=== PATIENT | male | born 1960 | race Caucasian/White ===

== ENCOUNTER 2017-08-11 00:07 | Emergency (ER) | payer MEDICARE, OTHER, SELFPAY ==
[2017-08-11 00:08] VITALS: BP 131/86; PULSE 94; RESP 16; TEMP 36.5; O2SAT 98; BMI 27.9
--- NOTE | 2017-08-11 00:18 | ED.VISSUMM ---
- ER Visit Summary Date of Service: 08/11/17 Chief Complaint: [] Varicose vein History of Present Illness: The patient is a 57 M [] presents with concern for growing varicose vein by his left patella. Denies fevers. Denies warmth. Denies chest pain or shortness of breath. No other complaints at this time. Physical Examination: [] Left vein varicosity medial to the left patella. No overlying cellulitis, warmth, signs of infection. Normal range of motion of the left knee. Test Results: [] No testing was warranted for this benign presentation. Emergency Department Course and Treatment: [] Patient had a very benign presentation and was encouraged to follow-up with his primary care physician. This is extremely low risk for DVT and I do not feel any further evaluation is warranted. Treatment Plan: [] Follow-up up with PCP. Disposition: [] Discharge, stable. Impression: [] Varicose vein This note was generated with [employer] dictation software. It may contain incorrect words, spelling, and punctuation that were not noted in review of the chart prior to signing ED Disposition - Plan for ED Patient: Chief Complaint: Lower Extremity Injury Referrals: Manuela Damico DO [Primary Care Provider] -
--- NOTE | 2017-08-11 00:20 | ED.DEP ---
ED Disposition - Plan for ED Patient: Disposition: Home or Assisted Living Chief Complaint: Lower Extremity Injury Instructions: ED Veins Varicose Referrals: Manuela Damico DO [Primary Care Provider] -
[2017-08-11 00:29] VITALS: BP 131/86; PULSE 94; RESP 16; O2SAT 98
== END 2017-08-11 00:30 | disposition home or self-care (01) ==
LOC: ED 00:25
PROVIDERS: Emergency Provider Emergency Medicine; Family Provider Family Medicine; PCP Family Medicine
DX: I83.92 Asymptomatic varicose veins of left lower extremity (principal); I25.10 Atherosclerotic heart disease of native coronary artery without angina pectoris; Z79.02 Long term (current) use of antithrombotics/antiplatelets; Z79.82 Long term (current) use of aspirin; Z79.899 Other long term (current) drug therapy
CPT/HCPCS: 99282

== ENCOUNTER → 2017-10-25 13:51 | Outpatient (CLI) | payer MEDICARE, OTHER, SELFPAY ==
[2017-10-25 14:14] LABS: Absolute Lymphocyte Count 1.26 X10^3/ul (0.83-4.51); Absolute Neutrophil Count 4.4 X10^3/uL (2.0-7.7); Basophil# 0.03 X10^3/uL; Basophil% 0.5 % (0-1); Eosinophil# 0.14 X10^3/uL; Eosinophils% 2.1 % (0-5); Hematocrit 45.5 % (40-54); Hemoglobin 14.6 g/dl (13.0-16.5); Lymphocyte # 1.26 X10^3/ul (4.0); Lymphocyte % 19.1 % (19-41); Mean Corp Hgb Conc 32.1 g/gl (32-36); Mean Corpuscular Hgb 26.8 pg (27.0-32.0); Mean Corpuscular Volume 83.6 fL (80-94); Mean Platelet Vol. 10.3 fl (6.2-12.0); Monocyte# 0.73 X10^3/uL; Monocyte% 11.1 % (0-10); Neutrophil # 4.43 X10^3/uL (2.7-7.7); Platelet Count 193 K/mm3 (150-450); RBC Distribution Width CV 15.8 % (11.6-14.6); RBC Distribution Width SD 47.8 fl (35.1-43.9); Red Blood Count 5.44 M/mm3 (4.6-6.2); White Blood Count 6.6 K/mm3 (4.4-11.0)
[2017-10-25 14:15] LABS: POSITIVE COUNT NO; POSITIVE DIFFERENTIAL NO; POSITIVE MORPHOLOGY NO
[2017-10-25 14:30] LABS: ALB/GLOB Ratio 1.2 RATIO (0.9-2.4); AST(SGOT) 33 U/L (15-37); Alanine Aminotransfer ALT/SGPT 29 U/L (16-61); Albumin, Serum 3.8 g/dL (3.2-5.0); Alkaline Phosphatase 140 U/L (45-117); Anion Gap 6 (5-15); BUN 18 mg/dL (7-18); BUN/Creat Ratio 16.5 RATIO (10-20); Calcium,Total 9.2 mg/dL (8.5-10.1); Chloride 104 mmol/L (98-107); Creatinine, Serum 1.09 mg/dL (0.70-1.30); EST Glomerular Filtration Rate 74 mL/min (>60); Est Glom Filt Rate - Afr Amer 90 mL/min (>60); Globulin 3.1 g/dL (2.2-4.2); Glucose 164 mg/dL (74-106); Potassium 4.1 mmol/L (3.5-5.1); Protein, Total 6.9 g/dL (6.4-8.2); Sodium Level 139 mmol/L (136-145)
[2017-10-25 22:00] LABS: Xtra Tube EP Lab EXTRA TUBE
[2017-10-28 12:08] LABS: Immunoglobulin G 506 mg/dL (700-1600)
[2017-10-28 17:19] LABS: Immunoglobulin A < 5 mg/dL (90-386); Immunoglobulin M 73 mg/dL (20-172)
== END ==
PROVIDERS: Family Provider Family Medicine; PCP Family Medicine; Visit Provider Internal Medicine Medical Oncology
DX: C88.0 Waldenstrom macroglobulinemia (principal); D80.1 Nonfamilial hypogammaglobulinemia
CPT/HCPCS: 36415; 80053; 82784; 85025

== ENCOUNTER 2018-02-03 08:49 | Inpatient (IN) | payer MEDICARE, SELFPAY ==
[2018-02-03] VITALS (28 sets, daily range): BP systolic 107–161; BP diastolic 71–106; PULSE 57–76; RESP 13–18; TEMP 36.4–37; O2SAT 94–100; BMI 28.5; BMI 27.5
[2018-02-03 09:29] LABS: Absolute Lymphocyte Count 0.74 X10^3/ul (0.83-4.51); Absolute Neutrophil Count 3.7 X10^3/uL (2.0-7.7); Basophil# 0.02 X10^3/uL; Basophil% 0.4 % (0-1); Eosinophil# 0.09 X10^3/uL; Eosinophils% 1.8 % (0-5); Hematocrit 41.7 % (40-54); Hemoglobin 13.1 g/dl (13.0-16.5); Lymphocyte # 0.74 X10^3/ul (4.0); Lymphocyte % 14.7 % (19-41); Mean Corp Hgb Conc 31.4 g/gl (32-36); Mean Corpuscular Hgb 26.8 pg (27.0-32.0); Mean Corpuscular Volume 85.5 fL (80-94); Mean Platelet Vol. 10.2 fl (6.2-12.0); Monocyte% 9.9 % (0-10); Neutrophil # 3.69 X10^3/uL (2.7-7.7); Platelet Count 106 K/mm3 (150-450); RBC Distribution Width CV 15.7 % (11.6-14.6); RBC Distribution Width SD 48.8 fl (35.1-43.9); Red Blood Count 4.88 M/mm3 (4.6-6.2); White Blood Count 5.1 K/mm3 (4.4-11.0)
[2018-02-03 09:33] LABS: POSITIVE COUNT NO; POSITIVE DIFFERENTIAL NO; POSITIVE MORPHOLOGY NO
[2018-02-03] MEDS: 0.9% Normal Saline 1,000 ML 150 ML IV (09:37)
[2018-02-03 09:45] LABS: Anion Gap 7 (5-15); BUN 14 mg/dL (7-18); BUN/Creat Ratio 13.5 RATIO (10-20); Calcium,Total 8.6 mg/dL (8.5-10.1); Chloride 105 mmol/L (98-107); Creatinine, Serum 1.04 mg/dL (0.70-1.30); EST Glomerular Filtration Rate 78 mL/min (>60); Est Glom Filt Rate - Afr Amer 95 mL/min (>60); Estimated Creatinine Clearance 88.56 ml/min; Glucose 229 mg/dL (74-106); Potassium 4.1 mmol/L (3.5-5.1); Sodium Level 138 mmol/L (136-145)
--- NOTE | 2018-02-03 09:45 | ED.RN ---
trop 0.653 called from the lab. dr kapoor aware
--- NOTE | 2018-02-03 10:25 | ED.VISSUMM ---
- ER Visit Summary Date of Service: 02/03/18 Chief Complaint: [Chest pain] History of Present Illness: The patient is a 57 M [presents the emergency department complaint chest pain that started 2 hours ago. Patient states that he was at rest when the pain started. Patient described the pain as a tightness in his chest in the center. Patient also had some burning type discomfort. Patient denies any radiation of the pain. He denies nausea or vomiting. He denies diaphoresis. He denies shortness of breath. Patient does have a history of coronary artery disease with prior 5 vessel CABG and aortic valve replacement with a pig valve. Patient also with history of Hodgkin's lymphoma in remission. Patient has had prior history of a flutter.] Patient is currently pain-free. Physical Examination: [HEENT-PERRLA, EOMI. Cranial nerves II through XII grossly intact. TMs clear. Mucous membranes moist. No adenopathy. Cardiovascular-regular rate and rhythm without murmur or ectopy Lungs-clear to auscultation, chest wall stable without crepitus or subcu emphysema Abdomen-normoactive bowel sounds, soft, nontender, no rebound or rigidity, no peritoneal signs. Extremities-intact ?4, normal range of motion, normal pulses, atraumatic] Test Results: [EKG obtained on arrival showed a sinus rhythm with a ventricular rate of 67 bpm. Patient had nonspecific ST changes noted inferiorly and laterally which are new when compared with prior EKG from January 2017. CBC with differential obtained showed a white blood cell count of 5.1, hemoglobin 13, hematocrit 42, platelets 106. Chemistries unremarkable. Glucose was 229. Troponin was elevated 0.653. Chest x-ray showed nothing acute.] Emergency Department Course and Treatment: [Patient received aspirin in the emergency department. Case was discussed with cardiology on-call Dr. Abhi Go. I was asked not to start patient on any type of anticoagulation given that he may need to possibly be studied today or tomorrow.] Treatment Plan: [Patient will be admitted to hospitalist. Disposition: [Admit] Impression: [Chest pain Non-ST elevation NH] This note was generated with [employer] dictation software. It may contain incorrect words, spelling, and punctuation that were not noted in review of the chart prior to signing ED Disposition - Plan for ED Patient: Chief Complaint: Chest Pain Referrals: Manuela Damico DO [Primary Care Provider] -
--- NOTE | 2018-02-03 10:31 | NURSING ---
[facility]pper notified patient may transfer to PCU.
[2018-02-03] MEDS: Aspirin 81 MG TAB.CHEW 324 MG PO (10:35)
--- NOTE | 2018-02-03 12:43 | PCM.HP.STD ---
<Pranav Hernandez - Last Filed: 02/03/18 12:43> Problem List (1) NSTEMI (non-ST elevated myocardial infarction) Status: Acute (2) Macroglobulinemia of Waldenstrom Status: Chronic Comment: well controlled periodic IgG infusions (3) Nonfamilial hypogammaglobulinemia Status: Chronic (4) Hypertension Status: Chronic (5) Diabetes mellitus with neuropathy Status: Chronic (6) Status post aortic valve replacement with bioprosthetic valve Status: Chronic (7) Coronary artery disease Status: Chronic (8) Status post coronary artery bypass graft Status: Chronic (9) Hyperlipidemia Status: Chronic (10) Hodgkins lymphoma Status: Chronic (11) Atrial flutter Status: Chronic History of Present Illness Date of Admission: 02/03/18 Chief Complaint: Chest pain The patient is a 57 year old M with a hx of CAD, prior CABG x5, prior bioprosthetic AV, pt of Dr. Chaudhary, Hx paroxysmal A flutter, HTN, HLD, DMt2, hodgkins lymphoma, Waldenstrom macroglobulinemia and hypogammaglobulinemia pt of Dr. Schmitt on IVIG, who presents to the ER from oncology office for chest pain. He reported for his IVIG therapy, but told them he had chest pain that he states now has been going on for 2 hours - they sent him to the ER. He describes it as 7-8/10 tightness in his midsternal region. He denies radiation into the back, arms, or neck; he denies SOB, lightheadedness, dizziness, palpitations, nausea, or sweating. He denies that he had this prior to today. In the ER he had an EKG with nonspecific T wave changes, however he had a troponin that was significantly elevated. Dr. Go was contacted and plans to take the person for a cath 2/2 NSTEMI. Pt is agreeable. Pt received 4 baby aspirin and zero nitro so far. [] Past Medical History Past Medical History (Chronic Problems): Chronic Problems (Last Reviewed 01/06/18 @ 08:56 by Hemalatha Poole) Macroglobulinemia of Waldenstrom (Chronic) well controlled periodic IgG infusions Nonfamilial hypogammaglobulinemia (Chronic) Hypertension (Chronic) Poor hygiene (Chronic) Diabetes mellitus with neuropathy (Chronic) Tinea unguium (Chronic) Type 2 diabetes mellitus (Chronic) Status post aortic valve replacement with bioprosthetic valve (Chronic) Coronary artery disease (Chronic) Status post coronary artery bypass graft (Chronic) Hyperlipidemia (Chronic) Hodgkins lymphoma (Chronic) Atrial flutter (Chronic) Medical History: Medical History (Last Reviewed 01/06/18 @ 08:56 by Hemalatha Poole) Chronic bronchitis J42 Heart disease Hypoglobulinemia R77.1 Lymphoma C85.90 Skin cancer C44.90 Allergies adhesive tape Adverse Reaction (Intermediate, Verified 02/03/18 08:52) Rash Home Medications: Ambulatory Orders Medication Instructions Recorded Lisinopril [Zestril] 20 mg PO BID 01/27/15 Metoprolol Tartrate [Lopressor 50 mg PO BID 01/27/15 (beta yoselin)] Aspirin [Aspirin, Baby] 81 mg PO DAILY@0800 02/08/15 Atorvastatin Calcium [Lipitor] 80 mg PO QHS 02/08/15 Docusate Sodium [Colace Clear] 100 mg PO BID PRN 03/08/15 Clopidogrel Bisulfate [Plavix] 75 mg PO DAILY 09/18/15 Magnesium Oxide [Mag-Ox 400] 400 mg PO TID 03/18/16 Multivitamin [Daily Multiple 1 each PO DAILY 12/18/16 Vitamin] Nitroglycerin [Nitrostat] 0.4 mg SUBLINGUAL Q5M PRN 12/18/16 Metformin HCl [Glucophage] 1,000 mg PO BIDCM #60 tablet 02/17/17 Glipizide [Glipizide ER] 10 mg PO DAILY 02/03/18 Isosorbide Mononitrate [Isosorbide 60 mg PO DAILY 02/03/18 Mononitrate ER] Omeprazole 20 mg PO DAILY 02/03/18 Surgical History: Surgical History (Last Reviewed 01/06/18 @ 08:56 by Hemalatha Poole) H/O aortic valve replacement Z95.2 H/O foot surgery Z98.890 H/O myringotomy Z98.890 Hx of CABG Psychiatric History: No pertinent psych hx Lives: Alone Smoking Status: Never smoker Tobacco Use: Non-smoker Alcohol: None Drugs: None - *Family History Maternal Family History: Family History (Last Reviewed 01/06/18 @ 08:56 by Hemalatha Poole) Father Arthritis Brain cancer Lung cancer Hypertension Mother Arthritis Hypertension Cancer History Items: No pertinent history Paternal Family History: Family History (Last Reviewed 01/06/18 @ 08:56 by Hemalatha Poole) Father Arthritis Brain cancer Lung cancer Hypertension Mother Arthritis Hypertension Cancer History Items: Heart Disease Review of Systems Constitutional: Denies: Chills, Fever, Weight Change HEENT: Denies: Head Aches, Sinus Congestion, Sinus Drainage Cardiovascular: Reports: Chest Pain, Chest Tightness. Denies: Edema, Heaviness, Light Headedness, Orthopnea, Palpitations, Paroxysmal Noc. Dyspnea, Syncope Respiratory: Denies: Cough, Shortness of breath at rest, Sputum production Gastrointestinal: Denies: Abdominal Pain, Nausea, Vomiting Genitourinary: Denies: Dysuria Musculoskeletal: Denies: Joint Pain, Joint Tenderness Skin: Denies: Rash, Wounds Neurological: Denies: Numbness, Tingling, Focal weakness Psychiatric: Denies: Anxiety, Depression, Homicidal Ideations, Suicidal Ideations Hematologic/ Lymphatic: Denies: Easy Bruising, Easy Bleeding VTE Information - Inpt Only VTE Present on Admission: No VTE Mechan Device Prophylaxis: SCD's VTE Pharm Prophylaxis ordered?: No Patient Problems: Active and Suspected Problems (Last Reviewed 01/06/18 @ 08:56 by Hemalatha Poole) NSTEMI (non-ST elevated myocardial infarction) (Acute) - Physical Exam General: Alert, Oriented x3, Cooperative HEENT: Atraumatic, PERRLA, EOMI, Normocephalic Neck: Supple, No JVD, Negative Carotid Bruits Lungs: Clear to auscultation, Normal air movement Cardiovascular: Regular rate, No murmurs Abdomen: Bowel Sounds Present, Soft, Non Tender Extremities: No edema, Capillary Refill Less than 3 Seconds Skin: No rashes, No breakdown Musculoskeletal: No Tenderness to Palpation of Joints or Extremities Neurological: Cranial nerves II-XII grossly intact Psych/Mental Status: Normal Affect, Appropriate, Alert and oriented to time, place, person, mood and affect Vital Signs Temp Pulse Resp BP Pulse Ox 98.5 F 59 L 18 114/82 H 98 02/03/18 11:22 02/03/18 11:22 02/03/18 11:22 02/03/18 11:23 02/03/18 11:22 Oxygen Delivery Method Room Air Weight: 208 lb 8 oz Body Mass Index (BMI) 27.5 Laboratory Tests Past 24 Hrs 02/03/18 12:15 Troponin I Pending Assessment/Plan All Active Problems (Last Reviewed 01/06/18 @ 08:56 by Hemalatha Poole) NSTEMI (non-ST elevated myocardial infarction) (Acute) 1. Chest pain / NSTEMI - EKG with nonspecific T wave changes. Troponin elevated. Dr. Go to take pt for cath today. Continue asa, statin, plavix, imdur, lambert-i, lopressor. Pt of Dr. Chaudhary. 2. CAD with prior CABGx5 3. Hx Bioprosthetic AV. 4. Paroxysmal Aflutter - sinus rhythm. No on OAC. 5. DMt2 - elevated in ER, suspect poor control. SSI. Plan to hold orals, restart when appropriate, check A1C and adjust if needed given NSTEMI. 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 6. Hx Hodgkins, Macroglobulinemia of Waldenstrom, nonfamilial hypogammaglobulinemia - pt of Dr. Schmitt, missed IVIG today. Will need close f/u. 7. HTN - stable 8. HLD - statin DVT ppx: lovenox, start when appropriate given heart cath. This patient was seen by Pranav Hernandez PA-C under the supervision of Doctor Huan. <Jaden Pressley - Last Filed: 02/03/18 13:26> Problem List (1) NSTEMI (non-ST elevated myocardial infarction) Status: Acute History of Present Illness The patient is a 57 year old M presents with chest pain that occurred today. Last for about 2 hours. Presents to the emergency room where he initial troponin of 0.6 and went up to 2. After the the symptoms resolve, patient has had no recurrence. Patient denies any other institutional symptoms, such as diaphoresis, shortness of breath, nausea or vomiting. 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 DM2 (diabetes mellitus, type 2) E11.9 Diabetic neuropathy E11.40 Hodgkins lymphoma C81.90 Waldenstrom macroglobulinemia C88.0 HTN (hypertension) I10 Chronic bronchitis J42 Heart disease Hypoglobulinemia R77.1 Lymphoma C85.90 Skin cancer C44.90 Allergies adhesive tape Adverse Reaction (Intermediate, Verified 02/03/18 08:52) Rash Surgical History: Surgical History (Last Reviewed 02/03/18 @ 13:20 by Jaden Pressley DO) H/O aortic valve replacement Z95.2 H/O foot surgery Z98.890 H/O myringotomy Z98.890 Hx of CABG Psychiatric History: No pertinent psych hx Lives: Alone Smoking Status: Never smoker Tobacco Use: Non-smoker Alcohol: None Drugs: None - *Family History Maternal Family History: Family History (Last Reviewed 02/03/18 @ 13:21 by Jaden Pressley DO) Father Arthritis Brain cancer Lung cancer Hypertension Mother Arthritis Hypertension Cancer Paternal Family History: Family History (Last Reviewed 02/03/18 @ 13:21 by Jaden Pressley DO) Father Arthritis Brain cancer Lung cancer Hypertension Mother Arthritis Hypertension Cancer Review of Systems Constitutional: Denies: Chills, Fever, Weight Change HEENT: Denies: Head Aches, Sinus Congestion, Sinus Drainage Cardiovascular: Reports: Chest Pain, Chest Tightness. Denies: Edema, Heaviness, Light Headedness, Orthopnea, Palpitations, Paroxysmal Noc. Dyspnea, Syncope Respiratory: Denies: Cough, Shortness of breath at rest, Sputum production Gastrointestinal: Denies: Abdominal Pain, Nausea, Vomiting Genitourinary: Denies: Dysuria Musculoskeletal: Denies: Joint Pain, Joint Tenderness Skin: Denies: Rash, Wounds Neurological: Denies: Focal weakness, Numbness, Tingling Psychiatric: Denies: Anxiety, Depression, Homicidal Ideations, Suicidal Ideations Hematologic/ Lymphatic: Denies: Easy Bruising, Easy Bleeding Comment: All review of systems are negative except as mentioned in the history of present illness and the other review of systems. VTE Information - Inpt Only VTE Present on Admission: No VTE Mechan Device Prophylaxis: SCD's VTE Pharm Prophylaxis ordered?: No - Physical Exam General: Alert, Oriented x3, Cooperative HEENT: Atraumatic, PERRLA, EOMI, Normocephalic Neck: Supple, Negative Carotid Bruits Lungs: Clear to auscultation, Normal air movement, No rhonchi, No wheeze Cardiovascular: Regular rate, Regular Rhythm, Normal S1, Normal S2, No murmurs Abdomen: Bowel Sounds Present, Soft, Non Tender Extremities: No edema, Capillary Refill Less than 3 Seconds Skin: No rashes, No breakdown, - - upper chest radiation skin changes. Musculoskeletal: No Tenderness to Palpation of Joints or Extremities, No Muscle Wasting Neurological: Neuro grossly intact, Motor Exam 5/5 strength throughout, Muscle tone normal, Sensory exam intact to light touch and pain Psych/Mental Status: Normal Affect, Appropriate Vital Signs Temp Pulse Resp BP Pulse Ox 36.9 C 59 L 18 114/82 H 98 02/03/18 11:22 02/03/18 11:22 02/03/18 11:22 02/03/18 11:23 02/03/18 11:22 Oxygen Delivery Method Room Air Weight: 94.574 kg Body Mass Index (BMI) 27.5 Laboratory Tests Past 24 Hrs 02/03/18 12:15 Troponin I 2.080 H* Assessment/Plan Patient seen and examined independently. Data reviewed. I agree with the above note by the physician event marketing assistant. 1. Non-STEMI Troponins have gone up since his admission Cardiology consult Continue with aspirin, Plavix, high intensity statin, metoprolol and lisinopril Follow-up records from Dr. Rocha's office Cardiology advises emergency room to hold off on anticoagulation in light of impending left heart catheterization. 2. pAfib: stable continue metoprolol 3. DM2: hold metformin SSI 4. DVT proph: chemical proph, when ok'd by cards (unless going to be anticoagulated) Code Visit Inpatient E&M: 48953 Init Hosp L3
[2018-02-03] MEDS: Docusate Sodium 100 MG Capsule PO (13:02)
[2018-02-03] MEDS: Magnesium Oxide 400 MG Tablet PO ×2 (13:03→21:19)
[2018-02-03] MEDS: Magnesium Hydroxide 30 ML UDC PO (13:03)
--- NOTE | 2018-02-03 14:08 | PCM.CONS.C ---
Problem List (1) NSTEMI (non-ST elevated myocardial infarction) Status: Acute (2) Coronary artery disease Status: Chronic (3) Status post coronary artery bypass graft Status: Chronic (4) Status post aortic valve replacement with bioprosthetic valve Status: Chronic (5) Atrial flutter Status: Resolved (6) Hyperlipidemia Status: Chronic Qualifiers: (7) Hypertension Status: Chronic Qualifiers: (8) Type 2 diabetes mellitus Status: Chronic (9) Macroglobulinemia of Waldenstrom Status: Chronic Comment: well controlled periodic IgG infusions (10) Hodgkins lymphoma Status: Chronic Qualifiers: Reason for Consult Date of Consultation: 02/03/18 History of Present Illness: The patient is a 57 year old white male with a past cardiovascular history which is included underlying hyperlipidemia, hypertension, CAD, status post CABG previously reported to have been performed on 03/03/2008 with a MENDOZA to the LAD, and SVG to the diagonal branch, and SVG to the OM, and an SVG to the right PDA, status post aortic valve replacement with a report of a Rosalee-Ledbetter porcine bioprosthetic aortic valve, atrial flutter status post a synchronized biphasic DC cardioversion, superimposed upon diabetes mellitus, macroglobulinemia, and Hodgkin's lymphoma, who is now referred for recurrent symptoms of unstable angina pectoris and abnormal cardiac enzymes/ECG compatible with concerns of an acute non-ST segment elevation MN. He states he had chest discomfort which he described as gas-like discomfort earlier this day. He elected to present to the emergency department for this. He noted by the time he presented to emergency department he was feeling somewhat better. He denied any acute shortness of breath/dyspnea, nausea/emesis, or diaphoresis. He has denied any obvious orthopnea, PND, or peripheral pitting edema. There has been no report of near syncope or syncope. He was noted on cardiac enzyme to have an indeterminate troponin I level which subsequently turned positive. His ECG demonstrated sinus rhythm with ST and T-wave changes in the inferior and lateral distribution which were reported as new compared to a previous ECG. He has undergone previous transthoracic echocardiogram on 08/24/2015. At that time the left ventricle was thought to be normal with an LVEF of 65% with mild TR, a stable appearing bioprosthetic aortic valve with trivial AI, trivial OR, and an estimated RV systolic pressure of 33 mmHg. He has undergone previous cardiac catheterization at [facility] on 03/29/2014. Per the report the left ventricle was not performed secondary to not crossing the bioprosthetic aortic valve apparatus. The left main coronary artery is normal. The LAD demonstrated proximal occlusion with the mid to distal vessel filling from the MENDOZA graft with no angiographically significant appearing disease distal to the graft attachment. The LCx had a proximal occlusion. There were bridging collaterals to the mid segment followed by subsequent occlusion followed by bridging collaterals to the distal segment. OM1 had a proximal subtotal occlusion. The mid to distal LCx and OM1 and OM 2 filled faintly, lately, and only partially. OM1 also filled from an SVG graft and appeared to be a very small caliber vessel. The RCA was a large dominant vessel which was proximally subtotally occluded with the mid to distal vessel filling late and faintly and partially. The right PDA system filled from the SVG graft and was also a small caliber vessel. The MENDOZA to the LAD was patent. The SVG to the diagonal branch was proximally occluded. The SVG reported as a sequential graft to OM1 and OM 2 appeared to be patent with diffuse venous valves and status post detachment OM1 appear to be some subsequently occluded with the appearance of a filling defect potentially compatible with a thrombus. The SVG to the RCA system was patent with findings compatible with venous valves and was subsequently noted to fill the right PDA system which also appeared to be a small caliber vessel. The aortic valve demonstrated an aortic valve prosthetic ring in place. At that time the patient was continuing medical management. [] Past Medical History Allergies/Adverse Reactions: Allergies adhesive tape Adverse Reaction (Intermediate, Verified 02/03/18 08:52) Rash Home Medications: Ambulatory Orders Medication Instructions Recorded Lisinopril [Zestril] 20 mg PO BID 01/27/15 Metoprolol Tartrate [Lopressor 50 mg PO BID 01/27/15 (beta yoselin)] Aspirin [Aspirin, Baby] 81 mg PO DAILY@0800 02/08/15 Atorvastatin Calcium [Lipitor] 80 mg PO QHS 02/08/15 Docusate Sodium [Colace Clear] 100 mg PO BID PRN 03/08/15 Clopidogrel Bisulfate [Plavix] 75 mg PO DAILY 09/18/15 Magnesium Oxide [Mag-Ox 400] 400 mg PO TID 09/26/16 Multivitamin [Daily Multiple 1 each PO DAILY 12/18/16 Vitamin] Nitroglycerin [Nitrostat] 0.4 mg SUBLINGUAL Q5M PRN 12/18/16 Metformin HCl [Glucophage] 1,000 mg PO BIDCM #60 tablet 02/17/17 Glipizide [Glipizide ER] 10 mg PO DAILY 02/03/18 Isosorbide Mononitrate [Isosorbide 60 mg PO DAILY 02/03/18 Mononitrate ER] Omeprazole 20 mg PO DAILY 02/03/18 Past Medical History (Chronic Problems): Chronic Problems (Last Updated 02/03/18 @ 13:20 by Jaden Pressley DO) Hyperlipidemia (Chronic) Hypertension (Chronic) Macroglobulinemia of Waldenstrom (Chronic) well controlled periodic IgG infusions Hodgkins lymphoma (Chronic) Status post coronary artery bypass graft (Chronic) Coronary artery disease (Chronic) Status post aortic valve replacement with bioprosthetic valve (Chronic) Type 2 diabetes mellitus (Chronic) Tinea unguium (Chronic) Diabetes mellitus with neuropathy (Chronic) Poor hygiene (Chronic) Nonfamilial hypogammaglobulinemia (Chronic) Psychiatric History: No pertinent psych hx - *Family History Maternal Family History: Family History (Last Reviewed 02/03/18 @ 13:21 by Jaden Pressley DO) Father Arthritis Brain cancer Lung cancer Hypertension Mother Arthritis Hypertension Cancer History Items: No pertinent history Paternal Family History: Family History (Last Reviewed 02/03/18 @ 13:21 by Jaden Pressley DO) Father Arthritis Brain cancer Lung cancer Hypertension Mother Arthritis Hypertension Cancer History Items: Heart Disease Lives: Alone Smoking Status: Never smoker Tobacco Use: Non-smoker Alcohol: None Drugs: None Review of Systems - Review of Systems General: Denies: Fever, Night Sweats, Fatigue Cardiovascular: Reports: Chest Discomfort, Chest Discomfort at Rest. Denies: Shortness of Breath, Orthopnea, PND, Peripheral Edema, Palpitations, Lightheadedness, Dizziness, Near Syncope, Syncope Respiratory: Denies: Cough, Sputum Production, Hemoptysis Gastrointestinal: Denies: Hematemesis, Hematochezia, Melena Genitourinary: Denies: Dysuria, Hematuria Skin: Denies: Rash Subjectve: This is a 57-year-old white male who appears to be resting comfortably at the moment in no acute distress. Objective: Vital Signs Temp Pulse Resp BP Pulse Ox 98.5 F 59 L 18 114/82 H 98 02/03/18 11:22 02/03/18 11:22 02/03/18 11:22 02/03/18 11:23 02/03/18 11:22 Oxygen Delivery Method Room Air Weight: 208 lb 7.858 oz Body Mass Index (BMI) 27.5 General: Awake, Alert, Oriented x 3, Cooperative, No Acute Distress HEENT: Atraumatic, Normocephalic, PERRL, EOMI, Sclera Non Icteric Oral: Moist Mucosa Neck: Supple, Good ROM, No JVD Chest Wall: Midline Sternotomy Incision Lungs: Clear to auscultation Cardiovascular: Regular Rhythm, Normal S1, Normal S2 Murmur Murmur: Grade 3/6, Mid Systolic, LLSB, LVOT, Sternal Notch Vascular: Radiation of Murmur to Carotid Arteries Abdomen: Bowel Sounds Present, Soft, Non Tender Extremities: No Cyanosis, No Clubbing, No edema Neurological: No Focal Motor or Sensory Deficit 02/03/18 12:15: Troponin I 2.080 H* Rhythm: Sinus rhythm EKG: As noted above ECHO: As noted above Cardiac Cath: As noted above CT Surgery: Unavailable for review at this time CXR: Preliminary evaluation: Post open heart surgery changes: No acute cardiovascular disease process appreciated: Please see official report Assessment/Plan 1. Acute non-ST segment elevation MN The patient presents with symptoms, abnormal troponin I levels, and an abnormal ECG concerning for an acute non-ST segment elevation MN. At the present time the patient appears to be resting comfortably. He is continuing to be monitored. He is continuing medical management. It was felt the patient should be further evaluated based upon his previously documented cardiovascular history and current clinical scenario with diagnostic cardiac catheterization. The procedure and risks were discussed with him and the patient grants consent. 2. CAD status post CABG The patient has a history of previous CABG as described above. He has undergone noninvasive and invasive evaluation previously. He presents now with concerns of his acute non-ST segment elevation MN. He will continue medical management. He will undergo repeat diagnostic cardiac catheterization. 3. Aortic valve disease status post aortic valve replacement-bioprosthetic The exact etiology of the patient's previous aortic valve disease is unknown at this time. He did undergo a [id number]-Exyvvfijwz-Ledbetter aortic valve replacement in the past. This was assessed in 2016 with a transthoracic echocardiogram and was stable at that time. His aortic valve anatomy and physiology can be followed with echocardiographic studies. He will need to continue [employer] antibiotic prophylaxis as deemed appropriate. 4. Atrial flutter The patient has a history of atrial flutter. He underwent previous synchronized biphasic DC cardioversion on 06/05/2016. He is in sinus rhythm at the present time. He will continue medical management and follow-up. 5. Hyperlipidemia The patient will need to continue risk factor evaluation care as deemed appropriate. 6. Hypertension The patient will continue medical management as deemed appropriate. 7. Diabetes mellitus The patient will continue under the care of terminal medicine for his diabetes mellitus. 8. Macroglobulinemia The patient will need to continue to follow with hematology and oncology for his aforementioned issues. 9. Hodgkin's lymphoma Again the patient will continue to follow with hematology/oncology for his diagnosis of Hodgkin's lymphoma. Comment: The patient's case has been discussed and reviewed the patient and the [facility] emergency department staff. This note was generated with [employer] dictation software. It may contain incorrect words, spelling, and punctuation that were not noted in checking the note before signing.
--- NOTE | 2018-02-03 14:13 | NURSING ---
Called report to Ramona HICKMAN in labor relations director
[2018-02-03 14:16] LABS: Bedside Glucose 95 mg/dL (70-110)
--- NOTE | 2018-02-03 15:47 | NURSING ---
Called report to Yesy HICKMAN in ICU
[2018-02-03 16:15] LABS: ACT Activated Clotting Time 345 sec (74-137)
[2018-02-03 17:00] LABS: Bedside Glucose 96 mg/dL (70-110)
[2018-02-03] MEDS: 0.9% Normal Saline 1,000 ML 100 ML IV (20:28)
[2018-02-03] MEDS: Lisinopril 20 MG Tablet PO (21:19)
[2018-02-03] MEDS: Metoprolol Tartrate 50 MG Tablet PO (21:19)
[2018-02-03] MEDS: Atorvastatin Calcium 80 MG Tablet PO (21:20)
[2018-02-03 21:30] LABS: Bedside Glucose 144 mg/dL (70-110)
[2018-02-03] MEDS: oxyCODONE 5 MG Tablet PO (22:13)
[2018-02-04] VITALS (23 sets, daily range): BP systolic 100–139; BP diastolic 45–97; PULSE 56–73; RESP 13–19; TEMP 36.8–37.3; O2SAT 94–99
[2018-02-04 04:27] LABS: Hematocrit 38.7 % (40-54); Hemoglobin 12.4 g/dl (13.0-16.5); Mean Corpuscular Hgb 27.4 pg (27.0-32.0); Mean Corpuscular Volume 85.4 fL (80-94); Mean Platelet Vol. 10.5 fl (6.2-12.0); Platelet Count 110 K/mm3 (150-450); RBC Distribution Width CV 15.7 % (11.6-14.6); RBC Distribution Width SD 48.3 fl (35.1-43.9); Red Blood Count 4.53 M/mm3 (4.6-6.2); Scan Indicated on CBC? Y/N NO; White Blood Count 4.7 K/mm3 (4.4-11.0)
[2018-02-04 05:08] LABS: ALB/GLOB Ratio 1.1 RATIO (0.9-2.4); AST(SGOT) 36 U/L (15-37); Alanine Aminotransfer ALT/SGPT 19 U/L (16-61); Albumin, Serum 3.1 g/dL (3.2-5.0); Alkaline Phosphatase 90 U/L (45-117); Anion Gap 5 (5-15); BUN 11 mg/dL (7-18); BUN/Creat Ratio 13.5 RATIO (10-20); Calcium,Total 8.1 mg/dL (8.5-10.1); Chloride 108 mmol/L (98-107); Cholesterol 114 mg/dL (200); Creatinine, Serum 0.82 mg/dL (0.70-1.30); EST Glomerular Filtration Rate 103 mL/min (>60); Est Glom Filt Rate - Afr Amer 125 mL/min (>60); Estimated Creatinine Clearance 112.33 ml/min; Globulin 2.7 g/dL (2.2-4.2); Glucose 260 mg/dL (74-106); High Density Lipoprotein 29 mg/dL; Potassium 4.4 mmol/L (3.5-5.1); Protein, Total 5.8 g/dL (6.4-8.2); Sodium Level 141 mmol/L (136-145); Triglycerides 258 mg/dL; Very Low Density Lipoprotein 52 mg/dL (5-40)
[2018-02-04] MEDS: 0.9% NaCl Peripheral Flush Adult/Peds IV (05:21)
[2018-02-04] MEDS: Magnesium Oxide 400 MG Tablet PO ×3 (05:21→21:30)
[2018-02-04 07:20] LABS: Bedside Glucose 175 mg/dL (70-110)
--- NOTE | 2018-02-04 07:26 | PCM.PN.HOSP ---
Patient Problems: Active and Suspected Problems (Last Updated 02/03/18 @ 13:20 by Jaden Pressley DO) NSTEMI (non-ST elevated myocardial infarction) (Acute) NSTEMI (non-ST elevated myocardial infarction) (Acute) Subjective: Patient was seen and examined. No acute events overnight except for slight oozing at the right groin site. Been up and about in the room. Denies any chest pain or dizziness or palpitations Telemetry shows no acute events overnight. Vitals/I&O's: Vital Signs Temp Pulse Resp BP Pulse Ox 99.1 F 61 17 121/76 H 96 02/04/18 04:00 02/04/18 07:00 02/04/18 07:00 02/04/18 07:00 02/04/18 07:00 Oxygen Flow Rate (L/min) 2 Oxygen Delivery Method Room Air Weight: 96.4 kg Body Mass Index (BMI) 27.5 Intake and Output for Last 24 Hours 02/02/18 02/03/18 02/04/18 23:59 23:59 23:59 Intake Total 1443 / 1443 867 / 867 Output Total 600 / 600 300 / 300 Balance 843 / 843 567 / 567 General: Alert, Oriented x3, Cooperative, No apparent distress HEENT: Atraumatic, PERRLA, EOMI, Normocephalic Oral: Moist Mucosa Neck: Supple Lungs: Clear to auscultation, Normal air movement Cardiovascular: Regular rate, Regular Rhythm, Normal S1, Normal S2, Murmur - 3/6 holosystolic murmur Abdomen: Bowel Sounds Present, Soft, Non Tender, - - Right groin is soft, nontender, dressing over is dry and clean. Extremities: No edema, - - Right plantar callus, with no surrounding cellulitis or ulcer Skin: No rashes, No breakdown Musculoskeletal: No Tenderness to Palpation of Joints or Extremities Neurological: Cranial nerves II-XII grossly intact Psych/Mental Status: Normal Affect, Appropriate Laboratory Results 02/03/18 12:15: Troponin I 2.080 H* 02/03/18 14:10: POC Glucose 95 02/03/18 15:49: Activated Clotting Time 345 H 02/03/18 16:53: POC Glucose 96 02/03/18 16:55: Troponin I 7.170 H* 02/03/18 21:25: POC Glucose 144 H 02/04/18 04:10: WBC 4.7, RBC 4.53 L, Hgb 12.4 L, Hct 38.7 L, MCV 85.4, MCH 27.4, MCHC 32.0, RDW 15.7 H, RDW Differential 48.3 H, Plt Count 110 L, MPV 10.5 02/04/18 04:10: Sodium 141, Potassium 4.4, Chloride 108 H, Carbon Dioxide 28.0, Anion Gap 5, BUN 11, Creatinine 0.82, Estim Creat Clear Calc 112.33, Est GFR (MDRD) Af Amer 125, Est GFR (MDRD) Non-Af 103, BUN/Creatinine Ratio 13.5, Glucose 260 H, Calcium 8.1 L, Total Bilirubin 0.30, AST 36, ALT 19, Alkaline Phosphatase 90, Total Protein 5.8 L, Albumin 3.1 L, Globulin 2.7, Albumin/Globulin Ratio 1.1, Triglycerides 258 H, Cholesterol 114, LDL Cholesterol 33, VLDL Cholesterol 52 H, HDL Cholesterol 29 L 02/04/18 07:15: POC Glucose 175 H Current Medications Acetaminophen (Tylenol) 650 mg PO Q6H PRN PRN PRN Reason: Mild Pain (1-3)/Temp > 100.7 F Aspirin (Aspirin, Baby) 81 mg PO DAILY@0800 [facility] Atorvastatin Calcium (Lipitor) 80 mg PO QHS [facility] Last Admin: 02/03/18 21:20 Dose: 80 mg Atropine Sulfate () 0.5 mg IV UD PRN PRN Reason: HR <50 bpm Clopidogrel Bisulfate (Plavix) 75 mg PO DAILY [facility] Docusate Sodium (Colace) 100 mg PO BID PRN PRN Reason: CONSTIPATION Last Admin: 02/03/18 13:02 Dose: 100 mg Enoxaparin Sodium (Lovenox) 40 mg SC DAILY@1000 [facility] Sodium Chloride () 250 mls @ 15 mls/hr IV .[id number] PRN PRN Reason: SALINE FLUSH Sodium Chloride () 250 mls @ 15 mls/hr IV .[id number] PRN PRN Reason: SALINE FLUSH Insulin Human Lispro (Humalog Kwikpen (Bkc)) 0 unit SC ACHS [facility] PRN Reason: Protocol Last Admin: 02/03/18 21:26 Dose: Not Given Isosorbide Mononitrate (Imdur) 60 mg PO DAILY [facility] Lisinopril (Zestril) 20 mg PO BID [facility] Last Admin: 02/03/18 21:19 Dose: 20 mg Magnesium Hydroxide (Milk Of Magnesia) 30 ml PO DAILY PRN PRN Reason: Constipation Last Admin: 02/03/18 13:03 Dose: 30 ml Magnesium Oxide (Mag-Ox 400) 400 mg PO TID [facility] Last Admin: 02/04/18 05:21 Dose: 400 mg Metoprolol Tartrate (Lopressor (Beta Mia)) 50 mg PO BID [facility] Last Admin: 02/03/18 21:19 Dose: 50 mg Morphine Sulfate () 2 - 4 mg IV Q4H PRN PRN PRN Reason: MOD-SEVERE PAIN (4-10/10) Morphine Sulfate () 2 - 4 mg IV Q4H PRN PRN PRN Reason: MOD-SEVERE PAIN (4-10/10) Multivitamins (Multivitamin) 1 tablet PO DAILY@0800 [facility] Nitroglycerin (Nitrostat) 0.4 mg SUBLINGUAL Q5M PRN PRN Reason: Chest Pain Ondansetron HCl (Zofran) 4 mg IV Q8H PRN PRN PRN Reason: NAUSEA Oxycodone HCl (Oxyir) 5 - 10 mg PO Q4H PRN PRN PRN Reason: MOD-SEVERE PAIN (4-10/10) Last Admin: 02/03/18 22:13 Dose: 5 mg Pantoprazole Sodium (Protonix) 40 mg PO DAILY [facility] Sodium Chloride () 500 ml IV BOLUS PRN PRN Reason: VASO-VAGAL PROTOCOL Sodium Chloride () 5 - 30 ml IV UD PRN PRN Reason: SALINE FLUSH Last Admin: 02/04/18 05:21 Dose: 10 ml Medical Necessity - Tobacco Use Smoking Status: Never smoker Tobacco Use: Non-smoker Assessment/Plan All Active Problems (Last Updated 02/03/18 @ 13:20 by Jaden Pressley DO) Atrial flutter (Resolved) NSTEMI (non-ST elevated myocardial infarction) (Acute) NSTEMI (non-ST elevated myocardial infarction) (Acute) 57-year-old male with past medical history of CAD status post CABG ?5, status post bioprosthetic aortic valve, history of paroxysmal atrial flutter, hypertension, hyperlipidemia, type II DM, on metformin, Hodgkin's lymphoma, Waldenstr?m's macroglobulinemia and hypogammaglobulinemia, follows up with hematology who was admitted on 02/03/2018 with chest pain, abnormal EKG and elevated troponins. Patient underwent emergent cardiac cath which showed 99% stenosis in the SVG to RPDA, status post JOSE G. 1. Acute NSTEMI, cardiac cath showed 99% stenosis in the SVG to RPDA, status post JOSE G, on aspirin, Plavix, atorvastatin, isosorbide, metoprolol, lisinopril 2. Type II DM, complicated with neuropathy, blood sugars are uncontrolled, previous HbA1c was 11.4, patient is on metformin, will recheck HbA1c, continue on insulin sliding scale for now. Discussed with patient that he may need insulin if HbA1c is above 9, patient is reluctant to be started on insulin. He states that he was on insulin before. He prefers being managed with oral medications. 3. Hypertension, controlled, no lisinopril 4. Hyperlipidemia, lipid profile this morning showed triglycerides 259, total cholesterol 1 4, LDL 33, HDL 29, continue on the same statin. 5. History of paroxysmal atrial flutter, in normal sinus rhythm 6. Waldenstrom macroglobulinemia, nonfamilial hypogammaglobulinemia, follows up in the outpatient with hematology 7. DVT prophylaxis with Lovenox subcu Code Visit Inpatient E&M: [id number] Subs Hosp L2
[2018-02-04] MEDS: Aspirin 81 MG TAB.CHEW PO (08:00)
[2018-02-04] MEDS: Multivitamins,Therapeutic Tablet 1 TABLET PO (08:00)
[2018-02-04] MEDS: Insulin Lispro 100 UNIT/ML INSULN.PEN SC ×4 (08:01→21:29)
[2018-02-04] MEDS: Clopidogrel Bisulfate 75 MG Tablet PO (08:07)
[2018-02-04] MEDS: Isosorbide Mononitrate 60 MG Tablet PO (08:07)
[2018-02-04] MEDS: Pantoprazole Sodium 40 MG Tablet PO (08:07)
[2018-02-04] MEDS: Lisinopril 20 MG Tablet PO ×2 (08:08→21:30)
[2018-02-04 08:52] LABS: Hemoglobin A1c 7.3 % (4.2-6.3)
--- NOTE | 2018-02-04 08:59 | NURSING ---
wound photo: right plantar foot
[2018-02-04] MEDS: Metoprolol Tartrate 50 MG Tablet PO ×2 (09:02→21:30)
--- NOTE | 2018-02-04 10:50 | CASEMGMT ---
SEE MARYLOU MEREDITH Assess Link: D/C PLAN: HOME Intro role to MARYLOU MEREDITH. Pt resting in bed. Awake/alert/oriented. Pt agreeable with participating in assessment and able to answer all questions appropriately. Pt states lives @ home alone and is independent in all ADL's and home management tasks, stating he mows his own lawn and still drives. Pt stated if he would need, he could call a cab to assist with transportation if he was unable to drive. Pt states does not have anyone to drive him home from the hospital after he is discharged. Pt stated he drove himself to the hospital yesterday and wishes to drive himself home upon discharge. Pt made aware that protocol is to not drive for at least 48 hrs after Stents placed and offered for [facility] Van to transport pt home upon discharge. Pt stated he does not want to leave his van @ the hospital, as he has things in his van he doesn't want to go home without. Pt further stated that he has a rifle in his van and doesn't want to go home without it. Reinforced with pt that protocol is to not drive for 48 hrs after stents placed but that it is his right to make his own decisions as to follow physicians orders or not. Pt's RN, Diamond, informed that pt is aware he is not supposed to drive if he would be discharged today, that he was offered free transportation home via [facility] van, but that pt states he still wishes to drive home upon discharge. Pt states his brother, Rubén, is his medical POA but that he lives in [place]. Pt states he talks with his brother at times for advice, but otherwise manages all of his finances on his own. Pt states lives in a one-story [place] home that has a basement that he rarely goes down to. Pt reports he has a glucometer @ home and checks his own blood sugars twice a day. Pt reports he purchased his glucometer @ [email or web address] and was not aware of the need to do routine control checks on his machine. MARYLOU MEREDITH encouraged pt to take the glucometer into [email or web address] and ask them for assistance/show him how to do routine control levels. Pt stated he would do this and thanked MARYLOU MEREDITH for letting him know about this. Discussed [facility] with patient. Pt states he did use their services in the past but no longer sees them and is not interested or feel the need to have them provide services at this time. Pt states does have some Group Home Paperwork with him and has some questions about these. Informed pt SW could come talk with him about these and pt voiced appreciation. Referral made to SW. VIRI Lorenzana to follow for discharge planning needs that may arise. Lloyd ROSAN RN CM
[2018-02-04 13:16] LABS: Bedside Glucose 264 mg/dL (70-110)
[2018-02-04 13:16] LABS: Bedside Glucose 254 mg/dL (70-110)
--- NOTE | 2018-02-04 14:42 | CASEMGMT ---
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 SW spoke w/pt, reviewed the paperwork. SW explained that to this SW, it seems to be an explanation of how much money pt would get monthly based on when he retires. SW encouraged pt to call HR however to review and make sure this SW has the correct understanding. Pt will follow up accordingly. No further social service needs are anticipated at this time. ALEJANDRA Potter, BACK END DEVELOPER
[2018-02-04 16:41] LABS: Bedside Glucose 219 mg/dL (70-110)
--- NOTE | 2018-02-04 18:24 | PCM.PN.CARD ---
Subjectve: The patient states he feels better. He denies any ongoing chest discomfort nor has he had any worsening shortness of breath or dyspnea. There has been no near syncope or syncope. Objective: Vital Signs Temp Pulse Resp BP Pulse Ox 98.4 F 65 18 128/78 H 99 02/04/18 16:36 02/04/18 16:36 02/04/18 16:36 02/04/18 16:36 02/04/18 16:36 Oxygen Flow Rate (L/min) 2 Oxygen Delivery Method Room Air Weight: 212 lb 8.41 oz Body Mass Index (BMI) 27.5 Intake and Output for Last 24 Hours 02/02/18 02/03/18 02/04/18 23:59 23:59 23:59 Intake Total 1443 / 1443 1547 / 1547 Output Total 600 / 600 300 / 300 Balance 843 / 843 1247 / 1247 General: Awake, Alert, Oriented x 3, No Acute Distress Neck: No JVD Lungs: Clear to auscultation Cardiovascular: Regular Rhythm, Normal S1, Normal S2 Murmur Murmur: Grade 3/6, Mid Systolic, LLSB, LVOT, Sternal Notch Vascular: Normal Femoral Pulses Abdomen: Bowel Sounds Present, Soft, Non Tender Extremities: No edema 02/04/18 04:10: WBC 4.7, RBC 4.53 L, Hgb 12.4 L, Hct 38.7 L, MCV 85.4, MCH 27.4, MCHC 32.0, RDW 15.7 H, RDW Differential 48.3 H, Plt Count 110 L, MPV 10.5 02/04/18 04:10: Sodium 141, Potassium 4.4, Chloride 108 H, Carbon Dioxide 28.0, Anion Gap 5, BUN 11, Creatinine 0.82, Est GFR (MDRD) Af Amer 125, Est GFR (MDRD) Non-Af 103, BUN/Creatinine Ratio 13.5, Glucose 260 H, Calcium 8.1 L, Total Bilirubin 0.30, Triglycerides 258 H, Cholesterol 114, LDL Cholesterol 33, VLDL Cholesterol 52 H, HDL Cholesterol 29 L 02/04/18 04:10: Hemoglobin A1c 7.3 H 02/04/18 04:10: Troponin I 4.470 H* Rhythm: Sinus rhythm EKG: Sinus rhythm; ST and T-wave changes compatible with myocardial ischemia-inferolateral ECHO: 02/04/2018: Interpretation Summary Segmental dysfunction with preserved ejection fraction (see wall motion). The estimated ejection fraction is 60 %. Mild concentric left ventricular hypertrophy. The left atrium is mildly enlarged. Anterior leaflet diffuse mitral valve thickening. Mild (1+) mitral valve insufficiency. Trivial tricuspid valve insufficiency. Stable appearing bioprosthetic aortic valve apparatus. Trivial aortic valve insufficiency. Mild (1+) pulmonic valve insufficiency. There is evidence of diastolic dysfunction. Medical Necessity - Tobacco Use Smoking Status: Never smoker Tobacco Use: Non-smoker Assessment/Plan 1. Acute non-ST segment elevation VT The patient presents with symptoms, abnormal troponin I levels, and an abnormal ECG concerning for an acute non-ST segment elevation VT. At the present time the patient appears to be resting comfortably. He is continuing to be monitored. He is continuing medical management. He has undergone further evaluation with diagnostic cardiac catheterization. This led to the finding of significant SVG disease to the RCA. This led to a PCI of the SVG. 2. CAD status post CABG The patient has a history of previous CABG as described above. He has undergone noninvasive and invasive evaluation previously. He presents now with concerns of his acute non-ST segment elevation VT. He has undergone reevaluation with diagnostic cardiac catheterization leading to a PCI of the SVG to the RCA. His troponin I levels are decreasing. His echocardiogram is as noted above. He will continue medical management with adjustment as deemed appropriate. 3. Aortic valve disease status post aortic valve replacement-bioprosthetic The exact etiology of the patient's previous aortic valve disease is unknown at this time. He did undergo a iedbnzyjrqwui-itvrexr-Cffjfulnhf-Ledbetter aortic valve replacement in the past. This was assessed in 2016 with a transthoracic echocardiogram and was stable at that time. He is aortic valve apparatus appears to be stable based upon the echocardiographic studies. 4. Atrial flutter The patient has a history of atrial flutter. He underwent previous synchronized biphasic DC cardioversion on 06/05/2016. He is in sinus rhythm at the present time. He will continue medical management and follow-up. 5. Hyperlipidemia The patient will need to continue risk factor evaluation care as deemed appropriate. 6. Hypertension The patient will continue medical management as deemed appropriate. 7. Diabetes mellitus The patient will continue under the care of terminal medicine for his diabetes mellitus. 8. Macroglobulinemia The patient will need to continue to follow with hematology and oncology for his aforementioned issues. 9. Hodgkin's lymphoma Again the patient will continue to follow with hematology/oncology for his diagnosis of Hodgkin's lymphoma. Comment: The patient's case has been discussed and reviewed the patient and the [facility] staff. This note was generated with [employer] dictation software. It may contain incorrect words, spelling, and punctuation that were not noted in checking the note before signing.
[2018-02-04] MEDS: Atorvastatin Calcium 80 MG Tablet PO (21:30)
[2018-02-04 22:31] LABS: Bedside Glucose 210 mg/dL (70-110)
[2018-02-05] VITALS (9 sets, daily range): BP systolic 107–121; BP diastolic 61–74; PULSE 61–64; RESP 16–18; TEMP 36.4–36.8; O2SAT 96–98
[2018-02-05] MEDS: Magnesium Oxide 400 MG Tablet PO ×2 (05:35→15:03)
[2018-02-05 06:36] LABS: Anion Gap 6 (5-15); BUN 11 mg/dL (7-18); BUN/Creat Ratio 13.8 RATIO (10-20); Calcium,Total 8.6 mg/dL (8.5-10.1); Chloride 107 mmol/L (98-107); EST Glomerular Filtration Rate 106 mL/min (>60); Est Glom Filt Rate - Afr Amer 128 mL/min (>60); Estimated Creatinine Clearance 115.13 ml/min; Glucose 201 mg/dL (74-106); Potassium 4.2 mmol/L (3.5-5.1); Sodium Level 140 mmol/L (136-145)
[2018-02-05] MEDS: Multivitamins,Therapeutic Tablet 1 TABLET PO (09:48)
[2018-02-05] MEDS: Pantoprazole Sodium 40 MG Tablet PO (09:48)
[2018-02-05] MEDS: Metoprolol Tartrate 50 MG Tablet PO (09:48)
[2018-02-05] MEDS: Insulin Lispro 100 UNIT/ML INSULN.PEN SC ×2 (09:48→12:02)
[2018-02-05] MEDS: Enoxaparin 40 MG/0.4 ML Syringe SC (09:48)
[2018-02-05] MEDS: Lisinopril 20 MG Tablet PO (09:48)
[2018-02-05] MEDS: Clopidogrel Bisulfate 75 MG Tablet PO (09:48)
[2018-02-05] MEDS: Isosorbide Mononitrate 60 MG Tablet PO (09:48)
[2018-02-05] MEDS: Aspirin 81 MG TAB.CHEW PO (09:48)
--- NOTE | 2018-02-05 10:17 | PCM.DC ---
- Discharge Diagnoses Current Active Problems: Current Active and Chronic Problems (Last Updated 02/03/18 @ 13:20 by Jaden Pressley DO) NSTEMI (non-ST elevated myocardial infarction) (Acute) NSTEMI (non-ST elevated myocardial infarction) (Acute) Reason(s) for Visit for Discharge Instructions: Chest pain You will use the following diet at home:: Calorie/Carbohydrate Controlled (specify 1200, 1400, etc), Cardiac Your food should be the consistency of: Regular Your liquids should be the consistency of: Regular/Thin Discharge Activity: Return to Normal Activity Call your doctor if you observe: Shortness of breath, Dizziness, Chest pain Additional Instructions: Continue to take all your medications as prescribed. Follow-up with your hospice executive director and PCP within 2 weeks. Continue to remain active. Follow-up with cardiac rehab as scheduled. Allergies/Adverse Reactions: Allergies adhesive tape Adverse Reaction (Intermediate, Verified 02/03/18 08:52) Rash Medications to take at Discharge Metoprolol Tartrate [Lopressor (beta yoselin)] 50 mg PO BID 01/27/15 Docusate Sodium [Colace Clear] 100 mg PO BID PRN 03/08/15 Magnesium Oxide [Mag-Ox 400] 400 mg PO TID 03/18/16 Multivitamin [Daily Multiple Vitamin] 1 each PO DAILY 12/18/16 Nitroglycerin [Nitrostat] 0.4 mg SUBLINGUAL Q5M PRN 12/18/16 Metformin HCl [Glucophage] 1,000 mg PO BIDCM #60 tablet 02/17/17 Glipizide [Glipizide ER] 10 mg PO DAILY 02/03/18 Omeprazole 20 mg PO DAILY 02/03/18 Aspirin [Aspirin, Baby] 81 mg PO DAILY@0800 #30 tab.chew 02/05/18 Atorvastatin Calcium [Lipitor] 80 mg PO QHS #30 tab 02/05/18 Clopidogrel Bisulfate [Plavix] 75 mg PO DAILY #30 tab 02/05/18 Isosorbide Mononitrate [Isosorbide Mononitrate ER] 60 mg PO DAILY #30 tab.er.24h 02/05/18 Lisinopril [Zestril] 20 mg PO BID #60 tab 02/05/18 The following prescriptions were given: Aspirin [Aspirin, Baby] 81 mg PO DAILY@0800 #30 tab.chew Atorvastatin Calcium [Lipitor] 80 mg PO QHS #30 tab Clopidogrel Bisulfate [Plavix] 75 mg PO DAILY #30 tab Isosorbide Mononitrate [Isosorbide Mononitrate ER] 60 mg PO DAILY #30 tab.er.24h Lisinopril [Zestril] 20 mg PO BID #60 tab Primary Care Physician: Manuela Damico DO [Primary Care Provider] - Please follow up with your Primary Care Physician in: within 2 weeks Test Results: Test results from this visit will be discussed in further detail at your follow-up appointment, if applicable. Please Follow Up With: Abhi Go MD When: within 2 weeks When: Cardiac rehab as scheduled Proposed Discharge Date: 02/05/18
--- NOTE | 2018-02-05 10:19 | PCM.DC.SUM ---
Discharge Date and Diagnosis Date of Admission: 02/03/18 Date of Discharge: 02/05/18 - Primary Discharge Diagnosis Active and Suspected Problems (Last Updated 02/03/18 @ 13:20 by Jaden Pressley DO) NSTEMI (non-ST elevated myocardial infarction) (Acute) Hyperglycemia, in a type 2 DM patient - Secondary Discharge Diagnosis Chronic Problems (Last Updated 02/03/18 @ 13:20 by Jaden Pressley DO) Hyperlipidemia (Chronic) Hypertension (Chronic) Macroglobulinemia of Waldenstrom (Chronic) well controlled periodic IgG infusions Hodgkins lymphoma (Chronic) Status post coronary artery bypass graft (Chronic) Coronary artery disease (Chronic) Status post aortic valve replacement with bioprosthetic valve (Chronic) Type 2 diabetes mellitus (Chronic) Tinea unguium (Chronic) Diabetes mellitus with neuropathy (Chronic) Poor hygiene (Chronic) Nonfamilial hypogammaglobulinemia (Chronic) Hospital Course and Treatment Imaging Results: Clinical Impression(s) from Imaging Studies Chest X-Ray 02/03/18 09:35 IMPRESSION: No acute cardiopulmonary disease Electronically Signed: Newton Yang DO at 10:12 EDT Tel , Service support , Consultations 02/03/18 11:26 Consult: Onc/Wound/line server Routine Comment: bottom of right foot Operations: None Procedures: None Summary of Care Provided: 57-year-old male with past medical history of CAD status post CABG ?5, status post bioprosthetic aortic valve, history of paroxysmal atrial flutter, hypertension, hyperlipidemia, type II DM, on metformin, Hodgkin's lymphoma, Waldenstr?m's macroglobulinemia and hypogammaglobulinemia, who follows up with hematology was admitted on 02/03/2018 with chest pain, abnormal EKG and elevated troponins. Patient underwent emergent cardiac cath which showed 99% stenosis in the SVG to RPDA, status post JOSE G. 1. Acute NSTEMI, cardiac cath showed 99% stenosis in the SVG to RPDA, status post JOSE G, on aspirin, Plavix, atorvastatin, isosorbide, metoprolol, lisinopril 2. Type II DM, complicated with neuropathy, blood sugars were uncontrolled in this admission, recent HbA1c is 7.3, he is on metformin. This was held in this admission. Managed on insulin sliding scale. 3. Hypertension, controlled, on lisinopril 4. Hyperlipidemia, lipid profile showed triglycerides 259, total cholesterol 1 4, LDL 33, HDL 29, on statin. 5. History of paroxysmal atrial flutter, in normal sinus rhythm 6. Waldenstrom macroglobulinemia, nonfamilial hypogammaglobulinemia, follows up in the outpatient with hematology Discharge Diet: Low fat/ Low Cholesterol, 2000 mg Sodium Diet, Carb Control Diet Discharge Activity: Return to Normal Activity Call your doctor if you observe: Shortness of breath, Dizziness, Chest pain Home Medications: Medications to take at Discharge Metoprolol Tartrate [Lopressor (beta mia)] 50 mg PO BID 01/27/15 Docusate Sodium [Colace Clear] 100 mg PO BID PRN 03/08/15 Magnesium Oxide [Mag-Ox 400] 400 mg PO TID 03/18/16 Multivitamin [Daily Multiple Vitamin] 1 each PO DAILY 12/18/16 Nitroglycerin [Nitrostat] 0.4 mg SUBLINGUAL Q5M PRN 12/18/16 Metformin HCl [Glucophage] 1,000 mg PO BIDCM #60 tablet 02/17/17 Glipizide [Glipizide ER] 10 mg PO DAILY 02/03/18 Omeprazole 20 mg PO DAILY 02/03/18 Aspirin [Aspirin, Baby] 81 mg PO DAILY@0800 #30 tab.chew 02/05/18 Atorvastatin Calcium [Lipitor] 80 mg PO QHS #30 tab 02/05/18 Clopidogrel Bisulfate [Plavix] 75 mg PO DAILY #30 tab 02/05/18 Isosorbide Mononitrate [Isosorbide Mononitrate ER] 60 mg PO DAILY #30 tab.er.24h 02/05/18 Lisinopril [Zestril] 20 mg PO BID #60 tab 02/05/18 Following Prescrptions Were Given to Patient: Aspirin [Aspirin, Baby] 81 mg PO DAILY@0800 #30 tab.chew Atorvastatin Calcium [Lipitor] 80 mg PO QHS #30 tab Clopidogrel Bisulfate [Plavix] 75 mg PO DAILY #30 tab Isosorbide Mononitrate [Isosorbide Mononitrate ER] 60 mg PO DAILY #30 tab.er.24h Lisinopril [Zestril] 20 mg PO BID #60 tab Primary Care Physician: Manuela Damico DO [Primary Care Provider] - Please follow up with your Primary Care Physician in: within 2 weeks Disposition: Home Minutes spent on discharge:: 35 Patient Condition:: Stable Medical Necessity - Tobacco Use Smoking Status: Never smoker Tobacco Use: Non-smoker Meaningful Use Info Meaningful Use Diagnoses (Choose all that apply): AMI - AMI Aspirin given w/in 24hrs of arrival?: Yes ASA at discharge?: Yes Statins at discharge?: Yes Servando/ARB at discharge?: Yes Beta Mia at discharge?: Yes Done w/ Acute DC measure.: Yes Code Visit Inpatient E&M: 75659 Disch Hosp
[2018-02-05 11:36] LABS: Bedside Glucose 158 mg/dL (70-110)
[2018-02-05 12:11] LABS: Bedside Glucose 309 mg/dL (70-110)
--- NOTE | 2018-02-06 15:04 | CASEMGMT ---
RN CM Discharge Phone. AMARI 11, STRATA 3. DC DATE: 02/05/18 DC PLAN: home Call to patient. Message left with call back information if pt had questions re: prescriptions, instructions, f/u. Dayo ROSAN RN AC
== END 2018-02-05 15:39 | disposition home or self-care (01) | DRG 247 ==
LOC: ED 09:21 → PCU 11:49 → ICU 15:39 → PCU 02-04 13:52
PROVIDERS: Internal Medicine Cardiovascular Disease; Emergency Provider Emergency Medicine; Family Provider Family Medicine; PCP Family Medicine; Visit Provider Internal Medicine
DX: I21.4 Non-ST elevation (NSTEMI) myocardial infarction (principal); C81.90 Hodgkin lymphoma, unspecified, unspecified site; D80.1 Nonfamilial hypogammaglobulinemia; I25.810 Atherosclerosis of coronary artery bypass graft(s) without angina pectoris; I25.10 Atherosclerotic heart disease of native coronary artery without angina pectoris; Z95.3 Presence of xenogenic heart valve; E11.40 Type 2 diabetes mellitus with diabetic neuropathy, unspecified; E78.5 Hyperlipidemia, unspecified; C88.0 Waldenstrom macroglobulinemia; I10 Essential (primary) hypertension; E11.65 Type 2 diabetes mellitus with hyperglycemia; Z79.84 Long term (current) use of oral hypoglycemic drugs; B35.1 Tinea unguium; Z95.1 Presence of aortocoronary bypass graft
CPT/HCPCS: 36415; 71045; 80048; 80053; 80061; 82962; 83036; 84484; 85025; 85027; 85347; 92937; 93005; 93306; 93455; 97802; 99152; 99153; 99283; J0153; J7030; J7040; J7050; Q9967; A4216; C1725; C1760; C1769; C1874; C1887; C1894; C9604; J0583

== ENCOUNTER → 2018-06-02 12:11 | Outpatient (CLI) | payer MEDICARE, OTHER, SELFPAY ==
[2018-05-18 16:30] VITALS: BMI 29.4
[2018-06-02 14:15] LABS: ALB/GLOB Ratio 1.2 RATIO (0.9-2.4); AST(SGOT) 42 U/L (15-37); Alanine Aminotransfer ALT/SGPT 32 U/L (16-61); Albumin, Serum 3.8 g/dL (3.2-5.0); Alkaline Phosphatase 120 U/L (45-117); Anion Gap 10 (5-15); BUN 19 mg/dL (7-18); Calcium,Total 8.7 mg/dL (8.5-10.1); Chloride 105 mmol/L (98-107); Creatinine, Serum 1.36 mg/dL (0.70-1.30); EST Glomerular Filtration Rate 57 mL/min (>60); Est Glom Filt Rate - Afr Amer 69 mL/min (>60); Globulin 3.3 g/dL (2.2-4.2); Glucose 178 mg/dL (74-106); Potassium 4.7 mmol/L (3.5-5.1); Protein, Total 7.1 g/dL (6.4-8.2); Sodium Level 142 mmol/L (136-145)
[2018-06-02 14:17] LABS: Absolute Lymphocyte Count 0.79 X10^3/ul (0.83-4.51); Absolute Neutrophil Count 3.1 X10^3/uL (2.0-7.7); Basophil# 0.02 X10^3/uL; Basophil% 0.4 % (0-1); Eosinophil# 0.08 X10^3/uL; Eosinophils% 1.8 % (0-5); Hematocrit 45.6 % (40-54); Hemoglobin 14.1 g/dl (13.0-16.5); Lymphocyte # 0.79 X10^3/ul (4.0); Lymphocyte % 17.4 % (19-41); Mean Corp Hgb Conc 30.9 g/gl (32-36); Mean Corpuscular Hgb 26.1 pg (27.0-32.0); Mean Corpuscular Volume 84.3 fL (80-94); Mean Platelet Vol. 10.7 fl (6.2-12.0); Monocyte# 0.49 X10^3/uL; Monocyte% 10.8 % (0-10); Neutrophil # 3.14 X10^3/uL (2.7-7.7); Neutrophil % 69.4 % (47-70); POSITIVE COUNT NO; POSITIVE DIFFERENTIAL NO; POSITIVE MORPHOLOGY NO; Platelet Count 148 K/mm3 (150-450); RBC Distribution Width CV 15.6 % (11.6-14.6); RBC Distribution Width SD 48.3 fl (35.1-43.9); Red Blood Count 5.41 M/mm3 (4.6-6.2); White Blood Count 4.5 K/mm3 (4.4-11.0)
[2018-06-02 20:16] LABS: Xtra Tube EP Lab EXTRA TUBE
[2018-06-03 04:09] LABS: Immunoglobulin G 532 mg/dL (700-1600)
[2018-06-03 10:01] LABS: Immunoglobulin A < 5 mg/dL (90-386); Immunoglobulin M 216 mg/dL (20-172)
--- OUTSIDE RECORDS SUMMARY | 2018-07-19 14:24 | XMS RPT_ITS ---
:1960 Author Organization OHIP Support Name Relationship Address Phone D Unavailable Unavailable Unavailable D Unavailable Unavailable Unavailable D Unavailable Unavailable Unavailable D Unavailable Unavailable Unavailable D Unavailable Unavailable Unavailable D Unavailable Unavailable Unavailable NADIRA GOULD Unavailable Unavailable + D Unavailable Unavailable Unavailable NADIRA GOULD Unavailable Unavailable + D Unavailable Unavailable Unavailable NADIRA GOULD Unavailable Unavailable + D Unavailable Unavailable Unavailable NADIRA GOULD Unavailable Unavailable + D Unavailable Unavailable Unavailable NADIRA GOULD Unavailable Unavailable + D Unavailable Unavailable Unavailable NADIRA GOULD Unavailable Unavailable + D Unavailable Unavailable Unavailable NADIRA GOULD Unavailable Unavailable + D Unavailable Unavailable Unavailable NADIRA GOULD Unavailable Unavailable + D Unavailable Unavailable Unavailable NADIRA GOULD Unavailable Unavailable + D Unavailable Unavailable Unavailable NADIRA GOULD Unavailable Unavailable + D Unavailable Unavailable Unavailable NADIRA GOULD Unavailable Unavailable + D Unavailable Unavailable Unavailable NADIRA GOULD Unavailable Unavailable + D Unavailable Unavailable Unavailable NADIRA GOULD Unavailable Unavailable + D Unavailable Unavailable Unavailable NADIRA GOULD Unavailable Unavailable + D Unavailable Unavailable Unavailable NADIRA GOULD Unavailable Unavailable + D Unavailable Unavailable Unavailable NADIRA GOULD Unavailable Unavailable + D Unavailable Unavailable Unavailable NADIRA GOULD Unavailable Unavailable + D Unavailable Unavailable Unavailable NADIRA GOULD Unavailable Unavailable + D Unavailable Unavailable Unavailable NADIRA GOULD Unavailable Unavailable + D Unavailable Unavailable Unavailable EAGLE GOULDALD Unavailable . + Galdino MCKNIGHT Kathy Henriquez Unavailable Unavailable Unavailable NADIRA GOULD Unavailable . + KAIA MCKNIGHT Care Team Providers Name Role Phone Rogerio, Shobha Attending Unavailable Rogerio, Shobha Referring Unavailable Malys, Manuela Primary Care Unavailable Prah, Dionicio Attending Unavailable Malys, Manuela Referring Unavailable Malys, Manuela Primary Care Unavailable Prah, Dionicio Consulting Unavailable Prah, Dionicio Attending Unavailable Malys, Manuela Referring Unavailable Malys, Manuela Primary Care Unavailable Prah, Dionicio Consulting Unavailable Prah, Dionicio Attending Unavailable Malys, Manuela Primary Care Unavailable Malys, Manuela Referring Unavailable Prah, Dionicio Attending Unavailable Prah, Dionicio Referring Unavailable Malys, Manuela Primary Care Unavailable Prah, Dionicio Consulting Unavailable Malys, Manuela Primary Care Unavailable Bryan Adame Attending Unavailable Prah, Dionicio Attending Unavailable Malys, Manuela Referring Unavailable Malys, Manuela Primary Care Unavailable Prah, Dionicio Consulting Unavailable Prah, Dionicio Attending Unavailable Malys, Manuela Referring Unavailable Malys, Manuela Primary Care Unavailable Prah, Dionicio Consulting Unavailable Prah, Dionicio Attending Unavailable Prah, Dionicio Referring Unavailable Malys, Manuela Primary Care Unavailable Prah, Dionicio Attending Unavailable Malys, Manuela Referring Unavailable Malys, Manuela Primary Care Unavailable Prah, Dionicio Consulting Unavailable Prah, Dionicio Attending Unavailable Malys, Manuela Referring Unavailable Malys, Manuela Primary Care Unavailable Prah, Dionicio Consulting Unavailable Prah, Dionicio Attending Unavailable Malys, Manuela Referring Unavailable Malys, Manuela Primary Care Unavailable Prah, Dionicio Consulting Unavailable Malys, Manuela Primary Care Unavailable Jopperi, Jaden Admitting Unavailable Moodispaw, Abhi Consulting Unavailable Paintsil, Idanha Attending Unavailable Jopperi, Jaden Admitting Unavailable Malys, Manuela Primary Care Unavailable Moodispaw, Abhi Consulting Unavailable Jopperi, Jaden Attending Unavailable Jopperi, Jaden Consulting Unavailable Jopperi, Jaden Admitting Unavailable Moodispaw, Abhi Attending Unavailable Malys, Manuela Primary Care Unavailable Moodispaw, Abhi Consulting Unavailable Jopperi, Jaden Consulting Unavailable Jopperi, Jaden Admitting Unavailable Paintsil, Idanha Attending Unavailable Malys, Manuela Primary Care Unavailable Moodispaw, Abhi Consulting Unavailable Paintsil, Idanha Consulting Unavailable Jopperi, Jaden Admitting Unavailable Moodispaw, Abhi Attending Unavailable Malys, Manuela Primary Care Unavailable Moodispaw, Abhi Consulting Unavailable Paintsil, Idanha Consulting Unavailable Jopperi, Jaden Admitting Unavailable Paintsil, Idanha Attending Unavailable Malys, Manuela Primary Care Unavailable Moodispaw, Abhi Consulting Unavailable Paintsil, Idanha Consulting Unavailable Rogerio, Shobha Attending Unavailable Malys, Manuela Referring Unavailable Malys, Manuela Primary Care Unavailable Prah, Dionicio Consulting Unavailable Jopperi, Jaden Referring Unavailable Sharath, Diego Attending Unavailable Prah, Dionicio Attending Unavailable Malys, Manuela Referring Unavailable Malys, Manuela Primary Care Unavailable Prah, Dionicio Consulting Unavailable Sharath, Faxon Attending Unavailable Paintsil, Idanha Referring Unavailable Prah, Dionicio Attending Unavailable Malys, Manuela Referring Unavailable Malys, Manuela Primary Care Unavailable Prah, Dionicio Consulting Unavailable Rogerio, Shobha Attending Unavailable Malys, Manuela Referring Unavailable Malys, Manuela Primary Care Unavailable Prah, Dionicio Consulting Unavailable Malys, Manuela Attending Unavailable Malys, Manuela Primary Care Unavailable GREG KEYES Attending Unavailable GREG KEYES Referring Unavailable GREG KEYES Attending Unavailable PROBLEMS PROBLEMS DATE TYPE CONDITION / CODE ATTENDING STATUS SOURCE Unknown D80.1 - Nonfamilial Dionicio Schmitt Active [facility] 9 hypogammaglobulinemia / Community D80.1(ICD-10) Hospital Repository Unknown C88.0 - Waldenstrom Rogerio, Active [facility] [facility] macroglobulinemia / Shobha Community C88.0(ICD-10) Hospital Repository Active Unknown / UNK(Unknown) Tangela KEYES [facility] Repository Unknown I21.4 - Non-ST elevation Sharath, Faxon Active [place] 8 (NSTEMI) myocardial Community infarction / I21.4(ICD-10) Hospital Repository Unknown I25.810 - Atherosclerosis Sharath, Faxon Active [facility] 8 of coronary artery bypass Community graft(s) without angina Hospital pectoris / I25.810(ICD-10) Repository Unknown I25.10 - Atherosclerotic SharathValentín louisril Active [place] 8 heart disease of [place] Community coronary artery without Hospital angina pectoris / Repository I25.10(ICD-10) Unknown I10 - Essential (primary) Sharath, Faxon Active [place] 8 hypertension / I10(ICD-10) [facility] Repository Unknown R07.9 - Chest pain, SharathValentín louisril Active [place] 8 unspecified / Community R07.9(ICD-10) Hospital Repository PROCEDURES PROCEDURES No Procedure Records FoundRESULTS RESULTS ONCOLOGY VISIT REPORT Observed: 07/01/2018 Status: F Source: [place] 10:19 AM [facility] REPOSITORY [facility] [place] [address] OFFICE VISIT Date of Service: 07/01/18 1014 MR#: [id number] Acct: [id number] Name: CHARLES GOULD Rep #: [id number] : 1960 From: Dionicio Schmitt MD Age/Sex: 57/M Location: ONC Status: Signed Subjective - Date of Service Date of Service:: 07/01/18 - Chief Complaint F/u for Hypogammaglobulinemia - History of Present Illness History of Present Illness: CHARLES GOULD is a very pleasant 56 M with a history for Mr. 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 He has been treated with Cytoxan, Rituxan, and Fludara. The patient is currently in remission. 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 He was found to have hypogammaglobulinemia associated with recurrent upper respiratory infections. The patient is currently on gammaglobulin infusions monthly if IgG is less than 600. Comes for follow up. 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 Cancer: Lymphoma,Skin cancer Past Surgical History Surgical: CABG Other Surgical History: Bilateral foot surgery Excision skin cancer left ear base Right ear tube 2012 Reconstruction from left nesk Valve replacement 2008 Family History Paternal Past Medical History: Arthritis,Hypertension Paternal History of Cancer Brain cancer,Lung cancer Maternal Past Medical History: Arthritis,Hypertension Maternal History of Cancer: Other Social History Social History: No changes Smoking Status Never smoker Review of Systems Constitutional:: Denies: Fever, Sweats, Weight loss, Appetite change, Chills Cardiovascular:: Denies: Chest pain, Palpitations, Dyspnea on exertion, Orthopnea, PND, Shortness of breath Respiratory: Denies: Cough, Hemoptysis, Shortness of Breath, Wheezing Gastrointestinal:: Denies: Abdominal pain, Nausea, Vomiting, Diarrhea, Constipation, Hematochezia Genitourinary: Denies: Dysuria, Hematuria, 15, Flank pain Musculoskeletal:: Denies: Back pain, Myalgia, Arthralgia Skin: Denies: Rash, Skin Changes, Wounds Neurological:: Denies: Headache, Dizziness, Visual changes, Tinnitus, Hearing loss Psychiatric: Denies: Anxiety, Depression, Homicidal Ideations, Suicidal Ideations Vital Signs Height 6 ft Weight: 96.615 kg Weight in Pounds 213.0 lbs Pulse Ox 98 - Physical Exam General: Alert, Oriented x3, No apparent distress HEENT: Atraumatic, PERRLA, EOMI, Normocephalic Oropharynx:: Dry mucosa Neck:: Supple, Trachea midline. Negative for: JVD, bilateral Cardiac:: Regular rate, Regular rhythm, Normal S1, Normal S2. Negative for: Murmur Lungs: Clear to auscultation, Excusion symmetrical. Negative for: Rhonchi, Wheezes Abdomen:: Bowel sounds x 4, Soft, Non-tender, Non-distended. Negative for: Hepatosplenomegaly Extremities:: Negative for: Cyanosis, Edema Neurological: Neuro grossly intact Skin:: Negative for: Lesions, Rash, Petechiae, Ecchymosis Psychiatric:: Appropriate affect, Euthymic Lymphatics:: Negative for: Cervical lymphadenopathy, Supraclavicular lymphadenopathy, Axillary lymphadenopathy Laboratory Data: Laboratory Tests WBC 6.0 Hgb 14.3 Hct Plt Count 147 L WBC 5.0 Hgb 13.2 Hct Plt Count 147 L Absolute Lymphs (auto) 1.11 WBC 5.0 Hgb 12.8 L Hct Plt Count 124 L WBC 4.5 Hgb 14.1 Hct 45.6 Plt Count 148 L Absolute Lymphs (auto) Absolute Neuts (auto) 3.1 WBC 5.3 Hgb 13.1 Hct 42.3 Plt Count 172 Absolute Lymphs (auto) Assessment and Plan Hypogammaglobulinemia, IgG level less than 600 on 06/26/2018. He wants to proceed with IVIG. Waldenstrom's Macroglobulinemia, IgM increasing now 400. Plan is to proceed with IVIG today. To continue observation for Waldenstrom's Macroglobulinemia. RTC 4 wks with cbc, cmp, IG levels. Medications: Prescriptions This Visit Medication Instructions Recorded Multivitamin [Daily Multiple 1 each PO DAILY 12/18/16 Vitamin] Nitroglycerin [Nitrostat] 0.4 mg SUBLINGUAL Q5M PRN 12/18/16 Medications Added to Medication List This Visit Acetaminophen [Tylenol] Med 07/01/18 10:30 Once 650 mg PO X1 ONE DiphenhydrAMINE [Benadryl] Med 07/01/18 10:30 Once 50 mg IV X1 ONE Hydrocortisone Sod Succinate [Solu-Cortef] Med 07/01/18 10:30 Once Primary Care Provider: Manuela Damico DO Referring Provider: - Problem List (1) Nonfamilial hypogammaglobulinemia Status: Chronic (2) Macroglobulinemia of Waldenstrom Status: Chronic Comment: well controlled periodic IgG infusions Code Visit Office Visits / Consults: 66001 OV L5 Est 07/01/18 1019 <Electronically signed by Dionicio Schmitt MD> Date Dionicio Schmitt MD Cosigner Signature: Date (if applicable) CC: CBC W/DIFF, AUTOMATED Collected: 06/26/2018 Status: F Source: [place] 12:15 PM [facility] REPOSITORY Order Comment: Reason for Laboratory Test . TYPE CODE TESTS RESULT OUT OF RANGE REFERENCE UNITS LAB L100.1000 4.4-11.0 K/mm3 Normal WBC 5.3 LAB L100.1200 4.6-6.2 M/mm3 Normal RBC 5.09 LAB L100.1300 13.0-16.5 g/dl Normal HGB 13.1 LAB L100.1400 40-54 % Normal HCT 42.3 LAB L100.1500 80-94 fL Normal MCV 83.1 LAB L100.1600 27.0-32.0 pg Low MCH 25.7 LAB L100.1700 32-36 g/gl Low MCHC 31.0 LAB L100.1810 11.6-14.6 % High RDW CV 15.9 LAB L100.1820 35.1-43.9 fl High RDW SD 48.3 LAB L100.1900 150-450 K/mm3 Normal PLT 172 LAB L100.2000 6.2-12.0 fl Normal MPV 10.1 LAB L100.2100 47-70 % High NEUT% 71.2 LAB L100.2200 19-41 % Low LY% 16.3 LAB L100.2300 0-10 % High MONO% 10.8 LAB L100.2400 0-5 % Normal EO% 1.3 LAB L100.2500 0-1 % Normal BASO% 0.4 LAB L100.2550 0.0-0.9 % Normal IM GRAN % 0.000 Result Comment: IG% - Immature Granulocytes (promyelocytes, myelocytes and metamyelocytes) > 1% indicates that a LEFT SHIFT is Present. LAB L100.2620 2.0-7.7 X10 3/uL Normal Absolute Neut 3.7 LAB L100.2720 0.83-4.51 X10 3/ul Normal Absolute Lymph 0.86 LAB L100.5500 ADEQ Normal PLT EST ADEQUATE LAB L100.7000 NORM C AND C NORMAL Normal RED CELL MORPH NORM C+C Performed By: #### L100.0100 #### [facility] [address] [address] [place], [place], [id number] COMPREHENSIVE METABOLIC Collected: 06/26/2018 Status: F [facility] REPOSITORY Order Comment: Reason for Laboratory Test . TYPE CODE TESTS RESULT OUT OF RANGE REFERENCE UNITS LAB L501.0100 74-106 mg/dL High GLU 203 Result Comment: Glucose result greater than or equal to 200 mg/dL suggests DIABETES MELLITUS per A.D.A. criteria. Please note revised GLUCOSE reference range effective 2017. LAB L501.1000 7-18 mg/dL Normal BUN 11 LAB L501.1100 0.70-1.30 mg/dL Normal CREAT,SERUM 0.95 Result Comment: The validity of the calculated GFR AND GFRAA in patients over 70 years has not been determined. Clinical correlation is essential. LAB L501.1110 >60 mL/min Normal EST GFR 86 Result Comment: Non- GFR Calc LAB L501.1115 >60 mL/min Normal EST GFR - AA 105 Result Comment: GFR Calc LAB L501.1255 ml/min Normal Estimated CRCL 94.16 LAB L501.1300 10-20 RATIO Normal BUN/CRE 11.6 LAB L501.1500 6.4-8. g/dL Normal 2 T PROT 7.2 LAB L501.1800 3.2-5. g/dL Normal 0 ALB 3.8 LAB L501.1950 2.2-4. g/dL Normal 2 GLOB 3.4 LAB L501.2000 0.9-2. RATIO Normal 4 A/G 1.1 LAB L501.2200 8.5-10 mg/dL Normal .1 CA 8.9 LAB L501.4100 15-37 U/L Normal AST 32 LAB L501.4305 45-117 U/L Normal ALK P 113 LAB L501.4405 16-61 U/L Normal ALT 25 LAB L501.4600 0.20-1 mg/dL Normal .00 T BILI 0.30 LAB L501.5300 136-14 mmol/L Normal 5 NA 138 LAB L501.5600 3.5-5. mmol/L Normal 1 K 4.3 LAB L501.5900 98-107 mmol/L Normal CL 101 LAB L501.6100 21.0-3 mmol/L Normal 2.0 CO2 24.0 LAB L501.6200 5-15 Normal GAP 13 Performed By: #### L500.4050 #### [facility] [address] [place], [address] IMMUNOGLOBULINS G/A/M Collected: 06/26/2018 Status: F Source: [place] 12:15 PM [facility] REPOSITORY Order Comment: Reason for Laboratory Test . Is Patient Fasting? N TYPE CODE TESTS RESULT OUT OF REFERENCE UNITS RANGE LAB L3200.0822 047-6869 mg/dL Low IMMUNO G 565 LAB L3200.1400 90-386 mg/dL Low IMMUNO A < 5 Result Comment: Result confirmed on concentration. LAB L3200.1500 20-172 mg/dL High IMMUNOGL M 423 Result Comment: Performed at: [facility] [address] [id number] Pull Through Hooker: Henry Feliz PhD, Phone: [phone] Performed By: #### L3200.1200 #### [facility] (refer to report for specific site) refer to report for address and phone number ONCOLOGY VISIT REPORT Observed: 06/03/2018 Status: F Source: [place] 10:24 AM [facility] REPOSITORY [facility] [place] [address] OFFICE VISIT Date of Service: 06/03/18 1019 MR#: [id number] Acct: [id number] Name: CHARLES GOULD Rep #: [id number] : 1960 From: Dionicio Schmitt MD Age/Sex: 57/M Location: ONC Status: Signed Subjective - Date of Service Date of Service:: 06/03/18 - Chief Complaint F/u for Hypogammaglobulinemia - History of Present Illness History of Present Illness: CHARLES GOULD is a very pleasant 56 M with a history for Mr. 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 He has been treated with Cytoxan, Rituxan, and Fludara. The patient is currently in remission. 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 He was found to have hypogammaglobulinemia associated with recurrent upper respiratory infections. The patient is currently on gammaglobulin infusions monthly if IgG is less than 600. Comes for follow up. 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 Cancer: Lymphoma,Skin cancer Past Surgical History Surgical: CABG Other Surgical History: Bilateral foot surgery Excision skin cancer left ear base Right ear tube 2012 Reconstruction from left nesk Valve replacement 2008 Family History Paternal Past Medical History: Arthritis,Hypertension Paternal History of Cancer Brain cancer,Lung cancer Maternal Past Medical History: Arthritis,Hypertension Maternal History of Cancer: Other Social History Social History: No changes Smoking Status Never smoker Review of Systems Constitutional:: Denies: Fever, Sweats, Weight loss, Appetite change, Chills Cardiovascular:: Denies: Chest pain, Palpitations, Dyspnea on exertion, Orthopnea, PND, Shortness of breath Respiratory: Denies: Cough, Hemoptysis, Shortness of Breath, Wheezing Gastrointestinal:: Denies: Abdominal pain, Nausea, Vomiting, Diarrhea, Constipation, Hematochezia Genitourinary: Denies: Dysuria, Hematuria, 15, Flank pain Musculoskeletal:: Denies: Back pain, Myalgia, Arthralgia Skin: Denies: Rash, Skin Changes, Wounds Neurological:: Denies: Headache, Dizziness, Visual changes, Tinnitus, Hearing loss Psychiatric: Denies: Anxiety, Depression, Homicidal Ideations, Suicidal Ideations Vital Signs Height 6 ft Weight: 96.615 kg Weight in Pounds 213.0 lbs Pulse Ox 96 - Physical Exam General: Alert, Oriented x3, No apparent distress HEENT: Atraumatic, PERRLA, EOMI, Normocephalic Oropharynx:: Dry mucosa Neck:: Supple, Trachea midline. Negative for: JVD, bilateral Cardiac:: Regular rate, Regular rhythm, Normal S1, Normal S2. Negative for: Murmur Lungs: Clear to auscultation, Excusion symmetrical. Negative for: Rhonchi, Wheezes Abdomen:: Bowel sounds x 4, Soft, Non-tender, Non-distended. Negative for: Hepatosplenomegaly Extremities:: Negative for: Cyanosis, Edema Neurological: Neuro grossly intact Skin:: Negative for: Lesions, Rash, Petechiae, Ecchymosis Psychiatric:: Appropriate affect, Euthymic Lymphatics:: Negative for: Cervical lymphadenopathy, Supraclavicular lymphadenopathy, Axillary lymphadenopathy Laboratory Data: Laboratory Tests WBC 6.0 Hgb 14.3 Hct Plt Count 147 L WBC 5.0 Hgb 13.2 Hct Plt Count 147 L Absolute Lymphs (auto) 1.11 WBC 5.0 Hgb 12.8 L Hct Plt Count 124 L WBC 4.5 Hgb 14.1 Hct 45.6 Plt Count 148 L Absolute Lymphs (auto) Assessment and Plan Hypogammaglobulinemia, IgG level less than 600. He wants to proceed with IVIG. Waldenstrom's Macroglobulinemia in remission. Plan is to proceed with IVIG today. RTC 4 wks with cbc, cmp, IG levels. Medications: Prescriptions This Visit Medication Instructions Recorded Multivitamin [Daily Multiple 1 each PO DAILY 12/18/16 Vitamin] Nitroglycerin [Nitrostat] 0.4 mg SUBLINGUAL Q5M PRN 12/18/16 Medications Added to Medication List This Visit Acetaminophen [Tylenol] Med 06/03/18 10:30 Once 650 mg PO X1 ONE DiphenhydrAMINE [Benadryl] Med 06/03/18 10:30 Once 50 mg IV X1 ONE Hydrocortisone Sod Succinate [Solu-Cortef] Med 06/03/18 10:30 Once Primary Care Provider: Manuela Damico DO Referring Provider: - Problem List (1) Nonfamilial hypogammaglobulinemia Status: Chronic (2) Macroglobulinemia of Waldenstrom Status: Chronic Comment: well controlled periodic IgG infusions Code Visit Office Visits / Consults: 02835 OV L5 Est 06/03/18 1024 <Electronically signed by Dionicio Schmitt MD> Date Dionicio Schmitt MD Cosigner Signature: Date (if applicable) CC: COMPREHENSIVE METABOLIC Collected: 06/02/2018 Status: F Source: [place] 12:15 PM [facility] REPOSITORY Order Comment: Reason for Laboratory Test . TYPE CODE TESTS RESULT OUT OF RANGE REFERENCE UNITS LAB L501.0100 74-106 mg/dL High GLU 178 Result Comment: Fasting Glucose result greater than or equal to 126 mg/dL suggests DIABETES MELLITUS per A.D.A. criteria. Please note revised GLUCOSE reference range effective 2017. LAB L501.1000 7-18 mg/dL High BUN 19 LAB L501.1100 0.70-1.30 mg/dL High CREAT,SERUM 1.36 Result Comment: The validity of the calculated GFR AND GFRAA in patients over 70 years has not been determined. Clinical correlation is essential. LAB L501.1110 >60 mL/min Low EST GFR 57 Result Comment: Non- GFR Calc LAB L501.1115 >60 mL/min Normal EST GFR - AA 69 Result Comment: GFR Calc LAB L501.1300 10-20 RATIO Normal BUN/CRE 14.0 LAB L501.1500 6.4-8.2 g/dL T Normal PROT 7.1 LAB L501.1800 3.2-5.0 g/dL Normal ALB 3.8 LAB L501.1950 2.2-4.2 g/dL Normal GLOB 3.3 LAB L501.2000 0.9-2.4 RATIO Normal A/G 1.2 LAB L501.2200 8.5-10.1 mg/dL CA Normal 8.7 LAB L501.4100 15-37 U/L High AST 42 LAB L501.4305 45-117 U/L High ALK P 120 LAB L501.4405 16-61 U/L Normal ALT 32 LAB L501.4600 0.20-1.00 mg/dL T Normal BILI 0.50 LAB L501.5300 136-145 mmol/L NA Normal 142 LAB L501.5600 3.5-5.1 mmol/L K Normal 4.7 LAB L501.5900 98-107 mmol/L CL Normal 105 LAB L501.6100 21.0-32.0 mmol/L Normal CO2 27.0 LAB L501.6200 5-15 Normal GAP 10 Performed By: #### L500.4050 #### [facility] [address] [place], [address] CBC W/DIFF, AUTOMATED Collected: 06/02/2018 Status: F Source: [place] 12:15 PM [facility] REPOSITORY Order Comment: Reason for Laboratory Test . TYPE CODE TESTS RESULT OUT OF RANGE REFERENCE UNITS LAB L100.1000 4.4-11.0 K/mm3 Normal WBC 4.5 LAB L100.1200 4.6-6.2 M/mm3 Normal RBC 5.41 LAB L100.1300 13.0-16.5 g/dl Normal HGB 14.1 LAB L100.1400 40-54 % Normal HCT 45.6 LAB L100.1500 80-94 fL Normal MCV 84.3 LAB L100.1600 27.0-32.0 pg Low MCH 26.1 LAB L100.1700 32-36 g/gl Low MCHC 30.9 LAB L100.1810 11.6-14.6 % High RDW CV 15.6 LAB L100.1820 35.1-43.9 fl High RDW SD 48.3 LAB L100.1900 150-450 K/mm3 Low PLT 148 LAB L100.2000 6.2-12.0 fl Normal MPV 10.7 LAB L100.2100 47-70 % Normal NEUT% 69.4 LAB L100.2200 19-41 % Low LY% 17.4 LAB L100.2300 0-10 % High MONO% 10.8 LAB L100.2400 0-5 % Normal EO% 1.8 LAB L100.2500 0-1 % Normal BASO% 0.4 LAB L100.2550 0.0-0.9 % Normal IM GRAN % 0.200 Result Comment: IG% - Immature Granulocytes (promyelocytes, myelocytes and metamyelocytes) > 1% indicates that a LEFT SHIFT is Present. LAB L100.2620 2.0-7.7 X10 3/uL Normal Absolute Neut 3.1 LAB L100.2720 0.83-4.51 X10 3/ul Low Absolute Lymph 0.79 Performed By: #### L100.0100 #### [facility] [address] [place], [address] IMMUNOGLOBULINS G/A/M Collected: 06/02/2018 Status: F Source: [place] 12:15 PM [facility] REPOSITORY Order Comment: Reason for Laboratory Test . Is Patient Fasting? N TYPE CODE TESTS RESULT OUT OF REFERENCE UNITS RANGE LAB L3200.7967 353-0716 mg/dL Low IMMUNO G 532 LAB L3200.1400 90-386 mg/dL Low IMMUNO A < 5 Result Comment: Result confirmed on concentration. LAB L3200.1500 20-172 mg/dL High IMMUNOGL M 216 Result Comment: Performed at: [address], [place], [place] [id number] Pull Through [employer]er: Henry Feliz PhD, Phone: [phone] Performed By: #### L3200.1200 #### [facility] (refer to report for specific site) refer to report for address and phone number ONCOLOGY VISIT REPORT Observed: 05/06/2018 Status: F Source: [place] 9:26 AM [facility] REPOSITORY [facility] [place] [address] OFFICE VISIT Date of Service: 05/06/18 0856 MR#: [id number] Acct: [id number] Name: CHARLES GOULD Rep #: [id number] : 1960 From: Shobha PARKER Age/Sex: 57/M Location: ONC Status: Signed Subjective - Date of Service Date of Service:: 05/06/18 - Chief Complaint F/u for Hypogammaglobulinemia - History of Present Illness History of Present Illness: CHARLES GOULD is a very pleasant 56 M with a history for MrKathy Gould is a 57-year-old man who was 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 He has been treated with Cytoxan, Rituxan, and Fludara. The patient is currently in remission. 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 He was found to have hypogammaglobulinemia associated with recurrent upper respiratory infections. The patient is currently on gammaglobulin infusions monthly if IgG is less than 600. - Interval History The patient is presenting to clinic for an evaluation anticipating he will receive IVIG infusion today. Tearful during interview as his brother last week. Patient has been out of town for several days which has contributed to moderate fatigue. Has routine follow up scheduled with pcp tomorrow. Otherwise, he denies any s/sx of infection today and has not experienced any infections requiring antibiotics in several months per patient self report. Tolerates IVIG well. 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 Cancer: Lymphoma,Skin cancer Past Surgical History Surgical: CABG Other Surgical History: Bilateral foot surgery Excision skin cancer left ear base Right ear tube 2012 Reconstruction from left nesk Valve replacement 2008 Family History Paternal Past Medical History: Arthritis,Hypertension Paternal History of Cancer Brain cancer,Lung cancer Maternal Past Medical History: Arthritis,Hypertension Maternal History of Cancer: Other Social History Social History: No changes Smoking Status Never smoker Review of Systems Constitutional:: Reports: Fatigue. Denies: Fever, Sweats, Weight loss, Appetite change, Chills Cardiovascular:: Denies: Chest pain, Palpitations, Dyspnea on exertion, Orthopnea, PND, Shortness of breath Respiratory: Denies: Cough, Hemoptysis, Shortness of Breath, Wheezing Gastrointestinal:: Denies: Abdominal pain, Nausea, Vomiting, Diarrhea, Constipation, Hematochezia Genitourinary: Denies: Dysuria, Hematuria, 15, Flank pain Musculoskeletal:: Denies: Back pain, Myalgia, Arthralgia Skin: Denies: Rash, Skin Changes, Wounds Neurological:: Denies: Headache, Dizziness, Numbness, Tingling - feet bilat, chronic, Visual changes, Tinnitus, Hearing loss Psychiatric: Denies: Anxiety, Depression, Homicidal Ideations, Suicidal Ideations Vital Signs Height 6 ft Weight: 216 lb Weight in Pounds 216.0 lbs Pulse Ox 98 - Physical Exam General: Alert, Oriented x3, No apparent distress HEENT: Atraumatic, Normocephalic, - - wears glasses Oropharynx:: Negative for: Dry mucosa, Ulcerated lesions Neck:: Supple, Trachea midline. Negative for: JVD, bilateral Cardiac:: Regular rate, Regular rhythm, Normal S1, Normal S2. Negative for: Murmur Lungs: Clear to auscultation, Excusion symmetrical. Negative for: Rhonchi, Wheezes Abdomen:: Bowel sounds x 4, Soft, Non-tender, Non-distended. Negative for: Hepatosplenomegaly Extremities:: Negative for: Cyanosis, Edema Neurological: Neuro grossly intact Skin:: Negative for: Lesions, Rash, Petechiae, Ecchymosis Psychiatric:: Depressed affect - tearful at times Lymphatics:: Negative for: Cervical lymphadenopathy, Supraclavicular lymphadenopathy, Axillary lymphadenopathy Assessment and Plan 1. Hypogammaglobulinemia, IgG level 584. Will proceed with IVIG infusion today as planned. 2. Waldenstrom's Macroglobulinemia in remission. 3. Grief- r/t loss of only living blood relative, brother. Emotional support provided. Has a routine follow up with pcp tomorrow. Patient to be visited today by patient navigator and social work. RTC 4 wks for ?IVIG with cbc, cmp, IgG levels. Shobha Beatty, MSN, GEAR TECHNICIAN-C, AOCNP Medications: Prescriptions This Visit Medication Instructions Recorded Multivitamin [Daily Multiple 1 each PO DAILY 12/18/16 Vitamin] Nitroglycerin [Nitrostat] 0.4 mg SUBLINGUAL Q5M PRN 12/18/16 Medications Added to Medication List This Visit Acetaminophen [Tylenol] Med 05/06/18 09:30 Once 650 mg PO X1 ONE DiphenhydrAMINE [Benadryl] Med 05/06/18 09:30 Once 50 mg IV X1 ONE Hydrocortisone Sod Succinate [Solu-Cortef] Med 05/06/18 09:30 Once Primary Care Provider: Manuela Damico DO Referring Provider: - Problem List (1) Macroglobulinemia of Waldenstrom Status: Chronic Comment: well controlled periodic IgG infusions (2) Nonfamilial hypogammaglobulinemia Status: Chronic (3) Feeling grief Status: Acute 05/06/18925 <Electronically signed by Shobha PARKER> Date Shobha PARKER Cosigner Signature: Date (if applicable) CC: CBC W/DIFF, AUTOMATED Collected: 04/30/2018 Status: F Source: [place] 2:32 PM [facility] REPOSITORY Order Comment: Reason for Laboratory Test . TYPE CODE TESTS RESULT OUT OF RANGE REFERENCE UNITS LAB L100.1000 4.4-11.0 K/mm3 Normal WBC 5.7 LAB L100.1200 4.6-6.2 M/mm3 Normal RBC 5.49 LAB L100.1300 13.0-16.5 g/dl Normal HGB 14.5 LAB L100.1400 40-54 % Normal HCT 46.9 LAB L100.1500 80-94 fL Normal MCV 85.4 LAB L100.1600 27.0-32.0 pg Low MCH 26.4 LAB L100.1700 32-36 g/gl Low MCHC 30.9 LAB L100.1810 11.6-14.6 % High RDW CV 15.6 LAB L100.1820 35.1-43.9 fl High RDW SD 49.1 LAB L100.1900 150-450 K/mm3 Normal PLT 152 LAB L100.2000 6.2-12.0 fl Normal MPV 10.0 LAB L100.2100 47-70 % High NEUT% 75.3 LAB L100.2200 19-41 % Low LY% 14.5 LAB L100.2300 0-10 % Normal MONO% 9.1 LAB L100.2400 0-5 % Normal EO% 0.9 LAB L100.2500 0-1 % Normal BASO% 0.2 LAB L100.2550 0.0-0.9 % Normal IM GRAN % 0.000 Result Comment: IG% - Immature Granulocytes (promyelocytes, myelocytes and metamyelocytes) > 1% indicates that a LEFT SHIFT is Present. LAB L100.2620 2.0-7.7 X10 3/uL Normal Absolute Neut 4.3 LAB L100.2720 0.83-4.51 X10 3/ul Normal Absolute Lymph 0.83 Performed By: #### L100.0100 #### [facility] [address] [place] [address]. [place], [place], [address] COMPREHENSIVE METABOLIC Collected: 04/30/2018 Status: F Source: [facility] 2:32 PM [facility] REPOSITORY Order Comment: Reason for Laboratory Test . TYPE CODE TESTS RESULT OUT OF RANGE REFERENCE UNITS LAB L501.0100 74-106 mg/dL High GLU 149 Result Comment: Fasting Glucose result greater than or equal to 126 mg/dL suggests DIABETES MELLITUS per A.D.A. criteria. Please note revised GLUCOSE reference range effective 2017. LAB L501.1000 7-18 mg/dL Normal BUN 9 LAB L501.1100 0.70-1.30 mg/dL Normal CREAT,SERUM 0.93 Result Comment: The validity of the calculated GFR AND GFRAA in patients over 70 years has not been determined. Clinical correlation is essential. LAB L501.1110 >60 mL/min Normal EST GFR 89 Result Comment: Non- GFR Calc LAB L501.1115 >60 mL/min Normal EST GFR - AA 107 Result Comment: GFR Calc LAB L501.1255 ml/min Normal Estimated CRCL 96.19 LAB L501.1300 10-20 RATIO Low BUN/CRE 9.7 LAB L501.1500 6.4-8. g/dL Normal 2 T PROT 7.6 LAB L501.1800 3.2-5. g/dL Normal 0 ALB 4.2 LAB L501.1950 2.2-4. g/dL Normal 2 GLOB 3.4 LAB L501.2000 0.9-2. RATIO Normal 4 A/G 1.2 LAB L501.2200 8.5-10 mg/dL Normal .1 CA 8.7 LAB L501.4100 15-37 U/L Normal AST 32 LAB L501.4305 45-117 U/L High ALK P 129 LAB L501.4405 16-61 U/L Normal ALT 24 LAB L501.4600 0.20-1 mg/dL Normal .00 T BILI 0.70 LAB L501.5300 136-14 mmol/L Normal 5 NA 137 LAB L501.5600 3.5-5. mmol/L Normal 1 K 4.6 LAB L501.5900 98-107 mmol/L Normal CL 103 LAB L501.6100 21.0-3 mmol/L Normal 2.0 CO2 26.0 LAB L501.6200 5-15 Normal GAP 8 Performed By: #### L500.4050 #### [facility] [address] [place], [address] IMMUNOGLOBULINS G/A/M Collected: 04/30/2018 Status: F Source: [place] 2:32 PM [facility] REPOSITORY Order Comment: Reason for Laboratory Test . Is Patient Fasting? N TYPE CODE TESTS RESULT OUT OF REFERENCE UNITS RANGE LAB L3200.6842 899-5403 mg/dL Low IMMUNO G 584 LAB L3200.1400 90-386 mg/dL Low IMMUNO A < 5 Result Comment: Result confirmed on concentration. LAB L3200.1500 20-172 mg/dL High IMMUNOGL M 185 Result Comment: Performed at: - [facility] [address], [place], [place] [id number] Pull Through Hooker: Henry Feliz PhD, Phone: [phone] Performed By: #### L3200.1200 #### [facility] (refer to report for specific site) refer to report for address and phone number ONCOLOGY VISIT REPORT Observed: 04/08/2018 Status: F Source: [place] 9:54 AM [facility] REPOSITORY [facility] [place] [address] OFFICE VISIT Date of Service: 04/08/18 0950 MR#: [id number] Acct: [id number] Name: CHARLES GOULD Rep #: [id number] : 1960 From: Dionicio Schmitt MD Age/Sex: 57/M Location: ONC Status: Signed Subjective - Date of Service Date of Service:: 04/08/18 - Chief Complaint F/u for Hypogammaglobulinemia - History of Present Illness History of Present Illness: CHARLES GOULD is a very pleasant 56 M with a history for MrKathy Gould is a 57-year-old man who was 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 He has been treated with Cytoxan, Rituxan, and Fludara. The patient is currently in remission. 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 He was found to have hypogammaglobulinemia associated with recurrent upper respiratory infections. The patient is currently on gammaglobulin infusions monthly if IgG is less than 600. Comes for IVIG today. 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 Cancer: Lymphoma,Skin cancer Past Surgical History Surgical: CABG Other Surgical History: Bilateral foot surgery Excision skin cancer left ear base Right ear tube 2011 Reconstruction from left nesk Valve replacement 2007 Family History Paternal Past Medical History: Arthritis,Hypertension Paternal History of Cancer Brain cancer,Lung cancer Maternal Past Medical History: Arthritis,Hypertension Maternal History of Cancer: Other Social History Social History: No changes Smoking Status Never smoker Review of Systems Constitutional:: Denies: Fever, Sweats, Weight loss, Appetite change, Chills Cardiovascular:: Denies: Chest pain, Palpitations, Dyspnea on exertion, Orthopnea, PND, Shortness of breath Respiratory: Denies: Cough, Hemoptysis, Shortness of Breath, Wheezing Gastrointestinal:: Denies: Abdominal pain, Nausea, Vomiting, Diarrhea, Constipation, Hematochezia Genitourinary: Denies: Dysuria, Hematuria, 15, Flank pain Musculoskeletal:: Denies: Back pain, Myalgia, Arthralgia Skin: Denies: Rash, Skin Changes, Wounds Neurological:: Denies: Headache, Dizziness, Visual changes, Tinnitus, Hearing loss Psychiatric: Denies: Anxiety, Depression, Homicidal Ideations, Suicidal Ideations Vital Signs Height 6 ft Weight: 97.976 kg Weight in Pounds 216.0 lbs Pulse Ox 96 - Physical Exam General: Alert, Oriented x3, No apparent distress HEENT: Atraumatic, PERRLA, EOMI, Normocephalic Oropharynx:: Dry mucosa Neck:: Supple, Trachea midline. Negative for: JVD, bilateral Cardiac:: Regular rate, Regular rhythm, Normal S1, Normal S2. Negative for: Murmur Lungs: Clear to auscultation, Excusion symmetrical. Negative for: Rhonchi, Wheezes Abdomen:: Bowel sounds x 4, Soft, Non-tender, Non-distended. Negative for: Hepatosplenomegaly Extremities:: Negative for: Cyanosis, Edema Neurological: Neuro grossly intact Skin:: Negative for: Lesions, Rash, Petechiae, Ecchymosis Psychiatric:: Appropriate affect, Euthymic Lymphatics:: Negative for: Cervical lymphadenopathy, Supraclavicular lymphadenopathy, Axillary lymphadenopathy Laboratory Data: Laboratory Tests WBC 5.3 (4.4-11.0) K/mm3 RBC 4.98 (4.6-6.2) M/mm3 Hgb 13.4 (13.0-16.5) g/dl Hct 42.6 (40-54) % Assessment and Plan Hypogammaglobulinemia, IgG level pending. He wants to proceed with IVIG. Waldenstrom's Macroglobulinemia in remission. Plan is to proceed with IVIG today. RTC 4 wks with cbc, cmp, IG levels. Medications: Prescriptions This Visit Medication Instructions Recorded Multivitamin [Daily Multiple 1 each PO DAILY 12/18/16 Vitamin] Nitroglycerin [Nitrostat] 0.4 mg SUBLINGUAL Q5M PRN 12/18/16 Medications Added to Medication List This Visit Acetaminophen [Tylenol] Med 04/08/18 08:00 Once 650 mg PO X1 ONE DiphenhydrAMINE [Benadryl] Med 04/08/18 08:00 Once 50 mg IV X1 ONE Hydrocortisone Sod Succinate [Solu-Cortef] Med 04/08/18 08:00 Once Primary Care Provider: Manuela Damico DO Referring Provider: - Problem List (1) Nonfamilial hypogammaglobulinemia Status: Chronic (2) Macroglobulinemia of Waldenstrom Status: Chronic Comment: well controlled periodic IgG infusions Code Visit Office Visits / Consults: 76226 OV L5 Est 04/08/18953 <Electronically signed by Dionicio Schmitt MD> Date Dionicio Schmitt MD Cosigner Signature: Date (if applicable) CC: CBC W/DIFF, AUTOMATED Collected: 04/07/2018 Status: F Source: [place] 3:16 PM [facility] REPOSITORY Order Comment: Reason for Laboratory Test . TYPE CODE TESTS RESULT OUT OF RANGE REFERENCE UNITS LAB L100.1000 4.4-11.0 K/mm3 Normal WBC 5.3 LAB L100.1200 4.6-6.2 M/mm3 Normal RBC 4.98 LAB L100.1300 13.0-16.5 g/dl Normal HGB 13.4 LAB L100.1400 40-54 % Normal HCT 42.6 LAB L100.1500 80-94 fL Normal MCV 85.5 LAB L100.1600 27.0-32.0 pg Low MCH 26.9 LAB L100.1700 32-36 g/gl Low MCHC 31.5 LAB L100.1810 11.6-14.6 % High RDW CV 15.6 LAB L100.1820 35.1-43.9 fl High RDW SD 48.0 LAB L100.1900 150-450 K/mm3 Low PLT 145 LAB L100.2000 6.2-12.0 fl Normal MPV 10.0 LAB L100.2100 47-70 % Normal NEUT% 68.1 LAB L100.2200 19-41 % Low LY% 17.8 LAB L100.2300 0-10 % High MONO% 11.2 LAB L100.2400 0-5 % Normal EO% 2.5 LAB L100.2500 0-1 % Normal BASO% 0.2 LAB L100.2550 0.0-0.9 % Normal IM GRAN % 0.200 Result Comment: IG% - Immature Granulocytes (promyelocytes, myelocytes and metamyelocytes) > 1% indicates that a LEFT SHIFT is Present. LAB L100.2620 2.0-7.7 X10 3/uL Normal Absolute Neut 3.6 LAB L100.2720 0.83-4.51 X10 3/ul Normal Absolute Lymph 0.94 Performed By: #### L100.0100 #### [facility] [address] [place], [address] COMPREHENSIVE METABOLIC Collected: 04/07/2018 Status: F Source: [facility] 3:16 PM [facility] REPOSITORY Order Comment: Reason for Laboratory Test . TYPE CODE TESTS RESULT OUT OF RANGE REFERENCE UNITS LAB L501.0100 74-106 mg/dL High GLU 155 Result Comment: Fasting Glucose result greater than or equal to 126 mg/dL suggests DIABETES MELLITUS per A.D.A. criteria. Please note revised GLUCOSE reference range effective 2017. LAB L501.1000 7-18 mg/dL Normal BUN 12 LAB L501.1100 0.70-1.30 mg/dL Normal CREAT,SERUM 0.87 Result Comment: The validity of the calculated GFR AND GFRAA in patients over 70 years has not been determined. Clinical correlation is essential. LAB L501.1110 >60 mL/min Normal EST GFR 96 Result Comment: Non- GFR Calc LAB L501.1115 >60 mL/min Normal EST GFR - AA 117 Result Comment: GFR Calc LAB L501.1255 ml/min Normal Estimated CRCL 102.82 LAB L501.1300 10-20 RATIO BUN/CRE Normal 13.8 LAB L501.1500 6.4-8. g/dL 2 T PROT Normal 6.5 LAB L501.1800 3.2-5. g/dL 0 ALB Normal 3.4 LAB L501.1950 2.2-4. g/dL 2 GLOB Normal 3.1 LAB L501.2000 0.9-2. RATIO 4 A/G Normal 1.1 LAB L501.2200 8.5-10 mg/dL .1 CA Normal 9.1 LAB L501.4100 15-37 U/L AST Normal 25 LAB L501.4305 45-117 U/L High ALK P 134 LAB L501.4405 16-61 U/L ALT Normal 20 LAB L501.4600 0.20-1 mg/dL .00 T BILI Normal 0.40 LAB L501.5300 136-14 mmol/L 5 NA Normal 141 LAB L501.5600 3.5-5. mmol/L 1 K Normal 4.3 LAB L501.5900 98-107 mmol/L CL Normal 104 LAB L501.6100 21.0-3 mmol/L 2.0 CO2 Normal 30.0 LAB L501.6200 5-15 GAP Normal 7 Performed By: #### L500.4050 #### [facility] [address] [place], [address] #### L3200.1200 #### [facility] (refer to report for specific site) refer to report for address and phone number IMMUNOGLOBULINS G/A/M Collected: 04/07/2018 Status: F Source: [place] 3:16 PM [facility] REPOSITORY Order Comment: Reason for Laboratory Test . Is Patient Fasting? N TYPE CODE TESTS RESULT OUT OF REFERENCE UNITS RANGE LAB L3200.7739 024-9866 mg/dL Low IMMUNO G 449 LAB L3200.1400 90-386 mg/dL Low IMMUNO A < 5 Result Comment: Result confirmed on concentration. LAB L3200.1500 20-172 mg/dL Normal IMMUNOGL M 44 Result Comment: Performed at: [facility], [place], [place] [id number] Pull Through Hooker: Henry Feliz PhD, Phone: [phone] Performed By: #### L500.4050 #### [facility] [address] [place], [address] #### L3200.1200 #### [facility] (refer to report for specific site) refer to report for address and phone number ONCOLOGY VISIT REPORT Observed: 03/11/2018 Status: F Source: [place] 9:49 AM [facility] REPOSITORY [facility] [address] [place] [address] OFFICE VISIT Date of Service: 03/11/18 0946 MR#: [id number] Acct: [id number] Name: CHARLES GOULD Rep #: [id number] : 1960 From: Dionicio Schmitt MD Age/Sex: 57/M Location: ONC Status: Signed Subjective - Date of Service Date of Service:: 03/11/18 - Chief Complaint F/u for Hypogammaglobulinemia - History of Present Illness History of Present Illness: CHARLES GOULD is a very pleasant 56 M with a history for MrKathy Gould is a 57-year-old man who was 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 He has been treated with Cytoxan, Rituxan, and Fludara. The patient is currently in remission. 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 He was found to have hypogammaglobulinemia associated with recurrent upper respiratory infections. The patient is currently on gammaglobulin infusions monthly if IgG is less than 600. Comes for IVIG today. - Past Medical/Social History Past Medical History Past Medical History: Chronic bronchitis,Heart disease,Hyperlipidemia Other Past Medical History: Hypoglobulinemia Cancer: Lymphoma,Skin cancer Past Surgical History Surgical: CABG Other Surgical History: Bilateral foot surgery Excision skin cancer left ear base Right ear tube 2012 Reconstruction from left nesk Valve replacement 2007 Family History Paternal Past Medical History: Arthritis,Hypertension Paternal History of Cancer Brain cancer,Lung cancer Maternal Past Medical History: Arthritis,Hypertension Maternal History of Cancer: Other Social History Social History: No changes Smoking Status Never smoker Review of Systems Constitutional:: Denies: Fever, Sweats, Weight loss, Appetite change, Chills Cardiovascular:: Denies: Chest pain, Palpitations, Dyspnea on exertion, Orthopnea, PND, Shortness of breath Respiratory: Denies: Cough, Hemoptysis, Shortness of Breath, Wheezing Gastrointestinal:: Denies: Abdominal pain, Nausea, Vomiting, Diarrhea, Constipation, Hematochezia Genitourinary: Denies: Dysuria, Hematuria, 15, Flank pain Musculoskeletal:: Denies: Back pain, Myalgia, Arthralgia Skin: Denies: Rash, Skin Changes, Wounds Neurological:: Denies: Headache, Dizziness, Visual changes, Tinnitus, Hearing loss Psychiatric: Denies: Anxiety, Depression, Homicidal Ideations, Suicidal Ideations Vital Signs Height 6 ft Weight: 97.069 kg Weight in Pounds 214.0 lbs Pulse Ox 96 - Physical Exam General: Alert, Oriented x3, No apparent distress HEENT: Atraumatic, PERRLA, EOMI, Normocephalic Oropharynx:: Dry mucosa Neck:: Supple, Trachea midline. Negative for: JVD, bilateral Cardiac:: Regular rate, Regular rhythm, Normal S1, Normal S2. Negative for: Murmur Lungs: Clear to auscultation, Excusion symmetrical. Negative for: Rhonchi, Wheezes Abdomen:: Bowel sounds x 4, Soft, Non-tender, Non-distended. Negative for: Hepatosplenomegaly Extremities:: Negative for: Cyanosis, Edema Neurological: Neuro grossly intact Skin:: Negative for: Lesions, Rash, Petechiae, Ecchymosis Psychiatric:: Appropriate affect, Euthymic Lymphatics:: Negative for: Cervical lymphadenopathy, Supraclavicular lymphadenopathy, Axillary lymphadenopathy Laboratory Data: Laboratory Tests WBC 5.1 (4.4-11.0) K/mm3 RBC 5.05 (4.6-6.2) M/mm3 Hgb 13.3 (13.0-16.5) g/dl Hct 43.8 (40-54) % Assessment and Plan Hypogammaglobulinemia, IgG level pending. He wants to proceed with IVIG. Waldenstrom's Macroglobulinemia in remission. Plan is to proceed with IVIG today. RTC 4 wks with cbc, cmp, IG levels. Medications: Prescriptions This Visit Medication Instructions Recorded Multivitamin [Daily Multiple 1 each PO DAILY 12/18/16 Vitamin] Nitroglycerin [Nitrostat] 0.4 mg SUBLINGUAL Q5M PRN 12/18/16 Medications Added to Medication List This Visit Acetaminophen [Tylenol] Med 03/11/18 10:00 Once 650 mg PO X1 ONE DiphenhydrAMINE [Benadryl] Med 03/11/18 10:00 Once 50 mg IV X1 ONE Hydrocortisone Sod Succinate [Solu-Cortef] Med 03/11/18 10:00 Once Primary Care Provider: Manuela Damico DO Referring Provider: - Problem List (1) Nonfamilial hypogammaglobulinemia Status: Chronic (2) Macroglobulinemia of Waldenstrom Status: Chronic Comment: well controlled periodic IgG infusions Code Visit Office Visits / Consults: 29260 OV L3 Est 03/11/1849 <Electronically signed by Dionicio Schmitt MD> Date Dionicio Schmitt MD Cosigner Signature: Date (if applicable) CC: CBC W/DIFF, AUTOMATED Collected: 03/10/2018 Status: F Source: [place] 9:39 AM [facility] REPOSITORY TYPE CODE TESTS RESULT OUT OF RANGE REFERENCE UNITS LAB L100.1000 4.4-11.0 K/mm3 Normal WBC 5.1 LAB L100.1200 4.6-6.2 M/mm3 Normal RBC 5.05 LAB L100.1300 13.0-16.5 g/dl Normal HGB 13.3 LAB L100.1400 40-54 % Normal HCT 43.8 LAB L100.1500 80-94 fL Normal MCV 86.7 LAB L100.1600 27.0-32.0 pg Low MCH 26.3 LAB L100.1700 32-36 g/gl Low MCHC 30.4 LAB L100.1810 11.6-14.6 % High RDW CV 15.3 LAB L100.1820 35.1-43.9 fl High RDW SD 48.5 LAB L100.1900 150-450 K/mm3 Low PLT 139 LAB L100.2000 6.2-12.0 fl Normal MPV 10.5 LAB L100.2100 47-70 % Normal NEUT% 69.0 LAB L100.2200 19-41 % Low LY% 15.4 LAB L100.2300 0-10 % High MONO% 12.6 LAB L100.2400 0-5 % Normal EO% 2.4 LAB L100.2500 0-1 % Normal BASO% 0.4 LAB L100.2550 0.0-0.9 % Normal IM GRAN % 0.200 Result Comment: IG% - Immature Granulocytes (promyelocytes, myelocytes and metamyelocytes) > 1% indicates that a LEFT SHIFT is Present. LAB L100.2620 2.0-7.7 X10 3/uL Normal Absolute Neut 3.5 LAB L100.2720 0.83-4.51 X10 3/ul Low Absolute Lymph 0.78 Performed By: #### L100.0100 #### [facility] [address] [place], [address] COMPREHENSIVE METABOLIC Collected: 03/10/2018 Status: F Source: [facility] 9:38 AM [facility] REPOSITORY Order Comment: Reason for Laboratory Test . TYPE CODE TESTS RESULT OUT OF RANGE REFERENCE UNITS LAB L501.0100 74-106 mg/dL High GLU 148 Result Comment: Fasting Glucose result greater than or equal to 126 mg/dL suggests DIABETES MELLITUS per A.D.A. criteria. Please note revised GLUCOSE reference range effective 2017. LAB L501.1000 7-18 mg/dL Normal BUN 16 LAB L501.1100 0.70-1.30 mg/dL Normal CREAT,SERUM 1.00 Result Comment: The validity of the calculated GFR AND GFRAA in patients over 70 years has not been determined. Clinical correlation is essential. LAB L501.1110 >60 mL/min Normal EST GFR 82 Result Comment: Non- GFR Calc LAB L501.1115 >60 mL/min Normal EST GFR - AA 99 Result Comment: GFR Calc LAB L501.1255 ml/min Normal Estimated CRCL 89.46 LAB L501.1300 10-20 RATIO Normal BUN/CRE 16.0 LAB L501.1500 6.4-8. g/dL Low 2 T PROT 6.3 LAB L501.1800 3.2-5. g/dL Normal 0 ALB 3.6 LAB L501.1950 2.2-4. g/dL Normal 2 GLOB 2.7 LAB L501.2000 0.9-2. RATIO Normal 4 A/G 1.3 LAB L501.2200 8.5-10 mg/dL Normal .1 CA 8.8 LAB L501.4100 15-37 U/L Normal AST 25 LAB L501.4305 45-117 U/L High ALK P 124 LAB L501.4405 16-61 U/L Normal ALT 27 LAB L501.4600 0.20-1 mg/dL Normal .00 T BILI 0.70 LAB L501.5300 136-14 mmol/L Normal 5 NA 142 LAB L501.5600 3.5-5. mmol/L Normal 1 K 4.5 LAB L501.5900 98-107 mmol/L Normal CL 104 LAB L501.6100 21.0-3 mmol/L Normal 2.0 CO2 29.0 LAB L501.6200 5-15 Normal GAP 9 Performed By: #### L500.4050 #### [facility] [address] [place] [address]. [place], [address] IMMUNOGLOBULIN G Collected: 03/10/2018 Status: F Source: [place] 9:38 AM [facility] REPOSITORY Order Comment: Reason for Laboratory Test . TYPE CODE TESTS RESULT OUT OF REFERENCE UNITS RANGE LAB L3200.3877 015-4699 mg/dL Low IMMUNO G 370 Result Comment: Performed at: - [facility] [id number] [place]: Henry Feliz PhD, Phone: [phone] Performed By: #### L3200.1300 #### [facility] (refer to report for specific site) refer to report for address and phone number 12 LEAD ELECTROCARDIOGRAM Observed: 02/10/2018 Status: F Source: [place] 3:00 PM [facility] REPOSITORY [facility] Cardiovascular Services [address] [place] [address] 12 Lead EKG 02/05/18 0510 MR#: [id number] Acct: [id number] Name: CHARLES GOULD Rep #: [id number] : 1960 57 From: Diego Early MD Attending Dr: Alyce Royal MD Status: DIS IN Ordering Dr: Zak Chang MD Date: 02/05/18 Location: [facility] Sex: M C Admitted: 02/03/18 Test Reason : AM EKG Blood Pressure : / mmHG Vent. Rate : 062 BPM Atrial Rate : 062 BPM P-R Int : 138 ms QRS Dur : 102 ms QT Int : 402 ms P-R-T Axes : 022 001 -43 degrees QTc Int : 408 ms Normal sinus rhythm ST AND T wave abnormality, consider inferolateral ischemia Abnormal ECG When compared with ECG of 04-FEB-2018 05:04, MANUAL COMPARISON REQUIRED, DATA IS UNCONFIRMED Confirmed by SHARATH CRUMP, DIEGO ([id number]), newspaper editor managing REECE SKAGGS ([id number]) on 02/10/2018 2:59:54 PM Referred By: DR ROYAL Confirmed By:DIEGO EARLY MD 02/10/18 1459 Date Diego Early MD CC: Alyce Royal MD; Zak Chang MD; Manuela Damico DO Signed ONCOLOGY VISIT REPORT Observed: 02/10/2018 Status: F Source: [place] 11:49 AM [facility] REPOSITORY [facility] [address] [place] [address] OFFICE VISIT Date of Service: 02/10/18 0944 MR#: [id number] Acct: [id number] Name: CHARLES GOULD Rep #: [id number] : 1960 From: Shobha PARKER Age/Sex: 57/M Location: D Status: Signed Subjective - Date of Service Date of Service:: 02/10/18 - Chief Complaint F/u for Hypogammaglobulinemia - History of Present Illness History of Present Illness: CHARLES GOULD is a very pleasant 56 M with a history for Mr. 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 He has been treated with Cytoxan, Rituxan, and Fludara. The patient is currently in remission. 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 He was found to have hypogammaglobulinemia associated with recurrent upper respiratory infections. The patient is currently on gammaglobulin infusions monthly if IgG is less than 600. - Interval History The patient is presenting to clinic for an evaluation anticipating he will receive IVIG today. Since last visit, he presented to [facility] ED with c/o CP on 02/03/18. Found to have had an acute NSTEMI, cardiac cath showed 99% stenosis in the SVG to RPDA, status post JOSE G, on aspirin, Plavix, atorvastatin, isosorbide, metoprolol, lisinopril. Discharged home on 02/05/18. Followed up with his resource conservation manager, Dr. Chaudhary at [facility] [place] yesterday. Denies any infections, cough, SOB, CP, palpitations and swelling/pain of his extremities. - Past Medical/Social History Past Medical History Past Medical History: Chronic bronchitis,Heart disease,Hyperlipidemia Other Past Medical History: Hypoglobulinemia Cancer: Lymphoma,Skin cancer Past Surgical History Surgical: CABG Other Surgical History: Bilateral foot surgery Excision skin cancer left ear base Right ear tube 2012 Reconstruction from left nesk Valve replacement 2007 Family History Paternal Past Medical History: Arthritis,Hypertension Paternal History of Cancer Brain cancer,Lung cancer Maternal Past Medical History: Arthritis,Hypertension Maternal History of Cancer: Other Social History Social History: No changes Smoking Status Never smoker Review of Systems Constitutional:: Reports: Fatigue. Denies: Fever, Sweats, Weight loss, Appetite change, Chills Cardiovascular:: Denies: Chest pain, Palpitations, Dyspnea on exertion, Orthopnea, PND, Shortness of breath Respiratory: Denies: Cough, Hemoptysis, Shortness of Breath, Wheezing Gastrointestinal:: Denies: Abdominal pain, Nausea, Vomiting, Diarrhea, Constipation, Melena, Hematochezia Genitourinary: Denies: Dysuria, Hematuria, Urinary frequency, Flank pain Musculoskeletal:: Denies: Back pain, Myalgia, Arthralgia Skin: Denies: Rash, Skin Changes, Wounds Neurological:: Reports: Numbness, Tingling. Denies: Headache, Dizziness, Visual changes, Tinnitus, Hearing loss Psychiatric: Denies: Anxiety, Depression, Homicidal Ideations, Suicidal Ideations Vital Signs Height 6 ft Weight: 209 lb Weight in Pounds 209.0 lbs Pulse Ox 96 - Physical Exam General: Alert, Oriented x3, No apparent distress HEENT: Atraumatic, Normocephalic, - - wears glasses Oropharynx:: Negative for: Dry mucosa, Ulcerated lesions Neck:: Supple, Trachea midline. Negative for: JVD, bilateral Cardiac:: Regular rate, Regular rhythm, Normal S1, Normal S2 Lungs: Clear to auscultation, Excusion symmetrical. Negative for: Rhonchi, Wheezes Abdomen:: Bowel sounds x 4, Soft, Non-tender, Non-distended. Negative for: Hepatosplenomegaly Extremities:: Negative for: Cyanosis, Edema Neurological: Neuro grossly intact Skin:: Negative for: Lesions, Rash, Petechiae, Ecchymosis Psychiatric:: Appropriate affect, Euthymic Lymphatics:: Negative for: Cervical lymphadenopathy, Supraclavicular lymphadenopathy, Axillary lymphadenopathy Assessment and Plan 1. Hypogammaglobulinemia, IgG level 619 on 01/28/18. Hold IVIG today. 2. Waldenstrom's Macroglobulinemia in remission. RTC 4 wks for ?IVIG with cbc, cmp, IgG levels. Shobha Beatty, LYNN, GEAR TECHNICIAN-C, AOCNP Medications: Prescriptions This Visit Medication Instructions Recorded Multivitamin [Daily Multiple 1 each PO DAILY 12/18/16 Vitamin] Nitroglycerin [Nitrostat] 0.4 mg SUBLINGUAL Q5M PRN 12/18/16 Primary Care Provider: Manuela Damico DO Referring Provider: - Problem List (1) Macroglobulinemia of Waldenstrom Status: Chronic Comment: well controlled periodic IgG infusions (2) Nonfamilial hypogammaglobulinemia Status: Chronic 02/10/18 1149 <Electronically signed by Shobha PARKER> Date Shobha PARKER Cosigner Signature: Date (if applicable) CC: PROGRESS Observed: 02/09/2018 Status: COMPLETED Source: [place] 10:04 AM [facility] REPOSITORY HNO ID: [id number] Author: Greg Keyse Service: (none) Author Type: Physician Type: Progress Notes Filed: 02/09/2018 5:42 PM Note Text: PERTINENT CARDIAC HISTORY ASHD - CABGx5 2007, graft thrombosis, NSTEMI during a flutter 08/08 (tpn 52), NSTEMI 02/07, PCI to SVG-PDA Atrial flutter - C/V 2015 Aortic stenosis - AVR 2007 HL HTN Carotid stenosis ADHERENCE TO GUIDELINES SERVANDO-I or ARB for HF with prior LVEF<40 (NQF 0081) - met ASA or Plavix for ASHD (NQF 0067) - met Beta mia for ASHD with prior MN or prior LVEF<40 (NQF 0070) - met Beta mia for HF with prior LVEF<40 (NQF 0083) - met SERVANDO-I or ARB for ASHD with DM or prior LVEF<40 (NQF 0066) - met Statin therapy for ASHD or FHL or DM - met BMI documented and plan if >25 (NQF 0421) - lifestyle recommendation form Tobacco use screening and referral (NQF 0028) - lifestyle recommendation form Recommendation for whole food, plant based diet - lifestyle recommendation form CLINICAL IMPRESSION/PLAN: Charles Gould is doing well. He had a good response to percutaneous intervention. I advised him to continue his current medication and lifestyle change. If there is increase in chest pain, he's been advised to contact me. I will see him in 6 months or as needed. Written and verbal health teaching given to patient, patient verbalizes understanding and agrees with treatment plan. DIAGNOSIS FOR VISIT: ASHD HISTORY OF PRESENT ILLNESS Charles Gould returns for follow-up of his coronary disease. He recently had an inferolateral non-STEMI and was found to have a tight lesion in the saphenous graft to his PDA. This was stented Since discharge, he has had no chest discomfort. His exercise tolerance has improved. He denies edema, orthopnea, syncope, TIAs, amaurosis or claudication. No changes were made in his medication. ALLERGIES: ALLERGIES Allergen Reactions - Tape [Other] Skin breakdown CURRENT OUTPATIENT MEDICATIONS: NITROSTAT 0.[address] 1 tablet under the tongue every 5 minutes for a max of 3 doses omeprazole (PRILOSEC) 20 mg capsule Take 20 mg by mouth once daily. metFORMIN (GLUCOPHAGE) 1,000 mg tablet Take 1,000 mg by mouth twice daily with meals. glipiZIDE (GLUCOTROL) 10 mg tablet Take 10 mg by mouth once daily. metoprolol tartrate, short acting, (LOPRESSOR) 100 mg tablet Take 0.5 tablets by mouth twice daily. atorvastatin (LIPITOR) 80 mg tablet Take 1 tablet by mouth once daily. clopidogrel (PLAVIX) 75 mg tablet Take 1 tablet by mouth once daily. isosorbide mononitrate ER (IMDUR) 60 mg 24 hr tablet Take 1 tablet by mouth once daily. lisinopril (ZESTRIL, PRINIVIL) 20 mg tablet TAKE ONE TABLET BY MOUTH TWICE DAILY docusate sodium (COLACE) 100 mg capsule Take 100 mg by mouth twice daily. magnesium oxide 400 mg cap Take by mouth three times daily. multivitamin (DAILY MULTI-VITAMIN) tablet Take 1 tablet by mouth once daily. ASPIRIN 81 MG CHEWABLE TAB 1 Tab ORAL DAILY cyclobenzaprine (FLEXERIL) 10 mg tablet Take 10 mg by mouth three times daily as needed. PHYSICAL EXAMINATION: VITAL SIGNS: BP 130/82 Pulse 62 Ht 6' 1 (1.85m) Wt 211 lb 12.8 oz (96.1kg) BMI 27.95 kg/(m2). Chest: Clear to percussion and auscultation. Trachea is midline. Air entry is equal. Cardiac: Regular rhythm. S1 and S2 are normal. PMI is nondisplaced. There is a soft systolic ejection murmur. Carotids are brisk without bruits. JVP is less than 10 cm. Abdomen: Soft and nontender. There are no pulsatile masses or bruits. No liver enlargement. Bowel sounds are active. Extremities: No edema. Pulses are intact and symmetrical. Records from [facility] were reviewed. There was a high- grade lesion in the saphenous vein graft to the PDA. These images were personally reviewed Echocardiogram showed normal over all LV function. EKG showed inferolateral ischemic changes. LDL was 33. Peak troponin was 7.2 Electronically Signed: Greg Keyes MD February 09, 2018 10:04 AM CC: Manuela Damico DO DISCHARGE SUMMARY Observed: 02/09/2018 Status: F Source: [place] 9:43 AM [facility] REPOSITORY [facility] Medical Records Department [address] [place] [address] Discharge Summary 02/05/18 1019 MR#: [id number] Acct: [id number] Name: CHARLES GOULD Rep #: [id number] : 1960 57 From: Alyce Royal MD PCP: Manuela Damico DO Status: DIS IN Y Location: [place] [address] Discharge Date and Diagnosis Date of Admission: 02/03/18 Date of Discharge: 02/05/18 - Primary Discharge Diagnosis Active and Suspected Problems (Last Updated 02/03/18 @ 13:20 by Jaden Pressley DO) NSTEMI (non-ST elevated myocardial infarction) (Acute) Hyperglycemia, in a type 2 DM patient - Secondary Discharge Diagnosis Chronic Problems (Last Updated 02/03/18 @ 13:20 by Jaden Pressley DO) Hyperlipidemia (Chronic) Hypertension (Chronic) Macroglobulinemia of Waldenstrom (Chronic) well controlled periodic IgG infusions Hodgkins lymphoma (Chronic) Status post coronary artery bypass graft (Chronic) Coronary artery disease (Chronic) Status post aortic valve replacement with bioprosthetic valve (Chronic) Type 2 diabetes mellitus (Chronic) Tinea unguium (Chronic) Diabetes mellitus with neuropathy (Chronic) Poor hygiene (Chronic) Nonfamilial hypogammaglobulinemia (Chronic) Hospital Course and Treatment Imaging Results: Clinical Impression(s) from Imaging Studies Chest X-Ray 02/03/18 09:35 IMPRESSION: No acute cardiopulmonary disease Electronically Signed: Netwon Yang DO at 10:12 EDT Tel , Service support , Consultations 02/03/18 11:26 Consult: Onc/Wound/storage battery charger Routine Comment: bottom of right foot Operations: None Procedures: None Summary of Care Provided: 57-year-old male with past medical history of CAD status post CABG 5, status post bioprosthetic aortic valve, history of paroxysmal atrial flutter, hypertension, hyperlipidemia, type II DM, on metformin, Hodgkin's lymphoma, Waldenstr m's macroglobulinemia and hypogammaglobulinemia, who follows up with hematology was admitted on 02/03/2018 with chest pain, abnormal EKG and elevated troponins. Patient underwent emergent cardiac cath which showed 99% stenosis in the SVG to RPDA, status post JOSE G. 1. Acute NSTEMI, cardiac cath showed 99% stenosis in the SVG to RPDA, status post JOSE G, on aspirin, Plavix, atorvastatin, isosorbide, metoprolol, lisinopril 2. Type II DM, complicated with neuropathy, blood sugars were uncontrolled in this admission, recent HbA1c is 7.3, he is on metformin. This was held in this admission. Managed on insulin sliding scale. 3. Hypertension, controlled, on lisinopril 4. Hyperlipidemia, lipid profile showed triglycerides 259, total cholesterol 1 4, LDL 33, HDL 29, on statin. 5. History of paroxysmal atrial flutter, in normal sinus rhythm 6. Waldenstrom macroglobulinemia, nonfamilial hypogammaglobulinemia, follows up in the outpatient with hematology Discharge Diet: Low fat/ Low Cholesterol, 2000 mg Sodium Diet, Carb Control Diet Discharge Activity: Return to Normal Activity Call your doctor if you observe: Shortness of breath, Dizziness, Chest pain Home Medications: Medications to take at Discharge Metoprolol Tartrate [Lopressor (beta mia)] 50 mg PO BID 01/27/15 Docusate Sodium [Colace Clear] 100 mg PO BID PRN 03/08/15 Magnesium Oxide [Mag-Ox 400] 400 mg PO TID 03/18/16 Multivitamin [Daily Multiple Vitamin] 1 each PO DAILY 12/18/16 Nitroglycerin [Nitrostat] 0.4 mg SUBLINGUAL Q5M PRN 12/18/16 Metformin HCl [Glucophage] 1,000 mg PO BIDCM #60 tablet 02/17/17 Glipizide [Glipizide ER] 10 mg PO DAILY 02/03/18 Omeprazole 20 mg PO DAILY 02/03/18 Aspirin [Aspirin, Baby] 81 mg PO DAILY@0800 #30 tab.chew 02/05/18 Atorvastatin Calcium [Lipitor] 80 mg PO QHS #30 tab 02/05/18 Clopidogrel Bisulfate [Plavix] 75 mg PO DAILY #30 tab 02/05/18 Isosorbide Mononitrate [Isosorbide Mononitrate ER] 60 mg PO DAILY #30 tab.er.24h 02/05/18 Lisinopril [Zestril] 20 mg PO BID #60 tab 02/05/18 Following Prescrptions Were Given to Patient: Aspirin [Aspirin, Baby] 81 mg PO DAILY@0800 #30 tab.chew Atorvastatin Calcium [Lipitor] 80 mg PO QHS #30 tab Clopidogrel Bisulfate [Plavix] 75 mg PO DAILY #30 tab Isosorbide Mononitrate [Isosorbide Mononitrate ER] 60 mg PO DAILY #30 tab.er.24h Lisinopril [Zestril] 20 mg PO BID #60 tab Primary Care Physician: Manuela Damico DO [Primary Care Provider] - Please follow up with your Primary Care Physician in: within 2 weeks Disposition: Home Minutes spent on discharge:: 35 Patient Condition:: Stable Medical Necessity - Tobacco Use Smoking Status: Never smoker Tobacco Use: Non-smoker Meaningful Use Info Meaningful Use Diagnoses (Choose all that apply): AMI - AMI Aspirin given w/in 24hrs of arrival?: Yes ASA at discharge?: Yes Statins at discharge?: Yes Servando/ARB at discharge?: Yes Beta Mia at discharge?: Yes Done w/ Acute MN measure.: Yes Code Visit Inpatient E AND M: [id number] Disch Hosp 02/09/18 0943 <Electronically signed by Alyce Royal MD> Date Alyce Royal MD Cosigner Signature (if applicable): Date CC: Alyce Royal MD; Manuela Damico DO Signed CNOV Observed: 02/09/2018 Status: COMPLETED Source: [place] 9:30 AM [facility] REPOSITORY Office Visit (CAWSTR) CHARLES GOULD ([id number]) 1960 M NFR Date Time Provider Department 02/09/18 9:30 AM GREG KEYES During your visit today, we recorded the following information about you: Pulse Blood pressure Weight Height 62/minute 130/82 96.1 kg 1.854 m Greg Keyes MD 02/09/2018 5:42 PM Signed PERTINENT CARDIAC HISTORY ASHD - CABGx5 2007, graft thrombosis, NSTEMI during a flutter 08/08 (tpn 52), NSTEMI 02/07, PCI to SVG-PDA Atrial flutter - C/V 2015 Aortic stenosis - AVR 2007 HL HTN Carotid stenosis ADHERENCE TO GUIDELINES SERVANDO-I or ARB for HF with prior LVEF<40 (NQF 0081) - met ASA or Plavix for ASHD (NQF 0067) - met Beta mia for ASHD with prior MN or prior LVEF<40 (NQF 0070) - met Beta mia for HF with prior LVEF<40 (NQF 0083) - met SERVANDO-I or ARB for ASHD with DM or prior LVEF<40 (NQF 0066) - met Statin therapy for ASHD or FHL or DM - met BMI documented and plan if >25 (NQF 0421) - lifestyle recommendation form Tobacco use screening and referral (NQF 0028) - lifestyle recommendation form Recommendation for whole food, plant based diet - lifestyle recommendation form CLINICAL IMPRESSION/PLAN: Charles Gould is doing well. He had a good response to percutaneous intervention. I advised him to continue his current medication and lifestyle change. If there is increase in chest pain, he's been advised to contact me. I will see him in 6 months or as needed. Written and verbal health teaching given to patient, patient verbalizes understanding and agrees with treatment plan. DIAGNOSIS FOR VISIT: ASHD HISTORY OF PRESENT ILLNESS Charles Gould returns for follow-up of his coronary disease. He recently had an inferolateral non-STEMI and was found to have a tight lesion in the saphenous graft to his PDA. This was stented Since discharge, he has had no chest discomfort. His exercise tolerance has improved. He denies edema, orthopnea, syncope, TIAs, amaurosis or claudication. No changes were made in his medication. ALLERGIES: ALLERGIES Allergen Reactions - Tape [Other] Skin breakdown CURRENT OUTPATIENT MEDICATIONS: NITROSTAT 0.[address] 1 tablet under the tongue every 5 minutes for a max of 3 doses omeprazole (PRILOSEC) 20 mg capsule Take 20 mg by mouth once daily. metFORMIN (GLUCOPHAGE) 1,000 mg tablet Take 1,000 mg by mouth twice daily with meals. glipiZIDE (GLUCOTROL) 10 mg tablet Take 10 mg by mouth once daily. metoprolol tartrate, short acting, (LOPRESSOR) 100 mg tablet Take 0.5 tablets by mouth twice daily. atorvastatin (LIPITOR) 80 mg tablet Take 1 tablet by mouth once daily. clopidogrel (PLAVIX) 75 mg tablet Take 1 tablet by mouth once daily. isosorbide mononitrate ER (IMDUR) 60 mg 24 hr tablet Take 1 tablet by mouth once daily. lisinopril (ZESTRIL, PRINIVIL) 20 mg tablet TAKE ONE TABLET BY MOUTH TWICE DAILY docusate sodium (COLACE) 100 mg capsule Take 100 mg by mouth twice daily. magnesium oxide 400 mg cap Take by mouth three times daily. multivitamin (DAILY MULTI-VITAMIN) tablet Take 1 tablet by mouth once daily. ASPIRIN 81 MG CHEWABLE TAB 1 Tab ORAL DAILY cyclobenzaprine (FLEXERIL) 10 mg tablet Take 10 mg by mouth three times daily as needed. PHYSICAL EXAMINATION: VITAL SIGNS: BP 130/82 Pulse 62 Ht 6' 1 (1.85m) Wt 211 lb 12.8 oz (96.1kg) BMI 27.95 kg/(m2). Chest: Clear to percussion and auscultation. Trachea is midline. Air entry is equal. Cardiac: Regular rhythm. S1 and S2 are normal. PMI is nondisplaced. There is a soft systolic ejection murmur. Carotids are brisk without bruits. JVP is less than 10 cm. Abdomen: Soft and nontender. There are no pulsatile masses or bruits. No liver enlargement. Bowel sounds are active. Extremities: No edema. Pulses are intact and symmetrical. Records from [facility] were reviewed. There was a high- grade lesion in the saphenous vein graft to the PDA. These images were personally reviewed Echocardiogram showed normal over all LV function. EKG showed inferolateral ischemic changes. LDL was 33. Peak troponin was 7.2 Electronically Signed: Greg Keyes MD February 09, 2018 10:04 AM CC: Manuela Damioc DO Referring Provider: GREG KEYES [[id number]] Allergies As of Date: 02/09/2018 Noted Allergy Reaction tape [Other] 10/30/2007 Comments: Skin breakdown Date Reviewed: 02/09/2018 Reviewed by: Yesy Sánchez MA - Fully Assessed Reason for Visit: Established Patient [175] Cmt: ASHD Primary Visit Diagnosis:ASHD (arteriosclerotic heart disease) [I25.10] Prescriptions as of 02/09/2018 Sig: NITROSTAT 0.4 MG SUBLINGUAL T* Place 1 tablet under the tong* OMEPRAZOLE 20 MG CAPSULE,JENNIFER* Take 20 mg by mouth once gabbie* METFORMIN 1,000 MG TABLET Take 1,000 mg by mouth twice * GLIPIZIDE 10 MG TABLET Take 10 mg by mouth once gabbie* METOPROLOL TARTRATE 100 MG TA* Take 0.5 tablets by mouth twi* ATORVASTATIN 80 MG TABLET Take 1 tablet by mouth once d* CLOPIDOGREL 75 MG TABLET Take 1 tablet by mouth once d* ISOSORBIDE MONONITRATE ER 60 * Take 1 tablet by mouth once d* LISINOPRIL 20 MG TABLET TAKE ONE TABLET BY MOUTH TWIC* DOCUSATE SODIUM 100 MG CAPSULE Take 100 mg by mouth twice da* MAGNESIUM OXIDE 400 MG CAPSULE Take by mouth three times da* MULTIVITAMIN TABLET Take 1 tablet by mouth once d* ASPIRIN 81 MG CHEWABLE TABLET 1 Tab ORAL DAILY CYCLOBENZAPRINE 10 MG TABLET Take 10 mg by mouth three anai* Problem List As Of Date 02/09/2018 Noted Resolved CORONARY ARTERY DISEASE [I25.10] INVALID FOR* Priority: B More... NON HODGKINS LYMPHOMA [C85.89] INVALID FOR* Priority: E More... WALDENSTROM MACROGLOBULINEMIA [C88.0] INVALID FOR* MEMBRANOPROLIFERATIVE NEPHROSIS [N04.5] INVALID FOR* More... THROMBOCYTOPENIA [D69.6] INVALID FOR* Priority: F More... 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 Aortic insufficiency and aortic stenosis [I35.2]INVALID FOR* Priority: D More... Chest pain [R07.9] INVALID FOR*12/28/2014 Priority: B More... SUMMARY [V999.95] INVALID FOR*12/28/2014 Priority: Very Severe More... Cardiac enzymes elevated [R74.8] INVALID FOR*12/28/2014 Priority: A More... Non-ST elevation myocardial infarction (NSTEMI)*INVALID FOR* Priority: A More... Hypertension [I10] INVALID FOR* Priority: C More... Hyperlipidemia [E78.5] INVALID FOR* Priority: D More... S/P aortic valve replacement with bioprosthetic*INVALID FOR* Priority: E More... Encounter Status:Closed by GREG KEYES MD on 02/09/18 12 LEAD ELECTROCARDIOGRAM Observed: 02/06/2018 Status: F Source: [place] 2:00 PM [facility] REPOSITORY [facility] Cardiovascular Services [address] [place] [address] 12 Lead EKG 02/03/18 1639 MR#: [id number] Acct: [id number] Name: CHARLES GOULD Rep #: [id number] : 1960 57 From: Diego Early MD Attending Dr: Alyce Royal MD Status: DIS IN Ordering Dr: Zak Chang MD Date: 02/03/18 Location: U Sex: M C Admitted: 02/03/18 Test Reason : POST PCI Blood Pressure : / mmHG Vent. Rate : 058 BPM Atrial Rate : 058 BPM P-R Int : 138 ms QRS Dur : 100 ms QT Int : 396 ms P-R-T Axes : 021 -01 -53 degrees QTc Int : [address] AND T wave abnormality, consider inferolateral ischemia Abnormal ECG When compared with ECG of 03-FEB-2018 11:12, MANUAL COMPARISON REQUIRED, DATA IS UNCONFIRMED Confirmed by DIEGO EARLY MD ([id number]), newspaper editor managing REECE SKAGGS ([id number]) on 02/06/2018 1:59:56 PM Referred By: Manuela Damico Confirmed By:DIEGO EARLY MD 02/06/18 1400 Date Diego Early MD CC: Alyce Royal MD; Zak Chang MD; Manuela Damico DO Signed 12 LEAD ELECTROCARDIOGRAM Observed: 02/06/2018 Status: F Source: [place] 1:59 PM [facility] REPOSITORY [facility] Cardiovascular Services [address] [place], [place] [address] [address] 12 Lead EKG 02/04/18 0504 MR#: [id number] Acct: [id number] Name: CHARLES GOULD Rep #: [id number] : 1960 57 From: Diego Early MD Attending Dr: Alyce Royal MD Status: DIS IN Ordering Dr: Zak Chang MD Date: 02/04/18 Location: [facility] Sex: M C Admitted: 02/03/18 Test Reason : AM EKG Blood Pressure : / mmHG Vent. Rate : 056 BPM Atrial Rate : 056 BPM P-R Int : 148 ms QRS Dur : 102 ms QT Int : 412 ms P-R-T Axes : 016 001 -54 degrees QTc Int : [address] AND T wave abnormality, consider inferolateral ischemia Abnormal ECG When compared with ECG of 03-FEB-2018 16:39, MANUAL COMPARISON REQUIRED, DATA IS UNCONFIRMED Confirmed by DIEGO EARLY MD ([id number]), newspaper editor managing REECE SKAGGS ([id number]) on 02/06/2018 1:59:41 PM Referred By: Manuela Damico Confirmed By:DIEGO EARLY MD 02/06/18 1359 Date Diego Early MD CC: Alyce Royal MD; Zak Chang MD; Manuela Damico DO Signed 12 LEAD ELECTROCARDIOGRAM Observed: 02/06/2018 Status: F Source: [place] 1:56 PM [facility] REPOSITORY [facility] Cardiovascular Services [address] [place] [address] 12 Lead EKG 02/03/18 1112 MR#: [id number] Acct: [id number] Name: CHARLES GOULD Rep #: [id number] : 1960 57 From: Diego Early MD Attending Dr: Alyce Royal MD Status: DIS IN Ordering Dr: Jaden Pressley DO Date: 02/03/18 Location: [facility] Sex: M C Admitted: 02/03/18 Test Reason : Blood Pressure : / mmHG Vent. Rate : 056 BPM Atrial Rate : 056 BPM P-R Int : 132 ms QRS Dur : 104 ms QT Int : 408 ms P-R-T Axes : 029 -02 -46 degrees QTc Int : [address] AND T wave abnormality, consider inferolateral ischemia Abnormal ECG When compared with ECG of 03-FEB-2018 08:47, MANUAL COMPARISON REQUIRED, DATA IS UNCONFIRMED Confirmed by SHARATH CRUMP, DIEGO ([id number]), newspaper editor managing REECE SKAGGS ([id number]) on 02/06/2018 1:55:51 PM Referred By: Manuela Damico Confirmed By:DIEGO EARLY MD 02/06/18 1355 Date Diego Early MD CC: Alyce Royal MD; Jaden Pressley DO; Manuela Damico DO Signed DISCHARGE INSTRUCTION Observed: 02/05/2018 Status: F Source: [place] 12:07 PM [facility] REPOSITORY [facility] Medical Records Department [address] [place] [address] Instructions for Home/Discharge Instructions 02/05/18 1017 MR#: [id number] Acct: [id number] Name: CHARLES GOULD Rep #: [id number] : 1960 57 From: Alyce Royal MD PCP: Manuela Damico DO Status: ADM IN - Discharge Diagnoses Current Active Problems: Current Active and Chronic Problems (Last Updated 02/03/18 @ 13:20 by Jaden Pressley DO) NSTEMI (non-ST elevated myocardial infarction) (Acute) NSTEMI (non-ST elevated myocardial infarction) (Acute) Reason(s) for Visit for Discharge Instructions: Chest pain You will use the following diet at home:: Calorie/Carbohydrate Controlled (specify 1200, 1400, etc), Cardiac Your food should be the consistency of: Regular Your liquids should be the consistency of: Regular/Thin Discharge Activity: Return to Normal Activity Call your doctor if you observe: Shortness of breath, Dizziness, Chest pain Additional Instructions: Continue to take all your medications as prescribed. Follow-up with your resource conservation manager and PCP within 2 weeks. Continue to remain active. Follow-up with cardiac rehab as scheduled. Allergies/Adverse Reactions: Allergies adhesive tape Adverse Reaction (Intermediate, Verified 02/03/18 08:52) Rash Medications to take at Discharge Metoprolol Tartrate [Lopressor (beta mia)] 50 mg PO BID 01/27/15 Docusate Sodium [Colace Clear] 100 mg PO BID PRN 03/08/15 Magnesium Oxide [Mag-Ox 400] 400 mg PO TID 03/18/16 Multivitamin [Daily Multiple Vitamin] 1 each PO DAILY 12/18/16 Nitroglycerin [Nitrostat] 0.4 mg SUBLINGUAL Q5M PRN 12/18/16 Metformin HCl [Glucophage] 1,000 mg PO BIDCM #60 tablet 02/17/17 Glipizide [Glipizide ER] 10 mg PO DAILY 02/03/18 Omeprazole 20 mg PO DAILY 02/03/18 Aspirin [Aspirin, Baby] 81 mg PO DAILY@0800 #30 tab.chew 02/05/18 Atorvastatin Calcium [Lipitor] 80 mg PO QHS #30 tab 02/05/18 Clopidogrel Bisulfate [Plavix] 75 mg PO DAILY #30 tab 02/05/18 Isosorbide Mononitrate [Isosorbide Mononitrate ER] 60 mg PO DAILY #30 tab.er.24h 02/05/18 Lisinopril [Zestril] 20 mg PO BID #60 tab 02/05/18 The following prescriptions were given: Aspirin [Aspirin, Baby] 81 mg PO DAILY@0800 #30 tab.chew Atorvastatin Calcium [Lipitor] 80 mg PO QHS #30 tab Clopidogrel Bisulfate [Plavix] 75 mg PO DAILY #30 tab Isosorbide Mononitrate [Isosorbide Mononitrate ER] 60 mg PO DAILY #30 tab.er.24h Lisinopril [Zestril] 20 mg PO BID #60 tab Primary Care Physician: Manuela Damico DO [Primary Care Provider] - Please follow up with your Primary Care Physician in: within 2 weeks Test Results: Test results from this visit will be discussed in further detail at your follow-up appointment, if applicable. Please Follow Up With: Abhi Go MD When: within 2 weeks When: Cardiac rehab as scheduled Proposed Discharge Date: 02/05/18 02/05/18 1207 <Electronically signed by Alyce Royal MD> Date Alyce Royal MD CC: Manuela Damico DO; Abhi oG MD BEDSIDE GLUCOSE Collected: 02/05/2018 Status: F Source: [place] 12:01 PM [facility] REPOSITORY TYPE CODE TESTS RESULT OUT OF REFERENCE UNITS RANGE LAB L501.080 70-110 mg/dL High BEDSIDE GLU 309 Result Comment: MANAGEMENT OF PATIENT CARE PER NURSING PROTOCOL Performed By: #### L501.080 #### [facility] Point of Care [address] [place] [address] BEDSIDE GLUCOSE Collected: 02/05/2018 Status: F Source: [place] 7:00 AM [facility] REPOSITORY TYPE CODE TESTS RESULT OUT OF REFERENCE UNITS RANGE LAB L501.080 70-110 mg/dL High BEDSIDE GLU 158 Result Comment: MANAGEMENT OF PATIENT CARE PER NURSING PROTOCOL Performed By: #### L501.080 #### [facility] Point of Care [address] [place] [address] BASIC METABOLIC Collected: 02/05/2018 Status: F Source: [place] PROFILE (BMP) 5:25 AM [facility] REPOSITORY TYPE CODE TESTS RESULT OUT OF RANGE REFERENCE UNITS LAB L501.0100 74-106 mg/dL High GLU 201 Result Comment: Glucose result greater than or equal to 200 mg/dL suggests DIABETES MELLITUS per A.D.A. criteria. Please note revised GLUCOSE reference range effective 2017. LAB L501.1000 7-18 mg/dL Normal BUN 11 LAB L501.1100 0.70-1.30 mg/dL Normal CREAT,SERUM 0.80 Result Comment: The validity of the calculated GFR AND GFRAA in patients over 70 years has not been determined. Clinical correlation is essential. LAB L501.1110 >60 mL/min Normal EST GFR 106 Result Comment: Non- GFR Calc LAB L501.1115 >60 mL/min Normal EST GFR - AA 128 Result Comment: GFR Calc LAB L501.1255 ml/min Normal Estimated CRCL 115.13 LAB L501.1300 10-20 RATIO BUN/CRE Normal 13.8 LAB L501.2200 8.5-10 mg/dL .1 CA Normal 8.6 LAB L501.5300 136-14 mmol/L 5 NA Normal 140 LAB L501.5600 3.5-5. mmol/L 1 K Normal 4.2 LAB L501.5900 98-107 mmol/L CL Normal 107 LAB L501.6100 21.0-3 mmol/L 2.0 CO2 Normal 27.0 LAB L501.6200 5-15 GAP Normal 6 Performed By: #### L500.2500 #### [facility] [address] [place], [place], [address] BEDSIDE GLUCOSE Collected: 02/04/2018 Status: F Source: [place] 9:28 PM [facility] REPOSITORY TYPE CODE TESTS RESULT OUT OF REFERENCE UNITS RANGE LAB L501.080 70-110 mg/dL High BEDSIDE GLU 210 Result Comment: MANAGEMENT OF PATIENT CARE PER NURSING PROTOCOL Performed By: #### L501.080 #### [facility] Point of Care [address] [facility] [place], [place] [address] BEDSIDE GLUCOSE Collected: 02/04/2018 Status: F Source: [place] 4:28 PM [facility] REPOSITORY TYPE CODE TESTS RESULT OUT OF REFERENCE UNITS RANGE LAB L501.080 70-110 mg/dL High BEDSIDE GLU 219 Result Comment: MANAGEMENT OF PATIENT CARE PER NURSING PROTOCOL Performed By: #### L501.080 #### [facility] Point of Care [address] [place] [address] BEDSIDE GLUCOSE Collected: 02/04/2018 Status: F Source: [place] 11:52 AM [facility] REPOSITORY TYPE CODE TESTS RESULT OUT OF REFERENCE UNITS RANGE LAB L501.080 70-110 mg/dL High BEDSIDE GLU 254 Result Comment: MANAGEMENT OF PATIENT CARE PER NURSING PROTOCOL Performed By: #### L501.080 #### [facility] Point of Care [address] [place] [address] BEDSIDE GLUCOSE Collected: 02/04/2018 Status: F Source: [place] 11:51 AM [facility] REPOSITORY TYPE CODE TESTS RESULT OUT OF REFERENCE UNITS RANGE LAB L501.080 70-110 mg/dL High BEDSIDE GLU 264 Result Comment: MANAGEMENT OF PATIENT CARE PER NURSING PROTOCOL Performed By: #### L501.080 #### [facility] Point of Care [address] [place] [address] 12 LEAD ELECTROCARDIOGRAM Observed: 02/04/2018 Status: F Source: [place] 11:33 AM [facility] REPOSITORY [facility] Cardiovascular Services [address] [place] [address] 12 Lead EKG 02/03/18 0847 MR#: [id number] Acct: [id number] Name: CHARLES GOULD Rep #: [id number] : 1960 57 From: Diego Early MD Attending Dr: Alyce Royal MD Status: ADM IN Ordering Dr: Noah Story DO Date: 02/03/18 Location: ICU Sex: M C Admitted: 02/03/18 Test Reason : CP Blood Pressure : / mmHG Vent. Rate : 067 BPM Atrial Rate : 067 BPM P-R Int : 140 ms QRS Dur : 108 ms QT Int : 384 ms P-R-T Axes : 001 -01 -36 degrees QTc Int : 405 ms Normal sinus rhythm ST AND T wave abnormality, consider inferior ischemia Abnormal ECG Confirmed by DIEGO EARLY MD ([id number]), newspaper editor managing REECE SKAGGS ([id number]) on 02/04/2018 11:33:43 AM Referred By: Manuela Damico Confirmed By:DIEGO EARLY MD 02/04/18 1133 Date Diego Early MD CC: Alyce Royal MD; Manuela Damico DO; Noah Story DO Signed ECHOCARDIOGRAM COMPLETE Observed: 02/04/2018 Status: F Source: [place] 10:38 AM [facility] REPOSITORY [facility] Cardiovascular Services [address] [place] [address] Echo Complete 02/04/18 0921 MR#: [id number] Acct: [id number] Name: CHARLES GOULD Rep #: [id number] : 1960 57 From: Abhi Go MD Attending Dr: Alyce Royal MD Status: ADM IN Ordering Dr: Abhi Go MD Date: 02/03/18 Location: ICU Sex: M C Admitted: 02/03/18 Reason For Study: CAD, AVR Procedure This was a 2D Doppler, Color Flow transthoracic echocardiogram. The exam was of fair technical quality due to diminished acoustic images. Exam performed portable in ICU/CCU. Left Ventricle Normal LV size. Mild concentric left ventricular hypertrophy. Segmental dysfunction with preserved ejection fraction (see wall motion). The estimated ejection fraction is 60 %. There is evidence of diastolic dysfunction. Infero-Basal: Hypokinetic. Right Ventricle Normal RV size. Normal systolic function. Atria The left atrium is mildly enlarged. Normal right atrium. No doppler evidence for ASD. Mitral Valve There is no mitral annular calcification. Anterior leaflet diffuse mitral valve thickening. Mild (1+) mitral valve insufficiency. Tricuspid Valve Normal tricuspid valve. Trivial tricuspid valve insufficiency. Aortic Valve Trivial aortic valve insufficiency. Stable appearing bioprosthetic aortic valve apparatus. Pulmonic Valve The pulmonic valve is not well visualized. Mild (1+) pulmonic valve insufficiency. Great Vessels Normal sized aortic root. Pericardium/Pleural No pericardial effusion. MMode/2D Measurements AND Calculations LVIDd: 4.5 cm IVSd: 1.3 cm LVOT diam: 2.1 cm LVIDs: 2.5 cm LVPWd: 1.4 cm LVOT area: 3.4 cm2 RVDd: 3.6 cm FS: 44.6 % Ao root diam: 3.5 cm LAV(MOD-bp): 85.5 ml LA A4 area: 23.5 cm2 LA dimension: 5.3 cm LAV(MOD-bp) Indexed: 38.8 ml/m2 LAV(MOD-sp2): 89.1 ml LAV(MOD-sp4): 74.6 ml RA A4 area: 16.9 cm2 Doppler Measurements AND Calculations MV E max justin: 118.8 cm/sec Lat Peak E' Justin: 9.7 cm/sec Med Peak E' Justin: 4.9 cm/sec MV A max justin: 79.5 cm/sec E/E' lat: 12.2 E/E' med: 24.2 MV E/A: 1.5 Ao V2 max: 282.8 cm/sec LV V1 max: 162.5 cm/sec SV(LVOT): 121.6 ml Ao max P.0 mmHg LV V1 max P.6 mmHg Ao V2 mean: 194.6 cm/sec LV V1 mean P.6 mmHg Ao mean P.1 mmHg LV V1 mean: 112.0 cm/sec Ao V2 VTI: 62.1 cm LV V1 VTI: 35.4 cm ANNE(I,D): 2.0 cm2 ANNE(V,D): 2.0 cm2 PA V2 max: 99.2 cm/sec Interpretation Summary Segmental dysfunction with preserved ejection fraction (see wall motion). The estimated ejection fraction is 60 %. Mild concentric left ventricular hypertrophy. The left atrium is mildly enlarged. Anterior leaflet diffuse mitral valve thickening. Mild (1+) mitral valve insufficiency. Trivial tricuspid valve insufficiency. Stable appearing bioprosthetic aortic valve apparatus. Trivial aortic valve insufficiency. Mild (1+) pulmonic valve insufficiency. There is evidence of diastolic dysfunction. Ordering Physician: Abhi Go Referring Physician: Manuela Damico Performed By: Tammy Comer RDCS 02/04/18 1037 Date Abhi Go MD CC: Alyce Royal MD; Manuela Damico DO; Abhi Go MD Date Dictated: 02/04/18 0921 Date Transcribed: 02/04/18 1037 Dubbing Machine Operator: Signed BEDSIDE GLUCOSE Collected: 02/04/2018 Status: F Source: [place] 7:15 AM [facility] REPOSITORY TYPE CODE TESTS RESULT OUT OF REFERENCE UNITS RANGE LAB L501.080 70-110 mg/dL High BEDSIDE GLU 175 Result Comment: MANAGEMENT OF PATIENT CARE PER NURSING PROTOCOL Performed By: #### L501.080 #### [facility] Point of Care [address] [place], [place] [address] CBC-COMPLETE BLOOD CNT Collected: 02/04/2018 Status: F Source: [place] NO DIFF 4:10 AM [facility] REPOSITORY TYPE CODE TESTS RESULT OUT OF RANGE REFERENCE UNITS LAB L100.1000 4.4-11.0 K/mm3 Normal WBC 4.7 LAB L100.1200 4.6-6.2 M/mm3 Low RBC 4.53 LAB L100.1300 13.0-16.5 g/dl Low HGB 12.4 LAB L100.1400 40-54 % Low HCT 38.7 LAB L100.1500 80-94 fL Normal MCV 85.4 LAB L100.1600 27.0-32.0 pg Normal MCH 27.4 LAB L100.1700 32-36 g/gl Normal MCHC 32.0 LAB L100.1810 11.6-14.6 % High RDW CV 15.7 LAB L100.1820 35.1-43.9 fl High RDW SD 48.3 LAB L100.1900 150-450 K/mm3 Low PLT 110 LAB L100.2000 6.2-12.0 fl Normal MPV 10.5 Performed By: #### L100.0500 #### [facility] [address] [place], [place], [address] COMPREHENSIVE METABOLIC Collected: 02/04/2018 Status: F Source: [place] PROFIL 4:10 AM [facility] REPOSITORY TYPE CODE TESTS RESULT OUT OF RANGE REFERENCE UNITS LAB L501.0100 74-106 mg/dL High GLU 260 Result Comment: Glucose result greater than or equal to 200 mg/dL suggests DIABETES MELLITUS per A.D.A. criteria. Please note revised GLUCOSE reference range effective 2017. LAB L501.1000 7-18 mg/dL Normal BUN 11 LAB L501.1100 0.70-1.30 mg/dL Normal CREAT,SERUM 0.82 Result Comment: The validity of the calculated GFR AND GFRAA in patients over 70 years has not been determined. Clinical correlation is essential. LAB L501.1110 >60 mL/min Normal EST GFR 103 Result Comment: Non- GFR Calc LAB L501.1115 >60 mL/min Normal EST GFR - AA 125 Result Comment: GFR Calc LAB L501.1255 ml/min Normal Estimated CRCL 112.33 LAB L501.1300 10-20 RATIO BUN/CRE Normal 13.5 LAB L501.1500 6.4-8. g/dL Low 2 T PROT 5.8 LAB L501.1800 3.2-5. g/dL Low 0 ALB 3.1 LAB L501.1950 2.2-4. g/dL 2 GLOB Normal 2.7 LAB L501.2000 0.9-2. RATIO 4 A/G Normal 1.1 LAB L501.2200 8.5-10 mg/dL Low .1 CA 8.1 LAB L501.4100 15-37 U/L AST Normal 36 LAB L501.4305 45-117 U/L ALK P Normal 90 LAB L501.4405 16-61 U/L ALT Normal 19 LAB L501.4600 0.20-1 mg/dL .00 T BILI Normal 0.30 LAB L501.5300 136-14 mmol/L 5 NA Normal 141 LAB L501.5600 3.5-5. mmol/L 1 K Normal 4.4 LAB L501.5900 98-107 mmol/L High CL 108 LAB L501.6100 21.0-3 mmol/L 2.0 CO2 Normal 28.0 LAB L501.6200 5-15 GAP Normal 5 Performed By: #### L500.4050, L500.4100 #### [facility] [address] [place], [address] LIPID PROFILE Collected: 02/04/2018 Status: F Source: [place] 4:10 AM [facility] REPOSITORY TYPE CODE TESTS RESULT OUT OF RANGE REFERENCE UNITS LAB L501.4900 200 mg/dL Normal CHOL 114 Result Comment: <200 mg/dL Desirable 200-240 mg/dL Borderline >240 mg/dL High Risk LAB L501.5000 mg/dL High TRIG 258 Result Comment: The drugs N-Acetylcysteine and Metamizole may falsely depress this assay. Serum Triglycerides Reference Interval Normal <150 mg/dL Borderline high 150 - 199 mg/dL High 200 - 499 mg/dL Very High > or = 500 mg/dL LAB L501.6400 mg/dL Low HDL 29 Result Comment: The drugs N-Acetylcysteine and Metamizole may falsely depress this assay. Reference Range HDL <40 mg/dL Low HDL Cholesterol HDL >or= 60 mg/dL High HDL Cholesterol LAB L501.6500 0-130 mg/dL Normal LDL 33 LAB L501.6600 5-40 mg/dL High VLDL 52 Performed By: #### L500.4050, L500.4100 #### [facility] [address] [place], [address] HEMOGLOBIN A1C Collected: 02/04/2018 Status: F Source: [place] 4:10 AM [facility] REPOSITORY Order Comment: Comments: as add on test TYPE CODE TESTS RESULT OUT OF RANGE REFERENCE UNITS LAB L501.9985 4.2-6.3 % High HGB A1C 7.3 Performed By: #### L501.9985 #### [facility] [address] [place], [address] TROPONIN-I Collected: 02/04/2018 Status: F Source: [place] 4:10 AM [facility] REPOSITORY Order Comment: Comments: add on to AM labs please TYPE CODE TESTS RESULT OUT OF RANGE REFERENCE UNITS LAB L501.4010 <0.045 ng/mL High alert 4.470 TROPONIN-I Result Comment: Critical Result(s) Called at: 09:16:32 02/04/2018 by: Malorie Olvera to [facility] TROPONIN-I EXPECTED VALUES <0.045 Negative 0.045 - 0.590 Consistent with Cardiac Damage > OR = 0.600 Critical Value Not every elevated troponin is indicative of MN. These values should be used with clinical judgement in examining the patient's clinical picture for diagnosis. To establish a diagnosis of MN versus myocardial injury, there must be a demonstrated rise and/or fall in the troponin values, in addition to ischemic symptoms, EKG changes, new regional wall motion abnormality, and/or angiographical evidence. PLEASE NOTE: REFERENCE RANGES EDITED 17 Performed By: #### L501.4010 #### [facility] [address] [place], [address] BEDSIDE GLUCOSE Collected: 02/03/2018 Status: F Source: [place] 9:25 PM [facility] REPOSITORY TYPE CODE TESTS RESULT OUT OF REFERENCE UNITS RANGE LAB L501.080 70-110 mg/dL High BEDSIDE GLU 144 Result Comment: MANAGEMENT OF PATIENT CARE PER NURSING PROTOCOL Performed By: #### L501.080 #### [facility] Point of Care [address] [place] [address] CONSULTATION Observed: 02/03/2018 Status: F Source: [place] 5:03 PM [facility] REPOSITORY [facility] Medical Records Department [address] [place] [address] Consultation 02/03/18 1408 MR#: [id number] Acct: [id number] Name: CHARLES GOULD Susanna Rep #: [id number] : 1960 57 From: Abhi Go MD PCP: Manuela Damico DO Status: ADM IN Y Location: ICU [id number] Problem List (1) NSTEMI (non-ST elevated myocardial infarction) Status: Acute (2) Coronary artery disease Status: Chronic (3) Status post coronary artery bypass graft Status: Chronic (4) Status post aortic valve replacement with bioprosthetic valve Status: Chronic (5) Atrial flutter Status: Resolved (6) Hyperlipidemia Status: Chronic Qualifiers: (7) Hypertension Status: Chronic Qualifiers: (8) Type 2 diabetes mellitus Status: Chronic (9) Macroglobulinemia of [place] Status: Chronic Comment: well controlled periodic IgG infusions (10) Hodgkins lymphoma Status: Chronic Qualifiers: Reason for Consult Date of Consultation: 02/03/18 History of Present Illness: The patient is a 57 year old white male with a past cardiovascular history which is included underlying hyperlipidemia, hypertension, CAD, status post CABG previously reported to have been performed on 03/03/2008 with a MENDOZA to the LAD, and SVG to the diagonal branch, and SVG to the OM, and an SVG to the right PDA, status post aortic valve replacement with a report of a Rosalee-Ledbetter porcine bioprosthetic aortic valve, atrial flutter status post a synchronized biphasic DC cardioversion, superimposed upon diabetes mellitus, macroglobulinemia, and Hodgkin's lymphoma, who is now referred for recurrent symptoms of unstable angina pectoris and abnormal cardiac enzymes/ECG compatible with concerns of an acute non-ST segment elevation MN. He states he had chest discomfort which he described as gas-like discomfort earlier this day. He elected to present to the emergency department for this. He noted by the time he presented to emergency department he was feeling somewhat better. He denied any acute shortness of breath/dyspnea, nausea/emesis, or diaphoresis. He has denied any obvious orthopnea, PND, or peripheral pitting edema. There has been no report of near syncope or syncope. He was noted on cardiac enzyme to have an indeterminate troponin I level which subsequently turned positive. His ECG demonstrated sinus rhythm with ST and T-wave changes in the inferior and lateral distribution which were reported as new compared to a previous ECG. He has undergone previous transthoracic echocardiogram on 08/24/2015. At that time the left ventricle was thought to be normal with an LVEF of 65% with mild TR, a stable appearing bioprosthetic aortic valve with trivial AI, trivial CT, and an estimated RV systolic pressure of 33 mmHg. He has undergone previous cardiac catheterization at [facility] on 03/29/2014. Per the report the left ventricle was not performed secondary to not crossing the bioprosthetic aortic valve apparatus. The left main coronary artery is normal. The LAD demonstrated proximal occlusion with the mid to distal vessel filling from the MENDOZA graft with no angiographically significant appearing disease distal to the graft attachment. The LCx had a proximal occlusion. There were bridging collaterals to the mid segment followed by subsequent occlusion followed by bridging collaterals to the distal segment. OM1 had a proximal subtotal occlusion. The mid to distal LCx and OM1 and OM 2 filled faintly, lately, and only partially. OM1 also filled from an SVG graft and appeared to be a very small caliber vessel. The RCA was a large dominant vessel which was proximally subtotally occluded with the mid to distal vessel filling late and faintly and partially. The right PDA system filled from the SVG graft and was also a small caliber vessel. The MENDOZA to the LAD was patent. The SVG to the diagonal branch was proximally occluded. The SVG reported as a sequential graft to OM1 and OM 2 appeared to be patent with diffuse venous valves and status post detachment OM1 appear to be some subsequently occluded with the appearance of a filling defect potentially compatible with a thrombus. The SVG to the RCA system was patent with findings compatible with venous valves and was subsequently noted to fill the right PDA system which also appeared to be a small caliber vessel. The aortic valve demonstrated an aortic valve prosthetic ring in place. At that time the patient was continuing medical management. [] Past Medical History Allergies/Adverse Reactions: Allergies adhesive tape Adverse Reaction (Intermediate, Verified 02/03/18 08:52) Rash Home Medications: Ambulatory Orders Medication Instructions Recorded Past Medical History (Chronic Problems): Chronic Problems (Last Updated 02/03/18 @ 13:20 by Jaden Pressley DO) Hyperlipidemia (Chronic) Hypertension (Chronic) Macroglobulinemia of [place] (Chronic) well controlled periodic IgG infusions Hodgkins lymphoma (Chronic) Status post coronary artery bypass graft (Chronic) Coronary artery disease (Chronic) Status post aortic valve replacement with bioprosthetic valve (Chronic) Type 2 diabetes mellitus (Chronic) Tinea unguium (Chronic) Diabetes mellitus with neuropathy (Chronic) Poor hygiene (Chronic) Nonfamilial hypogammaglobulinemia (Chronic) Psychiatric History: No pertinent psych hx - *Family History Maternal Family History: Family History (Last Reviewed 02/03/18 @ 13:21 by Jaden Pressley DO) Father Arthritis Brain cancer Lung cancer Hypertension Mother Arthritis Hypertension Cancer History Items: No pertinent history Paternal Family History: Family History (Last Reviewed 02/03/18 @ 13:21 by Jaden Pressley DO) Father Arthritis Brain cancer Lung cancer Hypertension Mother Arthritis Hypertension Cancer History Items: Heart Disease Lives: Alone Smoking Status: Never smoker Tobacco Use: Non-smoker Alcohol: None Drugs: None Review of Systems - Review of Systems General: Denies: Fever, Night Sweats, Fatigue Cardiovascular: Reports: Chest Discomfort, Chest Discomfort at Rest. Denies: Shortness of Breath, Orthopnea, PND, Peripheral Edema, Palpitations, Lightheadedness, Dizziness, Near Syncope, Syncope Respiratory: Denies: Cough, Sputum Production, Hemoptysis Gastrointestinal: Denies: Hematemesis, Hematochezia, Melena Genitourinary: Denies: Dysuria, Hematuria Skin: Denies: Rash Subjectve: This is a 57-year-old white male who appears to be resting comfortably at the moment in no acute distress. Objective: Vital Signs Temp Pulse Resp BP Pulse Ox 98.5 F 59 L 18 114/82 H 98 02/03/18 11:22 02/03/18 11:22 02/03/18 11:22 02/03/18 11:23 02/03/18 11:22 Oxygen Delivery Method Room Air Weight: 208 lb 7.858 oz Body Mass Index (BMI) 27.5 General: Awake, Alert, Oriented x 3, Cooperative, No Acute Distress HEENT: Atraumatic, Normocephalic, PERRL, EOMI, Sclera Non Icteric Oral: Moist Mucosa Neck: Supple, Good ROM, No JVD Chest Wall: Midline Sternotomy Incision Lungs: Clear to auscultation Cardiovascular: Regular Rhythm, Normal S1, Normal S2 Murmur Murmur: Grade 3/6, Mid Systolic, LLSB, LVOT, Sternal Notch Vascular: Radiation of Murmur to Carotid Arteries Abdomen: Bowel Sounds Present, Soft, Non Tender Extremities: No Cyanosis, No Clubbing, No edema Neurological: No Focal Motor or Sensory Deficit 02/03/18 12:15: Troponin I 2.080 H* Rhythm: Sinus rhythm EKG: As noted above ECHO: As noted above Cardiac Cath: As noted above CT Surgery: Unavailable for review at this time CXR: Preliminary evaluation: Post open heart surgery changes: No acute cardiovascular disease process appreciated: Please see official report Assessment/Plan 1. Acute non-ST segment elevation MN The patient presents with symptoms, abnormal troponin I levels, and an abnormal ECG concerning for an acute non-ST segment elevation MN. At the present time the patient appears to be resting comfortably. He is continuing to be monitored. He is continuing medical management. It was felt the patient should be further evaluated based upon his previously documented cardiovascular history and current clinical scenario with diagnostic cardiac catheterization. The procedure and risks were discussed with him and the patient grants consent. 2. CAD status post CABG The patient has a history of previous CABG as described above. He has undergone noninvasive and invasive evaluation previously. He presents now with concerns of his acute non-ST segment elevation MN. He will continue medical management. He will undergo repeat diagnostic cardiac catheterization. 3. Aortic valve disease status post aortic valve replacement-bioprosthetic The exact etiology of the patient's previous aortic valve disease is unknown at this time. He did undergo a hwobvqbxzlrzc-qvrryds-Umgabwxtqq-Ledbetter aortic valve replacement in the past. This was assessed in 2016 with a transthoracic echocardiogram and was stable at that time. His aortic valve anatomy and physiology can be followed with echocardiographic studies. He will need to continue [employer] antibiotic prophylaxis as deemed appropriate. 4. Atrial flutter The patient has a history of atrial flutter. He underwent previous synchronized biphasic DC cardioversion on 06/05/2016. He is in sinus rhythm at the present time. He will continue medical management and follow-up. 5. Hyperlipidemia The patient will need to continue risk factor evaluation care as deemed appropriate. 6. Hypertension The patient will continue medical management as deemed appropriate. 7. Diabetes mellitus The patient will continue under the care of terminal medicine for his diabetes mellitus. 8. Macroglobulinemia The patient will need to continue to follow with hematology and oncology for his aforementioned issues. 9. Hodgkin's lymphoma Again the patient will continue to follow with hematology/oncology for his diagnosis of Hodgkin's lymphoma. Comment: The patient's case has been discussed and reviewed the patient and the [facility] emergency department staff. This note was generated with Dtime dictation software. It may contain incorrect words, spelling, and punctuation that were not noted in checking the note before signing. 02/03/18 1703 <Electronically signed by Abhi Go MD> Date Abhi Go MD Cosigner Signature (if applicable): Date CC: Manuela Damico DO; Abhi Go MD Signed TROPONIN-I Collected: 02/03/2018 Status: F Source: [place] 4:55 PM [facility] REPOSITORY Order Comment: 'TROP' Serial specimen #1, #2 or #3: 3 TYPE CODE TESTS RESULT OUT OF RANGE REFERENCE UNITS LAB L501.4010 <0.045 ng/mL High alert 7.170 TROPONIN-I Result Comment: Critical Result(s) Called Low AREVALO at: 17:46:27 02/03/2018 by: TRINITY GATES TROPONIN-I EXPECTED VALUES <0.045 Negative 0.045 - 0.590 Consistent with Cardiac Damage > OR = 0.600 Critical Value Not every elevated troponin is indicative of MN. These values should be used with clinical judgement in examining the patient's clinical picture for diagnosis. To establish a diagnosis of MN versus myocardial injury, there must be a demonstrated rise and/or fall in the troponin values, in addition to ischemic symptoms, EKG changes, new regional wall motion abnormality, and/or angiographical evidence. PLEASE NOTE: REFERENCE RANGES EDITED 17 Performed By: #### L501.4010 #### [facility] [address] [place], [address] BEDSIDE GLUCOSE Collected: 02/03/2018 Status: F Source: [place] 4:53 PM [facility] REPOSITORY TYPE CODE TESTS RESULT OUT OF RANGE REFERENCE UNITS LAB L501.080 70-110 mg/dL Normal BEDSIDE GLU 96 Result Comment: MANAGEMENT OF PATIENT CARE PER NURSING PROTOCOL Performed By: #### L501.080 #### [facility] Point of Care [address] [place] [address] ACT ACTIVATED CLOTTING Collected: 02/03/2018 Status: F Source: [place] TIME 3:49 PM [facility] REPOSITORY TYPE CODE TESTS RESULT OUT OF RANGE REFERENCE UNITS LAB L9100.0100 74-137 sec High ACTk CLOT 345 TIME Performed By: #### L9100.0100 #### [facility] Point of Care [address] [place] [address] BEDSIDE GLUCOSE Collected: 02/03/2018 Status: F Source: [place] 2:10 PM [facility] REPOSITORY TYPE CODE TESTS RESULT OUT OF RANGE REFERENCE UNITS LAB L501.080 70-110 mg/dL Normal BEDSIDE GLU 95 Result Comment: MANAGEMENT OF PATIENT CARE PER NURSING PROTOCOL Performed By: #### L501.080 #### [facility] Point of Care [address] [place] [address] HISTORY AND PHYSICAL Observed: 02/03/2018 Status: F Source: [place] EXAM 1:27 PM [facility] REPOSITORY [facility] Medical Records Department [address] [place] [address] History and Physical 02/03/18 1243 MR#: [id number] Acct: [id number] Name: CHARLES GOULD Rep #: [id number] : 1960 57 From: Pranav NELSON PCP: Manuela Damico DO Status: ADM IN [id number] <Pranav Hernandez - Last Filed: 02/03/18 12:43> Problem List (1) NSTEMI (non-ST elevated myocardial infarction) Status: Acute (2) Macroglobulinemia of Waldenstrom Status: Chronic Comment: well controlled periodic IgG infusions (3) Nonfamilial hypogammaglobulinemia Status: Chronic (4) Hypertension Status: Chronic (5) Diabetes mellitus with neuropathy Status: Chronic (6) Status post aortic valve replacement with bioprosthetic valve Status: Chronic (7) Coronary artery disease Status: Chronic (8) Status post coronary artery bypass graft Status: Chronic (9) Hyperlipidemia Status: Chronic (10) Hodgkins lymphoma Status: Chronic (11) Atrial flutter Status: Chronic History of Present Illness Date of Admission: 02/03/18 Chief Complaint: Chest pain The patient is a 57 year old M with a hx of CAD, prior CABG x5, prior bioprosthetic AV, pt of Dr. Chaudhary, Hx paroxysmal A flutter, HTN, HLD, DMt2, hodgkins lymphoma, Waldenstrom macroglobulinemia and hypogammaglobulinemia pt of Dr. Schmitt on IVIG, who presents to the ER from oncology office for chest pain. He reported for his IVIG therapy, but told them he had chest pain that he states now has been going on for 2 hours - they sent him to the ER. He describes it as 7-8/10 tightness in his midsternal region. He denies radiation into the back, arms, or neck; he denies SOB, lightheadedness, dizziness, palpitations, nausea, or sweating. He denies that he had this prior to today. In the ER he had an EKG with nonspecific T wave changes, however he had a troponin that was significantly elevated. Dr. Go was contacted and plans to take the person for a cath 2/2 NSTEMI. Pt is agreeable. Pt received 4 baby aspirin and zero nitro so far. [] Past Medical History Past Medical History (Chronic Problems): Chronic Problems (Last Reviewed 01/06/18 @ 08:56 by Hemalatha Poole) Macroglobulinemia of Waldenstrom (Chronic) well controlled periodic IgG infusions Nonfamilial hypogammaglobulinemia (Chronic) Hypertension (Chronic) Poor hygiene (Chronic) Diabetes mellitus with neuropathy (Chronic) Tinea unguium (Chronic) Type 2 diabetes mellitus (Chronic) Status post aortic valve replacement with bioprosthetic valve (Chronic) Coronary artery disease (Chronic) Status post coronary artery bypass graft (Chronic) Hyperlipidemia (Chronic) Hodgkins lymphoma (Chronic) Atrial flutter (Chronic) Medical History: Medical History (Last Reviewed 01/06/18 @ 08:56 by Hemalatha Poole) Chronic bronchitis J42 Heart disease Hypoglobulinemia R77.1 Lymphoma C85.90 Skin cancer C44.90 Allergies adhesive tape Adverse Reaction (Intermediate, Verified 02/03/18 08:52) Rash Home Medications: Ambulatory Orders Medication Instructions Recorded Surgical History: Surgical History (Last Reviewed 01/06/18 @ 08:56 by Hemalatha Poole) H/O aortic valve replacement Z95.2 H/O foot surgery Z98.890 H/O myringotomy Z98.890 Hx of CABG Psychiatric History: No pertinent psych hx Lives: Alone Smoking Status: Never smoker Tobacco Use: Non-smoker Alcohol: None Drugs: None - *Family History Maternal Family History: Family History (Last Reviewed 01/06/18 @ 08:56 by Hemalatha Poole) Father Arthritis Brain cancer Lung cancer Hypertension Mother Arthritis Hypertension Cancer History Items: No pertinent history Paternal Family History: Family History (Last Reviewed 01/06/18 @ 08:56 by Hemalatha Poole) Father Arthritis Brain cancer Lung cancer Hypertension Mother Arthritis Hypertension Cancer History Items: Heart Disease Review of Systems Constitutional: Denies: Chills, Fever, Weight Change HEENT: Denies: Head Aches, Sinus Congestion, Sinus Drainage Cardiovascular: Reports: Chest Pain, Chest Tightness. Denies: Edema, Heaviness, Light Headedness, Orthopnea, Palpitations, Paroxysmal Noc. Dyspnea, Syncope Respiratory: Denies: Cough, Shortness of breath at rest, Sputum production Gastrointestinal: Denies: Abdominal Pain, Nausea, Vomiting Genitourinary: Denies: Dysuria Musculoskeletal: Denies: Joint Pain, Joint Tenderness Skin: Denies: Rash, Wounds Neurological: Denies: Numbness, Tingling, Focal weakness Psychiatric: Denies: Anxiety, Depression, Homicidal Ideations, Suicidal Ideations Hematologic/ Lymphatic: Denies: Easy Bruising, Easy Bleeding VTE Information - Inpt Only VTE Present on Admission: No VTE Mechan Device Prophylaxis: SCD's VTE Pharm Prophylaxis ordered?: No Patient Problems: Active and Suspected Problems (Last Reviewed 01/06/18 @ 08:56 by Hemalatha Poole) NSTEMI (non-ST elevated myocardial infarction) (Acute) - Physical Exam General: Alert, Oriented x3, Cooperative HEENT: Atraumatic, PERRLA, EOMI, Normocephalic Neck: Supple, No JVD, Negative Carotid Bruits Lungs: Clear to auscultation, Normal air movement Cardiovascular: Regular rate, No murmurs Abdomen: Bowel Sounds Present, Soft, Non Tender Extremities: No edema, Capillary Refill Less than 3 Seconds Skin: No rashes, No breakdown Musculoskeletal: No Tenderness to Palpation of Joints or Extremities Neurological: Cranial nerves II-XII grossly intact Psych/Mental Status: Normal Affect, Appropriate, Alert and oriented to time, place, person, mood and affect Vital Signs Temp Pulse Resp BP Pulse Ox 98.5 F 59 L 18 114/82 H 98 02/03/18 11:22 02/03/18 11:22 02/03/18 11:22 02/03/18 11:23 02/03/18 11:22 Oxygen Delivery Method Room Air Weight: 208 lb 8 oz Body Mass Index (BMI) 27.5 Laboratory Tests Past 24 Hrs Troponin I Pending Assessment/Plan All Active Problems (Last Reviewed 01/06/18 @ 08:56 by Hemalatha Poole) NSTEMI (non-ST elevated myocardial infarction) (Acute) 1. Chest pain / NSTEMI - EKG with nonspecific T wave changes. Troponin elevated. Dr. Go to take pt for cath today. Continue asa, statin, plavix, imdur, servando-i, lopressor. Pt of Dr. Chaudhary. 2. CAD with prior CABGx5 3. Hx Bioprosthetic AV. 4. Paroxysmal Aflutter - sinus rhythm. No on OAC. 5. DMt2 - elevated in ER, suspect poor control. SSI. Plan to hold orals, restart when appropriate, check A1C and adjust if needed given NSTEMI. 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 6. Hx Hodgkins, Macroglobulinemia of Waldenstrom, nonfamilial hypogammaglobulinemia - pt of Dr. Schmitt, missed IVIG today. Will need close f/u. 7. HTN - stable 8. HLD - statin DVT ppx: lovenox, start when appropriate given heart cath. This patient was seen by Pranav Hernandez PA-C under the supervision of Doctor Huan. <Jaden Pressley - Last Filed: 02/03/18 13:26> Problem List (1) NSTEMI (non-ST elevated myocardial infarction) Status: Acute History of Present Illness The patient is a 57 year old M presents with chest pain that occurred today. Last for about 2 hours. Presents to the emergency room where he initial troponin of 0.6 and went up to 2. After the the symptoms resolve, patient has had no recurrence. Patient denies any other institutional symptoms, such as diaphoresis, shortness of breath, nausea or vomiting. 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 DM2 (diabetes mellitus, type 2) E11.9 Diabetic neuropathy E11.40 Hodgkins lymphoma C81.90 Waldenstrom macroglobulinemia C88.0 HTN (hypertension) I10 Chronic bronchitis J42 Heart disease Hypoglobulinemia R77.1 Lymphoma C85.90 Skin cancer C44.90 Allergies adhesive tape Adverse Reaction (Intermediate, Verified 02/03/18 08:52) Rash Surgical History: Surgical History (Last Reviewed 02/03/18 @ 13:20 by Jaden Pressley DO) H/O aortic valve replacement Z95.2 H/O foot surgery Z98.890 H/O myringotomy Z98.890 Hx of CABG Psychiatric History: No pertinent psych hx Lives: Alone Smoking Status: Never smoker Tobacco Use: Non-smoker Alcohol: None Drugs: None - *Family History Maternal Family History: Family History (Last Reviewed 02/03/18 @ 13:21 by Jaden Pressley DO) Father Arthritis Brain cancer Lung cancer Hypertension Mother Arthritis Hypertension Cancer Paternal Family History: Family History (Last Reviewed 02/03/18 @ 13:21 by Jaden Pressley DO) Father Arthritis Brain cancer Lung cancer Hypertension Mother Arthritis Hypertension Cancer Review of Systems Constitutional: Denies: Chills, Fever, Weight Change HEENT: Denies: Head Aches, Sinus Congestion, Sinus Drainage Cardiovascular: Reports: Chest Pain, Chest Tightness. Denies: Edema, Heaviness, Light Headedness, Orthopnea, Palpitations, Paroxysmal Noc. Dyspnea, Syncope Respiratory: Denies: Cough, Shortness of breath at rest, Sputum production Gastrointestinal: Denies: Abdominal Pain, Nausea, Vomiting Genitourinary: Denies: Dysuria Musculoskeletal: Denies: Joint Pain, Joint Tenderness Skin: Denies: Rash, Wounds Neurological: Denies: Focal weakness, Numbness, Tingling Psychiatric: Denies: Anxiety, Depression, Homicidal Ideations, Suicidal Ideations Hematologic/ Lymphatic: Denies: Easy Bruising, Easy Bleeding Comment: All review of systems are negative except as mentioned in the history of present illness and the other review of systems. VTE Information - Inpt Only VTE Present on Admission: No VTE Mechan Device Prophylaxis: SCD's VTE Pharm Prophylaxis ordered?: No - Physical Exam General: Alert, Oriented x3, Cooperative HEENT: Atraumatic, PERRLA, EOMI, Normocephalic Neck: Supple, Negative Carotid Bruits Lungs: Clear to auscultation, Normal air movement, No rhonchi, No wheeze Cardiovascular: Regular rate, Regular Rhythm, Normal S1, Normal S2, No murmurs Abdomen: Bowel Sounds Present, Soft, Non Tender Extremities: No edema, Capillary Refill Less than 3 Seconds Skin: No rashes, No breakdown, - - upper chest radiation skin changes. Musculoskeletal: No Tenderness to Palpation of Joints or Extremities, No Muscle Wasting Neurological: Neuro grossly intact, Motor Exam 5/5 strength throughout, Muscle tone normal, Sensory exam intact to light touch and pain Psych/Mental Status: Normal Affect, Appropriate Vital Signs Temp Pulse Resp BP Pulse Ox 36.9 C 59 L 18 114/82 H 98 02/03/18 11:22 02/03/18 11:22 02/03/18 11:22 02/03/18 11:23 02/03/18 11:22 Oxygen Delivery Method Room Air Weight: 94.574 kg Body Mass Index (BMI) 27.5 Laboratory Tests Past 24 Hrs Troponin I 2.080 H* Assessment/Plan Patient seen and examined independently. Data reviewed. I agree with the above note by the physician orthodontic technician assistant. 1. Non-STEMI * Troponins have gone up since his admission * Cardiology consult * Continue with aspirin, Plavix, high intensity statin, metoprolol and lisinopril * Follow-up records from Dr. Rocha's office * Cardiology advises emergency room to hold off on anticoagulation in light of impending left heart catheterization. 2. pAfib: * stable * continue metoprolol 3. DM2: * hold metformin * SSI 4. DVT proph: chemical proph, when ok'd by cards (unless going to be anticoagulated) Code Visit Inpatient E AND M: 57332 Init Hosp L3 02/03/18 1255 <Electronically signed by Pranav NELSON> Date Pranav NELSON 02/03/18 1327<Electronically signed by Jaden Pressley DO> Cosigner Signature: Date (if applicable) Jaden Pressley DO CC: LESLIE Hernandez; Jaden Pressley DO; Greg Keyes MD; Manuela Damico DO Signed EMERGENCY DEPARTMENT Observed: 02/03/2018 Status: F Source: [place] SUMMARY 10:28 AM [facility] REPOSITORY [facility] Medical Records Department [address] [place] [address] Emergency Department Summary 02/03/18 1025 MR#: [id number] Acct: [id number] Name: GOULD,CHARLES Mullins Rep #: [id number] : 1960 57 From: Noah Story DO PCP: Manuela Damico DO Status: REG ER - ER Visit Summary Date of Service: 02/03/18 Chief Complaint: [Chest pain] History of Present Illness: The patient is a 57 M [presents the emergency department complaint chest pain that started 2 hours ago. Patient states that he was at rest when the pain started. Patient described the pain as a tightness in his chest in the center. Patient also had some burning type discomfort. Patient denies any radiation of the pain. He denies nausea or vomiting. He denies diaphoresis. He denies shortness of breath. Patient does have a history of coronary artery disease with prior 5 vessel CABG and aortic valve replacement with a pig valve. Patient also with history of Hodgkin's lymphoma in remission. Patient has had prior history of a flutter.] Patient is currently pain-free. Physical Examination: [HEENT-PERRLA, EOMI. Cranial nerves II through XII grossly intact. TMs clear. Mucous membranes moist. No adenopathy. Cardiovascular-regular rate and rhythm without murmur or ectopy Lungs-clear to auscultation, chest wall stable without crepitus or subcu emphysema Abdomen-normoactive bowel sounds, soft, nontender, no rebound or rigidity, no peritoneal signs. Extremities-intact 4, normal range of motion, normal pulses, atraumatic] Test Results: [EKG obtained on arrival showed a sinus rhythm with a ventricular rate of 67 bpm. Patient had nonspecific ST changes noted inferiorly and laterally which are new when compared with prior EKG from January 2017. CBC with differential obtained showed a white blood cell count of 5.1, hemoglobin 13, hematocrit 42, platelets 106. Chemistries unremarkable. Glucose was 229. Troponin was elevated 0.653. Chest x-ray showed nothing acute.] Emergency Department Course and Treatment: [Patient received aspirin in the emergency department. Case was discussed with cardiology on-call Dr. Abhi Go. I was asked not to start patient on any type of anticoagulation given that he may need to possibly be studied today or tomorrow.] Treatment Plan: [Patient will be admitted to hospitalist. Disposition: [Admit] Impression: [Chest pain Non-ST elevation MN] This note was generated with Travefyation software. It may contain incorrect words, spelling, and punctuation that were not noted in review of the chart prior to signing ED Disposition - Plan for ED Patient: Chief Complaint: Chest Pain Referrals: Manuela Damico, DO [Primary Care Provider] - What to do if you have Problems For any increased pain, shortness of breath, bleeding, nausea or vomiting, chest pain, or any unexpected problems, contact your Primary Care Provider. Call [facility] ([phone]) or report to the closest Emergency Room. Call 911 if necessary. 02/03/18 1028 <Electronically signed by Noah Story DO> Date Noah Story DO Cosigner Signature (If Indicated): Date CC: Manuela Damico DO CBC W/DIFF, AUTOMATED Collected: 02/03/2018 Status: F Source: [place] 9:18 AM [facility] REPOSITORY TYPE CODE TESTS RESULT OUT OF RANGE REFERENCE UNITS LAB L100.1000 4.4-11.0 K/mm3 Normal WBC 5.1 LAB L100.1200 4.6-6.2 M/mm3 Normal RBC 4.88 LAB L100.1300 13.0-16.5 g/dl Normal HGB 13.1 LAB L100.1400 40-54 % Normal HCT 41.7 LAB L100.1500 80-94 fL Normal MCV 85.5 LAB L100.1600 27.0-32.0 pg Low MCH 26.8 LAB L100.1700 32-36 g/gl Low MCHC 31.4 LAB L100.1810 11.6-14.6 % High RDW CV 15.7 LAB L100.1820 35.1-43.9 fl High RDW SD 48.8 LAB L100.1900 150-450 K/mm3 Low PLT 106 LAB L100.2000 6.2-12.0 fl Normal MPV 10.2 LAB L100.2100 47-70 % High NEUT% 73.0 LAB L100.2200 19-41 % Low LY% 14.7 LAB L100.2300 0-10 % Normal MONO% 9.9 LAB L100.2400 0-5 % Normal EO% 1.8 LAB L100.2500 0-1 % Normal BASO% 0.4 LAB L100.2550 0.0-0.9 % Normal IM GRAN % 0.200 Result Comment: IG% - Immature Granulocytes (promyelocytes, myelocytes and metamyelocytes) > 1% indicates that a LEFT SHIFT is Present. LAB L100.2620 2.0-7.7 X10 3/uL Normal Absolute Neut 3.7 LAB L100.2720 0.83-4.51 X10 3/ul Low Absolute Lymph 0.74 Performed By: #### L100.0100 #### [facility] [address] [place], [address] BASIC METABOLIC Collected: 02/03/2018 Status: F Source: [facility] [facility] 9:18 AM [facility] REPOSITORY TYPE CODE TESTS RESULT OUT OF RANGE REFERENCE UNITS LAB L501.0100 74-106 mg/dL High GLU 229 Result Comment: Glucose result greater than or equal to 200 mg/dL suggests DIABETES MELLITUS per A.D.A. criteria. Please note revised GLUCOSE reference range effective 2017. LAB L501.1000 7-18 mg/dL Normal BUN 14 LAB L501.1100 0.70-1.30 mg/dL Normal CREAT,SERUM 1.04 Result Comment: The validity of the calculated GFR AND GFRAA in patients over 70 years has not been determined. Clinical correlation is essential. LAB L501.1110 >60 mL/min Normal EST GFR 78 Result Comment: Non- GFR Calc LAB L501.1115 >60 mL/min Normal EST GFR - AA 95 Result Comment: GFR Calc LAB L501.1255 ml/min Normal Estimated CRCL 88.56 LAB L501.1300 10-20 RATIO Normal BUN/CRE 13.5 LAB L501.2200 8.5-10 mg/dL Normal .1 CA 8.6 LAB L501.5300 136-14 mmol/L Normal 5 NA 138 LAB L501.5600 3.5-5. mmol/L Normal 1 K 4.1 LAB L501.5900 98-107 mmol/L Normal CL 105 LAB L501.6100 21.0-3 mmol/L Normal 2.0 CO2 26.0 LAB L501.6200 5-15 Normal GAP 7 Performed By: #### L500.2500, L501.4010 #### [facility] [address] [place], [address] TROPONIN-I Collected: 02/03/2018 Status: F Source: [place] 9:18 AM [facility] REPOSITORY TYPE CODE TESTS RESULT OUT OF RANGE REFERENCE UNITS LAB L501.4010 <0.045 ng/mL High alert 0.653 TROPONIN-I Result Comment: Critical Result(s) Called at: 09:45:31 02/03/2018 by: LEE Lima IN ED TROPONIN-I EXPECTED VALUES <0.045 Negative 0.045 - 0.590 Consistent with Cardiac Damage > OR = 0.600 Critical Value Not every elevated troponin is indicative of MN. These values should be used with clinical judgement in examining the patient's clinical picture for diagnosis. To establish a diagnosis of MN versus myocardial injury, there must be a demonstrated rise and/or fall in the troponin values, in addition to ischemic symptoms, EKG changes, new regional wall motion abnormality, and/or angiographical evidence. PLEASE NOTE: REFERENCE RANGES EDITED 17 Performed By: #### L500.2500, L501.4010 #### [facility] [address] [facility] [place], [address] CHEST 1 VIEW Observed: 02/03/2018 Status: F Source: [place] (PORTABLE) 9:06 AM [facility] REPOSITORY [facility] Imaging Services [address] [place] [address] Chest 1 View (Portable) MR#: [id number] Acct: [id number] Name: CHARLES GOULD Rep #: [id number] : 1960 M 57 From: Newton Yang DO PCP: Manuela Damico DO Status: REG ER Study: Chest 1 View (Portable) Date of Exam: 02/03/18 Exam# [id number] Ordering Dr: Noah Story DO STUDY: X-RAY CHEST REASON FOR EXAM: Male, 57 years old. Chest pain TECHNIQUE: Single AP portable view of the chest. COMPARISON: 01/21/2017 FINDINGS: Lungs are adequately inflated without acute airspace disease. There is no demonstrated pleural abnormality. Sternal cerclage wires are present from a prior sternotomy. Mild cardiomegaly. Normal mediastinum and phyllis. Normal visualized pulmonary arteries. Normal visualized aortic arch and descending thoracic aorta. Normal visualized thoracic spine. Normal visualized ribs, clavicles, and shoulders. There is no demonstrated abnormality of the visualized soft tissue structures of the upper abdomen. RAD/Chest 1 View (Portable) IMPRESSION: No acute cardiopulmonary disease Electronically Signed: Newton Yang DO at 10:12 EDT Tel , Service support , CC: Manuela Damico DO; Noah Story DO Dubbing Machine Operator: Signed CBC W/DIFF, AUTOMATED Collected: 01/28/2018 Status: F Source: [place] 8:45 AM [facility] REPOSITORY Order Comment: Reason for Laboratory Test . TYPE CODE TESTS RESULT OUT OF RANGE REFERENCE UNITS LAB L100.1000 4.4-11.0 K/mm3 Normal WBC 6.6 LAB L100.1200 4.6-6.2 M/mm3 Normal RBC 5.39 LAB L100.1300 13.0-16.5 g/dl Normal HGB 14.5 LAB L100.1400 40-54 % Normal HCT 46.3 LAB L100.1500 80-94 fL Normal MCV 85.9 LAB L100.1600 27.0-32.0 pg Low MCH 26.9 LAB L100.1700 32-36 g/gl Low MCHC 31.3 LAB L100.1810 11.6-14.6 % High RDW CV 15.8 LAB L100.1820 35.1-43.9 fl High RDW SD 49.8 LAB L100.1900 150-450 K/mm3 Normal PLT 152 LAB L100.2000 6.2-12.0 fl Normal MPV 11.2 LAB L100.2100 47-70 % Normal NEUT% 69.8 LAB L100.2200 19-41 % Low LY% 17.0 LAB L100.2300 0-10 % High MONO% 10.9 LAB L100.2400 0-5 % Normal EO% 1.8 LAB L100.2500 0-1 % Normal BASO% 0.3 LAB L100.2550 0.0-0.9 % Normal IM GRAN % 0.200 Result Comment: IG% - Immature Granulocytes (promyelocytes, myelocytes and metamyelocytes) > 1% indicates that a LEFT SHIFT is Present. LAB L100.2620 2.0-7.7 X10 3/uL Normal Absolute Neut 4.6 LAB L100.2720 0.83-4.51 X10 3/ul Normal Absolute Lymph 1.13 Performed By: #### L100.0100, L500.4050 #### [facility] [address] [facility] [place], [address] #### L3200.1200 #### [facility] (refer to report for specific site) refer to report for address and phone number COMPREHENSIVE METABOLIC Collected: 01/28/2018 Status: F Source: [facility] 8:45 AM [facility] REPOSITORY Order Comment: Reason for Laboratory Test . TYPE CODE TESTS RESULT OUT OF RANGE REFERENCE UNITS LAB L501.0100 74-106 mg/dL High GLU 217 Result Comment: Glucose result greater than or equal to 200 mg/dL suggests DIABETES MELLITUS per A.D.A. criteria. Please note revised GLUCOSE reference range effective 2017. LAB L501.1000 7-18 mg/dL Normal BUN 18 LAB L501.1100 0.70-1.30 mg/dL Normal CREAT,SERUM 1.22 Result Comment: The validity of the calculated GFR AND GFRAA in patients over 70 years has not been determined. Clinical correlation is essential. LAB L501.1110 >60 mL/min Normal EST GFR 65 Result Comment: Non- GFR Calc LAB L501.1115 >60 mL/min Normal EST GFR - AA 79 Result Comment: GFR Calc LAB L501.1255 ml/min Normal Estimated CRCL 73.32 LAB L501.1300 10-20 RATIO Normal BUN/CRE 14.8 LAB L501.1500 6.4-8. g/dL Normal 2 T PROT 7.2 LAB L501.1800 3.2-5. g/dL Normal 0 ALB 3.8 LAB L501.1950 2.2-4. g/dL Normal 2 GLOB 3.4 LAB L501.2000 0.9-2. RATIO Normal 4 A/G 1.1 LAB L501.2200 8.5-10 mg/dL Normal .1 CA 9.3 LAB L501.4100 15-37 U/L Normal AST 30 LAB L501.4305 45-117 U/L High ALK P 120 LAB L501.4405 16-61 U/L Normal ALT 30 LAB L501.4600 0.20-1 mg/dL Normal .00 T BILI 0.50 LAB L501.5300 136-14 mmol/L Normal 5 NA 139 LAB L501.5600 3.5-5. mmol/L Normal 1 K 4.7 LAB L501.5900 98-107 mmol/L Normal CL 102 LAB L501.6100 21.0-3 mmol/L Normal 2.0 CO2 29.0 LAB L501.6200 5-15 Normal GAP 8 Performed By: #### L100.0100, L500.4050 #### [facility] [address] [place], [place], [address] #### L3200.1200 #### [facility] (refer to report for specific site) refer to report for address and phone number IMMUNOGLOBULINS G/A/M Collected: 01/28/2018 Status: F Source: [place] 8:45 AM [facility] REPOSITORY Order Comment: Reason for Laboratory Test . Is Patient Fasting? N TYPE CODE TESTS RESULT OUT OF REFERENCE UNITS RANGE LAB L3200.9994 241-2109 mg/dL Low IMMUNO G 619 LAB L3200.1400 90-386 mg/dL Low IMMUNO A < 5 Result Comment: Result confirmed on concentration. LAB L3200.1500 20-172 mg/dL Normal IMMUNOGL M 42 Result Comment: Performed at: [facility] [address] [id number] Pull Through Hooker: Henry Feliz PhD, Phone: [phone] Performed By: #### L100.0100, L500.4050 #### [facility] [address] [place], [address] #### L3200.1200 #### [facility] (refer to report for specific site) refer to report for address and phone number ONCOLOGY VISIT REPORT Observed: 01/06/2018 Status: F Source: [place] 9:14 AM [facility] REPOSITORY [facility] [address] [place] [address] OFFICE VISIT Date of Service: 01/06/18 0911 MR#: [id number] Acct: [id number] Name: CHARLES GOULD Rep #: [id number] : 1960 From: Dionicio Schmitt MD Age/Sex: 57/M Location: OMD Status: Signed Subjective - Date of Service Date of Service:: 01/06/18 - Chief Complaint F/u for Hypogammaglobulinemia. - History of Present Illness History of Present Illness: CHARLES GOULD is a very pleasant 56 M with a history for Mr. 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 He has been treated with Cytoxan, Rituxan, and Fludara. The patient is currently in remission. 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 He was found to have hypogammaglobulinemia associated with recurrent upper respiratory infections. The patient is currently on gammaglobulin infusions monthly if IgG is less than 600. Comes in for follow up and IVIG. - Past Medical/Social History Past Medical History Past Medical History: Chronic bronchitis,Heart disease,Hyperlipidemia Other Past Medical History: Hypoglobulinemia Cancer: Lymphoma,Skin cancer Past Surgical History Surgical: CABG Other Surgical History: Bilateral foot surgery Excision skin cancer left ear base Right ear tube 2012 Reconstruction from left nesk Valve replacement 2007 Family History Paternal Past Medical History: Arthritis,Hypertension Paternal History of Cancer Brain cancer,Lung cancer Maternal Past Medical History: Arthritis,Hypertension Maternal History of Cancer: Other Social History Social History: No changes Smoking Status Never smoker Review of Systems Constitutional:: Denies: Fever, Sweats, Weight loss, Appetite change, Chills Cardiovascular:: Denies: Chest pain, Palpitations, Dyspnea on exertion, Orthopnea, PND, Shortness of breath Respiratory: Denies: Cough, Hemoptysis, Shortness of Breath, Wheezing Gastrointestinal:: Denies: Abdominal pain, Nausea, Vomiting, Diarrhea, Constipation, Hematochezia Genitourinary: Denies: Dysuria, Hematuria, 15, Flank pain Musculoskeletal:: Denies: Back pain, Myalgia, Arthralgia Skin: Denies: Rash, Skin Changes, Wounds Neurological:: Denies: Headache, Dizziness, Visual changes, Tinnitus, Hearing loss Psychiatric: Denies: Anxiety, Depression, Homicidal Ideations, Suicidal Ideations Vital Signs Height 6 ft Weight: 95.254 kg Weight in Pounds 210.0 lbs Pulse Ox 98 - Physical Exam General: Alert, Oriented x3, No apparent distress HEENT: Atraumatic, PERRLA, EOMI, Normocephalic Oropharynx:: Dry mucosa Neck:: Supple, Trachea midline. Negative for: JVD, bilateral Cardiac:: Regular rate, Regular rhythm, Normal S1, Normal S2. Negative for: Murmur Lungs: Clear to auscultation, Excusion symmetrical. Negative for: Rhonchi, Wheezes Abdomen:: Bowel sounds x 4, Soft, Non-tender, Non-distended. Negative for: Hepatosplenomegaly Extremities:: Negative for: Cyanosis, Edema Neurological: Neuro grossly intact Skin:: Negative for: Lesions, Rash, Petechiae, Ecchymosis Psychiatric:: Appropriate affect, Euthymic Lymphatics:: Negative for: Cervical lymphadenopathy, Supraclavicular lymphadenopathy, Axillary lymphadenopathy Laboratory Data: Laboratory Tests WBC 6.0 WBC 5.0 Hgb 13.2 WBC 5.0 Assessment and Plan Hypogammaglobulinemia, IgG level less than 600 on 01/01/2018. Waldenstrom's Macroglobulinemia in remission. Plan is to proceed with IVIG today. RTC 4 wks with cbc, cmp, IG levels. Medications: Prescriptions This Visit Medication Instructions Recorded Medications Added to Medication List This Visit Immune Globulin 10 gm [Octagam 10% 10gm] 10 gm Med 01/06/18 08:30 Active Primary Care Provider: Manuela Malys, DO Referring Provider: - Problem List (1) Nonfamilial hypogammaglobulinemia Status: Chronic (2) Macroglobulinemia of Waldenstrom Status: Chronic Comment: well controlled periodic IgG infusions Code Visit Office Visits / Consults: 59931 OV L5 Est 01/06/18 0914 <Electronically signed by Dionicio Schmitt MD> Date Dionicio Schmitt MD Cosigner Signature: Date (if applicable) CC: CBC W/DIFF, AUTOMATED Collected: 01/01/2018 Status: F Source: [place] 10:53 AM [facility] REPOSITORY Order Comment: Reason for Laboratory Test . TYPE CODE TESTS RESULT OUT OF RANGE REFERENCE UNITS LAB L100.1000 4.4-11.0 K/mm3 Normal WBC 5.0 LAB L100.1200 4.6-6.2 M/mm3 Normal RBC 4.82 LAB L100.1300 13.0-16.5 g/dl Low HGB 12.8 LAB L100.1400 40-54 % Normal HCT 41.3 LAB L100.1500 80-94 fL Normal MCV 85.7 LAB L100.1600 27.0-32.0 pg Low MCH 26.6 LAB L100.1700 32-36 g/gl Low MCHC 31.0 LAB L100.1810 11.6-14.6 % High RDW CV 15.8 LAB L100.1820 35.1-43.9 fl High RDW SD 49.8 LAB L100.1900 150-450 K/mm3 Low PLT 124 LAB L100.2000 6.2-12.0 fl Normal MPV 10.4 LAB L100.2100 47-70 % High NEUT% 72.2 LAB L100.2200 19-41 % Low LY% 14.3 LAB L100.2300 0-10 % High MONO% 11.7 LAB L100.2400 0-5 % Normal EO% 1.6 LAB L100.2500 0-1 % Normal BASO% 0.2 LAB L100.2550 0.0-0.9 % Normal IM GRAN % 0.000 Result Comment: IG% - Immature Granulocytes (promyelocytes, myelocytes and metamyelocytes) > 1% indicates that a LEFT SHIFT is Present. LAB L100.2620 2.0-7.7 X10 3/uL Normal Absolute Neut 3.6 LAB L100.2720 0.83-4.51 X10 3/ul Low Absolute Lymph 0.71 Performed By: #### L100.0100 #### [facility] [address] [facility]. [place], [place], [id number] #### L3130.0010, L3200.1200 #### [facility] (refer to report for specific site) refer to report for address and phone number KAPPA LAMBDA LIGHT Collected: 01/01/2018 Status: F Source: [facility] 10:53 AM [facility] REPOSITORY Order Comment: Reason for Laboratory Test . Is Patient Fasting? Y TYPE CODE TESTS RESULT OUT OF RANGE REFERENCE UNITS LAB L3130.0200 3.3-19.4 mg/L Normal FR KAPPA LT 4.4 CHN LAB L3130.0300 5.7-26.3 mg/L Normal FR LAMBDA LT 6.9 CH LAB L3130.0400 0.26-1.65 Normal KAPPA/LAMBDA 0.64 % Result Comment: Performed at: - [facility] [address] [place] [id number] Pull Through Hooker: Henry Feliz PhD, Phone: [phone] Performed By: #### L100.0100 #### [facility] [address] [facility]. [place], [place], [id number] #### L3130.0010, L3200.1200 #### [facility] (refer to report for specific site) refer to report for address and phone number IMMUNOGLOBULINS G/A/M Collected: 01/01/2018 Status: F Source: [place] 10:53 AM [facility] REPOSITORY Order Comment: Reason for Laboratory Test . Is Patient Fasting? Y TYPE CODE TESTS RESULT OUT OF REFERENCE UNITS RANGE LAB L3200.7873 370-0856 mg/dL Low IMMUNO G 471 LAB L3200.1400 90-386 mg/dL Low IMMUNO A < 5 Result Comment: Result confirmed on concentration. LAB L3200.1500 20-172 mg/dL Normal IMMUNOGL M 58 Performed By: #### L100.0100 #### [facility] [address] [place], [address] #### L3130.0010, L3200.1200 #### [facility] (refer to report for specific site) refer to report for address and phone number COMPREHENSIVE METABOLIC Collected: 01/01/2018 Status: F Source: [facility] 10:53 AM [facility] REPOSITORY Order Comment: Reason for Laboratory Test . TYPE CODE TESTS RESULT OUT OF RANGE REFERENCE UNITS LAB L501.0100 74-106 mg/dL High GLU 218 Result Comment: Glucose result greater than or equal to 200 mg/dL suggests DIABETES MELLITUS per A.D.A. criteria. Please note revised GLUCOSE reference range effective 2017. LAB L501.1000 7-18 mg/dL Normal BUN 12 LAB L501.1100 0.70-1.30 mg/dL Normal CREAT,SERUM 1.06 Result Comment: The validity of the calculated GFR AND GFRAA in patients over 70 years has not been determined. Clinical correlation is essential. LAB L501.1110 >60 mL/min Normal EST GFR 76 Result Comment: Non- GFR Calc LAB L501.1115 >60 mL/min Normal EST GFR - AA 93 Result Comment: GFR Calc LAB L501.1255 ml/min Normal Estimated CRCL 84.39 LAB L501.1300 10-20 RATIO Normal BUN/CRE 11.3 LAB L501.1500 6.4-8. g/dL Normal 2 T PROT 6.8 LAB L501.1800 3.2-5. g/dL Normal 0 ALB 3.7 LAB L501.1950 2.2-4. g/dL Normal 2 GLOB 3.1 LAB L501.2000 0.9-2. RATIO Normal 4 A/G 1.2 LAB L501.2200 8.5-10 mg/dL Normal .1 CA 9.0 LAB L501.4100 15-37 U/L Normal AST 26 LAB L501.4305 45-117 U/L Normal ALK P 106 LAB L501.4405 16-61 U/L Normal ALT 23 LAB L501.4600 0.20-1 mg/dL Normal .00 T BILI 0.50 LAB L501.5300 136-14 mmol/L Normal 5 NA 139 LAB L501.5600 3.5-5. mmol/L Normal 1 K 4.5 LAB L501.5900 98-107 mmol/L Normal CL 104 LAB L501.6100 21.0-3 mmol/L Normal 2.0 CO2 28.0 LAB L501.6200 5-15 Normal GAP 7 Performed By: #### L500.4050 #### [facility] [address] [facility] [place], [address] ONCOLOGY VISIT REPORT Observed: 12/09/2017 Status: F Source: [place] 9:26 AM [facility] REPOSITORY [facility] [address] [facility] [place] [address] OFFICE VISIT Date of Service: 12/09/17 0913 MR#: [id number] Acct: [id number] Name: CHARLES GOULD Rep #: [id number] : 1960 From: Dionicio Schmitt MD Age/Sex: 57/M Location: OMD Status: Signed Subjective - Date of Service Date of Service:: 12/09/17 - Chief Complaint F/u for Hypogammaglobulinemia. - History of Present Illness History of Present Illness: CHARLES GOULD is a very pleasant 56 M with a history for Mr. 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 He has been treated with Cytoxan, Rituxan, and Fludara. The patient is currently in remission. 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 He was found to have hypogammaglobulinemia associated with recurrent upper respiratory infections. The patient is currently on gammaglobulin infusions monthly if IgG is less than 600. Comes in for follow up and IVIG. - Past Medical/Social History Past Medical History Past Medical History: Chronic bronchitis,Heart disease,Hyperlipidemia Other Past Medical History: Hypoglobulinemia Cancer: Lymphoma,Skin cancer Past Surgical History Surgical: CABG Other Surgical History: Bilateral foot surgery Excision skin cancer left ear base Right ear tube 2012 Reconstruction from left nesk Valve replacement 2008 Family History Paternal Past Medical History: Arthritis,Hypertension Paternal History of Cancer Brain cancer,Lung cancer Maternal Past Medical History: Arthritis,Hypertension Maternal History of Cancer: Other Social History Social History: No changes Smoking Status Never smoker Review of Systems Constitutional:: Denies: Fever, Sweats, Weight loss, Appetite change, Chills Cardiovascular:: Denies: Chest pain, Palpitations, Dyspnea on exertion, Orthopnea, PND, Shortness of breath Respiratory: Denies: Cough, Hemoptysis, Shortness of Breath, Wheezing Gastrointestinal:: Denies: Abdominal pain, Nausea, Vomiting, Diarrhea, Constipation, Hematochezia Genitourinary: Denies: Dysuria, Hematuria, 15, Flank pain Musculoskeletal:: Denies: Back pain, Myalgia, Arthralgia Skin: Denies: Rash, Skin Changes, Wounds Neurological:: Denies: Headache, Dizziness, Visual changes, Tinnitus, Hearing loss Psychiatric: Denies: Anxiety, Depression, Homicidal Ideations, Suicidal Ideations Vital Signs Height 6 ft Weight: 96.615 kg Weight in Pounds 213.0 lbs Pulse Ox 97 - Physical Exam General: Alert, Oriented x3, No apparent distress HEENT: Atraumatic, PERRLA, EOMI, Normocephalic Oropharynx:: Dry mucosa Neck:: Supple, Trachea midline. Negative for: JVD, bilateral Cardiac:: Regular rate, Regular rhythm, Normal S1, Normal S2. Negative for: Murmur Lungs: Clear to auscultation, Excusion symmetrical. Negative for: Rhonchi, Wheezes Abdomen:: Bowel sounds x 4, Soft, Non-tender, Non-distended. Negative for: Hepatosplenomegaly Extremities:: Negative for: Cyanosis, Edema Neurological: Neuro grossly intact Skin:: Negative for: Lesions, Rash, Petechiae, Ecchymosis Psychiatric:: Appropriate affect, Euthymic Lymphatics:: Negative for: Cervical lymphadenopathy, Supraclavicular lymphadenopathy, Axillary lymphadenopathy Laboratory Data: Laboratory Tests IgG level not done. Assessment and Plan Hypogammaglobulinemia, IgG level not available. Waldenstrom's Macroglobulinemia in remission. Plan is to proceed with IVIG today. RTC 4 wks with cbc, cmp, IG levels. Medications: Prescriptions This Visit Medication Instructions Recorded Primary Care Provider: Manuela Damico DO Referring Provider: - Problem List (1) Nonfamilial hypogammaglobulinemia Status: Chronic (2) Macroglobulinemia of Waldenstrom Status: Chronic Comment: well controlled periodic IgG infusions Code Visit Office Visits / Consults: 17524 OV L5 Est 12/09/17 0926 <Electronically signed by Dionicio Schmitt MD> Date Dionicio Schmitt MD Cosigner Signature: Date (if applicable) CC: CBC W/DIFF, AUTOMATED Collected: 11/25/2017 Status: F Source: [place] 8:00 AM [facility] REPOSITORY TYPE CODE TESTS RESULT OUT OF RANGE REFERENCE UNITS LAB L100.1000 4.4-11.0 K/mm3 Normal WBC 4.7 LAB L100.1200 4.6-6.2 M/mm3 Normal RBC 5.17 LAB L100.1300 13.0-16.5 g/dl Normal HGB 13.9 LAB L100.1400 40-54 % Normal HCT 44.3 LAB L100.1500 80-94 fL Normal MCV 85.7 LAB L100.1600 27.0-32.0 pg Low MCH 26.9 LAB L100.1700 32-36 g/gl Low MCHC 31.4 LAB L100.1810 11.6-14.6 % High RDW CV 16.1 LAB L100.1820 35.1-43.9 fl High RDW SD 50.1 LAB L100.1900 150-450 K/mm3 Low PLT 124 LAB L100.2000 6.2-12.0 fl Normal MPV 10.8 LAB L100.2100 47-70 % Normal NEUT% 67.9 LAB L100.2200 19-41 % Low LY% 18.2 LAB L100.2300 0-10 % High MONO% 11.0 LAB L100.2400 0-5 % Normal EO% 2.1 LAB L100.2500 0-1 % Normal BASO% 0.4 LAB L100.2550 0.0-0.9 % Normal IM GRAN % 0.400 Result Comment: IG% - Immature Granulocytes (promyelocytes, myelocytes and metamyelocytes) > 1% indicates that a LEFT SHIFT is Present. LAB L100.2620 2.0-7.7 X10 3/uL Normal Absolute Neut 3.2 LAB L100.2720 0.83-4.51 X10 3/ul Normal Absolute Lymph 0.86 Performed By: #### L100.0100 #### [facility] [address] [place], [address] COMPREHENSIVE METABOLIC Collected: 11/25/2017 Status: F Source: [facility] 8:00 AM [facility] REPOSITORY Order Comment: RESULT(S) PREVIOUSLY REPORTED ON MANUAL REQUISITION DURING DOWNTIME. TYPE CODE TESTS RESULT OUT OF RANGE REFERENCE UNITS LAB L501.0100 74-106 mg/dL High GLU 188 Result Comment: Fasting Glucose result greater than or equal to 126 mg/dL suggests DIABETES MELLITUS per A.D.A. criteria. Please note revised GLUCOSE reference range effective 2017. LAB L501.1000 7-18 mg/dL High BUN 19 LAB L501.1100 0.70-1.30 mg/dL Normal CREAT,SERUM 1.11 Result Comment: The validity of the calculated GFR AND GFRAA in patients over 70 years has not been determined. Clinical correlation is essential. LAB L501.1110 >60 mL/min EST GFR Normal 73 LAB L501.1115 >60 mL/min EST GFR Normal - AA 88 LAB L501.1255 ml/min Normal Estimated CRCL 80.59 LAB L501.1300 10-20 RATIO BUN/CRE Normal 17.1 LAB L501.1500 6.4-8.2 g/dL T PROT Normal 6.8 LAB L501.1800 3.2-5.0 g/dL ALB Normal 3.7 LAB L501.1950 2.2-4.2 g/dL GLOB Normal 3.1 LAB L501.2000 0.9-2.4 RATIO A/G Normal 1.2 LAB L501.2200 8.5-10.1 mg/dL CA Normal 8.8 LAB L501.4100 15-37 U/L AST Normal 29 LAB L501.4305 45-117 U/L High ALK P 124 LAB L501.4405 16-61 U/L ALT Normal 25 LAB L501.4600 0.20-1.00 mg/dL T BILI Normal 0.30 LAB L501.5300 136-145 mmol/L NA Normal 138 LAB L501.5600 3.5-5.1 mmol/L K Normal 4.9 LAB L501.5900 98-107 mmol/L CL Normal 102 LAB L501.6100 21.0-32.0 mmol/L CO2 Normal 28.0 LAB L501.6200 5-15 GAP Normal 8 Performed By: #### L500.4050 #### [facility] [address] [place], [address] ONCOLOGY VISIT REPORT Observed: 10/30/2017 Status: F Source: [place] 10:25 AM [facility] REPOSITORY [facility] [address] [facility] [place] [address] OFFICE VISIT Date of Service: 10/30/17 1023 MR#: [id number] Acct: [id number] Name: CHARLES GOULD Rep #: [id number] : 1960 From: Dionicio Schmitt MD Age/Sex: 57/M Location: ONC Status: Signed Subjective - Date of Service Date of Service:: 10/30/17 - Chief Complaint F/u for Hypogammaglobulinemia. - History of Present Illness History of Present Illness: CHARLES GOULD is a very pleasant 56 M with a history for Mr. 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 He has been treated with Cytoxan, Rituxan, and Fludara. The patient is currently in remission. 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 He was found to have hypogammaglobulinemia associated with recurrent upper respiratory infections. The patient is currently on gammaglobulin infusions monthly if IgG is less than 600. Comes in for follow up and IVIG. - Past Medical/Social History Past Medical History Past Medical History: Chronic bronchitis,Heart disease,Hyperlipidemia Other Past Medical History: Hypoglobulinemia Cancer: Lymphoma,Skin cancer Past Surgical History Surgical: CABG Other Surgical History: Bilateral foot surgery Excision skin cancer left ear base Right ear tube 2012 Reconstruction from left nesk Valve replacement 2007 Family History Paternal Past Medical History: Arthritis,Hypertension Paternal History of Cancer Brain cancer,Lung cancer Maternal Past Medical History: Arthritis,Hypertension Maternal History of Cancer: Other Social History Social History: No changes Smoking Status Never smoker Review of Systems Constitutional:: Denies: Fever, Sweats, Weight loss, Appetite change, Chills Cardiovascular:: Denies: Chest pain, Palpitations, Dyspnea on exertion, Orthopnea, PND, Shortness of breath Respiratory: Denies: Cough, Hemoptysis, Shortness of Breath, Wheezing Gastrointestinal:: Denies: Abdominal pain, Nausea, Vomiting, Diarrhea, Constipation, Hematochezia Genitourinary: Denies: Dysuria, Hematuria, 15, Flank pain Musculoskeletal:: Denies: Back pain, Myalgia, Arthralgia Skin: Denies: Rash, Skin Changes, Wounds Neurological:: Denies: Headache, Dizziness, Visual changes, Tinnitus, Hearing loss Psychiatric: Denies: Anxiety, Depression, Homicidal Ideations, Suicidal Ideations Vital Signs Height 6 ft Weight: 97.069 kg Weight in Pounds 214.0 lbs Pulse Ox 97 - Physical Exam General: Alert, Oriented x3, No apparent distress HEENT: Atraumatic, PERRLA, EOMI, Normocephalic Oropharynx:: Dry mucosa Neck:: Supple, Trachea midline. Negative for: JVD, bilateral Cardiac:: Regular rate, Regular rhythm, Normal S1, Normal S2. Negative for: Murmur Lungs: Clear to auscultation, Excusion symmetrical. Negative for: Rhonchi, Wheezes Abdomen:: Bowel sounds x 4, Soft, Non-tender, Non-distended. Negative for: Hepatosplenomegaly Extremities:: Negative for: Cyanosis, Edema Neurological: Neuro grossly intact Skin:: Negative for: Lesions, Rash, Petechiae, Ecchymosis Psychiatric:: Appropriate affect, Euthymic Lymphatics:: Negative for: Cervical lymphadenopathy, Supraclavicular lymphadenopathy, Axillary lymphadenopathy Laboratory Data: 10/25/2017 reviewed, gG level is 506, CBC/CMP normal. Assessment and Plan Hypogammaglobulinemia, IgG is less than 600 on 10/25/2017. Waldenstrom's Macroglobulinemia in remission. Plan is to proceed with IVIG today. RTC 4 wks with cbc, cmp, IG levels. Medications: Prescriptions This Visit Medication Instructions Recorded Medications Added to Medication List This Visit Immune Globulin 20 gm [Octagam 10% 20gm] 30 gm ONC NC 10/30/17 08:30 Ordered Premixed Bag 1 bag IV X1 Primary Care Provider: Manuela Damico DO Referring Provider: - Problem List (1) Nonfamilial hypogammaglobulinemia Status: Chronic (2) Macroglobulinemia of Waldenstrom Status: Chronic Comment: well controlled periodic IgG infusions Code Visit Office Visits / Consults: 70252 OV L3 Est 10/30/17 1025 <Electronically signed by Dionicio Schmitt MD> Date Dionicio Schmitt MD Cosigner Signature: Date (if applicable) CC: CBC W/DIFF, AUTOMATED Collected: 10/25/2017 Status: F Source: [place] 1:59 PM [facility] REPOSITORY Order Comment: Reason for Laboratory Test . TYPE CODE TESTS RESULT OUT OF RANGE REFERENCE UNITS LAB L100.1000 4.4-11.0 K/mm3 Normal WBC 6.6 LAB L100.1200 4.6-6.2 M/mm3 Normal RBC 5.44 LAB L100.1300 13.0-16.5 g/dl Normal HGB 14.6 LAB L100.1400 40-54 % Normal HCT 45.5 LAB L100.1500 80-94 fL Normal MCV 83.6 LAB L100.1600 27.0-32.0 pg Low MCH 26.8 LAB L100.1700 32-36 g/gl Normal MCHC 32.1 LAB L100.1810 11.6-14.6 % High RDW CV 15.8 LAB L100.1820 35.1-43.9 fl High RDW SD 47.8 LAB L100.1900 150-450 K/mm3 Normal PLT 193 LAB L100.2000 6.2-12.0 fl Normal MPV 10.3 LAB L100.2100 47-70 % Normal NEUT% 67.0 LAB L100.2200 19-41 % Normal LY% 19.1 LAB L100.2300 0-10 % High MONO% 11.1 LAB L100.2400 0-5 % Normal EO% 2.1 LAB L100.2500 0-1 % Normal BASO% 0.5 LAB L100.2550 0.0-0.9 % Normal IM GRAN % 0.200 Result Comment: IG% - Immature Granulocytes (promyelocytes, myelocytes and metamyelocytes) > 1% indicates that a LEFT SHIFT is Present. LAB L100.2620 2.0-7.7 X10 3/uL Normal Absolute Neut 4.4 LAB L100.2720 0.83-4.51 X10 3/ul Normal Absolute Lymph 1.26 Performed By: #### L100.0100 #### [facility] [place], [address] #### L3200.1200 #### [facility] (refer to report for specific site) refer to report for address and phone number IMMUNOGLOBULINS G/A/M Collected: 10/25/2017 Status: F Source: [place] 1:59 PM [facility] REPOSITORY Order Comment: Reason for Laboratory Test IVIG Is Patient Fasting? Y TYPE CODE TESTS RESULT OUT OF REFERENCE UNITS RANGE LAB L3200.8548 747-6153 mg/dL Low IMMUNO G 506 LAB L3200.1400 90-386 mg/dL Low IMMUNO A < 5 Result Comment: Result confirmed on concentration. LAB L3200.1500 20-172 mg/dL Normal IMMUNOGL M 73 Result Comment: Performed at: - [facility] [address] [place] [id number] Pull Through Hooker: Henry Feliz PhD, Phone: [phone] Performed By: #### L100.0100 #### [facility] [address] [place], [address] #### L3200.1200 #### [facility] (refer to report for specific site) refer to report for address and phone number COMPREHENSIVE METABOLIC Collected: 10/25/2017 Status: F Source: [place] 1:59 PM [facility] REPOSITORY Order Comment: Reason for Laboratory Test . TYPE CODE TESTS RESULT OUT OF RANGE REFERENCE UNITS LAB L501.0100 74-106 mg/dL High GLU 164 Result Comment: Fasting Glucose result greater than or equal to 126 mg/dL suggests DIABETES MELLITUS per A.D.A. criteria. Please note revised GLUCOSE reference range effective 2017. LAB L501.1000 7-18 mg/dL Normal BUN 18 LAB L501.1100 0.70-1.30 mg/dL Normal CREAT,SERUM 1.09 Result Comment: The validity of the calculated GFR AND GFRAA in patients over 70 years has not been determined. Clinical correlation is essential. LAB L501.1110 >60 mL/min Normal EST GFR 74 Result Comment: Non- GFR Calc LAB L501.1115 >60 mL/min Normal EST GFR - AA 90 Result Comment: GFR Calc LAB L501.1300 10-20 RATIO Normal BUN/CRE 16.5 LAB L501.1500 6.4-8.2 g/dL T Normal PROT 6.9 LAB L501.1800 3.2-5.0 g/dL Normal ALB 3.8 LAB L501.1950 2.2-4.2 g/dL Normal GLOB 3.1 LAB L501.2000 0.9-2.4 RATIO Normal A/G 1.2 LAB L501.2200 8.5-10.1 mg/dL CA Normal 9.2 LAB L501.4100 15-37 U/L Normal AST 33 LAB L501.4305 45-117 U/L High ALK P 140 LAB L501.4405 16-61 U/L Normal ALT 29 LAB L501.4600 0.20-1.00 mg/dL T Normal BILI 0.40 LAB L501.5300 136-145 mmol/L NA Normal 139 LAB L501.5600 3.5-5.1 mmol/L K Normal 4.1 LAB L501.5900 98-107 mmol/L CL Normal 104 LAB L501.6100 21.0-32.0 mmol/L Normal CO2 29.0 LAB L501.6200 5-15 Normal GAP 6 Performed By: #### L500.4050 #### [facility] [address] [place], [address] ONCOLOGY VISIT REPORT Observed: 10/02/2017 Status: F Source: [place] 10:21 AM [facility] REPOSITORY [facility] [address] [place] [address] OFFICE VISIT Date of Service: 10/02/17 1017 MR#: [id number] Acct: [id number] Name: CHARLES GOULD Rep #: [id number] : 1960 From: Dionicio Schmitt MD Age/Sex: 57/M Location: OMD Status: Signed Subjective - Date of Service Date of Service:: 10/02/17 - Chief Complaint F/u for Hypogammaglobulinemia. - History of Present Illness History of Present Illness: CHARLES GOULD is a very pleasant 56 M with a history for Mr. 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 He has been treated with Cytoxan, Rituxan, and Fludara. The patient is currently in remission. 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 He was found to have hypogammaglobulinemia associated with recurrent upper respiratory infections. The patient is currently on gammaglobulin infusions monthly if IgG is less than 600. Comes in for follow up and IVIG. - Past Medical/Social History Past Medical History Past Medical History: Chronic bronchitis,Heart disease,Hyperlipidemia Other Past Medical History: Hypoglobulinemia Cancer: Lymphoma,Skin cancer Past Surgical History Surgical: CABG Other Surgical History: Bilateral foot surgery Excision skin cancer left ear base Right ear tube 2012 Reconstruction from left nesk Valve replacement 2007 Family History Paternal Past Medical History: Arthritis,Hypertension Paternal History of Cancer Brain cancer,Lung cancer Maternal Past Medical History: Arthritis,Hypertension Maternal History of Cancer: Other Social History Social History: No changes Smoking Status Never smoker Review of Systems Constitutional:: Denies: Fever, Sweats, Weight loss, Appetite change, Chills Cardiovascular:: Denies: Chest pain, Palpitations, Dyspnea on exertion, Orthopnea, PND, Shortness of breath Respiratory: Denies: Cough, Hemoptysis, Shortness of Breath, Wheezing Gastrointestinal:: Denies: Abdominal pain, Nausea, Vomiting, Diarrhea, Constipation, Hematochezia Genitourinary: Denies: Dysuria, Hematuria, 15, Flank pain Musculoskeletal:: Denies: Back pain, Myalgia, Arthralgia Skin: Denies: Rash, Skin Changes, Wounds Neurological:: Denies: Headache, Dizziness, Visual changes, Tinnitus, Hearing loss Psychiatric: Denies: Anxiety, Depression, Homicidal Ideations, Suicidal Ideations Vital Signs Height 6 ft Weight: 96.162 kg Weight in Pounds 212.0 lbs Pulse Ox 99 - Physical Exam General: Alert, Oriented x3, No apparent distress HEENT: Atraumatic, PERRLA, EOMI, Normocephalic Oropharynx:: Dry mucosa Neck:: Supple, Trachea midline. Negative for: JVD, bilateral Cardiac:: Regular rate, Regular rhythm, Normal S1, Normal S2. Negative for: Murmur Lungs: Clear to auscultation, Excusion symmetrical. Negative for: Rhonchi, Wheezes Abdomen:: Bowel sounds x 4, Soft, Non-tender, Non-distended. Negative for: Hepatosplenomegaly Extremities:: Negative for: Cyanosis, Edema Neurological: Neuro grossly intact Skin:: Negative for: Lesions, Rash, Petechiae, Ecchymosis Psychiatric:: Appropriate affect, Euthymic Lymphatics:: Negative for: Cervical lymphadenopathy, Supraclavicular lymphadenopathy, Axillary lymphadenopathy Laboratory Data: Laboratory Tests WBC 5.0 Assessment and Plan Hypogammaglobulinemia, IgG is less than 600 on 09/25/2017. Waldenstrom's Macroglobulinemia in remission. Plan is to proceed with IVIG today. RTC 4 wks with cbc, cmp, IG levels. Medications: Prescriptions This Visit Medication Instructions Recorded Primary Care Provider: Manuela Damico DO Referring Provider: - Problem List (1) Nonfamilial hypogammaglobulinemia Status: Chronic (2) Macroglobulinemia of Waldenstrom Status: Chronic Comment: well controlled periodic IgG infusions Code Visit Office Visits / Consults: 06006 OV L3 Est 10/02/17 1021 <Electronically signed by Dionicio Schmitt MD> Date Dionicio Schmitt MD Cosigner Signature: Date (if applicable) CC: CBC W/DIFF, AUTOMATED Collected: 09/25/2017 Status: F Source: [place] 12:26 PM [facility] REPOSITORY Order Comment: Reason for Laboratory Test . TYPE CODE TESTS RESULT OUT OF RANGE REFERENCE UNITS LAB L100.1000 4.4-11.0 K/mm3 Normal WBC 5.0 LAB L100.1200 4.6-6.2 M/mm3 Normal RBC 5.02 LAB L100.1300 13.0-16.5 g/dl Normal HGB 13.2 LAB L100.1400 40-54 % Normal HCT 42.7 LAB L100.1500 80-94 fL Normal MCV 85.1 LAB L100.1600 27.0-32.0 pg Low MCH 26.3 LAB L100.1700 32-36 g/gl Low MCHC 30.9 LAB L100.1810 11.6-14.6 % High RDW CV 16.0 LAB L100.1820 35.1-43.9 fl High RDW SD 49.1 LAB L100.1900 150-450 K/mm3 Low PLT 147 LAB L100.2000 6.2-12.0 fl Normal MPV 10.2 LAB L100.2100 47-70 % Normal NEUT% 65.6 LAB L100.2200 19-41 % Normal LY% 22.2 LAB L100.2300 0-10 % Normal MONO% 9.4 LAB L100.2400 0-5 % Normal EO% 2.2 LAB L100.2500 0-1 % Normal BASO% 0.4 LAB L100.2550 0.0-0.9 % Normal IM GRAN % 0.200 Result Comment: IG% - Immature Granulocytes (promyelocytes, myelocytes and metamyelocytes) > 1% indicates that a LEFT SHIFT is Present. LAB L100.2620 2.0-7.7 X10 3/uL Normal Absolute Neut 3.3 LAB L100.2720 0.83-4.51 X10 3/ul Normal Absolute Lymph 1.11 Performed By: #### L100.0100 #### [facility] [address] [place], [address] COMPREHENSIVE METABOLIC Collected: 09/25/2017 Status: F Source: [place] 12:26 PM [facility] REPOSITORY Order Comment: Reason for Laboratory Test . TYPE CODE TESTS RESULT OUT OF RANGE REFERENCE UNITS LAB L501.0100 74-106 mg/dL High GLU 124 Result Comment: Fasting Glucose result from 100 to 125 mg/dL suggests IMPAIRED HOMEOSTASIS per A.D.A. criteria. Please note revised GLUCOSE reference range effective 2017. LAB L501.1000 7-18 mg/dL Normal BUN 12 LAB L501.1100 0.70-1.30 mg/dL Normal CREAT,SERUM 0.92 Result Comment: The validity of the calculated GFR AND GFRAA in patients over 70 years has not been determined. Clinical correlation is essential. LAB L501.1110 >60 mL/min Normal EST GFR 90 Result Comment: Non- GFR Calc LAB L501.1115 >60 mL/min Normal EST GFR - AA 109 Result Comment: GFR Calc LAB L501.1255 ml/min Normal Estimated CRCL 97.23 LAB L501.1300 10-20 RATIO Normal BUN/CRE 13.1 LAB L501.1500 6.4-8. g/dL Low 2 T PROT 6.3 LAB L501.1800 3.2-5. g/dL Normal 0 ALB 3.4 LAB L501.1950 2.2-4. g/dL Normal 2 GLOB 2.9 LAB L501.2000 0.9-2. RATIO Normal 4 A/G 1.2 LAB L501.2200 8.5-10 mg/dL Normal .1 CA 8.5 LAB L501.4100 15-37 U/L Normal AST 33 LAB L501.4305 45-117 U/L High ALK P 120 LAB L501.4405 16-61 U/L Normal ALT 24 Result Comment: Please note revised ALT reference range effective 2017. LAB L501.4600 0.20-1.00 mg/dL Normal T BILI 0.40 LAB L501.5300 136-145 mmol/L Normal NA 141 LAB L501.5600 3.5-5.1 mmol/L Normal K 4.5 LAB L501.5900 98-107 mmol/L Normal CL 106 LAB L501.6100 21.0-32.0 mmol/L Normal CO2 27.0 LAB L501.6200 5-15 Normal GAP 8 Performed By: #### L500.4050 #### [facility] [address] [place], [place], [address] #### L3200.1200 #### [facility] (refer to report for specific site) refer to report for address and phone number IMMUNOGLOBULINS G/A/M Collected: 09/25/2017 Status: F Source: [place] 12:26 PM [facility] REPOSITORY Order Comment: Reason for Laboratory Test . Is Patient Fasting? N TYPE CODE TESTS RESULT OUT OF REFERENCE UNITS RANGE LAB L3200.2441 813-8459 mg/dL Low IMMUNO G 475 LAB L3200.1400 90-386 mg/dL Low IMMUNO A < 5 Result Comment: Result confirmed on concentration. LAB L3200.1500 20-172 mg/dL Normal IMMUNOGL M 79 Result Comment: Performed at: [address] [id number] Pull Through Hooker: Henry Feliz PhD, Phone: [phone] Performed By: #### L500.4050 #### [facility] [address] [place] [address], [id number] #### L3200.1200 #### [facility] (refer to report for specific site) refer to report for address and phone number ONCOLOGY VISIT REPORT Observed: 09/04/2017 Status: F Source: [place] 10:32 AM [facility] REPOSITORY [facility] [address] [place] [address] OFFICE VISIT Date of Service: 09/04/17 1023 MR#: [id number] Acct: [id number] Name: CHARLES GOUDL Rep #: [id number] : 1960 From: Dionicio Schmitt MD Age/Sex: 57/M Location: ONC Status: Signed Subjective - Date of Service Date of Service:: 09/04/17 - Chief Complaint f/u for Hypogammaglobulinemia. - History of Present Illness History of Present Illness: CHARLES GOULD is a very pleasant 56 M with a history for Mr. 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 He has been treated with Cytoxan, Rituxan, and Fludara. The patient is currently in remission. 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 He was found to have hypogammaglobulinemia associated with recurrent upper respiratory infections. The patient is currently on gammaglobulin infusions monthly if IgG is less than 600. Comes in for follow up and IVIG. - Past Medical/Social History Past Medical History Past Medical History: Chronic bronchitis,Heart disease,Hyperlipidemia Other Past Medical History: Hypoglobulinemia Cancer: Lymphoma,Skin cancer Past Surgical History Surgical: CABG Other Surgical History: Bilateral foot surgery Excision skin cancer left ear base Right ear tube 2011 Reconstruction from left nesk Valve replacement 2007 Family History Paternal Past Medical History: Arthritis,Hypertension Paternal History of Cancer Brain cancer,Lung cancer Maternal Past Medical History: Arthritis,Hypertension Maternal History of Cancer: Other Social History Social History: No changes Smoking Status Never smoker Review of Systems Constitutional:: Denies: Fever, Sweats, Weight loss, Appetite change, Chills Cardiovascular:: Denies: Chest pain, Palpitations, Dyspnea on exertion, Orthopnea, PND, Shortness of breath Respiratory: Denies: Cough, Hemoptysis, Shortness of Breath, Wheezing Gastrointestinal:: Denies: Abdominal pain, Nausea, Vomiting, Diarrhea, Constipation, Hematochezia Genitourinary: Denies: Dysuria, Hematuria, 15, Flank pain Musculoskeletal:: Denies: Back pain, Myalgia, Arthralgia Skin: Denies: Rash, Skin Changes, Wounds Neurological:: Denies: Headache, Dizziness, Visual changes, Tinnitus, Hearing loss Psychiatric: Denies: Anxiety, Depression, Homicidal Ideations, Suicidal Ideations Vital Signs Height 6 ft Weight: 97.069 kg Weight in Pounds 214.0 lbs Pulse Ox 95 - Physical Exam General: Alert, Oriented x3, No apparent distress HEENT: Atraumatic, PERRLA, EOMI, Normocephalic Oropharynx:: Dry mucosa Neck:: Supple, Trachea midline. Negative for: JVD, bilateral Cardiac:: Regular rate, Regular rhythm, Normal S1, Normal S2. Negative for: Murmur Lungs: Clear to auscultation, Excusion symmetrical. Negative for: Rhonchi, Wheezes Abdomen:: Bowel sounds x 4, Soft, Non-tender, Non-distended. Negative for: Hepatosplenomegaly Extremities:: Negative for: Cyanosis, Edema Neurological: Neuro grossly intact Skin:: Negative for: Lesions, Rash, Petechiae, Ecchymosis Psychiatric:: Appropriate affect, Euthymic Lymphatics:: Negative for: Cervical lymphadenopathy, Supraclavicular lymphadenopathy, Axillary lymphadenopathy Laboratory Data: 08/28/2017 Laboratory Tests WBC 6.0 Hgb 14.3 Plt Count 147 L Alkaline Phosphatase 132 H IgG 452 L Assessment and Plan Hypogammaglobulinemia, IgG is less than 600 on 08/28/2017. Waldenstrom's Macroglobulinemia in remission. Plan is to proceed with IVIG today. RTC 4 wks with cbc, cmp IG levels. Medications: Prescriptions This Visit Medication Instructions Recorded Cyclobenzaprine [Flexeril] 10 mg PO TID PRN 12/18/16 Medications Added to Medication List This Visit Immune Globulin 20 gm [Octagam 10% 20gm] 30 gm ONC NC 09/04/17 08:30 Ordered Premixed Bag 1 bag IV X1 Primary Care Provider: Manuela Damico DO Referring Provider: - Problem List (1) Nonfamilial hypogammaglobulinemia Status: Chronic (2) Macroglobulinemia of Waldenstrom Status: Chronic Comment: well controlled periodic IgG infusions Code Visit Office Visits / Consults: 39869 OV L4 Est 09/04/17 1032 <Electronically signed by Dionicio Schmitt MD> Date Dionicio Schmitt MD Cosigner Signature: Date (if applicable) CC: CBC W/DIFF, AUTOMATED Collected: 08/28/2017 Status: F Source: [place] 11:46 AM [facility] REPOSITORY Order Comment: Reason for Laboratory Test . TYPE CODE TESTS RESULT OUT OF RANGE REFERENCE UNITS LAB L100.1000 4.4-11.0 K/mm3 Normal WBC 6.0 LAB L100.1200 4.6-6.2 M/mm3 Normal RBC 5.39 LAB L100.1300 13.0-16.5 g/dl Normal HGB 14.3 LAB L100.1400 40-54 % Normal HCT 46.2 LAB L100.1500 80-94 fL Normal MCV 85.7 LAB L100.1600 27.0-32.0 pg Low MCH 26.5 LAB L100.1700 32-36 g/gl Low MCHC 31.0 LAB L100.1810 11.6-14.6 % High RDW CV 15.5 LAB L100.1820 35.1-43.9 fl High RDW SD 48.6 LAB L100.1900 150-450 K/mm3 Low PLT 147 LAB L100.2000 6.2-12.0 fl Normal MPV 10.1 LAB L100.2100 47-70 % High NEUT% 74.4 LAB L100.2200 19-41 % Low LY% 11.8 LAB L100.2300 0-10 % High MONO% 10.5 LAB L100.2400 0-5 % Normal EO% 2.8 LAB L100.2500 0-1 % Normal BASO% 0.3 LAB L100.2550 0.0-0.9 % Normal IM GRAN % 0.200 Result Comment: IG% - Immature Granulocytes (promyelocytes, myelocytes and metamyelocytes) > 1% indicates that a LEFT SHIFT is Present. LAB L100.2620 2.0-7.7 X10 3/uL Normal Absolute Neut 4.5 LAB L100.2720 0.83-4.51 X10 3/ul Low Absolute Lymph 0.71 Performed By: #### L100.0100 #### [facility] [address] [place], [place], [address] COMPREHENSIVE METABOLIC Collected: 08/28/2017 Status: F [facility] REPOSITORY Order Comment: Reason for Laboratory Test . TYPE CODE TESTS RESULT OUT OF RANGE REFERENCE UNITS LAB L501.0100 74-106 mg/dL High GLU 307 Result Comment: Glucose result greater than or equal to 200 mg/dL suggests DIABETES MELLITUS per A.D.A. criteria. Please note revised GLUCOSE reference range effective 2017. LAB L501.1000 7-18 mg/dL Normal BUN 16 LAB L501.1100 0.70-1.30 mg/dL Normal CREAT,SERUM 1.24 Result Comment: The validity of the calculated GFR AND GFRAA in patients over 70 years has not been determined. Clinical correlation is essential. LAB L501.1110 >60 mL/min Normal EST GFR 64 Result Comment: Non- GFR Calc LAB L501.1115 >60 mL/min Normal EST GFR - AA 77 Result Comment: GFR Calc LAB L501.1255 ml/min Normal Estimated CRCL 72.14 LAB L501.1300 10-20 RATIO Normal BUN/CRE 12.9 LAB L501.1500 6.4-8. g/dL Normal 2 T PROT 6.8 LAB L501.1800 3.2-5. g/dL Normal 0 ALB 3.6 LAB L501.1950 2.2-4. g/dL Normal 2 GLOB 3.2 LAB L501.2000 0.9-2. RATIO Normal 4 A/G 1.1 LAB L501.2200 8.5-10 mg/dL Normal .1 CA 8.8 LAB L501.4100 15-37 U/L Normal AST 34 LAB L501.4305 45-117 U/L High ALK P 132 LAB L501.4405 16-61 U/L Normal ALT 27 Result Comment: Please note revised ALT reference range effective 2017. LAB L501.4600 0.20-1.00 mg/dL Normal T BILI 0.50 LAB L501.5300 136-145 mmol/L Normal NA 138 LAB L501.5600 3.5-5.1 mmol/L Normal K 4.4 LAB L501.5900 98-107 mmol/L Normal CL 101 LAB L501.6100 21.0-32.0 mmol/L Normal CO2 30.0 LAB L501.6200 5-15 Normal GAP 7 Performed By: #### L500.4050 #### [facility] [address] [place], [place] [address], [address] #### L3200.1300 #### [facility] (refer to report for specific site) refer to report for address and phone number IMMUNOGLOBULIN G Collected: 08/28/2017 Status: F Source: [place] 11:46 AM [facility] REPOSITORY Order Comment: Reason for Laboratory Test . TYPE CODE TESTS RESULT OUT OF REFERENCE UNITS RANGE LAB L3200.4830 409-2947 mg/dL Low IMMUNO G 452 Result Comment: Performed at: - [facility] [id number] Pull Through Hooker: Henry Feliz PhD, Phone: [phone] Performed By: #### L500.4050 #### [facility] [address] [facility]. [place], [place], [address] #### L3200.1300 #### [facility] (refer to report for specific site) refer to report for address and phone number EMERGENCY DEPARTMENT Observed: 08/11/2017 Status: F Source: [place] SUMMARY 7:15 AM [facility] REPOSITORY [facility] Medical Records Department [address] [place] [address] Emergency Department Summary 08/11/17 0018 MR#: [id number] Acct: [id number] Name: CHARLES GOULD Rep #: [id number] : 1960 57 From: Bryan Adame DO PCP: Manuela Damico DO Status: DEP ER - ER Visit Summary Date of Service: 08/11/17 Chief Complaint: [] Varicose vein History of Present Illness: The patient is a 57 M [] presents with concern for growing varicose vein by his left patella. Denies fevers. Denies warmth. Denies chest pain or shortness of breath. No other complaints at this time. Physical Examination: [] Left vein varicosity medial to the left patella. No overlying cellulitis, warmth, signs of infection. Normal range of motion of the left knee. Test Results: [] No testing was warranted for this benign presentation. Emergency Department Course and Treatment: [] Patient had a very benign presentation and was encouraged to follow-up with his primary care physician. This is extremely low risk for DVT and I do not feel any further evaluation is warranted. Treatment Plan: [] Follow-up up with PCP. Disposition: [] Discharge, stable. Impression: [] Varicose vein This note was generated with Dragon dictation software. It may contain incorrect words, spelling, and punctuation that were not noted in review of the chart prior to signing ED Disposition - Plan for ED Patient: Chief Complaint: Lower Extremity Injury Referrals: Manuela Damico, [Primary Care Provider] - What to do if you have Problems For any increased pain, shortness of breath, bleeding, nausea or vomiting, chest pain, or any unexpected problems, contact your Primary Care Provider. Call [facility] ([phone]) or report to the closest Emergency Room. Call 911 if necessary. 08/11/17714 <Electronically signed by Bryan Adame DO> Date Bryan Adame DO Cosigner Signature (If Indicated): Date CC: Manuela Damico DO DISCHARGE INSTRUCTION Observed: 08/11/2017 Status: F Source: [place] 12:20 AM [facility] REPOSITORY [facility] Medical Records Department [address] [place] [id number] Discharge Instruction 08/11/1719 MR#: [id number] Acct: [id number] Name: CHARLES GOULD Rep #: [id number] : 1960 57 From: Bryan Adame DO PCP: Manuela Damico DO Status: PRE ER ED Disposition - Plan for ED Patient: Disposition: Home or Assisted Living Chief Complaint: Lower Extremity Injury Instructions: ED Veins Varicose Referrals: Manuela Damico DO [Primary Care Provider] - What to do if you have Problems For any increased pain, shortness of breath, bleeding, nausea or vomiting, chest pain, or any unexpected problems, contact your Primary Care Provider. Call [facility] ([phone]) or report to the closest Emergency Room. Call 911 if necessary. 08/11/17 0020 <Electronically signed by Bryan Adame DO> Date Bryan Bushmimi DO Lianigner Signature (If Indicated): Date CC: Manuela Damico DO CBC W/DIFF, AUTOMATED Collected: 07/17/2017 Status: F Source: [place] 10:54 AM [facility] REPOSITORY TYPE CODE TESTS RESULT OUT OF RANGE REFERENCE UNITS LAB L100.1000 4.4-11.0 K/mm3 Normal WBC 5.9 LAB L100.1200 4.6-6.2 M/mm3 Normal RBC 5.74 LAB L100.1300 13.0-16.5 g/dl Normal HGB 15.3 LAB L100.1400 40-54 % Normal HCT 48.8 LAB L100.1500 80-94 fL Normal MCV 85.0 LAB L100.1600 27.0-32.0 pg Low MCH 26.7 LAB L100.1700 32-36 g/gl Low MCHC 31.4 LAB L100.1810 11.6-14.6 % High RDW CV 15.1 LAB L100.1820 35.1-43.9 fl High RDW SD 47.4 LAB L100.1900 150-450 K/mm3 Low PLT 143 LAB L100.2000 6.2-12.0 fl Normal MPV 10.4 LAB L100.2100 47-70 % Normal NEUT% 69.1 LAB L100.2200 19-41 % Low LY% 17.5 LAB L100.2300 0-10 % High MONO% 10.3 LAB L100.2400 0-5 % Normal EO% 2.7 LAB L100.2500 0-1 % Normal BASO% 0.2 LAB L100.2550 0.0-0.9 % Normal IM GRAN % 0.200 Result Comment: IG% - Immature Granulocytes (promyelocytes, myelocytes and metamyelocytes) > 1% indicates that a LEFT SHIFT is Present. LAB L100.2620 2.0-7.7 X10 3/uL Normal Absolute Neut 4.1 LAB L100.2720 0.83-4.51 X10 3/ul Normal Absolute Lymph 1.03 Performed By: #### L100.0100 #### [facility] [address], [address] COMPREHENSIVE METABOLIC Collected: 07/17/2017 Status: F Source: [place] NORRIS 10:53 AM [facility] REPOSITORY Order Comment: Reason for Laboratory Test OV TYPE CODE TESTS RESULT OUT OF RANGE REFERENCE UNITS LAB L501.0100 70-110 mg/dL High GLU 307 Result Comment: Glucose result greater than or equal to 200 mg/dL suggests DIABETES MELLITUS per A.D.A. criteria. LAB L501.1000 7-18 mg/dL High BUN 23 LAB L501.1100 0.70-1.30 mg/dL Normal CREAT,SERUM 1.05 Result Comment: The validity of the calculated GFR AND GFRAA in patients over 70 years has not been determined. Clinical correlation is essential. LAB L501.1110 >60 mL/min Normal EST GFR 77 Result Comment: Non- GFR Calc LAB L501.1115 >60 mL/min Normal EST GFR - AA 94 Result Comment: GFR Calc LAB L501.1255 ml/min Normal Estimated CRCL 86.22 LAB L501.1300 10-20 RATIO High BUN/CRE 21.9 LAB L501.1500 6.4-8. g/dL Normal 2 T PROT 7.2 LAB L501.1800 3.4-5. g/dL Normal 0 ALB 3.9 Result Comment: Please note revised Albumin AND Globulin reference range effective 2017. LAB L501.1950 2.2-4.2 g/dL Normal GLOB 3.3 LAB L501.2000 0.9-2.4 RATIO Normal A/G 1.2 LAB L501.2200 8.5-10.1 mg/dL Normal CA 9.4 LAB L501.4100 15-37 U/L Normal AST 31 LAB L501.4305 45-117 U/L High ALK P 133 LAB L501.4405 12-78 U/L Normal ALT 29 LAB L501.4600 0.20-1.00 mg/dL Normal T BILI 0.70 LAB L501.5300 136-145 mmol/L Normal NA 138 LAB L501.5600 3.5-5.1 mmol/L Normal K 4.4 LAB L501.5900 98-107 mmol/L Normal CL 102 LAB L501.6100 21.0-32.0 mmol/L Normal CO2 26.0 LAB L501.6200 5-15 Normal GAP 10 Performed By: #### L500.4050 #### [facility] [address] [place], [address] IMMUNOGLOBULINS G/A/M Collected: 07/17/2017 Status: F Source: [place] 10:53 AM [facility] REPOSITORY Order Comment: Reason for Laboratory Test OV Is Patient Fasting? N TYPE CODE TESTS RESULT OUT OF REFERENCE UNITS RANGE LAB L3200.5624 128-6954 mg/dL Low IMMUNO G 564 LAB L3200.1400 90-386 mg/dL Low IMMUNO A < 5 Result Comment: Result confirmed on concentration. LAB L3200.1500 20-172 mg/dL Normal IMMUNOGL M 52 Result Comment: Performed at: - [facility] [id number] Pull Through [place]: Henry Feliz PhD, Phone: [phone] Performed By: #### L3200.1200 #### [facility] (refer to report for specific site) refer to report for address and phone number ALLERGIES ALLERGIES DATE TYPE / CODE NAME / CODE REACTION SEVERITY SOURCE 07/01/2018 Drug adhesive Rash [place] Allergy/[id number](S tape/[id number] Pending sale to [facility] CT) 4(RXNORM) Hospital Repository 10/30/2007 Miscellaneous OTHER [facility] Allergy/[id number](S Clinic [facility] [place] Repository NG/[id number](SNOMED OTHER [facility]) Health System Repository ENCOUNTERS ENCOUNTERS ADMIT/DISCHARGE ACCOUNT NUMBER ADMITTING ENCOUNTER LOCATION SOURCE CLASS 07/01/2018/06/19/20 [id number] Ambulatory [address] ding:ONC Repository 07/01/2018 [id number] Ambulatory BMSBuilding: [place] BMS.CF.[facility] Repository 06/03/2018 [id number] Ambulatory BMSBuilding: [place] BMS.CF.[facility] Repository 06/02/2018 [id number] Ambulatory [facility] ding:MTLAB Repository 05/18/2018 [id number] Ambulatory [facility] ding:LAB.FUT Repository URE 05/06/2018 [id number] Ambulatory BMSBuilding: [place] BMS.[facility] Repository 04/08/2018 [id number] Ambulatory BMSBuilding: [place] BMS.CF.[facility] Repository 03/11/2018 [id number] Ambulatory BMSBuilding: [place] BMS.CF.[facility] Repository 02/10/2018 [id number] [facility] [place] [facility] 02/09/2018/02/10/20 [id number] Ambulatory [address] Repository 02/09/2018 [id number] Ambulatory [facility] MEDICAL Repository CENTERBuildi ng:CAGWS 02/05/2018/02/06/20 [id number] Ambulatory BMSBuilding: [place] Repository 02/03/2018/02/06/20 [id number] Jaden Pressley Inpatient [address] ding:PCURoom Repository : [id number]: 1 02/03/2018 [id number] Jaden Pressley Ambulatory BMSBuilding: [place] BMS.[facility] Repository 02/03/2018 [id number] Jaden Pressley Ambulatory BMSBuilding: [place] BMS.CF.[facility] Repository 02/03/2018 [id number] Jaden Pressley Ambulatory BMSBuilding: [place] BMS.[facility] Repository 02/03/2018 [id number] Jaden Pressley Ambulatory BMSBuilding: [place] BMS.CF.[facility] Repository 02/03/2018 [id number] Jaden Pressley Ambulatory BMSBuilding: [place] BMS.[facility] Repository 02/03/2018/02/06/20 [id number] Ambulatory BMSBuilding: [place] [address] [place] [address] Repository 01/06/2018 [id number] Ambulatory BMSBuilding: [place] BMS.CF.[facility] Repository 12/09/2017 [id number] Ambulatory BMSBuilding: [place] BMS.CF.[facility] Repository 10/30/2017 [id number] Ambulatory BMSBuilding: [place] BMS.CF.[facility] Repository 10/25/2017 [id number] Ambulatory [facility] ding:LAB Repository 10/02/2017 [id number] Ambulatory BMSBuilding: [place] BMS.CF.[facility] Repository 09/04/2017 [id number] Ambulatory BMSBuilding: [place] BMS.[facility] Repository 08/11/2017/08/11/19 [id number] Emergency [address] ding:ED Repository 07/31/2017 [id number] Ambulatory BMSBuilding: [place] BMS.[facility] Repository PAYERS PAYERS ENCOUNTER GUARANTOR PAYER SUBSCRIBER SOURCE 07/01/2018 CHARLES A Primary CHARLES A [place] [id number] W Insurance:MEDICARE RANDOLPHDOB: Community [place] PART A BPolicy [place]: [id number] [id number] Repository 6[address]Dkf: (330) Date:2012-03-23 () 07/01/2018 Secondary CHARLES A [place] Insurance:CHEMO RANDOLPHDOB: [facility] [id number] Hospital Number: Repository [id number] Date:2016-09-25 07/01/2018 Tertiary NOT GIVENUNK [place] Insurance:SELF PAY [facility] Number: Effective Repository Date:2016-09-25 07/01/2018 CHARLES A Primary CHARLES A [place] [id number] W Insurance:MEDICARE RANDOLPHDOB: [facility] [place] PART A BPolicy Number: [id number], [place] [id number] Repository [address]Xsj: (330) Date:2012-03-23 () 07/01/2018 Secondary NOT GIVENUNK [place] Insurance:SELF PAY [facility] Number: Effective Repository Date:2018-07-01 06/03/2018 CHARLES A Primary CHARLES A [place] [id number] W Insurance:MEDICARE RANDOLPHDOB: Community [place] PART A BPolicy Number: [id number], [place] [id number] Repository 12[address]Gxt: (330) Date:2012-03-23 () 06/03/2018 Secondary NOT GIVENUNK [place] Insurance:SELF PAY [facility] Number[facility] Effective Repository Date:2018-06-03 06/02/2018 CHARLES A Primary CHARLES A [place] [id number] W Insurance:MEDICARE RANDOLPHDOB: Community [place] PART A BPolicy Number: [id number], [place] [id number] Repository 45[address]Wow: (330) Date:2018-06-02 () 06/02/2018 Secondary CHARLES A [place] Insurance:CHEMO RANDOLPHDOB: Community ASSISTANCEPolicy [id number] Hospital Number: Repository [id number] Date:2018-06-02 06/02/2018 Tertiary NOT GIVENUNK [place] Insurance:[facility]LF PAY [facility] Effective Repository Date:2018-06-02 05/18/2018 CHARLES A Primary CHARLES A [place] [id number] W Insurance:MEDICARE RANDOLPHDOB: Community [place] PART A BPolicy Number: [id number], [place] [id number] Repository 468[address]Vtp: (330) Date:2018-05-18 () 05/18/2018 Secondary CHARLES A [place] Insurance:CHEMO RANDOLPHDOB: Community ASSISTANCEPolicy [id number] Hospital Number: Repository [id number] Date:2018-05-18 05/18/2018 Tertiary NOT GIVENUNK [place] Insurance:SELF PAY [facility] Number: Effective Repository Date:2018-05-18 05/06/2018 CHARLES A Primary CHARLES A [place] [id number] W Insurance:MEDICARE RANDOLPHDOB: Community [place] PART A BPolicy Number: [id number], [place] [id number] Repository 07[address]Tyl: (330) Date:2012-03-23 () 05/06/2018 Secondary NOT GIVENUNK [place] Insurance:SELF PAY [facility] Number: Effective Repository Date:2018-05-06 04/08/2018 Charles A Primary Charles A [place] [id number] W Insurance:MEDICARE RandolphDOB: Community [place] PART A BPolicy Number: [id number], [place] [id number] Repository 708[address]Bfp: (330) Date:2012-03-23 () 04/08/2018 Secondary Charles A [place] Insurance:CHEMO RandolphDOB: [facility] [id number] Hospital Number: Repository [id number] Date:2016-09-25 04/08/2018 Tertiary NOT GIVENUNK [place] Insurance:SELF PAY [facility] Number: Effective Repository Date:2018-04-08 03/11/2018 Charles A Primary Charles A [place] [id number] W Insurance:MEDICARE RandolphDOB: Community [place] PART A BPolicy Number: [id number], [place] [id number] Repository 745[address]Bem: (330) Date:2012-03-23 () 03/11/2018 Secondary Charles A [place] Insurance:CHEMO RandolphDOB: [facility] [id number] Hospital Number: Repository [id number] Date:2016-09-25 03/11/2018 Tertiary NOT GIVENUNK [place] Insurance:SELF PAY [facility] Number: Effective Repository Date:2018-03-11 02/10/2018 Charles A Primary Charles A [place] [id number] W Insurance:MEDICARE RandolphDOB: Community [place] PART A BPolicy Number: [id number], [place] [id number] Repository 31814Vbh: (330) Date:2012-03-23 () 02/10/2018 Secondary Charles A [place] Insurance:CHEMO RandolphDOB: [facility] [id number] Hospital Number: Repository [id number] Date:2016-09-25 02/10/2018 Tertiary NOT GIVENUNK [place] Insurance:SELF PAY [facility] Effective Repository Date:2018-02-10 02/05/2018 Charles A Primary Charles A [place] [id number] W Insurance:MEDICARE RandolphDOB: Community [place] PART A BPolicy Number: [id number], [place] [id number] Repository 15547Xsv: (330) Date:2018-02-03 () 02/05/2018 Secondary NOT GIVENUNK [place] Insurance:SELF PAY [facility] Number: Effective Repository Date:2018-02-05 02/03/2018 Charles A Primary Charles A [place] [id number] W Insurance:MEDICARE RandolphDOB: Community [place] PART A BPolicy Number: [id number], [place] [id number] Repository 205[address]Ejq: (330) Date:2018-02-03 () 02/03/2018 Secondary NOT GIVENUNK [place] Insurance:SELF PAY [facility] Number: Effective Repository Date:2018-02-03 02/03/2018 Charles A Primary Charles A [place] [id number] W Insurance:MEDICARE RandolphDOB: Community [place] PART A BPolicy Number: [id number], [place] [id number] Repository 83820Sxg: (330) Date:2018-02-03 () 02/03/2018 Secondary NOT GIVENUNK [place] Insurance:SELF PAY [facility] Number: Effective Repository Date:2018-02-03 02/03/2018 Charles A Primary Charles A [place] [id number] W Insurance:MEDICARE RandolphDOB: Community [place] PART A BPolicy Number: [id number], [place] [id number] Repository 54731Bnh: (330) Date:2018-02-030260 () 02/03/2018 Secondary NOT GIVENUNK [place] Insurance:SELF PAY [facility] Number: Effective Repository Date:2018-02-03 02/03/2018 Charles A Primary Charles A [place] [id number] W Insurance:MEDICARE RandolphDOB: Community [place] PART A BPolicy Number: [id number], [place] [id number] Repository 24996Qsl: (330) Date:2018-02-030260 () 02/03/2018 Secondary NOT GIVENUNK [place] Insurance:SELF PAY [facility] Number: Effective Repository Date:2018-02-03 02/03/2018 Charles A Primary Charles A [place] [id number] W Insurance:MEDICARE RandolphDOB: Community [place] PART A BPolicy Number: [id number], [place] [id number] Repository 01335Vca: (330) Date:2018-02-030260 () 02/03/2018 Secondary NOT GIVENUNK [place] Insurance:SELF PAY [facility] Number: Effective Repository Date:2018-02-03 02/03/2018 Charles A Primary Charles A [place] [id number] W Insurance:MEDICARE RandolphDOB: Community [place] PART A BPolicy Number: [id number], [place] [id number] Repository 91586Ipd: (330) Date:2018-02-030260 () 02/03/2018 Secondary NOT GIVENUNK [place] Insurance:SELF PAY [facility] Number: Effective Repository Date:2018-02-03 02/03/2018 Charles A Primary Charles A [place] [id number] W Insurance:MEDICARE RandolphDOB: Community [place] PART A BPolicy Number: [id number], [place] [id number] Repository 16645Ivf: (330) Date:2018-02-03 () 02/03/2018 Secondary NOT GIVENUNK [place] Insurance:SELF PAY [facility] Number: Effective Repository Date:2018-02-03 01/06/2018 Charles A Primary Charles A [place] [id number] W Insurance:MEDICARE RandolphDOB: Community [place] PART A BPolicy Number: [id number], [place] [id number] Repository 98192Rpf: (330) Date:2012-03-23 () 01/06/2018 Secondary NOT GIVENUNK [place] Insurance:SELF PAY [facility] Number: Effective Repository Date:2018-01-06 12/09/2017 Charles A Primary Charles A [place] [id number] W Insurance:MEDICARE RandolphDOB: Community [place] PART A BPolicy Number: [id number], [place] [id number] Repository 02627Evl: (330) Date:2012-03-23 () 12/09/2017 Secondary NOT GIVENUNK [place] Insurance:SELF PAY [facility] Number: Effective Repository Date:2017-12-09 10/30/2017 Charles A Primary Charles A [place] [id number] W Insurance:MEDICARE RandolphDOB: Community [place] PART A BPolicy Number: [id number], [place] [id number] Repository 90593Gpw: (330) Date:2012-03-23 () 10/30/2017 Secondary Charles A [place] Insurance:CHEMO RandolphDOB: [facility] [id number] Hospital Number: Repository [id number] Date:2016-09-25 10/30/2017 Tertiary NOT GIVENUNK [place] Insurance:SELF PAY [facility] Number: Effective Repository Date:2017-10-30 10/25/2017 Charles A Primary Charles A [place] [id number] W Insurance:MEDICARE RandolphDOB: Community [place] PART A BPolicy Number: [id number], [place] [id number] Repository 49771Qlp: (330) Date:2017-10-25 () 10/25/2017 Secondary Charles A [place] Insurance:CHEMO RandolphDOB: [facility] [id number] Hospital Number: Repository [id number] Date:2017-10-25 10/25/2017 Tertiary NOT GIVENUNK [place] Insurance:SELF PAY [facility] Number: Effective Repository Date:2017-10-25 10/02/2017 Charles A Primary Charles A [place] [id number] W Insurance:MEDICARE RandolphDOB: Community [place] PART A BPolicy Number: [id number], [place] [id number] Repository 34142Hyp: (330) Date:2012-03-23 () 10/02/2017 Secondary NOT GIVENUNK [place] Insurance:SELF PAY [facility] Number: Effective Repository Date:2017-10-02 09/04/2017 Charles A Primary Charles A [place] [id number] W Insurance:MEDICARE RandolphDOB: Community [place] PART A BPolicy Number: [id number], [place] [id number] Repository 80030Zxq: (330) Date:2012-03-23 () 09/04/2017 Secondary NOT GIVENUNK [place] Insurance:SELF PAY [facility] Number: Effective Repository Date:2017-09-04 08/11/2017 Charles A Primary Charles A [place] [id number] W Insurance:MEDICARE RandolphDOB: Community [place] PART A BPolicy Number: [id number], [place] [id number] Repository 770[address]Wwg: (330) Date:2017-08-11 () 08/11/2017 Secondary Charles A [place] Insurance:CHEMO RandolphDOB: [facility] [id number] Hospital Number: Repository [id number] Date:2017-08-11 08/11/2017 Tertiary NOT GIVENUNK [place] Insurance:SELF PAY [facility] Number: Effective Repository Date:2017-08-11 07/31/2017 Charles A Primary Charles A [place] [id number] W Insurance:MEDICARE RandolphDOB: [facility] [place] PART A BPolicy Number: [id number], [place] [id number] Repository 89317Kyc: (330) Date:2012-03-230260 () 07/31/2017 Secondary NOT GIVENUNK [place] Insurance:SELF PAY [facility] Number: Effective Repository Date:2017-07-31
== END ==
PROVIDERS: Family Provider Family Medicine; PCP Family Medicine; Referring Provider Nurse Practitioner Family; Visit Provider Nurse Practitioner Family
DX: C88.0 Waldenstrom macroglobulinemia (principal); D80.1 Nonfamilial hypogammaglobulinemia
CPT/HCPCS: 36415; 80053; 82784; 85025

== ENCOUNTER 2019-02-23 07:24 | Outpatient (RCR) | payer MEDICARE, OTHER, SELFPAY ==
[2019-02-02 08:35] VITALS: BMI 28.6
[2019-02-23 08:14] LABS: Absolute Lymphocyte Count 0.68 X10^3/uL (0.83-4.51); Absolute Neutrophil Count 4.4 X10^3/uL (2.0-7.7); Basophil# 0.04 X10^3/uL; Basophil% 0.7 % (0-1); Eosinophil# 0.13 X10^3/uL; Eosinophils% 2.2 % (0-5); Hematocrit 43.7 % (40-54); Hemoglobin 13.5 g/dL (13.0-16.5); Lymphocyte # 0.68 X10^3/ul (4.0); Lymphocyte % 11.6 % (19-41); Mean Corp Hgb Conc 30.9 g/dL (32-36); Mean Corpuscular Hgb 26.2 pg (27.0-32.0); Mean Corpuscular Volume 84.9 fL (80-94); Mean Platelet Vol. 10.9 fl (6.2-12.0); Monocyte# 0.63 X10^3/uL; Monocyte% 10.7 % (0-10); NRBC Flagged by Analyzer 0 % (0-5); Neutrophil # 4.38 X10^3/uL (2.7-7.7); Neutrophil % 74.5 % (47-70); Platelet Count 139 K/mm3 (150-450); RBC Distribution Width CV 16.2 % (11.6-14.6); RBC Distribution Width SD 49.9 fl (35.1-43.9); Red Blood Count 5.15 M/mm3 (4.6-6.2); White Blood Count 5.9 K/mm3 (4.4-11.0)
[2019-02-23 08:51] LABS: ALB/GLOB Ratio 1.1 RATIO (0.9-2.4); AST(SGOT) 25 U/L (15-37); Alanine Aminotransfer ALT/SGPT 20 U/L (16-61); Albumin, Serum 3.6 g/dL (3.2-5.0); Alkaline Phosphatase 155 U/L (45-117); Anion Gap 7 (5-15); BUN 13 mg/dL (7-18); Calcium,Total 8.5 mg/dL (8.5-10.1); Chloride 102 mmol/L (98-107); Creatinine, Serum 1.18 mg/dL (0.70-1.30); EST Glomerular Filtration Rate 67 mL/min (>60); Est Glom Filt Rate - Afr Amer 81 mL/min (>60); Globulin 3.2 g/dL (2.2-4.2); Glucose 400 mg/dL (74-106); Potassium 4.7 mmol/L (3.5-5.1); Protein, Total 6.8 g/dL (6.4-8.2); Sodium Level 135 mmol/L (136-145)
[2019-02-24 12:07] LABS: Immunoglobulin G 644 mg/dL (700-1600)
[2019-02-24 12:20] LABS: Immunoglobulin A < 5 mg/dL (90-386); Immunoglobulin M 81 mg/dL (20-172)
== END 2019-02-23 11:00 | disposition home or self-care (01) ==
LOC: LAB 07:24
PROVIDERS: Family Provider Family Medicine; PCP Family Medicine; Referring Provider Nurse Practitioner Family; Visit Provider Nurse Practitioner Family
DX: C88.0 Waldenstrom macroglobulinemia (principal); D80.1 Nonfamilial hypogammaglobulinemia
CPT/HCPCS: 36415; 80053; 82784; 85025

== ENCOUNTER 2019-04-27 15:56 | Outpatient (RCR) | payer MEDICARE, OTHER, SELFPAY ==
[2019-03-02 08:37] VITALS: BMI 28.4
[2019-03-31 09:44] VITALS: BMI 28.2
[2019-04-27 17:11] LABS: Absolute Lymphocyte Count 0.79 X10^3/uL (0.83-4.51); Absolute Neutrophil Count 4.4 X10^3/uL (2.0-7.7); Basophil# 0.02 X10^3/uL; Basophil% 0.3 % (0-1); Eosinophils% 1.7 % (0-5); Hematocrit 43.7 % (40-54); Hemoglobin 13.3 g/dL (13.0-16.5); Lymphocyte # 0.79 X10^3/ul (4.0); Lymphocyte % 13.4 % (19-41); Mean Corp Hgb Conc 30.4 g/dL (32-36); Mean Corpuscular Hgb 26.1 pg (27.0-32.0); Mean Corpuscular Volume 85.7 fL (80-94); Mean Platelet Vol. 10.4 fl (6.2-12.0); Monocyte# 0.59 X10^3/uL; NRBC Flagged by Analyzer 0 % (0-5); Neutrophil # 4.38 X10^3/uL (2.7-7.7); Neutrophil % 74.3 % (47-70); Platelet Count 152 K/mm3 (150-450); RBC Distribution Width CV 15.5 % (11.6-14.6); RBC Distribution Width SD 47.8 fl (35.1-43.9); White Blood Count 5.9 K/mm3 (4.4-11.0)
[2019-04-27 17:56] LABS: ALB/GLOB Ratio 1.2 RATIO (0.9-2.4); AST(SGOT) 28 U/L (15-37); Alanine Aminotransfer ALT/SGPT 26 U/L (16-61); Albumin, Serum 3.7 g/dL (3.2-5.0); Alkaline Phosphatase 137 U/L (45-117); Anion Gap 8 (5-15); BUN 18 mg/dL (7-18); BUN/Creat Ratio 17.6 RATIO (10-20); Calcium,Total 9.2 mg/dL (8.5-10.1); Chloride 103 mmol/L (98-107); Creatinine, Serum 1.02 mg/dL (0.70-1.30); EST Glomerular Filtration Rate 80 mL/min (>60); Est Glom Filt Rate - Afr Amer 96 mL/min (>60); Glucose 215 mg/dL (74-106); LDH 174 U/L (87-241); Potassium 4.7 mmol/L (3.5-5.1); Protein, Total 6.7 g/dL (6.4-8.2); Sodium Level 138 mmol/L (136-145)
[2019-04-29 12:07] LABS: Immunoglobulin G 498 mg/dL (700-1600)
[2019-04-29 14:34] LABS: Immunoglobulin A < 5 mg/dL (90-386); Immunoglobulin M 75 mg/dL (20-172)
== END 2019-04-27 18:00 | disposition home or self-care (01) ==
LOC: LAB 15:56
PROVIDERS: Internal Medicine Medical Oncology; Family Provider Family Medicine; PCP Family Medicine; Referring Provider Nurse Practitioner Family; Visit Provider Nurse Practitioner Family
DX: C88.0 Waldenstrom macroglobulinemia (principal); D80.1 Nonfamilial hypogammaglobulinemia
CPT/HCPCS: 36415; 80053; 82784; 83615; 85025

== ENCOUNTER → 2019-07-25 09:40 | Outpatient (CLI) | payer MEDICARE, OTHER, SELFPAY ==
[2019-06-30 10:39] VITALS: BMI 28.3
[2019-07-25 10:05] LABS: Absolute Lymphocyte Count 0.95 X10^3/uL (0.83-4.51); Absolute Neutrophil Count 4.7 X10^3/uL (2.0-7.7); Basophil# 0.01 X10^3/uL; Basophil% 0.2 % (0-1); Eosinophils% 1.5 % (0-5); Hematocrit 40.9 % (40-54); Hemoglobin 12.3 g/dL (13.0-16.5); Lymphocyte # 0.95 X10^3/ul (4.0); Lymphocyte % 14.6 % (19-41); Mean Corp Hgb Conc 30.1 g/dL (32-36); Mean Corpuscular Hgb 24.7 pg (27.0-32.0); Mean Corpuscular Volume 82.3 fL (80-94); Monocyte# 0.74 X10^3/uL; Monocyte% 11.4 % (0-10); NRBC Flagged by Analyzer 0 % (0-5); Neutrophil % 72.1 % (47-70); Platelet Count 134 K/mm3 (150-450); RBC Distribution Width CV 15.9 % (11.6-14.6); RBC Distribution Width SD 47.3 fl (35.1-43.9); Red Blood Count 4.97 M/mm3 (4.6-6.2); White Blood Count 6.5 K/mm3 (4.4-11.0)
[2019-07-25 10:35] LABS: ALB/GLOB Ratio 1.2 RATIO (0.9-2.4); AST(SGOT) 26 U/L (15-37); Alanine Aminotransfer ALT/SGPT 23 U/L (16-61); Albumin, Serum 3.7 g/dL (3.2-5.0); Alkaline Phosphatase 105 U/L (45-117); Anion Gap 6 (5-15); BUN 13 mg/dL (7-18); BUN/Creat Ratio 15.5 RATIO (10-20); Chloride 102 mmol/L (98-107); Creatinine, Serum 0.84 mg/dL (0.70-1.30); EST Glomerular Filtration Rate 100 mL/min (>60); Est Glom Filt Rate - Afr Amer 121 mL/min (>60); Glucose 98 mg/dL (74-106); LDH 205 U/L (87-241); Potassium 3.8 mmol/L (3.5-5.1); Protein, Total 6.7 g/dL (6.4-8.2); Sodium Level 140 mmol/L (136-145)
[2019-07-25 17:48] LABS: Xtra Tube EP Lab EXTRA TUBE
[2019-07-27 09:08] LABS: Immunoglobulin G 564 mg/dL (700-1600)
[2019-07-28 13:53] LABS: Immunoglobulin A < 5 mg/dL (90-386); Immunoglobulin M 114 mg/dL (20-172)
== END ==
PROVIDERS: PCP Family Medicine; Referring Provider Internal Medicine Medical Oncology; Visit Provider Internal Medicine Medical Oncology
DX: C88.0 Waldenstrom macroglobulinemia (principal); D80.1 Nonfamilial hypogammaglobulinemia
CPT/HCPCS: 36415; 80053; 82784; 83615; 85025

== ENCOUNTER 2019-07-31 15:26 | Emergency (ER) | payer MEDICARE, OTHER, SELFPAY ==
[2019-07-28 11:20] VITALS: BMI 28.2
[2019-07-31 15:26] VITALS: BP 140/83; PULSE 84; RESP 16; TEMP 36.4; O2SAT 97; BMI 27.9
--- NOTE | 2019-07-31 17:51 | RAD_ITS ---
STUDY: X-RAY - LUMBAR SPINE REASON FOR EXAM: Male, 59 years old. FELL ON ICE ONTO CONCRETE TODAY, PAIN THROUGHOUT BACK TECHNIQUE: 3 view(s) of the lumbar spine were obtained. COMPARISON: 04 October 2016 FINDINGS: Normal lumbar lordosis. There is no substantial scoliosis. There is a normal alignment of the vertebrae. There are expected mild age-related changes. Normal vertebral bodies and endplates. Normal disc space heights. The soft tissue structures are unremarkable. There are gallstone calcifications. RAD/Lumbar Spine 2 or 3 Views IMPRESSION: Unremarkable x-ray examination of the lumbar spine. Electronically Signed: Sobeida Lew, at 18:44 EST Tel , Service support ,
--- NOTE | 2019-07-31 17:51 | CT_ITS ---
STUDY: CT CERVICAL SPINE WITHOUT CONTRAST REASON FOR EXAM: Male, 59 years old. Trauma RADIATION DOSAGE (If Supplied By Facility): CTDIvol = ( 22.61 ) mGy, DLP = ( 532.32 ) mGycm TECHNIQUE: High resolution transaxial imaging was performed without contrast material. Sagittal and coronal images were reconstructed. Individualized dose optimization techniques were used for this CT. COMPARISON: 22 Oct 2013 FINDINGS: Craniocervical junction and cervical spine are intact and aligned. Mineralization is normal. Paraspinous soft tissues are normal. There is multilevel mild spondylotic thecal sac stenosis. CT/Spine Cervical without Contras IMPRESSION: 1. No acute osseous injury. Electronically Signed: Sobeida Lew, at 18:45 EST Tel , Service support ,
--- NOTE | 2019-07-31 17:52 | RAD_ITS ---
STUDY: X-RAY - THORACIC SPINE REASON FOR EXAM: Male, 59 years old. FELL ON ICE ONTO CONCRETE TODAY, PAIN THROUGHOUT BACK TECHNIQUE: 3 view(s) of the thoracic spine were obtained. COMPARISON: None. FINDINGS: Normal kyphosis of the thoracic spine. There is no substantial scoliosis. Normal thoracic vertebrae and endplates. Normal disc space heights. There are sternotomy wires. There are mild age-appropriate changes. The soft tissue structures are unremarkable. RAD/Thoracic Spine 3 Views IMPRESSION: Unremarkable age-appropriate x-ray examination of the thoracic spine. Electronically Signed: Sobeida Lew, at 18:46 EST Tel , Service support ,
--- NOTE | 2019-07-31 17:54 | ED.VISSUMM ---
- ER Visit Summary Date of Service: 07/31/19 Chief Complaint: Fall History of Present Illness: The patient is a 59 M presenting after fall. Patient states he slipped on ice and fell onto his back. He states he jerked his neck but did not hit his head or lose consciousness. He is not on anticoagulants. He complains of neck and low back pain. He is able to ambulate. He denies other injuries. Physical Examination: Vitals are stable. Patient is afebrile. Alert no acute distress. HEENT exam is unremarkable. Neck is supple. Left paraspinal cervical muscle tenderness. No midline tenderness or step-off Lungs are clear and equal bilaterally. Heart is regular rate and rhythm. Abdomen is soft nontender nondistended. Back: Bilateral paraspinal muscle tenderness with no midline tenderness or step-off. Extremities are unremarkable. Skin is warm and dry. No focal neurologic deficit. Normal strength and sensation Remainder of exam is unremarkable. Emergency Department Course and Treatment: CT head and C-spine show no acute process. Thoracic and lumbar x-rays are unremarkable. Patient is resting comfortably on reevaluation. He is given a short course of [place]hel. Advised to follow-up with primary care physician. Advised return to ED if worsening complaints. Disposition: Discharge home Impression: Status post fall, cervical and lumbar strain This note was generated with [employer] dictation software. It may contain incorrect words, spelling, and punctuation that were not noted in review of the chart prior to signing ED Disposition - Plan for ED Patient: Instructions: FALL, Mechanical Prescriptions: Hydrocodone Bitart/Apap 5-325 [Bethel 5MG-325MG] 1 tab PO Q6H PRN PRN 3 Days #10 tab PRN Reason: Pain Prescription Printed Referrals: Manuela Damico DO [Primary Care Provider] -
--- NOTE | 2019-07-31 18:10 | CT_ITS ---
STUDY: CT BRAIN WITHOUT CONTRAST REASON FOR EXAM: Male, 59 years old. Trauma RADIATION DOSAGE (If Supplied By Facility): CTDIvol = ( 44.99 ) mGy, DLP = ( 846.73 ) mGycm TECHNIQUE: Transaxial CT imaging of the brain was performed without administration of intravenous contrast material. Individualized dose optimization techniques were used for this CT. COMPARISON: No relevant priors. FINDINGS: Brain parenchyma is without focal lesions, mass effect, acute intracranial hemorrhage, extra parenchymal fluid collections, hydrocephalus or herniation. The skull is intact. CT/Brain/Head without Contrast IMPRESSION: 1. Normal CT brain. Electronically Signed: Sobeida Lew, at 18:23 EST Tel , Service support ,
[2019-07-31 18:43] VITALS: RESP 16
--- NOTE | 2019-07-31 18:55 | ED.DEP ---
ED Disposition - Plan for ED Patient: Instructions: FALL, Mechanical Prescriptions: Hydrocodone Bitart/Apap 5-325 [[place] 5MG-325MG] 1 tablet PO Q6H PRN PRN 3 Days #10 tablet PRN Reason: Pain Referrals: Manuela Damico DO [Primary Care Provider] -
[2019-07-31 19:06] VITALS: BP 105/77; PULSE 74; RESP 15; O2SAT 98
== END 2019-07-31 19:07 | disposition home or self-care (01) ==
LOC: ED 17:29
PROVIDERS: Emergency Provider Emergency Medicine; PCP Family Medicine
DX: S39.012A Strain of muscle, fascia and tendon of lower back, initial encounter (principal); S16.1XXA Strain of muscle, fascia and tendon at neck level, initial encounter; W00.0XXA Fall on same level due to ice and snow, initial encounter; Y93.9 Activity, unspecified; Y92.9 Unspecified place or not applicable; Y99.9 Unspecified external cause status; I10 Essential (primary) hypertension; Z79.84 Long term (current) use of oral hypoglycemic drugs; Z79.02 Long term (current) use of antithrombotics/antiplatelets; Z79.82 Long term (current) use of aspirin; Z79.899 Other long term (current) drug therapy; Z85.71 Personal history of Hodgkin lymphoma
CPT/HCPCS: 70450; 72072; 72100; 72125; 99282

== ENCOUNTER 2020-01-10 07:08 | Inpatient (IN) | payer MEDICARE, SELFPAY ==
[2019-12-22 09:35] VITALS: BMI 28.5
[2020-01-10] VITALS (14 sets, daily range): BP systolic 120–174; BP diastolic 73–108; PULSE 69–101; RESP 11–18; TEMP 36.6–36.9; O2SAT 97–100; BMI 28.6; BMI 27.6
--- NOTE | 2020-01-10 07:23 | EKG12_ITS ---
Test Reason : ADMISSION Blood Pressure : / mmHG Vent. Rate : 076 BPM Atrial Rate : 082 BPM P-R Int : 142 ms QRS Dur : 104 ms QT Int : 322 ms P-R-T Axes : 011 -04 224 degrees QTc Int : 362 ms Normal sinus rhythm Marked ST abnormality, possible inferior-lateral myocardial ischemia Abnormal ECG Confirmed by ARETHA CRUMP, ALEKSANDRA ([id number]), newspaper editor managing SHAHID VICTORIA ([id number]) on 01/12/2020 8:53:57 AM Referred By: ANGELI Confirmed By:ALEKSANDRA CARIAS MD
--- NOTE | 2020-01-10 07:33 | RAD_ITS ---
STUDY: X-RAY - ACUTE ABDOMINAL SERIES REASON FOR EXAM: Male, 59 years old. Abdomen pain, bloating,N/V, TECHNIQUE: Single view of the chest. Supine, and erect view(s) of the abdomen were obtained. 4 total views obtained COMPARISON: None. FINDINGS: EKG leads overlie the lower chest and upper abdomen. There are interstitial fibrotic changes of the lungs. There is been previous CABG. Normal mediastinum and phyllis. Normal visualized pulmonary arteries. There is atherosclerotic calcification of the aortic arch with tortuosity. There is a non-specific bowel gas pattern. Multiple calcifications noted in the right upper quadrant likely are multiple gallstones. There are diffuse degenerative changes of the visualized lumbar spine. 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
[2020-01-10] MEDS: Ondansetron 4 MG/2 ML Vial IV ×2 (07:39→08:25)
[2020-01-10] MEDS: 0.9% Normal Saline 1,000 ML 125 ML IV (07:39)
[2020-01-10] MEDS: Aspirin 81 MG TAB.CHEW 324 MG PO (07:39)
[2020-01-10 07:41] LABS: Absolute Lymphocyte Count 0.77 X10^3/uL (0.83-4.51); Absolute Neutrophil Count 7.5 X10^3/uL (2.0-7.7); Basophil# 0.02 X10^3/uL; Basophil% 0.2 % (0-1); Eosinophil# 0.05 X10^3/uL; Eosinophils% 0.6 % (0-5); Hemoglobin 13.6 g/dL (13.0-16.5); Lymphocyte # 0.77 X10^3/ul (4.0); Lymphocyte % 8.6 % (19-41); Mean Corp Hgb Conc 29.6 g/dL (32-36); Mean Corpuscular Hgb 24.2 pg (27.0-32.0); Mean Corpuscular Volume 81.9 fL (80-94); Mean Platelet Vol. 10.6 fl (6.2-12.0); Monocyte# 0.59 X10^3/uL; Monocyte% 6.6 % (0-10); NRBC Flagged by Analyzer 0 % (0-5); Neutrophil # 7.46 X10^3/uL (2.7-7.7); Neutrophil % 83.6 % (47-70); Platelet Count 168 K/mm3 (150-450); RBC Distribution Width CV 17.5 % (11.6-14.6); RBC Distribution Width SD 49.4 fl (35.1-43.9); Red Blood Count 5.62 M/mm3 (4.6-6.2); White Blood Count 8.9 K/mm3 (4.4-11.0)
[2020-01-10 07:45] LABS: ALB/GLOB Ratio 1.1 RATIO (0.9-2.4); AST(SGOT) 38 U/L (15-37); Alanine Aminotransfer ALT/SGPT 20 U/L (16-61); Alkaline Phosphatase 119 U/L (45-117); Anion Gap 8 (5-15); BUN 14 mg/dL (7-18); BUN/Creat Ratio 14.7 RATIO (10-20); Calcium,Total 8.4 mg/dL (8.5-10.1); Chloride 102 mmol/L (98-107); Creatinine, Serum 0.96 mg/dL (0.70-1.30); EST Glomerular Filtration Rate 86 mL/min (>60); Est Glom Filt Rate - Afr Amer 104 mL/min (>60); Estimated Creatinine Clearance 93.63 ml/min; Globulin 3.5 g/dL (2.2-4.2); Glucose 256 mg/dL (74-106); Lipase 98 U/L (73-393); Potassium 3.2 mmol/L (3.5-5.1); Protein, Total 7.5 g/dL (6.4-8.2); Sodium Level 140 mmol/L (136-145)
--- NOTE | 2020-01-10 07:58 | ED.DCSUM_ITS ---
- ER Visit Summary Date of Service: 01/10/20 Chief Complaint: Abdominal pain and chest pain History of Present Illness: The patient is a [address] Wilson. He was formerly a patient of Dr. 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 He is a poor informant. Patient ports his abdomen has been bloated for the past 3 days. He complains of diffuse tightness that is 10 on 10 at worst and 7-10 currently. Is worsened by nothing and relieved by having a bowel movement. Initially he reports his last bowel was 4 days ago. Then he reports that he had a small 1 approximately 2 hours ago. He states that typically he goes 3 times per day. Patient also reports that he is had a chest tightness off and on for the past few days. It is 2 out of 10 at worst and is pain-free currently. He denies any associated nausea, vomiting, diaphoresis, or shortness of breath. Physical Examination: Vitals: Stable. Afebrile. General: Well-nourished and well-developed. Head: Normocephalic atraumatic. Neck: Supple, no lymphadenopathy. No JVD. Nontender. Cardiovascular: Regular rate and rhythm. No murmurs. Respiratory: No respiratory distress. Clear to auscultation bilaterally. Abdominal: Soft, nontender, nondistended, normal bowel sounds. No guarding, rebound, or peritoneal signs. Back: Nontender. Extremities: Nontender, no edema. Skin: Normal color, no rash. Neurologic: Alert and oriented ?3. Cranial nerves II through XII are intact. Normal strength and sensation. Psych: Normal affect. Test Results: EKG is sinus at [address] elevation in lead aVR and ST depression in leads I, II, and V4 to V6. These were present in January 2018, but they are much more prevalent today. Troponin is 0.397. LFTs show an alk phos of 119 and AST of 38. Chem-7 shows a potassium of 3.2, glucose 256, calcium 8.4. CBC shows 7 neutrophils 84 lymphocytes of 9. 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 He is resting comfortably. He denies any chest pain. Treatment Plan: Patient was initially discussed with Dr. Chirinos who reviewed the EKGs as well. At this time he will not be taken to the [facility]. However, he will be admitted to the hospital for further evaluation and treatment. Disposition: Admitted in improved condition. Impression: 1. Atypical chest pain. 2. MAURIZIO score 5. 3. Abdominal pain. This note was generated with [employer] dictation software. It may contain incorrect words, spelling, and punctuation that were not noted in review of the chart prior to signing ED Disposition - Plan for ED Patient: Referrals: Manuela Damico DO [Primary Care Provider] -
--- NOTE | 2020-01-10 08:10 | EKG12_ITS ---
Test Reason : N/V Blood Pressure : / mmHG Vent. Rate : 089 BPM Atrial Rate : 089 BPM P-R Int : 118 ms QRS Dur : 106 ms QT Int : 376 ms P-R-T Axes : 012 -02 130 degrees QTc Int : 457 ms Sinus rhythm with marked sinus arrhythmia Marked ST abnormality, possible inferolateral subendocardial injury Abnormal ECG Confirmed by PAZ CRUMP, MARIAH ([id number]), mapping editor SHAHID VICTORIA ([id number]) on 01/12/2020 9:06:56 AM Referred By: MELVIN Confirmed By:MARIAH MULLEN MD
[2020-01-10] MEDS: Heparin Injection (Vial) 5,000 UNIT/ML VIAL 4000 UNIT IV (08:19)
[2020-01-10] MEDS: TICAGRELOR 90 MG TABLET 180 MG PO (08:25)
[2020-01-10] MEDS: Nitroglycerin Oint 1 INCH PACKET TRANSDERM. (08:30)
[2020-01-10] MEDS: Nitroglycerin SL (ED/IMG/CATH) 0.4 MG TABLET SUBLINGUAL (08:32)
[2020-01-10] MEDS: Morphine 4 MG/ML Syringe IV (08:33)
--- NOTE | 2020-01-10 08:47 | PCM.CONS.C ---
Problem List (1) Hyperlipidemia Status: Chronic Qualifiers: (2) Hypertension Status: Chronic Qualifiers: (3) Atrial flutter Status: Resolved (4) Status post coronary artery bypass graft Status: Chronic (5) Coronary artery disease Status: Chronic (6) Status post aortic valve replacement with bioprosthetic valve Status: Chronic (7) Diabetes mellitus with neuropathy Status: Chronic (8) NSTEMI (non-ST elevated myocardial infarction) Status: Acute Reason for Consult Date of Consultation: 01/10/20 Reason for Consultation: Chest pain, non-STEMI, hypertension, diabetes, hypercholesterolemia, status post bypass surgery, History of Present Illness: The patient is a 59 year old M, with diabetes, non-smoker, hypertension, hypercholesterolemia, atrial flutter on chronic Coumadin therapy per the patient, coronary disease status post multivessel bypass surgery with bioprosthetic aortic valve replacement in 2007, previous patient of Dr. Austin Rocha's, had been seen by Dr. Go in 2018 at which time he had a catheterization as well as an angioplasty and drug-eluting stenting receiving a 4.0X 16 resolute stent to a saphenous vein graft to the PDA. Patient was doing well up until around 10 or 11 PM last evening when he developed mid abdominal and midepigastric pain which was dissimilar from his previous anginal symptoms. The patient had not have a bowel movement in approximately 4 days time, and around 530 this morning had a bowel movement with minimal improvement. This apparently had happened in the past in a similar fashion and he felt much better after a bowel movement in the past. Patient developed midsternal pain and EMS was called. EKG performed by the EMS demonstrated normal sinus rhythm with inferior lateral ST segment depression and T wave inversion with left ventricular hypertrophy at baseline. His previous EKG in January 2018 demonstrated normal sinus rhythm with isolated inferior ST segment changes. Patient's blood pressure was 177/100 at the time of my visit with him in the emergency room. His initial troponin was 0.397. Patient has minimal epigastric tenderness, and his previous chest pain was over on his left side at the time of his bypass surgery as well as his most recent intervention. I reviewed his catheterization films from March 2018 which demonstrated occluded LAD and left circumflex, occluded right coronary artery, occluded saphenous vein graft to the diagonal, diffusely diseased saphenous vein graft to a very small obtuse marginal branch with what appeared to be a 75% proximal and 75% mid vein graft stenosis which was not intervened on, and a critical 85% mid stenosis of the saphenous vein graft to the PDA which was intervened on successfully. Past Medical History Allergies/Adverse Reactions: Allergies adhesive tape Adverse Reaction (Intermediate, Verified 01/10/20 07:10) Rash Home Medications: Ambulatory Orders Medication Instructions Recorded Metoprolol Tartrate [Lopressor 50 mg PO BID 01/27/15 (beta yoselin)] Nitroglycerin (INPATIENT USE) 0.4 mg SUBLINGUAL Q5M PRN 12/18/16 [Nitrostat] metFORMIN HCl [Glucophage] 1,000 mg PO BIDCM #60 tablet 02/17/17 Glipizide [Glipizide ER] 10 mg PO BID 02/03/18 Omeprazole 20 mg PO DAILY 02/03/18 Aspirin [Aspirin, Baby] 81 mg PO DAILY@0800 #30 tab.chew 02/05/18 Atorvastatin Calcium [Lipitor] 80 mg PO QHS #30 tab 02/05/18 Clopidogrel Bisulfate [Plavix] 75 mg PO DAILY #30 tab 02/05/18 Isosorbide Mononitrate [Isosorbide 60 mg PO DAILY #30 tab.er.24h 02/05/18 Mononitrate ER] Lisinopril [Zestril] 20 mg PO BID #60 tab 02/05/18 Sitagliptin Phosphate [Januvia] 100 mg PO DAILY 01/10/20 Past Medical History (Chronic Problems): Chronic Problems (Last Reviewed 12/22/19 @ 09:34 by Anika Florez) Hyperlipidemia (Chronic) Hypertension (Chronic) Macroglobulinemia of [place] (Chronic) well controlled periodic IgG infusions Hodgkins lymphoma (Chronic) Status post coronary artery bypass graft (Chronic) Coronary artery disease (Chronic) Status post aortic valve replacement with bioprosthetic valve (Chronic) Type 2 diabetes mellitus (Chronic) Tinea unguium (Chronic) Diabetes mellitus with neuropathy (Chronic) Poor hygiene (Chronic) Nonfamilial hypogammaglobulinemia (Chronic) Surgical History: coronary bypass surgery, - Psychiatric History: No pertinent psych hx - *Family History Maternal Family History: Family History (Last Reviewed 12/22/19 @ 09:34 by Anika Florez) Father Arthritis Brain cancer Lung cancer Hypertension Mother Arthritis Hypertension Cancer History Items: No pertinent history Paternal Family History: Family History (Last Reviewed 12/22/19 @ 09:34 by Anika Florez) Father Arthritis Brain cancer Lung cancer Hypertension Mother Arthritis Hypertension Cancer History Items: Heart Disease Smoking Status: Never smoker Review of Systems - Review of Systems General: Denies: Fever, Night Sweats, Fatigue Cardiovascular: Reports: Chest Discomfort, Chest Discomfort at Rest. Denies: Shortness of Breath, Orthopnea, PND, Peripheral Edema, Palpitations, Lightheadedness, Dizziness, Near Syncope, Syncope Respiratory: Denies: Cough, Sputum Production, Hemoptysis Gastrointestinal: Denies: Hematemesis, Hematochezia, Melena Genitourinary: Denies: Dysuria, Hematuria Skin: Denies: Rash Subjectve: Patient laying in bed, mild midepigastric abdominal distress, no chest pain. Hemodynamically stable. Objective: Vital Signs Temp Pulse Resp BP Pulse Ox 98.1 F 78 11 L 174/96 H 97 01/10/20 08:12 01/10/20 08:32 01/10/20 08:12 01/10/20 08:32 01/10/20 08:12 Weight: 216 lb 14.958 oz Body Mass Index (BMI) 28.6 General: Awake, Alert, Oriented x 3 HEENT: PERRL, EOMI, Sclera Non Icteric Neck: Supple, Good ROM, No Lymph Node Enlargement Lungs: Clear to auscultation Cardiovascular: Regular Rhythm, Normal S2, No Rubs, No Gallops Murmur Murmur: Grade 2/6, Crescendo-Decrescendo Vascular: No Carotid Bruits, Normal Femoral Pulses, Normal Radial Pulses, Normal Dorsalis Pedal Pulse, Normal Posterior Tibial Pulses Abdomen: Bowel Sounds Present, Soft, Non Tender, No HSM, No Organomegaly Extremities: No Cyanosis, No Clubbing, No edema Neurological: No Focal Motor or Sensory Deficit 01/10/20 07:15: WBC 8.9, RBC 5.62, Hgb 13.6, Hct 46.0, MCV 81.9, MCH 24.2 L, MCHC 29.6 L, Plt Count 168, MPV 10.6, Immature Gran % (Auto) 0.400, Neut % (Auto) 83.6 H, Lymph % (Auto) 8.6 L, [place] % (Auto) 6.6, Eos % (Auto) 0.6, Baso % (Auto) 0.2, Absolute Neuts (auto) 7.5, Nucleated RBC % 0 01/09/ 07:15: Sodium 140, Potassium 3.2 L, Chloride 102, Carbon Dioxide 30.0, Anion Gap 8, BUN 14, Creatinine 0.96, Est GFR (MDRD) Af Amer 104, Est GFR (MDRD) Non-Af 86, BUN/Creatinine Ratio 14.7, Glucose 256 H, Calcium 8.4 L, Total Bilirubin 0.70, Troponin I 0.397 H Rhythm: EKG: ECHO: From 02/03/2018 Segmental dysfunction with preserved ejection fraction (see wall motion). The estimated ejection fraction is 60 %. Mild concentric left ventricular hypertrophy. The left atrium is mildly enlarged. Anterior leaflet diffuse mitral valve thickening. Mild (1+) mitral valve insufficiency. Trivial tricuspid valve insufficiency. Stable appearing bioprosthetic aortic valve apparatus. Trivial aortic valve insufficiency. Mild (1+) pulmonic valve insufficiency. There is evidence of diastolic dysfunction. Stress Test: Cardiac Cath: PCI: CT Surgery: Holter monitor: EPS: PPM: CXR: Chest CT Scan: Assessment/Plan 1. Coronary artery disease: The patient presents with midepigastric abdominal pain as well as substernal chest pressure with dynamic EKG changes consistent with possible inferolateral ischemia. The patient has known coronary occlusive disease with severe [place] coronary artery occlusion of his LAD, left circumflex and [place] right coronary artery. Patient also had a diffusely diseased saphenous vein graft that fed a small obtuse marginal arcade of vessels, which may be the source of the patient's pain. Patient does not reach criteria for acute catheterization, and claims that he is on Coumadin therapy and we are awaiting his INR. At this point I would confirm that the patient is on daily Plavix therapy and continue baby aspirin and Plavix, although he may have received a dose of Brilinta in the emergency room as a loading dose. In addition we will await the INR to determine if the patient requires waiting several days for his INR to drift downwards. In addition I would give the patient 4000 units of IV heparin, start him on Lovenox therapy per protocol. We will cycle his enzymes and determine timing of catheterization if indicated. Also recommend replacing his potassium to keep it above 4.0. In addition I recommend he undergo a 2D echo with Doppler to define his LV function and assess his aortic valve. I will defer him to Dr. Go with respect to the timing and need for catheterization as he has seen the patient in the past and performed a catheterization in 2018. 2. Recommend obtaining a vascular profile. His LDL should be aggressively controlled to be less than 70. 3. Aortic valve replacement: The patient is status post bioprosthetic aortic valve replacement and denies any fevers, chills, or any other signs of infection. 4. Thank you very much for the opportunity to participate in the cardiac care of your patient. Consultation time took place between 815 and 8:45 AM.
--- NOTE | 2020-01-10 08:55 | HP.PCM_ITS ---
History of Present Illness Date of Admission: 01/10/20 Chief Complaint: Chest pain The patient is a 59 year old M presents with midsternal chest pain and epigastric abdominal pain. He said the symptoms began yesterday and are intermittent not exacerbated nor relieved by anything in particular. Patient has had cardiac issues before but is never had symptoms such as this. Patient has had some nausea and vomiting. He presented to the emergency room where his troponin was elevated at 0.397, EKG showed ST elevation in aVR. Cardiology was consulted. Recommended Brilinta as well as heparin which she received in the emergency room. Plan from cardiac standpoint is placed the patient in the hospital and then for a heart catheterization on the . [] Past Medical History Past Medical History (Chronic Problems): Chronic Problems (Last Reviewed 12/22/19 @ 09:34 by Anika Florez) Hyperlipidemia (Chronic) Hypertension (Chronic) Macroglobulinemia of [place] (Chronic) well controlled periodic IgG infusions Hodgkins lymphoma (Chronic) Status post coronary artery bypass graft (Chronic) Coronary artery disease (Chronic) Status post aortic valve replacement with bioprosthetic valve (Chronic) Type 2 diabetes mellitus (Chronic) Tinea unguium (Chronic) Diabetes mellitus with neuropathy (Chronic) Poor hygiene (Chronic) Nonfamilial hypogammaglobulinemia (Chronic) Medical History: Medical History (Last Reviewed 01/10/20 @ 08:[address] Jaden Pressley, ) Atrial flutter I48.92 CAD (coronary artery disease) I25.10 Chronic bronchitis J42 Combined hyperlipidemia E78.2 DM2 (diabetes mellitus, type 2) E11.9 Diabetic neuropathy E11.40 Heart disease Hodgkins lymphoma C81.90 Hypoglobulinemia R77.1 Lymphoma C85.90 Skin cancer C44.90 [place] macroglobulinemia C88.0 HTN (hypertension) I10 Allergies adhesive tape Adverse Reaction (Intermediate, Verified 01/10/20 07:10) Rash Home Medications: Ambulatory Orders Medication Instructions Recorded Metoprolol Tartrate [Lopressor 50 mg PO BID 01/27/15 (beta yoselin)] Nitroglycerin (INPATIENT USE) 0.4 mg SUBLINGUAL Q5M PRN 12/18/16 [Nitrostat] metFORMIN HCl [Glucophage] 1,000 mg PO BIDCM #60 tablet 02/17/17 Glipizide [Glipizide ER] 10 mg PO BID 02/03/18 Omeprazole 20 mg PO DAILY 02/03/18 Aspirin [Aspirin, Baby] 81 mg PO DAILY@0800 #30 tab.chew 02/05/18 Atorvastatin Calcium [Lipitor] 80 mg PO QHS #30 tab 02/05/18 Clopidogrel Bisulfate [Plavix] 75 mg PO DAILY #30 tab 02/05/18 Isosorbide Mononitrate [Isosorbide 60 mg PO DAILY #30 tab.er.24h 02/05/18 Mononitrate ER] Lisinopril [Zestril] 20 mg PO BID #60 tab 02/05/18 Sitagliptin Phosphate [Januvia] 100 mg PO DAILY 01/10/20 Surgical History: Surgical History (Last Reviewed 01/10/20 @ 08:[address] Jaden Pressley DO) H/O aortic valve replacement Z95.2 H/O foot surgery Z98.890 H/O myringotomy Z98.890 Hx of CABG Surgical History: coronary bypass surgery, - Psychiatric History: No pertinent psych hx Smoking Status: Never smoker - *Family History Maternal Family History: Family History (Last Reviewed 01/10/20 @ 08:[address] Jaden Pressley DO) Father Arthritis Brain cancer Lung cancer Hypertension Mother Arthritis Hypertension Cancer History Items: No pertinent history Paternal Family History: Family History (Last Reviewed 01/10/20 @ 08:[address] Jaden Pressley DO) Father Arthritis Brain cancer Lung cancer Hypertension Mother Arthritis Hypertension Cancer History Items: Heart Disease Review of Systems Constitutional: Denies: Anorexia, Chills, Fever Eyes: Denies: Blurred vision, Double vision HEENT: Denies: Head Aches, Sinus Congestion, Sinus Drainage Cardiovascular: Reports: Chest Pain. Denies: Edema Respiratory: Denies: Cough, Shortness of breath at rest, Sputum production Gastrointestinal: Reports: Abdominal Pain, Nausea, Vomiting. Denies: Diarrhea Musculoskeletal: Denies: Joint Pain, Joint Tenderness Skin: Denies: Rash, Wounds Psychiatric: Denies: Anxiety, Depression Hematologic/ Lymphatic: Denies: Easy Bruising, Easy Bleeding Comment: No anosmia. No dysgusia. All review of systems were negative except as mentioned above in the history of present illness and the other review of systems. VTE Information - Inpt Only VTE Present on Admission: No VTE Mechan Device Prophylaxis: None VTE Pharm Prophylaxis ordered?: No Reason prophylaxis not ordered:: Treatment Not Indicated - Physical Exam Vitals/I&O's: Vital Signs Temp Pulse Resp BP Pulse Ox 36.7 C 78 11 L 174/96 H 97 01/10/20 08:12 01/10/20 08:32 01/10/20 08:12 01/10/20 08:32 01/10/20 08:12 Weight: 98.4 kg Body Mass Index (BMI) 28.6 General: Alert, Cooperative, No apparent distress HEENT: Atraumatic, Normocephalic Oral: Moist Mucosa, No Gingival or Mucosal Lesions/ Ulcerations Neck: No Nodes, Thyroid Normal Size and Texture Lungs: Clear to auscultation, Normal air movement, No rhonchi, No wheeze, No rales Cardiovascular: Regular rate, Regular Rhythm, Normal S1, Normal S2, No murmurs Abdomen: Bowel Sounds Present, Soft, No Hepato-splenomegaly, Distended, Tender Extremities: No clubbing, No edema, No Calf Tenderness Skin: No rashes, No breakdown Musculoskeletal: No Tenderness to Palpation of Joints or Extremities, No Muscle Wasting Neurological: Sensory exam intact to light touch and pain, Coordination normal Psych/Mental Status: Appropriate, Flat Affect Laboratory Results 01/10/20 07:15: WBC 8.9, RBC 5.62, Hgb 13.6, Hct 46.0, MCV 81.9, MCH 24.2 L, MCHC 29.6 L, RDW Std Deviation 49.4 H, RDW Coeff of Joel 17.5 H, Plt Count 168, MPV 10.6, Immature Gran % (Auto) 0.400, Neut % (Auto) 83.6 H, Lymph % (Auto) 8.6 L, [place] % (Auto) 6.6, Eos % (Auto) 0.6, Baso % (Auto) 0.2, Absolute Neuts (auto) 7.5, Absolute Lymphs (auto) 0.77 L, Nucleated RBC % 0 01/10/20 07:15: Sodium 140, Potassium 3.2 L, Chloride 102, Carbon Dioxide 30.0, Anion Gap 8, BUN 14, Creatinine 0.96, Estim Creat Clear Calc 93.63, Est GFR (MDRD) Af Amer 104, Est GFR (MDRD) Non-Af 86, BUN/Creatinine Ratio 14.7, Glucose 256 H, Calcium 8.4 L, Total Bilirubin 0.70, AST 38 H, ALT 20, Alkaline Phosphatase 119 H, Troponin I 0.397 H, Total Protein 7.5, Albumin 4.0, Globulin 3.5, Albumin/Globulin Ratio 1.1, Lipase 98 01/10/20 07:15: PT Pending, INR Pending, APTT Pending Chest x-ray reviewed and showed no acute process. No infiltrate, no pulmonary edema. Abdominal part of the abdominal series was unremarkable as well normal- appearing bowel gas pattern. EKG reviewed and showed escalation in aVR. Current Medications Sodium Chloride () 1,000 mls @ 125 mls/hr IV .Q8H [facility] Last Admin: 01/10/20 07:39 Dose: 125 mls/hr Documented by: Potassium Chloride () 10 meq in 100 mls @ 100 mls/hr IV BOLUS Q1H [facility] Stop: 01/10/20 12:29 Assessment/Plan All Active Problems (Last Reviewed 12/22/19 @ 09:34 by Anika Florez) Atrial flutter (Resolved) NSTEMI (non-ST elevated myocardial infarction) (Acute) NSTEMI (non-ST elevated myocardial infarction) (Acute) Feeling grief (Acute) Shoulder pain, right (Acute) 1. Non-ST patient myocardial infarction: Troponin is elevated at 0.397. Plan is to continue with anticoagulation. Patient currently is on Coumadin though not on his home medication reconciliation form. INR currently pending. If INR less than 2, will initiate enoxaparin weight-based dosing. Continue with aspirin and clopidogrel. Patient did receive ticagrelor in the emergency room. Discussed with Dr. Chirinos, plan is for the patient to go to heart cath on the . 2. Atrial fibrillation: Rate controlled at this time. Continue with metoprolol. Need to verify if patient is on warfarin or not. 3. Waldenstr?m's macroglobulinemia: Complicates care. Follow-up with Dr. Schmitt as outpatient. Patient receives IVIG through Dr. Schmitt 4. Diabetes mellitus type 2: Continue with metformin. Will hold after this evening's dose in light of the heart catheterization. Moderate scale sliding scale insulin. 5. VTE prophylaxis: Not indicated patient will be anticoagulated 6. Advanced care planning: Discussed with patient. Patient wishes to be full CODE STATUS. Inpatient E&M: 15680 Init Hosp L3
--- NOTE | 2020-01-10 09:11 | ECHOCS_ITS ---
Reason For Study: CHEST PAIN Procedure This was a 2D Doppler, Color Flow transthoracic echocardiogram. Exam performed portable in patient room. Left Ventricle Normal size and thickness. The estimated ejection fraction is 60 %. Stage 2 diastolic dysfunction. Infero-Basal: Mildly hypokinetic. Right Ventricle Mildly dilated right ventricle. Normal systolic function. Atria Normal left atrium. Normal right atrium. Normal atrial septum. Mitral Valve Mild diffuse mitral valve thickening. Trivial mitral valve insufficiency. Tricuspid Valve Normal tricuspid valve. Trivial tricuspid valve insufficiency. Right ventricular systolic pressure estimated to be 37 mmHg. Mild pulmonary hypertension. Aortic Valve Peak aortic valve gradient 37 mmHg. Mean aortic valve gradient 22 mmHg. Trivial aortic valve insufficiency. Stable appearing bioprosthetic aortic valve apparatus. Pulmonic Valve The pulmonic valve is not well visualized. Great Vessels Normal aortic root. Normal arch. Normal inferior vena cava. Inferior vena cava collapse with sniff. Pericardium/Pleural No pericardial effusion. MMode/2D Measurements & Calculations LVIDd: 4.9 cm IVSd: 0.96 cm LVOT diam: 2.2 cm LVIDs: 3.4 cm LVPWd: 1.1 cm LVOT area: 3.6 cm2 RVDd: 3.7 cm FS: 30.8 % Ao root diam: 4.0 cm LAV(MOD-bp): 53.4 ml LVAd ap4: 33.6 cm2 LAV(MOD-bp) Indexed: 24.4 ml/m2 EDV(MOD-sp4): 114.3 ml LAV(MOD-sp2): 48.5 ml EDV(sp4-el): 119.5 ml LAV(MOD-sp4): 52.7 ml LVAs ap4: 21.7 cm2 ESV(MOD-sp4): 58.3 ml ESV(sp4-el): 58.3 ml EF(MOD-sp4): 49.0 % EF(sp4-el): 51.2 % SV(MOD-sp4): 56.0 ml SV(sp4-el): 61.2 ml LA A4 area: 18.6 cm2 LA dimension(2D): 5.2 cm RA A4 area: 12.5 cm2 Time Measurements MV dec time: 0.14 sec Doppler Measurements & Calculations MV E max justin: 139.3 cm/sec Lat Peak E' Justin: 7.1 cm/sec Med Peak E' Justin: 4.3 cm/sec MV A max justin: 97.2 cm/sec E/E' lat: 19.5 E/E' med: 32.2 MV E/A: 1.4 Ao V2 max: 303.6 cm/sec LV V1 max: 78.2 cm/sec SV(LVOT): 70.6 ml Ao max P.9 mmHg LV V1 max P.4 mmHg Ao V2 mean: 226.2 cm/sec LV V1 mean P.4 mmHg Ao mean P.1 mmHg LV V1 mean: 56.3 cm/sec Ao V2 VTI: 66.3 cm LV V1 VTI: 19.3 cm ANNE(I,D): 1.1 cm2 ANNE(V,D): 0.94 cm2 TR max justin: 283.8 cm/sec TR max P.3 mmHg Interpretation Summary The estimated ejection fraction is 60 %. Infero-Basal: Mildly hypokinetic Stage 2 diastolic dysfunction. Mildly dilated right ventricle. Trivial mitral valve insufficiency. Trivial tricuspid valve insufficiency. Right ventricular systolic pressure estimated to be 37 mmHg. Mild pulmonary hypertension. Stable appearing and normal functioning bioprosthetic aortic valve apparatus. Peak aortic valve gradient 37 mmHg. Mean aortic valve gradient 22 mmHg. Compared to echo report dated 02/04/2018, no appreciable changes noted. Ordering Physician: Jonas Chirinos Referring Physician: Manuela Damico Performed By: Valorie Fields, KINSEY, RVT
--- NOTE | 2020-01-10 09:11 | EKG12_ITS ---
Test Reason : N/V Blood Pressure : / mmHG Vent. Rate : 076 BPM Atrial Rate : 076 BPM P-R Int : 130 ms QRS Dur : 106 ms QT Int : 388 ms P-R-T Axes : 009 000 -87 degrees QTc Int : 436 ms Sinus rhythm with Premature atrial complexes with Aberrant conduction Marked ST abnormality, possible inferior subendocardial injury Abnormal ECG Confirmed by PAZ CURMP, MARIAH ([id number]), clinical editor SHAHID VICTORIA ([id number]) on 01/12/2020 9:07:13 AM Referred By: ENEIDA Confirmed By:MARIAH MULLEN MD
[2020-01-10 09:14] LABS: Prothrombin Time (Protime)PT. 12.3 SECONDS (11.7-14.9)
[2020-01-10 09:15] LABS: Partial Thromboplast Time 26.8 Seconds (24.1-36.2)
[2020-01-10] MEDS: Potassium Chloride 10mEq/100mL 10 MEQ/100 ML IV.SOLN. 100 MEQ IV BOLUS ×2 (10:43→12:44)
[2020-01-10] MEDS: Lisinopril 20 MG Tablet PO ×2 (10:44→21:13)
[2020-01-10] MEDS: Insulin Lispro 100 UNIT/ML INSULN.PEN SC ×2 (10:44→16:55)
[2020-01-10] MEDS: Metoprolol Tartrate 50 MG Tablet PO ×2 (10:44→21:12)
[2020-01-10] MEDS: Enoxaparin 100 MG/ML Syringe SC ×2 (10:53→21:13)
[2020-01-10 11:00] LABS: Bedside Glucose 303 mg/dL (70-110)
--- NOTE | 2020-01-10 11:03 | US_ITS ---
STUDY: ABDOMINAL ULTRASOUND - RIGHT UPPER QUADRANT REASON FOR VISIT: Male, 59 years old nausea and vomiting. Abdominal pain. Gallstones. TECHNIQUE: Ultrasound evaluation of the right upper quadrant was performed with real-time and static [place]ledo-scale imaging. TECHNICAL QUALITY: Examination limited due to a combination of factors including obesity and bowel gas. COMPARISON: CTA of the abdomen and pelvis, January 23, 2017. FINDINGS: Liver: The liver measures 16.4 cm. There is a heterogeneous echogenicity of the liver. Limited visualization of the left liver. The bile ducts are within normal limits. There is hepatic color flow. The direction of portal flow is hepatopetal. There is no demonstrated mass lesion. Gallbladder: Normal distended gallbladder. The gallbladder wall measures 3 mm. There is a negative sonographic Rivera''s sign. There is no pericholecystic fluid. There are multiple echogenic structures within the gallbladder, consistent with multiple gallstones. Common Bile Duct (C.B.D.): The common bile duct measures 4.5 mm. Pancreas: There is nonvisualization of the pancreas. Right Kidney: Normal size of the right kidney. The right kidney measures 11.8 cm. Normal renal cortex. The right cortex measures 1.3 cm. There is no demonstrated renal mass or cyst. There is no right hydronephrosis. US/Gallbladder IMPRESSION: 1. Limited study due to patient habitus and bowel gas. The pancreas is not seen. There is limited visualization of the left liver. 2. Echogenic liver parenchyma suggesting fatty infiltration. 3. Gallstones without secondary evidence of acute cholecystitis. Electronically Signed: Scott Soriano DO at 21:10 EDT Tel [phone], Service support ,
[2020-01-10] MEDS: Potassium Chloride 10mEq/100mL 10 MEQ/100 ML IV.SOLN. 50 MEQ IV BOLUS ×2 (14:44→16:56)
[2020-01-10] MEDS: glipiZIDE XL 5 MG Tablet 10 MG PO (16:55)
[2020-01-10] MEDS: metFORMIN HCl 1,000 MG Tablet 1000 MG PO (16:55)
[2020-01-10 17:00] LABS: Bedside Glucose 193 mg/dL (70-110)
[2020-01-10] MEDS: Atorvastatin Calcium 80 MG Tablet PO (21:12)
[2020-01-10] MEDS: 0.9% Saline Lock 10 ML Syringe IV (21:19)
[2020-01-10 22:56] LABS: Bedside Glucose 174 mg/dL (70-110)
[2020-01-11] VITALS (27 sets, daily range): BP systolic 95–156; BP diastolic 50–89; PULSE 55–73; RESP 12–24; TEMP 36.4–36.9; O2SAT 88–98
--- NOTE | 2020-01-11 05:55 | EKG12_ITS ---
Test Reason : AM EKG Blood Pressure : / mmHG Vent. Rate : 062 BPM Atrial Rate : 062 BPM P-R Int : 130 ms QRS Dur : 104 ms QT Int : 422 ms P-R-T Axes : 001 009 223 degrees QTc Int : 428 ms Normal sinus rhythm ST & T wave abnormality, consider inferolateral ischemia Abnormal ECG Confirmed by ARETHA CRUMP, ALEKSANDRA ([id number]), editor sound SHAHID VICTORIA ([id number]) on 01/12/2020 8:58:39 AM Referred By: DR NEGRETE Confirmed By:ALEKSANDRA CARIAS MD
[2020-01-11] MEDS: Aspirin 81 MG TAB.CHEW PO (06:17)
[2020-01-11] MEDS: Lisinopril 20 MG Tablet PO ×2 (06:18→20:59)
[2020-01-11] MEDS: Clopidogrel Bisulfate 75 MG Tablet PO (06:18)
[2020-01-11] MEDS: Isosorbide Mononitrate 60 MG Tablet PO (06:18)
[2020-01-11 07:02] LABS: Anion Gap 5 (5-15); BUN 9 mg/dL (7-18); BUN/Creat Ratio 13.6 RATIO (10-20); Calcium,Total 7.6 mg/dL (8.5-10.1); Chloride 109 mmol/L (98-107); Creatinine, Serum 0.66 mg/dL (0.70-1.30); EST Glomerular Filtration Rate 130 mL/min (>60); Est Glom Filt Rate - Afr Amer 158 mL/min (>60); Estimated Creatinine Clearance 136.19 ml/min; Glucose 89 mg/dL (74-106); Magnesium 1.3 mg/dL (1.6-2.6); Potassium 3.6 mmol/L (3.5-5.1); Sodium Level 143 mmol/L (136-145)
--- NOTE | 2020-01-11 08:54 | NURSING ---
Report called to ICU nurse Ted for pt transfer to ICU s/p heart cath.
[2020-01-11] MEDS: Magnesium Sulfate 4gm/100mL 4 GM/100 ML IV.SOLN. IV (10:00)
--- NOTE | 2020-01-11 10:10 | CL.I_ITS ---
Patient Name: LILY NELSON Study Date: 01/11/2020 Performing: Jonas Chirinos MD Ht: 72.83 inches 185 cm : 1960 Wt: 209.44 lbs 95 kg Age: 59 Gender: male BSA: 2.19 PROCEDURE(S) PERFORMED [id number] AND/OR PTCA, SINGLE GRAFT CLINICAL PROFILE AND CO-MORBIDITIES Patient presents with NSTEMI for urgent cardiac cath Indications: Worsening Angina, Suspected CAD, ACS <= 24 hrs, New Onset Angina <= 2 months, Stable Known CAD Heart Failure: None Stress/Imaging Stress/Image Study Performed: No Stress/Image Study Performed: No Angina Classification Anginal Classification w/in 2 Weeks: CCS IV CAD Presentations: Non-STEMI. Unstable angina. Non-STEMI. Symptom onset Date/Time: 01/10/2020 Time Not Available Comorbidities/Risk Factors: Hypertension Dyslipidemia Prior PCI Prior CABG CONCLUSIONS Successful PTCA/JOSE G of mid SVG to OM, with filter wire assistance, utilzing a 4.0 x 20 Promus Synergy at 12 batsheva: 85%-->0%, no dissection. Successful PTCA/JSOE G proximal SVG to OM, with filter wire assistance, utilizing a 4.0 x 20 Promus Syne rgy, followed immediately upstream with a 4.0 x 8 Promus Synergy, followed by post stent dilation wit h a 5.0 x 8 NC Balloon at 8 batsheva, 75%-->0%, no dissection. Additional short stent placed due to retro grade plaque shifting. 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 Go Unable to close RFA due to access at femoral/profunda bifurcation. Manual sheath removal; asa/plavix for life. DESCRIPTION OF PROCEDURE The patient arrived to the procedure lab. The risks and benefits of the procedure as well as a full d escription of our services here and current unavailability of surgical backup were fully explained to the patient and/or their significant other prior to the catheterization. The Timeout was completed, verifying the correct patient and procedure. The patient's procedural site was prepped and draped in the usual fashion. Local anesthetic was given subcutaneously to right groin region with Lidocaine 2% Using a modified Seldinger technique,arterial access was obtained via the right femoral artery, a 4Fr sheath was inserted Left Coronary Artery selective angiography was performed in multiple views using a 4 Fr. JL5 catheter. Saphenous Vein graft to the DIAG selective angiography was performed in multip le views using a 4 Fr. 3DRC catheter-occluded. Right Coronary Artery selective angiography was then p erformed in multiple views using a 4 Fr. 3DRC catheter. Left internal mammary artery graft to the LAD selective angiography was performed in multiple views using a 4 Fr. 3DRC catheter. Sapheno us Vein graft to the RPDA selective angiography was performed in multiple views using a 4 Fr. RCB cat heter. Saphenous Vein graft to the OM 1 selective angiography was performed in multiple views using a 4 Fr. JR4 catheter.The images were reviewed and options discussed. A decision was then made to proce ed with an Intervention, IVUS or other adjunct procedure. HS 2 Guide catheter was inserted and engaged into the SVG to the OM 1. BMW Guide wire was advance d to the SVG TO 1st OM. 2.0X8 EMERGE Balloon catheter was inserted. Balloon catheter was advanced acr oss lesion in the graft to the OM 1 MID PTCA balloon inflated at 6 atms for 8 secs. PTCA balloon infl ated at 8 atms for 11 secs. PTCA balloon inflated at 8 atms for 10 secs. PTCA balloon inflated at 8 a tms for 11 secs. 3.5-5.5 FILTERWIRE Guide wire was advanced to the SVG TO 1st OM. 4.0X20 SYNERGY Drug Eluting stent was inserted. Drug Eluting stent was advanced across the lesion in the graft to the OM 1 MID 4.0X20 SYNERGY Drug Eluting stent was inserted. Drug Eluting stent was advanced across the les ion in the graft to the OM 1 PROXIMAL 4.0X8 SYNERGY Drug Eluting stent was inserted. Drug Eluting grace nt was advanced across the lesion in the graft to the OM 1 PROX 5.0X8 NC EMERGE Balloon catheter was inserted post stent. BMW Guide wire was advanced to the GRAFT TO 1st OM. 5.0X8 NC EMERGE Balloon catheter was inserted post stent. Angiogram performed post balloon dilatation. The arterial sheath was left in to be pulled in the unit / patient room INTERVENTION INFORMATION LESION SITE: Vein > to 1st OM Segment Number: 20-First obtuse marginal branch segment - 1st OM , Les ion Location: Body MID Lesion Complexity: High/C, lesion at bifurcation: No, thrombus present: No, lesion length: 20 mm, cul prit lesion: Yes Pre Stenosis: 85 % Pre intervention MAURIZIO flow: 3 PROCEDURE: Drug Eluting Stent with pre dilatation. Post Stenosis: 0 % Post intervention MAURIZIO flow: 3 Lesion Devices: Rodrigues .014 BMW [place] Straight 190cm Guzman Sci EMERGE MR 2.00x08 BALLOON Medtronic 6 Fr HSII 100cm Guide Catheter Guzman Sci Large Vessel 3.5-5.5 Filter Wire 190cm Guzman Sci Synergy MR JOSE G 4.00x20 Guzman Sci NC EMERGE MR 5.00x08 BALLOON LESION SITE: Vein > to 1st OM Segment Number: 20-First obtuse marginal branch segment - 1st OM , Les ion Location: Body PROXIMAL Lesion Complexity: High/C, lesion at bifurcation: No, thrombus present: No, lesion length: 28 mm, cul prit lesion: No Pre Stenosis: 75 % Pre intervention MAURIZIO flow: 3 PROCEDURE: Drug Eluting Stent with pre and post dilatation Post Stenosis: 0 % Post intervention MAURIZIO flow: 3 Lesion Devices: Medtronic 6 Fr HSII 100cm Guide Catheter Guzman Sci Large Vessel 3.5-5.5 Filter Wire 190cm Guzman Sci Synergy MR JOSE G 4.00x20 Guzman Sci Synergy MR JOSE G 4.00x08 Guzman Sci NC EMERGE MR 5.00x08 BALLOON COMPLICATIONS No Complications PROCEDURE MEDICATIONS Versed 1 mg IV Oxygen: 2 L/min via nasal cannula Heparin 6000 unit(s) IV 01/11/2020 09:09:16 Magnesium Sulfate 4 Gm 01/11/2020 08:41:28 Nitro 200 mcg IC 01/11/2020 09:51:03 IV Bolus: .9 NaCl 800 ml total 01/11/2020 09:55:16 SUMMARY OF HEMODYNAMIC DATA Time AIR REST ECG 08:06:29 AO 97/73 (85) SA 08:16:27 AO 120/66 (84) 08:35:56 Signed By Jonas Chirinos MD On 01/11/2020 10:09:19 Jonas Chirinos MD
--- NOTE | 2020-01-11 10:49 | EKG12_ITS ---
Test Reason : POST PCI Blood Pressure : / mmHG Vent. Rate : 065 BPM Atrial Rate : 065 BPM P-R Int : 126 ms QRS Dur : 104 ms QT Int : 424 ms P-R-T Axes : -05 002 -28 degrees QTc Int : 440 ms Normal sinus rhythm Septal infarct , age undetermined ST & T wave abnormality, consider inferior ischemia ST & T wave abnormality, consider anterior ischemia Abnormal ECG Confirmed by OMAR DAVIS ([id number]), web editor REECE SKAGGS ([id number]) on 01/17/2020 12:54:02 PM Referred By: RYAN Confirmed By:OMAR DAVIS
[2020-01-11 11:00] LABS: ACT Activated Clotting Time 180 sec (74-137)
--- NOTE | 2020-01-11 11:11 | EKG12_ITS ---
Test Reason : POST PCI Blood Pressure : / mmHG Vent. Rate : 068 BPM Atrial Rate : 068 BPM P-R Int : 122 ms QRS Dur : 104 ms QT Int : 406 ms P-R-T Axes : 001 003 -51 degrees QTc Int : 431 ms Normal sinus rhythm Septal infarct , age undetermined ST & T wave abnormality, consider inferolateral ischemia Abnormal ECG Confirmed by OMAR DAVIS ([id number]), book editor REECE SKAGGS ([id number]) on 01/17/2020 12:50:43 PM Referred By: RYAN Confirmed By:OMAR DAVIS
[2020-01-11] MEDS: Furosemide 20 MG/2 ML VIAL IV (11:25)
[2020-01-11] MEDS: Morphine 4 MG/ML Syringe IV (11:25)
[2020-01-11] MEDS: 0.9% Saline Lock 10 ML Syringe IV ×2 (11:25→20:59)
--- NOTE | 2020-01-11 11:52 | PCM.PROGNOTE ---
<Kanchan New - Last Filed: 01/11/20 12:11> Patient Problems: Active and Suspected Problems (Last Updated 01/11/20 @ 11:28 by Soo Urbano) Stented coronary artery (Acute) Subjective: Patient seen and examined. Underwent PTCA/JOSE G of mid SVG to OM and proximal SVG to OM. Patient reports 3/10 chest pain. He states this feels different than the prior pain he was experiencing. He also reports mild shortness of breath and is requiring 4 L of oxygen to maintain O2 saturation. - Physical Exam Vitals/I&O's: Vital Signs Temp Pulse Resp BP Pulse Ox 97.5 F L 67 20 H 122/85 H 95 01/11/20 10:45 01/11/20 11:45 01/11/20 11:45 01/11/20 11:45 01/11/20 11:45 Oxygen Flow Rate (L/min) 4 Oxygen Delivery Method Nasal Cannula Weight: 209 lb 7.026 oz Body Mass Index (BMI) 27.6 Intake and Output for Last 24 Hours 01/09/20 01/10/20 01/11/20 23:59 23:59 23:59 Intake Total 1570.33 / 1570.33 0 / 0 Balance 1570.33 / 1570.33 0 / 0 General: Alert, Oriented x3, Cooperative HEENT: Atraumatic, PERRLA, EOMI, Normocephalic Neck: Supple, No JVD, Negative Carotid Bruits Lungs: Clear to auscultation, Normal air movement Cardiovascular: Regular rate, No murmurs Abdomen: Bowel Sounds Present, Soft, Non Tender, Non-Distended Extremities: No clubbing, No cyanosis, No edema, Capillary Refill Less than 3 Seconds Skin: No rashes, No breakdown Musculoskeletal: No Tenderness to Palpation of Joints or Extremities Neurological: Cranial nerves II-XII grossly intact, Neuro grossly intact Psych/Mental Status: Flat Affect Laboratory Results 01/10/20 13:50: Troponin I 0.230 H 01/10/20 16:54: POC Glucose 193 H 01/10/20 21:10: POC Glucose 174 H 01/11/20 06:21: Sodium 143, Potassium 3.6, Chloride 109 H, Carbon Dioxide 29.0, Anion Gap 5, BUN 9, Creatinine 0.66 L, Estim Creat Clear Calc 136.19, Est GFR (MDRD) Af Amer 158, Est GFR (MDRD) Non-Af 130, BUN/Creatinine Ratio 13.6, Glucose 89, Calcium 7.6 L, Magnesium 1.3 L 01/11/20 09:54: Activated Clotting Time 180 H Current Medications Acetaminophen (Tylenol) 650 mg PO Q6H PRN PRN PRN Reason: Pain Score 1-10/Temp > 100.7 F Aspirin (Aspirin, Baby) 81 mg PO DAILY@0800 [facility] Last Admin: 01/11/20 06:17 Dose: 81 mg Documented by: Atorvastatin Calcium (Lipitor) 80 mg PO QHS [facility] Last Admin: 01/10/20 21:12 Dose: 80 mg Documented by: Atropine Sulfate () 0.5 mg IV UD PRN PRN Reason: HR <50 bpm Clopidogrel Bisulfate (Plavix) 75 mg PO DAILY [facility] Last Admin: 01/11/20 06:18 Dose: 75 mg Documented by: Dextrose (D50w Syringe) 0 gm IV X1 PRN; Protocol PRN Reason: Hypoglycemia Glipizide (Glucotrol Xl) 10 mg PO BIDCM [facility] Last Admin: 01/10/20 16:55 Dose: 10 mg Documented by: Glucagon () 1 mg IM .X1 PRN PRN Reason: Hypoglycemia Heparin Sodium (Beef Lung) (Heparin 500 Unit/5 Ml (100/Ml)) 500 unit IV UD PRN PRN Reason: HEPARIN FLUSH Sodium Chloride () 1,000 mls @ 15 mls/hr IV .Q48H [facility] Last Admin: 01/10/20 12:26 Dose: Not Given Documented by: Sodium Chloride () 1,000 mls @ 150 mls/hr IV .Q6H40M [facility] Stop: 01/11/20 17:50 Insulin Human Lispro (Humalog Kwikpen (Bkc)) 0 unit SC TIDAC [facility]; Protocol Last Admin: 01/10/20 23:55 Dose: Not Given Documented by: Isosorbide Mononitrate (Imdur) 60 mg PO DAILY [facility] Last Admin: 01/11/20 06:18 Dose: 60 mg Documented by: Labetalol HCl (Trandate) 5 mg IV X1 PRN PRN Reason: SBP > 160 when pulling sheath Linagliptin (Tradjenta) 5 mg PO DAILY [facility] Lisinopril (Zestril) 20 mg PO BID [facility] Last Admin: 01/11/20 06:18 Dose: 20 mg Documented by: Metoclopramide HCl (Reglan) 5 mg IV Q6H PRN PRN PRN Reason: NAUSEA/VOMITING Metoprolol Tartrate (Lopressor (Beta Mia)) 50 mg PO BID [facility] Last Admin: 01/10/20 21:12 Dose: 50 mg Documented by: Morphine Sulfate () 2 - 4 mg IV Q4H PRN PRN PRN Reason: Pain Score 1-10/10 Last Admin: 01/11/20 11:25 Dose: 2 mg Documented by: Nitroglycerin (Nitrostat) 0.4 mg SUBLINGUAL Q5M PRN PRN Reason: CARDIAC/CHEST PAIN Ondansetron HCl (Zofran) 4 mg IV Q8H PRN PRN PRN Reason: NAUSEA/VOMITING Oxycodone HCl (Oxyir) 5 mg PO Q4H PRN PRN PRN Reason: Pain Score 6-10/10 Pantoprazole Sodium (Protonix) 20 mg PO DAILY [facility] Sodium Chloride () 10 - 40 ml IV UD PRN PRN Reason: SALINE FLUSH Last Admin: 01/11/20 11:25 Dose: 20 ml Documented by: Sodium Chloride () 500 ml IV BOLUS PRN PRN Reason: VASO-VAGAL PROTOCOL Medical Necessity - Tobacco Use Smoking Status: Never smoker Assessment/Plan All Active Problems (Last Updated 01/11/20 @ 11:28 by Soo Urbano) NSTEMI (non-ST elevated myocardial infarction) (Acute) Stented coronary artery (Acute) Atrial flutter (Resolved) Feeling grief (Acute) Shoulder pain, right (Acute) 1. NSTEMI, PTCA/JOSE G of mid SVG to OM and proximal SVG to OM-cardiology following. Continue aspirin, statin, Plavix, beta-mia, lisinopril. Initiated on isosorbide. Echocardiogram demonstrates an EF of 60%, stage II diastolic dysfunction, RVSP estimated to be 37 mmHg. Stable appearing bioprosthetic aortic valve. 2. Acute hypoxia-unclear etiology. Obtain chest x-ray, BNP. Continue supplement oxygen to maintain O2 above 90%. 3. Hypertension-stable, on lisinopril, metoprolol. 4. Hyperlipidemia-continue statin. 5. Type 2 diabetes mellitus-hemoglobin A1c October 2019 7.7%. Accu-Cheks with sliding scale insulin. Oral regimen on hold. 6. GERD-continue PPI. DVT prophylaxis- Lovenox sc This patient was seen by KEITH Merino under the supervision of Dr. Pressley. <Jaden Pressley - Last Filed: 01/11/20 12:33> - Physical Exam Vitals/I&O's: Vital Signs Temp Pulse Resp BP Pulse Ox 36.4 C L 67 20 H 134/83 H 95 01/11/20 10:45 01/11/20 12:09 01/11/20 11:45 01/11/20 12:09 01/11/20 11:45 Oxygen Flow Rate (L/min) 4 Oxygen Delivery Method Nasal Cannula Weight: 95 kg Body Mass Index (BMI) 27.6 Intake and Output for Last 24 Hours 01/09/20 01/10/20 01/11/20 23:59 23:59 23:59 Intake Total 1570.33 / 1570.33 0 / 0 Output Total 900 / 900 Balance 1570.33 / 1570.33 -900 / -900 General: Alert, Cooperative HEENT: Atraumatic, Normocephalic Lungs: Clear to auscultation, Normal air movement, No rhonchi, No wheeze Cardiovascular: Regular rate, No murmurs Abdomen: Bowel Sounds Present, Soft, Non Tender, Non-Distended Extremities: No edema, No Calf Tenderness Skin: No rashes, No breakdown Laboratory Results 01/10/20 13:50: Troponin I 0.230 H 01/10/20 16:54: POC Glucose 193 H 01/10/20 21:10: POC Glucose 174 H 01/11/20 06:21: Sodium 143, Potassium 3.6, Chloride 109 H, Carbon Dioxide 29.0, Anion Gap 5, BUN 9, Creatinine 0.66 L, Estim Creat Clear Calc 136.19, Est GFR (MDRD) Af Amer 158, Est GFR (MDRD) Non-Af 130, BUN/Creatinine Ratio 13.6, Glucose 89, Calcium 7.6 L, Magnesium 1.3 L 01/11/20 06:45: POC Glucose 99 01/11/20 09:54: Activated Clotting Time 180 H 01/11/20 12:08: POC Glucose 120 H Current Medications Acetaminophen (Tylenol) 650 mg PO Q6H PRN PRN PRN Reason: Pain Score 1-10/Temp > 100.7 F Aspirin (Aspirin, Baby) 81 mg PO DAILY@0800 [facility] Last Admin: 01/11/20 06:17 Dose: 81 mg Documented by: Atorvastatin Calcium (Lipitor) 80 mg PO QHS [facility] Last Admin: 01/10/20 21:12 Dose: 80 mg Documented by: Atropine Sulfate () 0.5 mg IV UD PRN PRN Reason: HR <50 bpm Clopidogrel Bisulfate (Plavix) 75 mg PO DAILY [facility] Last Admin: 01/11/20 06:18 Dose: 75 mg Documented by: Dextrose (D50w Syringe) 0 gm IV X1 PRN; Protocol PRN Reason: Hypoglycemia Glipizide (Glucotrol Xl) 10 mg PO BIDCM [facility] Last Admin: 01/11/20 12:04 Dose: Not Given Documented by: Glucagon () 1 mg IM .X1 PRN PRN Reason: Hypoglycemia Heparin Sodium (Beef Lung) (Heparin 500 Unit/5 Ml (100/Ml)) 500 unit IV UD PRN PRN Reason: HEPARIN FLUSH Sodium Chloride () 1,000 mls @ 15 mls/hr IV .Q48H [facility] Last Admin: 01/10/20 12:26 Dose: Not Given Documented by: Sodium Chloride () 1,000 mls @ 150 mls/hr IV .Q6H40M [facility] Stop: 01/11/20 17:50 Insulin Human Lispro (Humalog Kwikpen (Bkc)) 0 unit SC TIDAC [facility]; Protocol Last Admin: 01/11/20 12:08 Dose: Not Given Documented by: Isosorbide Mononitrate (Imdur) 60 mg PO DAILY [facility] Last Admin: 01/11/20 06:18 Dose: 60 mg Documented by: Labetalol HCl (Trandate) 5 mg IV X1 PRN PRN Reason: SBP > 160 when pulling sheath Linagliptin (Tradjenta) 5 mg PO DAILY [facility] Last Admin: 01/11/20 12:09 Dose: 5 mg Documented by: Lisinopril (Zestril) 20 mg PO BID [facility] Last Admin: 01/11/20 06:18 Dose: 20 mg Documented by: Metoclopramide HCl (Reglan) 5 mg IV Q6H PRN PRN PRN Reason: NAUSEA/VOMITING Metoprolol Tartrate (Lopressor (Beta Mia)) 50 mg PO BID [facility] Last Admin: 01/11/20 12:09 Dose: 50 mg Documented by: Morphine Sulfate () 2 - 4 mg IV Q4H PRN PRN PRN Reason: Pain Score 1-10/10 Last Admin: 01/11/20 11:25 Dose: 2 mg Documented by: Nitroglycerin (Nitrostat) 0.4 mg SUBLINGUAL Q5M PRN PRN Reason: CARDIAC/CHEST PAIN Ondansetron HCl (Zofran) 4 mg IV Q8H PRN PRN PRN Reason: NAUSEA/VOMITING Oxycodone HCl (Oxyir) 5 mg PO Q4H PRN PRN PRN Reason: Pain Score 6-10/10 Last Admin: 01/11/20 12:09 Dose: 5 mg Documented by: Pantoprazole Sodium (Protonix) 20 mg PO DAILY [facility] Last Admin: 01/11/20 12:09 Dose: 20 mg Documented by: Sodium Chloride () 10 - 40 ml IV UD PRN PRN Reason: SALINE FLUSH Last Admin: 01/11/20 11:25 Dose: 20 ml Documented by: Sodium Chloride () 500 ml IV BOLUS PRN PRN Reason: VASO-VAGAL PROTOCOL Assessment/Plan Patient seen and examined independently. Data reviewed. I agree with the above note by the nurse practitioner. 1. Non-ST elevation myocardial infarction: Troponin is elevated at 0.397. Continue with aspirin, high intensity statin and clopidogrel. Patient did receive ticagrelor in the emergency room. Today, patient had stent to SVG to OM. 2. Atrial fibrillation: Rate controlled at this time. Continue with metoprolol. 3. Waldenstr?m's macroglobulinemia: Complicates care. Follow-up with Dr. Schmitt as outpatient. Patient receives IVIG through Dr. Schmitt 4. Diabetes mellitus type 2: metformin held for LHC and contrast. Moderate scale sliding scale insulin. 5. VTE prophylaxis: Not indicated patient will be anticoagulated Inpatient E&M: 93[address] [facility]
[2020-01-11 12:05] LABS: Bedside Glucose 99 mg/dL (70-110)
[2020-01-11] MEDS: Metoprolol Tartrate 50 MG Tablet PO ×2 (12:09→20:59)
[2020-01-11] MEDS: Pantoprazole Sodium 20 MG Tablet PO (12:09)
[2020-01-11] MEDS: oxyCODONE 5 MG Tablet PO ×2 (12:09→21:50)
[2020-01-11] MEDS: LINAGLIPTIN 5 MG TABLET PO (12:09)
[2020-01-11 12:20] LABS: Bedside Glucose 120 mg/dL (70-110)
--- NOTE | 2020-01-11 12:20 | RAD_ITS ---
STUDY: X-RAY CHEST REASON FOR EXAM: Male, 59 years old. Hypoxia TECHNIQUE: Single AP portable view of the chest. COMPARISON: 01/10/2020 FINDINGS: EKG leads overlie the chest. There are interstitial fibrotic changes of the lungs. There is no demonstrated pleural abnormality. Sternal cerclage wires and vascular clips are present from a prior sternotomy and coronary artery bypass graft procedure (CABG). Normal mediastinum and phyllis. Normal visualized pulmonary arteries. Normal visualized aortic arch and descending thoracic aorta. There are diffuse degenerative changes of the visualized thoracic spine. There is degenerative osteoarthritis of the bilateral shoulders. There is no demonstrated abnormality of the visualized soft tissue structures of the upper abdomen. RAD/Chest 1 View (Portable) IMPRESSION: Degenerative changes, as described above. No demonstrated acute cardiopulmonary process. Electronically Signed: Marcos Odonnell MD at 12:47 EDT , Service support ,
--- NOTE | 2020-01-11 13:05 | PN.CARD_ITS ---
Subjectve: The patient is now status post cardiac catheterization/PCI to the SVG to the OM system. He appears to be resting comfortably in the ICU with no acute complaints or changes. Objective: Vital Signs Temp Pulse Resp BP Pulse Ox 97.5 F L 73 20 H 137/87 H 94 01/11/20 10:45 01/11/20 12:30 01/11/20 12:30 01/11/20 12:30 01/11/20 12:30 Oxygen Flow Rate (L/min) 4 Oxygen Delivery Method Room Air Weight: 209 lb 7.026 oz Body Mass Index (BMI) 27.6 Intake and Output for Last 24 Hours 01/09/20 01/10/20 01/11/20 23:59 23:59 23:59 Intake Total 1570.33 / 1570.33 0 / 0 Output Total 900 / 900 Balance 1570.33 / 1570.33 -900 / -900 General: Awake, Cooperative, No Acute Distress HEENT: Atraumatic, Normocephalic, PERRL, EOMI, Sclera Non Icteric Oral: Moist Mucosa Neck: Supple, Good ROM, No JVD Lungs: Clear to auscultation Cardiovascular: Regular Rhythm, Normal S1, Normal S2 Vascular: Normal Femoral Pulses Abdomen: Bowel Sounds Present, Soft Extremities: No edema Psych/Mental Status: Flat Affect 01/10/20 13:50: Troponin I 0.230 H 01/11/20 06:21: Sodium 143, Potassium 3.6, Chloride 109 H, Carbon Dioxide 29.0, Anion Gap 5, BUN 9, Creatinine 0.66 L, Est GFR (MDRD) Af Amer 158, Est GFR (MDRD) Non-Af 130, BUN/Creatinine Ratio 13.6, Glucose 89, Calcium 7.6 L, Magnesium 1.3 L Rhythm: Sinus rhythm Echo: Interpretation Summary The estimated ejection fraction is 60 %. Infero-Basal: Mildly hypokinetic Stage 2 diastolic dysfunction. Mildly dilated right ventricle. Trivial mitral valve insufficiency. Trivial tricuspid valve insufficiency. Right ventricular systolic pressure estimated to be 37 mmHg. Mild pulmonary hypertension. Stable appearing and normal functioning bioprosthetic aortic valve apparatus. Peak aortic valve gradient 37 mmHg. Mean aortic valve gradient 22 mmHg. Compared to echo report dated 02/04/2018, no appreciable changes noted. Cardiac Cath: CONCLUSIONS [place] Multivessel CAD MENDOZA to the LAD: patent SVG to DX1: occluded SVG sequential graft to OM1 and OM2: patent with diffuse venous valves and proximal and mid eccentric hazy 50% stenosis and the sequetional portion to OM2 being occluded SVG to RPDA: patent with mid 99% stenosis RECOMMENDATIONS Risk factor modification Medical therapy Referred for immediate PCI CORONARY ANGIOGRAPHY DOMINANCE: Right Dominant LEFT HEART ASSESSMENT Left Ventricular Ejection Fraction: Not assessed LEFT MAIN: Angiographically normal LEFT ANTERIOR DECENDING ARTERY: PROX LAD: is occluded MID LAD: - Distal: fills from the MENDOZA graft with no angiographically significant appearing stenosis distal to the graft attachment CIRCUMFLEX ARTERY: PROX CIRC: is occluded followed by bridging collaterals to the mid LCX which is subsequently occluded followed by bridging collaterals to the distal LCX OM 1: Proximal - is occluded, Mid - fills from the SVG graft and demonstrates diffuse 50% stenosis s/p the graft attachment RIGHT CORONARY ARTERY: PROX RCA: is occluded GRAFTS: MENDOZA graft to the Mid LAD is patent Saphenous Vein graft to the 1st Diagonal is totally occluded Saphenous Vein graft to the 1st OM and sequential graft to 2nd OM is patent with diffuse venousl valves and proximal and mid eccentric hazy 50 % appearing stenosis with the sequential portion appearing occluded Saphenous Vein graft to the RPDA has a mid lesion of 99 % stenosis COLLATERAL FLOW: Collateral flow from Left to Left Collateral flow from Right to Left VALVE FINDINGS: Aortic valve prosthetic ring in place PCI: CONCLUSIONS Successful PTCA/JOSE G of mid SVG to OM, with filter wire assistance, utilzing a 4.0 x 20 Promus Synergy at 12 batsheva: 85%-->0%, no dissection. Successful PTCA/JOSE G proximal SVG to OM, with filter wire assistance, utilizing a 4.0 x 20 Promus Synergy, followed immediately upstream with a 4.0 x 8 Promus Synergy, followed by post stent dilation with a 5.0 x 8 NC Balloon at 8 batsheva, 75%-->0%, no dissection. Additional short stent placed due to retrograde plaque shifting. Medical Necessity - Tobacco Use Smoking Status: Never smoker Assessment/Plan 1. Non-ST segment elevation MS The patient has been undergoing evaluation and care. This is included noninvasive and invasive studies. The present time he is continuing medical management. He has now undergone further evaluation with diagnostic cardiac catheterization and subsequent PCI to the SVG to the OM system. 2. CAD status post previous PCI and previous CABG The patient continues to be monitored. He continues to undergo further evaluation. This has included cardiac catheterization and subsequent PCI as noted above. He will continue medical therapy and follow-up. 3. Status post AVR The patient has undergone echocardiogram. The results are as noted. He will continue AHA antibiotic prophylaxis as deemed appropriate. 4. Hyperlipidemia The patient will continue medical management. 5. Hypertension The patient's blood pressure will be followed. He will continue medical therapy. 6. Diabetes mellitus The patient will continue evaluation care per internal medicine. This note was generated using a voice recognition system and there may be incorrect words, spelling or punctuation that were not noted when reviewing the office note prior to saving.
--- NOTE | 2020-01-11 13:10 | CL.D_ITS ---
Patient Name: LILY NELSON Study Date: 01/11/2020 Performing: Abhi Go MD Ht: 72.83 inches 185 cm : 1960 Wt: 209.44 lbs 95 kg Age: 59 Gender: male BSA: 2.19 PROCEDURE(S) PERFORMED [id number]/CABG [id number] AND/OR PTCA, SINGLE GRAFT CLINICAL PROFILE AND INDICATIONS Patient presents with NSTEMI for urgent cardiac cath Indications: Worsening Angina, Suspected CAD, ACS <= 24 hrs, New Onset Angina <= 2 months, Stable Known CAD Heart Failure: None Stress/Imaging Stress/Image Study Performed: No Stress/Image Study Performed: No Angina Classification Anginal Classification w/in 2 Weeks: CCS IV CAD Presentations: Non-STEMI. Unstable angina. Non-STEMI. Symptom onset Date/Time: 01/10/2020 Time Not Available Comorbidities/Risk Factors: Hypertension Dyslipidemia Prior PCI Prior CABG CONCLUSIONS [place] Multivessel CAD MENDOZA to LAD: patent SVG to DX1: occluded (chronic) SVG to OM1 and OM2: patent with proximal eccentric hazy 50% stenosis and mid eccentric 90% stenosis a nd the sequential portion to OM2 being occluded (chronic) SVG to RPDA: patent and previous PCI/stent: patent Left to Left and Right to Left collateral flow RECOMMENDATIONS Risk factor modification Medical therapy Referred for immediate PCI: SVG to the OM1 DESCRIPTION OF PROCEDURE The patient arrived to the procedure lab. The risks and benefits of the procedure as well as a full d escription of our services here and current unavailability of surgical backup were fully explained to the patient and/or their significant other prior to the catheterization. The Timeout was completed, verifying the correct patient and procedure. The patient's procedural site was prepped and draped in the usual fashion. Local anesthetic was given subcutaneously to right groin region with Lidocaine 2%. Using a modified Seldinger technique, arterial access was obtained via the right femoral artery, a 4 Fr sheath was inserted Left Coronary Artery selective angiography was performed in multiple views us ing a 4 Fr. JL5 catheter. Saphenous Vein graft to the DIAG selective angiography was performed in mul tiple views using a 4 Fr. 3DRC catheter-occluded. Right Coronary Artery selective angiography was the n performed in multiple views using a 4 Fr. 3DRC catheter. Left internal mammary artery graft to the LAD selective angiography was performed in multiple views using a 4 Fr. 3DRC catheter. S aphenous Vein graft to the RPDA selective angiography was performed in multiple views using a 4 Fr. R CB catheter. Saphenous Vein graft to the OM 1 selective angiography was performed in multiple views u sing a 4 Fr. JR4 catheter.The arterial sheath was left in to be pulled in the unit / patient room CORONARY ANGIOGRAPHY DOMINANCE: Right Dominant LEFT HEART ASSESSMENT Left Ventricular Ejection Fraction: Not assessed LEFT MAIN: Angiographically normal LEFT ANTERIOR DESCENDING ARTERY: PROX LAD: is occluded MID LAD: to distal: fills from the MENDOZA graft with no angiographically significant disease distal to the graft attachment CIRCUMFLEX ARTERY: PROX CIRC: is occluded followed by bridging to the mid LCX which is subsequently occluded followed by bridging collaterals to the distal LCX OM 1: Proximal - is occluded and fills late and faintly from the SVG graft RIGHT CORONARY ARTERY: PROX RCA: is occluded RT PDA: Proximal - fills from the SVG graft with no angiographically significant appearing disease di stal to the graft attachment GRAFTS: MENDOZA graft to the Mid LAD is patent Saphenous Vein graft to the 1st Diagonal is totally occluded (chronic) Saphenous Vein graft to the 1st OM and sequential graft to the 2nd OM is patent with proximal eccentr ic hazy 50% stenosis and mid eccentric 90% stenosis and the sequential portion appearing occluded (ch ronic) Saphenous Vein graft to the RPDA previously placed stent is patent COLLATERAL FLOW: Collateral flow from Left to Left Collateral flow from Right to Left VALVE FINDINGS: Bioprosthetic Aortic Valve: present COMPLICATIONS No Complications PROCEDURE MEDICATIONS Versed 1 mg IV Oxygen: 2 L/min via nasal cannula Heparin 6000 unit(s) IV 01/11/2020 09:09:16 Magnesium Sulfate 4 Gm 01/11/2020 08:41:28 Nitro 200 mcg IC 01/11/2020 09:51:03 IV Bolus: .9 NaCl 800 ml total 01/11/2020 09:55:16 SUMMARY OF HEMODYNAMIC DATA Time AIR REST ECG 08:06:29 AO 97/73 (85) SA 08:16:27 AO 120/66 (84) 08:35:56 Signed By Abhi Go MD On 04/29/2020 11:03:25 Signed By Abhi Go MD On 01/11/2020 1:08:58 PM Abhi Go MD
[2020-01-11 13:45] LABS: BNP,B-Type NATRIURETIC PEPTIDE 343.1 pg/mL (0-100)
--- NOTE | 2020-01-11 14:10 | CASEMGMT ---
RN CM ASSESSMENT Intro role of CM to patient in room. Pt is awake, alert and able to participate in assessment. Pt states he is independent, drives and does not use any ambulatory DME. Discussed that he does not have next of kin or emergency contact. Patient says his brother and he does not have other family. He does not wish to list any emergency contact at this time. PCP: Dr. Damico Insurance: [facility] Pharmacy: [facility] [place]. Anticipate home with Plavix. [place] benefit: yes Living arrangements: lives independently, no care needs identified. Transportation: drives, has friend who can take him home from hospital. Pt DC goals: Home DC Plan: anticipate home on discharge. Dayo ALONSO RN ACM
[2020-01-11] MEDS: glipiZIDE XL 5 MG Tablet 10 MG PO (16:35)
[2020-01-11] MEDS: Insulin Lispro 100 UNIT/ML INSULN.PEN SC (16:36)
[2020-01-11 16:40] LABS: Bedside Glucose 193 mg/dL (70-110)
[2020-01-11] MEDS: Atorvastatin Calcium 80 MG Tablet PO (20:59)
[2020-01-11 21:06] LABS: Bedside Glucose 192 mg/dL (70-110)
[2020-01-11] MEDS: Acetaminophen 325 MG Tablet 650 MG PO (23:44)
[2020-01-12] VITALS (26 sets, daily range): BP systolic 98–149; BP diastolic 61–87; PULSE 64–104; RESP 15–22; TEMP 36.7–37; O2SAT 92–100
[2020-01-12 06:55] LABS: Hematocrit 32.4 % (40-54); Hemoglobin 9.7 g/dL (13.0-16.5); Mean Corp Hgb Conc 29.9 g/dL (32-36); Mean Corpuscular Volume 83.5 fL (80-94); Mean Platelet Vol. 10.4 fl (6.2-12.0); Platelet Count 107 K/mm3 (150-450); RBC Distribution Width CV 17.3 % (11.6-14.6); RBC Distribution Width SD 51.2 fl (35.1-43.9); Red Blood Count 3.88 M/mm3 (4.6-6.2); White Blood Count 6.2 K/mm3 (4.4-11.0)
[2020-01-12 06:58] LABS: ALB/GLOB Ratio 1.1 RATIO (0.9-2.4); AST(SGOT) 109 U/L (15-37); Alanine Aminotransfer ALT/SGPT 25 U/L (16-61); Alkaline Phosphatase 93 U/L (45-117); Anion Gap 2 (5-15); BUN 10 mg/dL (7-18); Calcium,Total 7.7 mg/dL (8.5-10.1); Chloride 101 mmol/L (98-107); Creatinine, Serum 0.83 mg/dL (0.70-1.30); EST Glomerular Filtration Rate 100 mL/min (>60); Est Glom Filt Rate - Afr Amer 121 mL/min (>60); Globulin 2.7 g/dL (2.2-4.2); Glucose 149 mg/dL (74-106); Potassium 3.7 mmol/L (3.5-5.1); Protein, Total 5.7 g/dL (6.4-8.2); Sodium Level 136 mmol/L (136-145)
[2020-01-12] MEDS: Aspirin 81 MG TAB.CHEW PO (08:17)
[2020-01-12] MEDS: glipiZIDE XL 5 MG Tablet 10 MG PO ×2 (08:17→16:51)
[2020-01-12] MEDS: LINAGLIPTIN 5 MG TABLET PO (08:18)
[2020-01-12] MEDS: Isosorbide Mononitrate 60 MG Tablet PO (08:18)
[2020-01-12] MEDS: Metoprolol Tartrate 50 MG Tablet PO ×2 (08:18→22:30)
[2020-01-12] MEDS: Lisinopril 20 MG Tablet PO ×2 (08:18→22:30)
[2020-01-12] MEDS: Clopidogrel Bisulfate 75 MG Tablet PO (08:18)
[2020-01-12] MEDS: Pantoprazole Sodium 20 MG Tablet PO (08:19)
--- NOTE | 2020-01-12 08:24 | CRPHASE1 ---
Patient Communication PHII Cardiac Rehab Discussed with Patient:: Yes Guide to Cardiac Rehab Given to Patient:: Yes Cardiac Rehab Facility Choice List Given to Patient:: Yes Choice Program [facility] PHII:: Communication Given to CR, Refer to [facility] Commercial Leasing Manager:: Jonas Chirinos Refer Phase II Cardiac Rehab:: Yes Risk Factors/Lifestyle Family History: Family History (Last Reviewed 01/10/20 @ 08:[address] Jaden Pressley, DO) Father Arthritis Brain cancer Lung cancer Hypertension Mother Arthritis Hypertension Cancer Cardiac Rehabilitation Info Cardiac Rehabilitation Program Information: Cardiac Rehabilitation is important for patients like you who are recovering from a heart problem. Cardiac rehabilitation programs are recognized as integral to the continued care of the patient with coronary heart disease. The cardiac rehabilitation program is designed to optimize a patient's physical, psychological, and social functioning. Health urgent care technician work in cardiac rehabilitation programs and assist you with getting the treatments you need to get stronger and healthier - like exercise, healthy eating habits, and medications. Cardiac rehabilitation has been show to help people with heart problems live longer and have better life enjoyment than people who do not go to cardiac rehabilitation. Please contact the Cardiac Rehabilitation Program at [facility] at in two weeks if you have not heard from them.
--- NOTE | 2020-01-12 08:25 | CRPH1.INSTRU ---
General Education CAD and cardiac anatomy and function:: Patient communicates acknowledgment Explanation of diagnoses and procedures:: Patient communicates acknowledgment Sign/Symptoms of IN:: Patient communicates acknowledgment Antiplatelet therapy: Patient communicates acknowledgment Proper use of NTG-SL: Patient communicates acknowledgment Emergency procedures and activation of EMS: Patient communicates acknowledgment Compliance of all prescribed medications: Patient communicates acknowledgment Dyslipidemia Patient Dyslipidemia Risk Factors Are:: Total Cholesterol, Triglycerides, HDL, LDL Recommendations Include:: Lipid profile provided, Reviewed NCEP/ATP guidelines, Therapeutic Lifestyle Change dietary guidelines Dyslipidemia Response Code:: Patient communicates acknowledgment Overweight/Obesity Patient Overweight/Obesity Risk Factors Are:: Overweight = 26-29 Recommendations Include:: Weight loss of 5-10%, Reduced calorie diet, Exercise 5-7 times/week Overweight/Obesity:: Patient communicates acknowledgment Hypertension Recommendations Include:: Maintain BP <130/85, BP <130/80 if diabetic, DASH dietary guidelines, Decrease/maintain normal body weight Hypertension:: Patient communicates acknowledgment Heart Disease Patient Heart Disease Risk Factors Are:: Family history of heart disease < 65 years old, Previous cardiac event Recommendations Include:: Educated family members of their risk, Educated family members of importance of prevention of heart disease Heart Disease Response Code:: Patient communicates acknowledgment Diabetes Patient Diabetes Risk Factors Are:: Elevated blood sugars Recommendations Include:: Maintain fasting blood sugars 70-110 md/dL, Maintain HgbA1c of 6% or less, Monitor blood sugar as prescribed, Diabetic dietary guidelines, Decrease/maintain body weight Diabetes:: Patient communicates acknowledgment Metabolic Syndrome Patient Metabolic Syndrome Risk Factors Are [3 of 5]:: Fasting blood sugar > 100 mg/dL, High triglyceride >150, Hypertension, Low HDL <40 [male] or < 50 [female] Recommendations Include:: Reinforce compliance to risk factor modifications, Patient is diabetic, Encouraged follow-up with Primary Care Physician Metabolic Syndrome Response Code:: Patient communicates acknowledgment
--- NOTE | 2020-01-12 10:00 | EKG12_ITS ---
Test Reason : AM EKG Blood Pressure : / mmHG Vent. Rate : 068 BPM Atrial Rate : 068 BPM P-R Int : 132 ms QRS Dur : 104 ms QT Int : 406 ms P-R-T Axes : 006 003 219 degrees QTc Int : 431 ms Normal sinus rhythm ST & T wave abnormality, consider inferior ischemia ST & T wave abnormality, consider anterolateral ischemia Abnormal ECG When compared with ECG of 11-JAN-2020 10:49, MANUAL COMPARISON REQUIRED, DATA IS UNCONFIRMED Confirmed by OMAR DAVIS ([id number]), food expeditor REECE SKAGGS ([id number]) on 01/17/2020 12:50:05 PM Referred By: ANGELI Confirmed By:OMAR DAVIS
--- NOTE | 2020-01-12 10:39 | PCM.PN.CARD ---
Subjectve: The patient is awake and alert. He has been up and out of bed in the bedside chair. He has had no new acute symptoms/concerns. Objective: Vital Signs Temp Pulse Resp BP Pulse Ox 98.2 F 75 16 112/76 95 01/12/20 07:43 01/12/20 10:00 01/12/20 10:00 01/12/20 10:00 01/12/20 10:00 Oxygen Flow Rate (L/min) 2 Oxygen Delivery Method Nasal Cannula Weight: 209 lb 7.026 oz Body Mass Index (BMI) 27.6 Intake and Output for Last 24 Hours 01/10/20 01/11/20 01/12/20 23:59 23:59 23:59 Intake Total 1570.33 / 1570.33 640 / 640 240 / 240 Output Total 1700 / 1700 420 / 420 Balance 1570.33 / 1570.33 -1060 / -1060 -180 / -180 General: Awake, Alert, Oriented x 3, Cooperative, No Acute Distress HEENT: Atraumatic, Normocephalic, PERRL, EOMI, Sclera Non Icteric Neck: No JVD Lungs: Clear to auscultation Cardiovascular: Regular Rhythm, Normal S1, Normal S2 Vascular: Normal Femoral Pulses Abdomen: Bowel Sounds Present, Soft, Non Tender Extremities: No edema Psych/Mental Status: Appropriate 01/11/20 13:00: B-Natriuretic Peptide 343.1 H 01/12/20 06:30: WBC 6.2, RBC 3.88 L, Hgb 9.7 L, Hct 32.4 L, MCV 83.5, MCH 25.0 L, MCHC 29.9 L, Plt Count 107 L, MPV 10.4 01/12/20 06:30: Sodium 136, Potassium 3.7, Chloride 101, Carbon Dioxide 33.0 H, Anion Gap 2 L, BUN 10, Creatinine 0.83, Est GFR (MDRD) Af Amer 121, Est GFR (MDRD) Non-Af 100, BUN/Creatinine Ratio 12.0, Glucose 149 H, Calcium 7.7 L, Total Bilirubin 0.60 Rhythm: Sinus rhythm EKG: Sinus rhythm; ST/T wave abnormality: Consider myocardial ischemia: Anterior, lateral, inferior Medical Necessity - Tobacco Use Smoking Status: Never smoker Assessment/Plan 1. Non-ST segment elevation DC The patient has been undergoing evaluation and care. This is included noninvasive and invasive studies. The present time he is continuing medical management. He has now undergone further evaluation with diagnostic cardiac catheterization and subsequent PCI to the SVG to the OM system. 2. CAD status post previous PCI and previous CABG The patient continues to be monitored. He continues to undergo further evaluation. This has included cardiac catheterization and subsequent PCI as noted above. He will continue medical therapy and follow-up. 3. Status post AVR The patient has undergone echocardiogram. The results are as noted. He will continue AHA antibiotic prophylaxis as deemed appropriate. 4. Hyperlipidemia The patient will continue medical management. 5. Hypertension The patient's blood pressure will be followed. He will continue medical therapy. 6. Diabetes mellitus The patient will continue evaluation care per internal medicine. Overall, the present time, he will continue medical management. It appears that he can transition from the ICU to the PCU. His case is also been discussed with the [facility] hospitalist team. They are going to investigate, prior to discharge, whether or not the patient requires additional assistance at home or potentially at some form of extended care facility for period of time. This note was generated using a voice recognition system and there may be incorrect words, spelling or punctuation that were not noted when reviewing the office note prior to saving.
--- NOTE | 2020-01-12 11:27 | PN_ITS ---
<Kanchan New - Last Filed: 01/12/20 11:37> Patient Problems: Active and Suspected Problems (Last Updated 01/11/20 @ 11:28 by Soo Urbano) Stented coronary artery (Acute) Subjective: Patient seen and examined. No acute events overnight. Patient reports he gets short of breath with minimal exertion. Denies chest pain. - Physical Exam Vitals/I&O's: Vital Signs Temp Pulse Resp BP Pulse Ox 98.2 F 75 16 112/76 95 01/12/20 07:43 01/12/20 10:00 01/12/20 10:00 01/12/20 10:00 01/12/20 10:00 Oxygen Flow Rate (L/min) 2 Oxygen Delivery Method Nasal Cannula Weight: 209 lb 7.026 oz Body Mass Index (BMI) 27.6 Intake and Output for Last 24 Hours 01/10/20 01/11/20 01/12/20 23:59 23:59 23:59 Intake Total 1570.33 / 1570.33 640 / 640 240 / 240 Output Total 1700 / 1700 420 / 420 Balance 1570.33 / 1570.33 -1060 / -1060 -180 / -180 General: Alert, Oriented x3, Cooperative, - - Appears older than stated age HEENT: Atraumatic, PERRLA, EOMI, Normocephalic Neck: Supple, No JVD, Negative Carotid Bruits Lungs: Clear to auscultation, Normal air movement Cardiovascular: Regular rate, No murmurs Abdomen: Bowel Sounds Present, Soft, Non Tender, Non-Distended Extremities: No clubbing, No cyanosis, No edema, Capillary Refill Less than 3 Seconds Skin: No rashes, No breakdown Musculoskeletal: No Tenderness to Palpation of Joints or Extremities Neurological: Cranial nerves II-XII grossly intact, Neuro grossly intact Psych/Mental Status: Flat Affect Laboratory Results 01/11/20 06:45: POC Glucose 99 01/11/20 12:08: POC Glucose 120 H 01/11/20 13:00: B-Natriuretic Peptide 343.1 H 01/11/20 16:33: POC Glucose 193 H 01/11/20 21:03: POC Glucose 192 H 01/12/20 06:30: WBC 6.2, RBC 3.88 L, Hgb 9.7 L, Hct 32.4 L, MCV 83.5, MCH 25.0 L , MCHC 29.9 L, RDW Std Deviation 51.2 H, RDW Coeff of Joel 17.3 H, Plt Count 107 L, MPV 10.4 01/12/20 06:30: Sodium 136, Potassium 3.7, Chloride 101, Carbon Dioxide 33.0 H, Anion Gap 2 L, BUN 10, Creatinine 0.83, Estim Creat Clear Calc 108.30, Est GFR (MDRD) Af Amer 121, Est GFR (MDRD) Non-Af 100, BUN/Creatinine Ratio 12.0, Glucose 149 H, Calcium 7.7 L, Total Bilirubin 0.60, AST 109 H, ALT 25, Alkaline Phosphatase 93, Total Protein 5.7 L, Albumin 3.0 L, Globulin 2.7, Albumin/Globulin Ratio 1.1 Current Medications Acetaminophen (Tylenol) 650 mg PO Q6H PRN PRN PRN Reason: Pain Score 1-10/Temp > 100.7 F Last Admin: 01/11/20 23:44 Dose: 650 mg Documented by: Aspirin (Aspirin, Baby) 81 mg PO DAILY@0800 [facility] Last Admin: 01/12/20 08:17 Dose: 81 mg Documented by: Atorvastatin Calcium (Lipitor) 80 mg PO QHS [facility] Last Admin: 01/11/20 20:59 Dose: 80 mg Documented by: Atropine Sulfate () 0.5 mg IV UD PRN PRN Reason: HR <50 bpm Clopidogrel Bisulfate (Plavix) 75 mg PO DAILY [facility] Last Admin: 01/12/20 08:18 Dose: 75 mg Documented by: Dextrose (D50w Syringe) 0 gm IV X1 PRN; Protocol PRN Reason: Hypoglycemia Glipizide (Glucotrol Xl) 10 mg PO BIDCM [facility] Last Admin: 01/12/20 08:17 Dose: 10 mg Documented by: Glucagon () 1 mg IM .X1 PRN PRN Reason: Hypoglycemia Heparin Sodium (Beef Lung) (Heparin 500 Unit/5 Ml (100/Ml)) 500 unit IV UD PRN PRN Reason: HEPARIN FLUSH Sodium Chloride () 1,000 mls @ 15 mls/hr IV .Q48H [facility] Last Admin: 01/10/20 12:26 Dose: Not Given Documented by: Insulin Human Lispro (Humalog Kwikpen (Bkc)) 0 unit SC TIDAC [facility]; Protocol Last Admin: 01/12/20 08:16 Dose: Not Given Documented by: Isosorbide Mononitrate (Imdur) 60 mg PO DAILY [facility] Last Admin: 01/12/20 08:18 Dose: 60 mg Documented by: Labetalol HCl (Trandate) 5 mg IV X1 PRN PRN Reason: SBP > 160 when pulling sheath Linagliptin (Tradjenta) 5 mg PO DAILY [facility] Last Admin: 01/12/20 08:18 Dose: 5 mg Documented by: Lisinopril (Zestril) 20 mg PO BID [facility] Last Admin: 01/12/20 08:18 Dose: 20 mg Documented by: Metoclopramide HCl (Reglan) 5 mg IV Q6H PRN PRN PRN Reason: NAUSEA/VOMITING Metoprolol Tartrate (Lopressor (Beta Mia)) 50 mg PO BID [facility] Last Admin: 01/12/20 08:18 Dose: 50 mg Documented by: Morphine Sulfate () 2 - 4 mg IV Q4H PRN PRN PRN Reason: Pain Score 1-10/10 Last Admin: 01/11/20 11:25 Dose: 2 mg Documented by: Nitroglycerin (Nitrostat) 0.4 mg SUBLINGUAL Q5M PRN PRN Reason: CARDIAC/CHEST PAIN Ondansetron HCl (Zofran) 4 mg IV Q8H PRN PRN PRN Reason: NAUSEA/VOMITING Oxycodone HCl (Oxyir) 5 mg PO Q4H PRN PRN PRN Reason: Pain Score 6-10/10 Last Admin: 01/11/20 21:50 Dose: 5 mg Documented by: Pantoprazole Sodium (Protonix) 20 mg PO DAILY [facility] Last Admin: 01/12/20 08:19 Dose: 20 mg Documented by: Sodium Chloride () 10 - 40 ml IV UD PRN PRN Reason: SALINE FLUSH Last Admin: 01/11/20 20:59 Dose: 40 ml Documented by: Sodium Chloride () 500 ml IV BOLUS PRN PRN Reason: VASO-VAGAL PROTOCOL Medical Necessity - Tobacco Use Smoking Status: Never smoker Assessment/Plan All Active Problems (Last Updated 01/11/20 @ 11:28 by Soo Urbano) NSTEMI (non-ST elevated myocardial infarction) (Acute) Stented coronary artery (Acute) Atrial flutter (Resolved) Feeling grief (Acute) Shoulder pain, right (Acute) 1. NSTEMI, PTCA/JOSE G of mid SVG to OM and proximal SVG to OM-cardiology following. Continue aspirin, statin, Plavix, beta-mia, lisinopril. Initiated on isosorbide. Echocardiogram demonstrates an EF of 60%, stage II diastolic dysfunction, RVSP estimated to be 37 mmHg. Stable appearing bioprosthetic aortic valve. Plan for transition to PCU with further monitoring overnight. 2. Acute hypoxia-unclear etiology. Obtain chest x-ray, BNP. Continue supplement oxygen to maintain O2 above 90%. 3. Hypertension-stable, on lisinopril, metoprolol. 4. Hyperlipidemia-continue statin. 5. Type 2 diabetes mellitus-hemoglobin A1c October 2019 7.7%. Accu-Cheks with sliding scale insulin. Oral regimen on hold. 6. GERD-continue PPI. 7. Waldenstrom's macroglobulinemia- Follows with Dr. Schmitt. 8. Normocytic anemia-hemoglobin has fluctuated. Trend CBC. DVT prophylaxis- Lovenox sc Discharge planning: Plan for home with possible home health/[facility] services. This patient was seen by KEITH Merino under the supervision of Dr. Pressley. <Jaden Pressley - Last Filed: 01/12/20 12:59> Subjective: chest feels funny. Stood up and was incontinent. - Physical Exam Vitals/I&O's: Vital Signs Temp Pulse Resp BP Pulse Ox 36.8 C 76 15 122/79 H 95 01/12/20 07:43 01/12/20 11:56 01/12/20 11:00 01/12/20 11:00 01/12/20 11:51 Oxygen Flow Rate (L/min) 2 Oxygen Delivery Method Nasal Cannula Weight: 95 kg Body Mass Index (BMI) 27.6 Intake and Output for Last 24 Hours 01/10/20 01/11/20 01/12/20 23:59 23:59 23:59 Intake Total 1570.33 / 1570.33 640 / 640 240 / 240 Output Total 1700 / 1700 420 / 420 Balance 1570.33 / 1570.33 -1060 / -1060 -180 / -180 General: Alert, Cooperative, - HEENT: Atraumatic, Normocephalic Neck: No Nodes, Thyroid Normal Size and Texture Lungs: Clear to auscultation, Normal air movement, No rhonchi, No wheeze Cardiovascular: Regular rate, Regular Rhythm, Normal S1, Normal S2, No murmurs Abdomen: Bowel Sounds Present, Soft, Non Tender, Non-Distended Extremities: No edema, No Calf Tenderness Psych/Mental Status: Appropriate, Anxious Laboratory Results 01/11/20 13:00: B-Natriuretic Peptide 343.1 H 01/11/20 16:33: POC Glucose 193 H 01/11/20 21:03: POC Glucose 192 H 01/12/20 06:30: WBC 6.2, RBC 3.88 L, Hgb 9.7 L, Hct 32.4 L, MCV 83.5, MCH 25.0 L , MCHC 29.9 L, RDW Std Deviation 51.2 H, RDW Coeff of Joel 17.3 H, Plt Count 107 L, MPV 10.4 01/12/20 06:30: Sodium 136, Potassium 3.7, Chloride 101, Carbon Dioxide 33.0 H, Anion Gap 2 L, BUN 10, Creatinine 0.83, Estim Creat Clear Calc 108.30, Est GFR (MDRD) Af Amer 121, Est GFR (MDRD) Non-Af 100, BUN/Creatinine Ratio 12.0, Glucose 149 H, Calcium 7.7 L, Total Bilirubin 0.60, AST 109 H, ALT 25, Alkaline Phosphatase 93, Total Protein 5.7 L, Albumin 3.0 L, Globulin 2.7, Albumin/Globulin Ratio 1.1 01/12/20 11:31: POC Glucose 229 H Current Medications Acetaminophen (Tylenol) 650 mg PO Q6H PRN PRN PRN Reason: Pain Score 1-10/Temp > 100.7 F Last Admin: 01/11/20 23:44 Dose: 650 mg Documented by: Aspirin (Aspirin, Baby) 81 mg PO DAILY@0800 [facility] Last Admin: 01/12/20 08:17 Dose: 81 mg Documented by: Atorvastatin Calcium (Lipitor) 80 mg PO QHS [facility] Last Admin: 01/11/20 20:59 Dose: 80 mg Documented by: Atropine Sulfate () 0.5 mg IV UD PRN PRN Reason: HR <50 bpm Clopidogrel Bisulfate (Plavix) 75 mg PO DAILY [facility] Last Admin: 01/12/20 08:18 Dose: 75 mg Documented by: Dextrose (D50w Syringe) 0 gm IV X1 PRN; Protocol PRN Reason: Hypoglycemia Enoxaparin Sodium (Lovenox) 40 mg SC DAILY@0600 [facility] Last Admin: 01/12/20 08:17 Dose: 10 mg Documented by: Glucagon () 1 mg IM .X1 PRN PRN Reason: Hypoglycemia Heparin Sodium (Beef Lung) (Heparin 500 Unit/5 Ml (100/Ml)) 500 unit IV UD PRN PRN Reason: HEPARIN FLUSH Sodium Chloride () 1,000 mls @ 15 mls/hr IV .Q48H [facility] Last Admin: 01/10/20 12:26 Dose: Not Given Documented by: Insulin Human Lispro (Humalog Kwikpen (Bkc)) 0 unit SC TIDAC [facility]; Protocol Last Admin: 01/12/20 11:35 Dose: 2 units Documented by: Isosorbide Mononitrate (Imdur) 60 mg PO DAILY [facility] Last Admin: 01/12/20 08:18 Dose: 60 mg Documented by: Labetalol HCl (Trandate) 5 mg IV X1 PRN PRN Reason: SBP > 160 when pulling sheath Linagliptin (Tradjenta) 5 mg PO DAILY [facility] Last Admin: 01/12/20 08:18 Dose: 5 mg Documented by: Lisinopril (Zestril) 20 mg PO BID [facility] Last Admin: 01/12/20 08:18 Dose: 20 mg Documented by: Metoclopramide HCl (Reglan) 5 mg IV Q6H PRN PRN PRN Reason: NAUSEA/VOMITING Metoprolol Tartrate (Lopressor (Beta Mia)) 50 mg PO BID [facility] Last Admin: 01/12/20 08:18 Dose: 50 mg Documented by: Morphine Sulfate () 2 - 4 mg IV Q4H PRN PRN PRN Reason: Pain Score 1-10/10 Last Admin: 01/11/20 11:25 Dose: 2 mg Documented by: Nitroglycerin (Nitrostat) 0.4 mg SUBLINGUAL Q5M PRN PRN Reason: CARDIAC/CHEST PAIN Ondansetron HCl (Zofran) 4 mg IV Q8H PRN PRN PRN Reason: NAUSEA/VOMITING Oxycodone HCl (Oxyir) 5 mg PO Q4H PRN PRN PRN Reason: Pain Score 6-10/10 Last Admin: 01/11/20 21:50 Dose: 5 mg Documented by: Pantoprazole Sodium (Protonix) 20 mg PO DAILY [facility] Last Admin: 01/12/20 08:19 Dose: 20 mg Documented by: Sodium Chloride () 10 - 40 ml IV UD PRN PRN Reason: SALINE FLUSH Last Admin: 01/11/20 20:59 Dose: 40 ml Documented by: Sodium Chloride () 500 ml IV BOLUS PRN PRN Reason: VASO-VAGAL PROTOCOL Assessment/Plan Patient seen and examined independently. Data reviewed. I agree with the above note by the nurse practitioner. 1. Non-ST elevation myocardial infarction: * Troponin is elevated at 0.397. * Continue with aspirin, high intensity statin and clopidogrel. Patient did receive ticagrelor in the emergency room. * Today, patient had stent to SVG to OM. 2. Atrial fibrillation: Rate controlled at this time. Continue with metoprolol. 3. Waldenstr?m's macroglobulinemia: Complicates care. Follow-up with Dr. Schmitt as outpatient. Patient receives IVIG through Dr. Schmitt 4. Diabetes mellitus type 2: metformin held for LHC and contrast. Moderate scale sliding scale insulin. 5. VTE prophylaxis: Not indicated patient will be anticoagulated Inpatient E&M: 86610 [facility] Hosp L2
[2020-01-12] MEDS: Insulin Lispro 100 UNIT/ML INSULN.PEN SC ×2 (11:35→16:55)
[2020-01-12 11:40] LABS: Bedside Glucose 229 mg/dL (70-110)
--- NOTE | 2020-01-12 13:57 | NURSING ---
report called to [facility] for transfer to room 120, transferred per wheelchair with belongings
--- NOTE | 2020-01-12 15:34 | CASEMGMT ---
RN VIRI NOTE: To room to meet w/pt to discuss discharge planning. Pt states he could use some assistance w/managing medications @ home. Discussed [facility] w/pt and he is interested and agreeable to referral. Order placed for referral to [facility]N. Call placed to [facility] and spoke w/Maurisio and made aware of referral. Lloyd ALONSO RN CM
[2020-01-12 17:20] LABS: Bedside Glucose 234 mg/dL (70-110)
[2020-01-12] MEDS: oxyCODONE 5 MG Tablet PO (20:16)
[2020-01-12] MEDS: Atorvastatin Calcium 80 MG Tablet PO (22:30)
[2020-01-12 22:35] LABS: Bedside Glucose 221 mg/dL (70-110)
[2020-01-13] VITALS (13 sets, daily range): BP systolic 110–131; BP diastolic 56–84; PULSE 71–95; RESP 14–18; TEMP 36.8–37.2; O2SAT 93–99
[2020-01-13] MEDS: oxyCODONE 5 MG Tablet PO ×2 (02:35→23:44)
[2020-01-13] MEDS: Enoxaparin 40 MG/0.4 ML Syringe SC (06:53)
[2020-01-13] MEDS: Insulin Lispro 100 UNIT/ML INSULN.PEN SC ×3 (06:53→17:11)
[2020-01-13 07:01] LABS: Bedside Glucose 198 mg/dL (70-110)
[2020-01-13 07:14] LABS: Hematocrit 36.2 % (40-54); Hemoglobin 10.7 g/dL (13.0-16.5); Mean Corp Hgb Conc 29.6 g/dL (32-36); Mean Corpuscular Hgb 24.6 pg (27.0-32.0); Mean Corpuscular Volume 83.2 fL (80-94); Mean Platelet Vol. 10.4 fl (6.2-12.0); Platelet Count 118 K/mm3 (150-450); RBC Distribution Width CV 17.2 % (11.6-14.6); RBC Distribution Width SD 51.6 fl (35.1-43.9); Red Blood Count 4.35 M/mm3 (4.6-6.2)
[2020-01-13 07:35] LABS: Anion Gap 7 (5-15); BUN 8 mg/dL (7-18); BUN/Creat Ratio 9.6 RATIO (10-20); Calcium,Total 8.2 mg/dL (8.5-10.1); Chloride 102 mmol/L (98-107); Creatinine, Serum 0.84 mg/dL (0.70-1.30); EST Glomerular Filtration Rate 100 mL/min (>60); Est Glom Filt Rate - Afr Amer 121 mL/min (>60); Estimated Creatinine Clearance 107.01 ml/min; Glucose 188 mg/dL (74-106); Potassium 3.4 mmol/L (3.5-5.1); Sodium Level 137 mmol/L (136-145)
[2020-01-13 08:11] LABS: Magnesium 1.6 mg/dL (1.6-2.6)
--- NOTE | 2020-01-13 08:30 | PCM.PN.CARD ---
Subjectve: The patient appears to be awake and alert. He has been up out of bed to the chair. He does not describe any symptoms of recurrent acute angina pectoris. There is been no evidence of orthopnea or PND. He states he did sense some palpitations. He has had no symptoms of near syncope and there is been no syncope reported. Objective: Vital Signs Temp Pulse Resp BP Pulse Ox 98.5 F 83 16 122/70 H 93 01/13/20 06:48 01/13/20 06:48 01/13/20 06:48 01/13/20 06:48 01/13/20 06:59 Oxygen Flow Rate (L/min) 2 Oxygen Delivery Method Room Air Weight: 209 lb 7.026 oz Body Mass Index (BMI) 27.6 Intake and Output for Last 24 Hours 01/11/20 01/12/20 01/13/20 23:59 23:59 23:59 Intake Total 640 / 640 1020 / 1020 240 / 240 Output Total 1700 / 1700 420 / 420 Balance -1060 / -1060 600 / 600 240 / 240 General: Awake, Alert, Oriented x 3, Cooperative, No Acute Distress HEENT: Atraumatic, Normocephalic, PERRL, EOMI, Sclera Non Icteric Oral: Moist Mucosa Neck: Supple, Good ROM Lungs: Clear to auscultation Cardiovascular: Regular Rhythm, Premature Ectopic Beats, Normal S1, Normal S2 Abdomen: Bowel Sounds Present, Soft Extremities: No edema Psych/Mental Status: Flat Affect 01/13/20 06:38: WBC 6.0, RBC 4.35 L, Hgb 10.7 L, Hct 36.2 L, MCV 83.2, MCH 24.6 L, MCHC 29.6 L, Plt Count 118 L, MPV 10.4 01/13/20 06:38: Sodium 137, Potassium 3.4 L, Chloride 102, Carbon Dioxide 28.0, Anion Gap 7, BUN 8, Creatinine 0.84, Est GFR (MDRD) Af Amer 121, Est GFR (MDRD) Non-Af 100, BUN/Creatinine Ratio 9.6 L, Glucose 188 H, Calcium 8.2 L 01/13/20 06:38: Magnesium 1.6 Rhythm: Sinus rhythm; 2 episodes of nonsustained wide-complex tachycardia 1 of which appeared to have 4 beats and the second 1 which appeared to have 8 beats Medical Necessity - Tobacco Use Smoking Status: Never smoker Assessment/Plan 1. Non-ST segment elevation ID The patient has been undergoing evaluation and care. This is included noninvasive and invasive studies. The present time he is continuing medical management. He has now undergone further evaluation with diagnostic cardiac catheterization and subsequent PCI to the SVG to the OM system. 2. CAD status post previous PCI and previous CABG The patient continues to be monitored. He continues to undergo further evaluation. This has included cardiac catheterization and subsequent PCI as noted above. He will continue medical therapy and follow-up. 3. Status post AVR The patient has undergone echocardiogram. The results are as noted. He will continue AHA antibiotic prophylaxis as deemed appropriate. 4. Nonsustained wide-complex tachycardia appearing c/w with nonsustained VT At the present time the patient was noted to have hypokalemia. He will have potassium supplementation. His rhythm will be watched. 6. Hyperlipidemia The patient will continue medical management. 7. Hypertension The patient's blood pressure will be followed. He will continue medical therapy. 8. Diabetes mellitus The patient will continue evaluation care per internal medicine. This note was generated using a voice recognition system and there may be incorrect words, spelling or punctuation that were not noted when reviewing the office note prior to saving.
[2020-01-13] MEDS: Lisinopril 20 MG Tablet PO ×2 (09:13→22:29)
[2020-01-13] MEDS: Metoprolol Tartrate 50 MG Tablet PO ×2 (09:13→22:29)
[2020-01-13] MEDS: glipiZIDE XL 5 MG Tablet 10 MG PO ×2 (09:13→17:12)
[2020-01-13] MEDS: Isosorbide Mononitrate 60 MG Tablet PO ×2 (09:13→12:44)
[2020-01-13] MEDS: Clopidogrel Bisulfate 75 MG Tablet PO (09:13)
[2020-01-13] MEDS: Aspirin 81 MG TAB.CHEW PO (09:13)
[2020-01-13] MEDS: LINAGLIPTIN 5 MG TABLET PO (09:14)
[2020-01-13] MEDS: Pantoprazole Sodium 20 MG Tablet PO (09:14)
--- NOTE | 2020-01-13 10:00 | EKG12_ITS ---
Test Reason : AM EKG Blood Pressure : / mmHG Vent. Rate : 071 BPM Atrial Rate : 071 BPM P-R Int : 166 ms QRS Dur : 106 ms QT Int : 398 ms P-R-T Axes : 037 006 242 degrees QTc Int : 432 ms Sinus rhythm with Premature supraventricular complexes Marked ST abnormality, possible inferior subendocardial injury Abnormal ECG When compared with ECG of 12-JAN-2020 05:18, MANUAL COMPARISON REQUIRED, DATA IS UNCONFIRMED Confirmed by OMAR DAVIS ([id number]), associate entertainment editor REECE SKAGGS ([id number]) on 01/17/2020 12:46:57 PM Referred By: ANGELI Confirmed By:OMAR DAVIS
--- NOTE | 2020-01-13 12:21 | PCM.PN.HOSP ---
Patient Problems: Active and Suspected Problems (Last Updated 01/11/20 @ 11:28 by Soo Urbano) Stented coronary artery (Acute) Reason for Visit: NSTEMI Subjective: still with exertional chest pain. Vitals/I&O's: Vital Signs Temp Pulse Resp BP Pulse Ox 36.8 C 88 16 131/84 H 96 01/13/20 09:08 01/13/20 09:13 01/13/20 09:08 01/13/20 09:08 01/13/20 09:24 Oxygen Flow Rate (L/min) [ 0 AMBULATING on Room Air] Oxygen Flow Rate (L/min) [At 0 REST on Room Air] Oxygen Flow Rate (L/min) 2 Oxygen Delivery Method Room Air Weight: 95 kg Body Mass Index (BMI) 27.6 Intake and Output for Last 24 Hours 01/11/20 01/12/20 01/13/20 23:59 23:59 23:59 Intake Total 640 / 640 1020 / 1020 240 / 240 Output Total 1700 / 1700 420 / 420 Balance -1060 / -1060 600 / 600 240 / 240 General: Alert, No apparent distress HEENT: Atraumatic, Normocephalic Oral: Moist Mucosa, No Gingival or Mucosal Lesions/ Ulcerations Neck: No Nodes, Thyroid Normal Size and Texture Lungs: Clear to auscultation, Normal air movement, No rhonchi, No wheeze Cardiovascular: Regular rate, Regular Rhythm, Normal S1, Normal S2, No murmurs Abdomen: Bowel Sounds Present, Soft, Non Tender, Non-Distended, No Hepato-splenomegaly Extremities: No edema, No Calf Tenderness Psych/Mental Status: Normal Affect, Appropriate Laboratory Results 01/12/20 16:50: POC Glucose 234 H 01/12/20 22:28: POC Glucose 221 H 01/13/20 06:38: WBC 6.0, RBC 4.35 L, Hgb 10.7 L, Hct 36.2 L, MCV 83.2, MCH 24.6 L, MCHC 29.6 L, RDW Std Deviation 51.6 H, RDW Coeff of Joel 17.2 H, Plt Count 118 L, MPV 10.4 01/13/20 06:38: Sodium 137, Potassium 3.4 L, Chloride 102, Carbon Dioxide 28.0, Anion Gap 7, BUN 8, Creatinine 0.84, Estim Creat Clear Calc 107.01, Est GFR (MDRD) Af Amer 121, Est GFR (MDRD) Non-Af 100, BUN/Creatinine Ratio 9.6 L, Glucose 188 H, Calcium 8.2 L 01/13/20 06:38: Magnesium 1.6 01/13/20 06:52: POC Glucose 198 H Current Medications Acetaminophen (Tylenol) 650 mg PO Q6H PRN PRN PRN Reason: Pain Score 1-10/Temp > 100.7 F Last Admin: 01/11/20 23:44 Dose: 650 mg Documented by: Aspirin (Aspirin, Baby) 81 mg PO DAILY@0800 [facility] Last Admin: 01/13/20 09:13 Dose: 81 mg Documented by: Atorvastatin Calcium (Lipitor) 80 mg PO QHS [facility] Last Admin: 01/12/20 22:30 Dose: 80 mg Documented by: Atropine Sulfate () 0.5 mg IV UD PRN PRN Reason: HR <50 bpm Clopidogrel Bisulfate (Plavix) 75 mg PO DAILY [facility] Last Admin: 01/13/20 09:13 Dose: 75 mg Documented by: Dextrose (D50w Syringe) 0 gm IV X1 PRN; Protocol PRN Reason: Hypoglycemia Enoxaparin Sodium (Lovenox) 40 mg SC DAILY@0600 [facility] Last Admin: 01/13/20 06:53 Dose: 40 mg Documented by: Glipizide (Glucotrol Xl) 10 mg PO BIDCM [facility] Last Admin: 01/13/20 09:13 Dose: 10 mg Documented by: Glucagon () 1 mg IM .X1 PRN PRN Reason: Hypoglycemia Heparin Sodium (Beef Lung) (Heparin 500 Unit/5 Ml (100/Ml)) 500 unit IV UD PRN PRN Reason: HEPARIN FLUSH Insulin Human Lispro (Humalog Kwikpen (Bkc)) 0 unit SC TIDAC [facility]; Protocol Last Admin: 01/13/20 12:14 Dose: 4 units Documented by: Isosorbide Mononitrate (Imdur) 120 mg PO DAILY [facility] Labetalol HCl (Trandate) 5 mg IV X1 PRN PRN Reason: SBP > 160 when pulling sheath Linagliptin (Tradjenta) 5 mg PO DAILY [facility] Last Admin: 01/13/20 09:14 Dose: 5 mg Documented by: Lisinopril (Zestril) 20 mg PO BID [facility] Last Admin: 01/13/20 09:13 Dose: 20 mg Documented by: Metoclopramide HCl (Reglan) 5 mg IV Q6H PRN PRN PRN Reason: NAUSEA/VOMITING Metoprolol Tartrate (Lopressor (Beta Mia)) 50 mg PO BID [facility] Last Admin: 01/13/20 09:13 Dose: 50 mg Documented by: Morphine Sulfate () 2 - 4 mg IV Q4H PRN PRN PRN Reason: Pain Score 1-10/10 Last Admin: 01/11/20 11:25 Dose: 2 mg Documented by: Nitroglycerin (Nitrostat) 0.4 mg SUBLINGUAL Q5M PRN PRN Reason: CARDIAC/CHEST PAIN Ondansetron HCl (Zofran) 4 mg IV Q8H PRN PRN PRN Reason: NAUSEA/VOMITING Oxycodone HCl (Oxyir) 5 mg PO Q4H PRN PRN PRN Reason: Pain Score 6-10/10 Last Admin: 01/13/20 02:35 Dose: 5 mg Documented by: Pantoprazole Sodium (Protonix) 20 mg PO DAILY [facility] Last Admin: 01/13/20 09:14 Dose: 20 mg Documented by: Sodium Chloride () 10 - 40 ml IV UD PRN PRN Reason: SALINE FLUSH Last Admin: 01/11/20 20:59 Dose: 40 ml Documented by: Sodium Chloride () 500 ml IV BOLUS PRN PRN Reason: VASO-VAGAL PROTOCOL Sodium Chloride () 10 - 40 ml IV UD PRN PRN Reason: SALINE FLUSH STROKE Vital Signs/Narrative: Vital Signs Temp Pulse Resp BP Pulse Ox Pulse Ox Pulse Ox 01/13/20 09:24 95 96 01/13/20 09:13 88 01/13/20 09:08 36.8 C 88 16 131/84 H 96 Medical Necessity - Tobacco Use Smoking Status: Never smoker Assessment/Plan All Active Problems (Last Updated 01/11/20 @ 11:28 by Soo Urbano) NSTEMI (non-ST elevated myocardial infarction) (Acute) Stented coronary artery (Acute) Atrial flutter (Resolved) Feeling grief (Acute) Shoulder pain, right (Acute) 1. Non-ST elevation myocardial infarction: Troponin is peaked at 0.397. Continue with aspirin, high intensity statin and clopidogrel. Patient did receive ticagrelor in the emergency room. 01/10: patient had stent to SVG to OM. still with chest pain. DW Dr. Go, nitrates adjusted. Will monitor for response in the hospital. 2. Atrial fibrillation: Rate controlled at this time. Continue with metoprolol. 3. Waldenstr?m's macroglobulinemia: Complicates care. Follow-up with Dr. Schmitt as outpatient. Patient receives IVIG through Dr. Schmitt 4. Diabetes mellitus type 2: metformin held for LHC and contrast. Moderate scale sliding scale insulin. 5. VTE prophylaxis: Enoxaparin Inpatient E&M: 98049 Subs Hosp L2
[2020-01-13 12:30] LABS: Bedside Glucose 284 mg/dL (70-110)
[2020-01-13] MEDS: 0.9% Saline Lock 10 ML Syringe IV (13:19)
[2020-01-13] MEDS: Bisacodyl 5 MG Tablet 10 MG PO (14:19)
[2020-01-13 17:20] LABS: Bedside Glucose 258 mg/dL (70-110)
[2020-01-13] MEDS: Atorvastatin Calcium 80 MG Tablet PO (22:29)
[2020-01-13 22:46] LABS: Bedside Glucose 207 mg/dL (70-110)
[2020-01-14] VITALS (13 sets, daily range): BP systolic 107–128; BP diastolic 64–92; PULSE 76–89; RESP 16–18; TEMP 36.6–36.8; O2SAT 94–100
[2020-01-14] MEDS: Enoxaparin 40 MG/0.4 ML Syringe SC (05:48)
[2020-01-14] MEDS: Insulin Lispro 100 UNIT/ML INSULN.PEN SC ×3 (06:56→17:01)
[2020-01-14 07:10] LABS: Bedside Glucose 153 mg/dL (70-110)
[2020-01-14 07:25] LABS: Anion Gap 5 (5-15); BUN 10 mg/dL (7-18); BUN/Creat Ratio 10.3 RATIO (10-20); Calcium,Total 8.6 mg/dL (8.5-10.1); Chloride 103 mmol/L (98-107); Creatinine, Serum 0.98 mg/dL (0.70-1.30); EST Glomerular Filtration Rate 84 mL/min (>60); Est Glom Filt Rate - Afr Amer 101 mL/min (>60); Estimated Creatinine Clearance 91.72 ml/min; Glucose 155 mg/dL (74-106); Potassium 3.2 mmol/L (3.5-5.1); Sodium Level 136 mmol/L (136-145)
[2020-01-14] MEDS: Clopidogrel Bisulfate 75 MG Tablet PO (08:32)
[2020-01-14] MEDS: glipiZIDE XL 5 MG Tablet 10 MG PO ×2 (08:32→17:01)
[2020-01-14] MEDS: Aspirin 81 MG TAB.CHEW PO (08:32)
[2020-01-14] MEDS: Pantoprazole Sodium 20 MG Tablet PO (08:33)
[2020-01-14] MEDS: Lisinopril 20 MG Tablet PO ×2 (08:33→21:14)
[2020-01-14] MEDS: Metoprolol Tartrate 50 MG Tablet PO ×2 (08:33→21:13)
[2020-01-14] MEDS: LINAGLIPTIN 5 MG TABLET PO (08:33)
--- NOTE | 2020-01-14 08:41 | PN_ITS ---
Patient Problems: Active and Suspected Problems (Last Updated 01/11/20 @ 11:28 by Soo Urbano) Stented coronary artery (Acute) Reason for Visit: NSTEMI Subjective: still with exertional chest pain. Very concerned about this being resolved prior to discharge. Vitals/I&O's: Vital Signs Temp Pulse Resp BP Pulse Ox 36.6 C 88 16 125/69 H 99 01/14/20 08:16 01/14/20 08:33 01/14/20 08:16 01/14/20 08:16 01/14/20 08:16 Oxygen Flow Rate (L/min) [ 0 AMBULATING on Room Air] Oxygen Flow Rate (L/min) [At 0 REST on Room Air] Oxygen Flow Rate (L/min) 2 Oxygen Delivery Method Room Air Weight: 95 kg Body Mass Index (BMI) 27.6 Intake and Output for Last 24 Hours 01/12/20 01/13/20 01/14/20 23:59 23:59 23:59 Intake Total 1020 / 1020 544 / 544 200 / 200 Output Total 420 / 420 Balance 600 / 600 544 / 544 200 / 200 General: Alert, No apparent distress HEENT: Atraumatic, Normocephalic Oral: Moist Mucosa, No Gingival or Mucosal Lesions/ Ulcerations Neck: No Nodes, Thyroid Normal Size and Texture Lungs: Clear to auscultation, Normal air movement, No rhonchi, No wheeze, No rales Cardiovascular: Regular rate, Regular Rhythm, Normal S1, Normal S2, No murmurs Abdomen: Bowel Sounds Present, Soft, Non Tender, Non-Distended Extremities: No edema, No Calf Tenderness Skin: No rashes, No breakdown Psych/Mental Status: Normal Affect, Appropriate Laboratory Results 01/13/20 12:12: POC Glucose 284 H 01/13/20 17:10: POC Glucose 258 H 01/13/20 22:32: POC Glucose 207 H 01/14/20 06:44: Sodium 136, Potassium 3.2 L, Chloride 103, Carbon Dioxide 28.0, Anion Gap 5, BUN 10, Creatinine 0.98, Estim Creat Clear Calc 91.72, Est GFR (MDRD) Af Amer 101, Est GFR (MDRD) Non-Af 84, BUN/Creatinine Ratio 10.3, Glucose 155 H, Calcium 8.6, Magnesium 2.0 01/14/20 06:54: POC Glucose 153 H Current Medications Acetaminophen (Tylenol) 650 mg PO Q6H PRN PRN PRN Reason: Pain Score 1-10/Temp > 100.7 F Last Admin: 01/11/20 23:44 Dose: 650 mg Documented by: Aspirin (Aspirin, Baby) 81 mg PO DAILY@0800 [facility] Last Admin: 01/14/20 08:32 Dose: 81 mg Documented by: Atorvastatin Calcium (Lipitor) 80 mg PO QHS [facility] Last Admin: 01/13/20 22:29 Dose: 80 mg Documented by: Atropine Sulfate () 0.5 mg IV UD PRN PRN Reason: HR <50 bpm Clopidogrel Bisulfate (Plavix) 75 mg PO DAILY [facility] Last Admin: 01/14/20 08:32 Dose: 75 mg Documented by: Dextrose (D50w Syringe) 0 gm IV X1 PRN; Protocol PRN Reason: Hypoglycemia Enoxaparin Sodium (Lovenox) 40 mg SC DAILY@0600 [facility] Last Admin: 01/14/20 05:48 Dose: 40 mg Documented by: [facility] Last Admin: 01/14/20 08:32 Dose: 10 mg Documented by: Glucagon () 1 mg IM .X1 PRN PRN Reason: Hypoglycemia Heparin Sodium (Beef Lung) (Heparin 500 Unit/5 Ml (100/Ml)) 500 unit IV UD PRN PRN Reason: HEPARIN FLUSH Insulin Human Lispro (Humalog Kwikpen (Bkc)) 0 unit SC TIDAC [facility]; Protocol Last Admin: 01/14/20 06:56 Dose: 1 units Documented by: Isosorbide Mononitrate (Imdur) 120 mg PO DAILY [facility] Last Admin: 01/14/20 08:34 Dose: 120 mg Documented by: Labetalol HCl (Trandate) 5 mg IV X1 PRN PRN Reason: SBP > 160 when pulling sheath Linagliptin (Tradjenta) 5 mg PO DAILY [facility] Last Admin: 01/14/20 08:33 Dose: 5 mg Documented by: Lisinopril (Zestril) 20 mg PO BID [facility] Last Admin: 01/14/20 08:33 Dose: 20 mg Documented by: Metoclopramide HCl (Reglan) 5 mg IV Q6H PRN PRN PRN Reason: NAUSEA/VOMITING Metoprolol Tartrate (Lopressor (Beta Mia)) 50 mg PO BID [facility] Last Admin: 01/14/20 08:33 Dose: 50 mg Documented by: Morphine Sulfate () 2 - 4 mg IV Q4H PRN PRN PRN Reason: Pain Score 1-10/10 Last Admin: 01/11/20 11:25 Dose: 2 mg Documented by: Nitroglycerin (Nitrostat) 0.4 mg SUBLINGUAL Q5M PRN PRN Reason: CARDIAC/CHEST PAIN Ondansetron HCl (Zofran) 4 mg IV Q8H PRN PRN PRN Reason: NAUSEA/VOMITING Oxycodone HCl (Oxyir) 5 mg PO Q4H PRN PRN PRN Reason: Pain Score 6-10/10 Last Admin: 01/13/20 23:44 Dose: 5 mg Documented by: Pantoprazole Sodium (Protonix) 20 mg PO DAILY [facility] Last Admin: 01/14/20 08:33 Dose: 20 mg Documented by: Sodium Chloride () 10 - 40 ml IV UD PRN PRN Reason: SALINE FLUSH Last Admin: 01/13/20 13:19 Dose: 10 ml Documented by: Sodium Chloride () 500 ml IV BOLUS PRN PRN Reason: VASO-VAGAL PROTOCOL Sodium Chloride () 10 - 40 ml IV UD PRN PRN Reason: SALINE FLUSH STROKE Vital Signs/Narrative: Vital Signs Temp Pulse Resp BP Pulse Ox 01/14/20 08:33 88 01/14/20 08:16 36.6 C 88 16 125/69 H 99 01/14/20 06:58 85 01/14/20 05:35 36.8 C 76 18 119/77 100 Medical Necessity - Tobacco Use Smoking Status: Never smoker Assessment/Plan All Active Problems (Last Updated 01/11/20 @ 11:28 by Soo Urbano) NSTEMI (non-ST elevated myocardial infarction) (Acute) Stented coronary artery (Acute) Atrial flutter (Resolved) Feeling grief (Acute) Shoulder pain, right (Acute) 1. Non-ST elevation myocardial infarction: * Troponin is peaked at 0.397. * Continue with aspirin, high intensity statin and clopidogrel. Patient did receive ticagrelor in the emergency room. * 01/10: patient had stent to SVG to OM. * still with chest pain. * DW Dr. Go, nitrates adjusted.Will have nursing ambulate after receiving isosorbide. May consider Ranexa. 2. Atrial fibrillation: Rate controlled at this time. Continue with metoprolol. 3. Waldenstr?m's macroglobulinemia: Complicates care. Follow-up with Dr. Schmitt as outpatient. Patient receives IVIG through Dr. Schmitt 4. Diabetes mellitus type 2: metformin held for LHC and contrast. Moderate scale sliding scale insulin. 5. VTE prophylaxis: Enoxaparin Inpatient E&M: 96690 Subs Hosp L2
--- NOTE | 2020-01-14 10:00 | EKG12_ITS ---
Test Reason : AM Blood Pressure : / mmHG Vent. Rate : 078 BPM Atrial Rate : 078 BPM P-R Int : 162 ms QRS Dur : 104 ms QT Int : 382 ms P-R-T Axes : 045 006 -67 degrees QTc Int : 435 ms Normal sinus rhythm ST & T wave abnormality, consider inferior ischemia ST & T wave abnormality, consider anterolateral ischemia Abnormal ECG When compared with ECG of 13-JAN-2020 05:35, MANUAL COMPARISON REQUIRED, DATA IS UNCONFIRMED Confirmed by OMAR DAVIS [id number]), editor house organ REECE SKAGGS ([id number] on 01/17/2020 12:47:55 PM Referred By: ANGELI Confirmed By:OMAR DAVIS
--- NOTE | 2020-01-14 10:04 | PCM.PN.CARD ---
Subjectve: The patient is awake and alert this morning. He states when he is walked he has noted exertional chest discomfort. He states he wants to feel better before going home and then having to return to the hospital. Objective: Vital Signs Temp Pulse Resp BP Pulse Ox 97.8 F 88 16 125/69 H 99 01/14/20 08:16 01/14/20 08:33 01/14/20 08:16 01/14/20 08:16 01/14/20 08:16 Oxygen Flow Rate (L/min) [ 0 AMBULATING on Room Air] Oxygen Flow Rate (L/min) [At 0 REST on Room Air] Oxygen Flow Rate (L/min) 2 Oxygen Delivery Method Room Air Weight: 209 lb 7.026 oz Body Mass Index (BMI) 27.6 Intake and Output for Last 24 Hours 01/12/20 01/13/20 01/14/20 23:59 23:59 23:59 Intake Total 1020 / 1020 544 / 544 200 / 200 Output Total 420 / 420 Balance 600 / 600 544 / 544 200 / 200 General: Awake, Cooperative, No Acute Distress Neck: No JVD Lungs: Clear to auscultation Cardiovascular: Regular Rhythm, Normal S1, Normal S2 Abdomen: Bowel Sounds Present, Soft Psych/Mental Status: Flat Affect 01/14/20 06:44: Sodium 136, Potassium 3.2 L, Chloride 103, Carbon Dioxide 28.0, Anion Gap 5, BUN 10, Creatinine 0.98, Est GFR (MDRD) Af Amer 101, Est GFR (MDRD) Non-Af 84, BUN/Creatinine Ratio 10.3, Glucose 155 H, Calcium 8.6, Magnesium 2.0 Rhythm: Sinus rhythm; occasional PVC Medical Necessity - Tobacco Use Smoking Status: Never smoker Assessment/Plan 1. Non-ST segment elevation MT The patient has been undergoing evaluation and care. This is included noninvasive and invasive studies. He has now undergone further evaluation with diagnostic cardiac catheterization and subsequent PCI to the SVG to the OM system. 2. CAD status post previous PCI and previous CABG The patient continues to be monitored. He continues to undergo further evaluation. This has included cardiac catheterization and subsequent PCI as noted above. He will continue medical therapy and follow-up. As he has had continued exertional symptoms his medications have been adjusted. His nitrates have been increased. If he continues to have symptoms then perhaps he is a candidate for additional medical therapy such as Ranexa. As an outpatient he may be a candidate for EECP therapy barring a contraindication. 3. Status post AVR The patient has undergone echocardiogram. The results are as noted. He will continue AHA antibiotic prophylaxis as deemed appropriate. 4. Nonsustained wide-complex tachycardia appearing c/w with nonsustained VT At the present time the patient was noted to have hypokalemia. His potassium level was supplemented. However it is noted to be low this morning. He is receiving additional oral potassium supplements. 6. Hyperlipidemia The patient will continue medical management. 7. Hypertension The patient's blood pressure will be followed. He will continue medical therapy. 8. Diabetes mellitus The patient will continue evaluation care per internal medicine. Comment: The patient's case was discussed and reviewed with the patient and Dr. Pressley. This note was generated using a voice recognition system and there may be incorrect words, spelling or punctuation that were not noted when reviewing the office note prior to saving.
[2020-01-14] MEDS: Magnesium Citrate 300 ML 150 ML PO (10:16)
[2020-01-14 12:00] LABS: Bedside Glucose 277 mg/dL (70-110)
[2020-01-14 17:20] LABS: Bedside Glucose 195 mg/dL (70-110)
[2020-01-14] MEDS: Ranolazine 500 MG Tablet PO (21:13)
[2020-01-14] MEDS: Atorvastatin Calcium 80 MG Tablet PO (21:13)
[2020-01-14] MEDS: oxyCODONE 5 MG Tablet PO (21:14)
[2020-01-14 21:30] LABS: Bedside Glucose 196 mg/dL (70-110)
[2020-01-15 03:00] VITALS: BP 115/84; PULSE 80; PULSE 82; RESP 18; TEMP 36.6; O2SAT 100
[2020-01-15] MEDS: Enoxaparin 40 MG/0.4 ML Syringe SC (05:52)
[2020-01-15] MEDS: Insulin Lispro 100 UNIT/ML INSULN.PEN SC (06:42)
[2020-01-15 06:54] VITALS: PULSE 79
[2020-01-15 07:00] VITALS: O2SAT 96
[2020-01-15 07:00] LABS: Bedside Glucose 186 mg/dL (70-110)
[2020-01-15 08:08] VITALS: BP 129/79; PULSE 86; RESP 14; TEMP 36.6; O2SAT 98
[2020-01-15] MEDS: glipiZIDE XL 5 MG Tablet 10 MG PO (08:17)
[2020-01-15] MEDS: Pantoprazole Sodium 20 MG Tablet PO (08:18)
[2020-01-15] MEDS: Aspirin 81 MG TAB.CHEW PO (08:18)
[2020-01-15 08:19] VITALS: BP 129/79; PULSE 86
[2020-01-15] MEDS: Metoprolol Tartrate 50 MG Tablet PO (08:19)
[2020-01-15] MEDS: Clopidogrel Bisulfate 75 MG Tablet PO (08:19)
[2020-01-15] MEDS: LINAGLIPTIN 5 MG TABLET PO (08:21)
[2020-01-15] MEDS: Ranolazine 500 MG Tablet PO (08:21)
[2020-01-15] MEDS: Lisinopril 20 MG Tablet PO (08:21)
--- NOTE | 2020-01-15 09:03 | PN.CARD_ITS ---
Subjectve: Patient seen and examined this morning, patient reports improvement of his chest pain since starting on pantoprazole. History is somewhat difficult as he has a poor understanding of his cardiac condition. He denies any pleuritic type chest pain, or recumbent chest pain. He has ambulated through the floors and has had minimal exertional anginal symptoms. EKG shows normal sinus rhythm with resolving inferolateral ST segment depression T wave inversion. Telemetry shows normal sinus rhythm with rare PVCs. His right groin is clean/dry/intact. Objective: Vital Signs Temp Pulse Resp BP Pulse Ox 97.8 F 86 14 129/79 H 98 01/15/20 08:08 01/15/20 08:19 01/15/20 08:08 01/15/20 08:19 01/15/20 08:08 Oxygen Flow Rate (L/min) [ 0 AMBULATING on Room Air] Oxygen Flow Rate (L/min) [At 0 REST on Room Air] Oxygen Flow Rate (L/min) 2 Oxygen Delivery Method Room Air Weight: 209 lb 7.026 oz Body Mass Index (BMI) 27.6 Intake and Output for Last 24 Hours 01/13/20 01/14/20 01/15/20 23:59 23:59 23:59 Intake Total 544 / 544 400 / 400 300 / 300 Balance 544 / 544 400 / 400 300 / 300 General: Awake, Alert, Oriented x 3 HEENT: PERRL, EOMI, Sclera Non Icteric Neck: Supple, Good ROM, No Lymph Node Enlargement Lungs: Clear to auscultation Cardiovascular: Regular Rhythm, Normal S1, Normal S2, No Murmurs, No Rubs, No Gallops Vascular: No Carotid Bruits, Normal Femoral Pulses, Normal Radial Pulses, Normal Dorsalis Pedal Pulse, Normal Posterior Tibial Pulses Abdomen: Bowel Sounds Present, Soft, Non Tender, No HSM, No Organomegaly Extremities: No Cyanosis, No Clubbing, No edema Neurological: No Focal Motor or Sensory Deficit Rhythm: EKG: ECHO: Stress Test: Cardiac Cath: PCI: CT Surgery: Holter monitor: EPS: PPM: CXR: Chest CT Scan: Medical Necessity - Tobacco Use Smoking Status: Never smoker Assessment/Plan 1. Coronary artery disease: Patient did well after catheterization was found to have 2 critical lesions in 2 separate segments of an old saphenous vein graft to a very small obtuse marginal branch. The patient underwent angioplasty and stenting x3 of his saphenous vein graft with a good result. Subsequent to that the patient continued to have chest pain which is slowly resolving. It was felt the patient's pain may be GI related and he was started on PPI therapy. At this point the patient's chest pain appears to be tolerable, and does not appear to be pericarditis in nature. Recommend continuing baby aspirin, Plavix, PPI and Imdur therapy. I believe the patient can be discharged home and I explained to him that he may continue to have some chest pain as this resolves. I recommend the patient ambulate throughout the floor today, and determine whether or not he has any further exertional angina is noted to avoid readmission. 2. Hyperlipidemia: Continue Lipitor therapy. 3. Aortic valve replacement: The patient is status post bioprosthetic aortic valve replacement and denies any fevers, chills, or any other signs of infection. 4. Thank you very much for the opportunity to participate in the cardiac care of your patient. She may be discharged home if ambulating without difficulty. Inpatient E&M: [id number] [facility] Hosp L2
--- NOTE | 2020-01-15 09:36 | PCM.DC ---
- Discharge Diagnoses Current Active Problems: Current Active and Chronic Problems (Last Updated 01/11/20 @ 11:28 by Soo Urbano) Atherosclerosis of coronary artery (Chronic) Stented coronary artery (Acute) You will use the following diet at home:: Calorie/Carbohydrate Controlled (specify 1200, 1400, etc) - 1800, Cardiac Your food should be the consistency of: Regular Your liquids should be the consistency of: Regular/Thin Call your doctor if you observe: Shortness of breath, Chest pain Allergies/Adverse Reactions: Allergies adhesive tape Adverse Reaction (Intermediate, Verified 01/10/20 07:10) Rash Medications to take at Discharge Metoprolol Tartrate [Lopressor (beta yoselin)] 50 mg PO BID 01/27/15 Nitroglycerin (INPATIENT USE) [Nitrostat] 0.4 mg SUBLINGUAL Q5M PRN 12/18/16 Glipizide [Glipizide ER] 10 mg PO BID 02/03/18 Omeprazole 20 mg PO DAILY 02/03/18 Aspirin [Aspirin, Baby] 81 mg PO DAILY@0800 #30 tab.chew 02/05/18 Atorvastatin Calcium [Lipitor] 80 mg PO QHS #30 tab 02/05/18 Clopidogrel Bisulfate [Plavix] 75 mg PO DAILY #30 tab 02/05/18 Lisinopril [Zestril] 20 mg PO BID #60 tab 02/05/18 Sitagliptin Phosphate [Januvia] 100 mg PO DAILY 01/10/20 Isosorbide Mononitrate [Imdur] 120 mg PO DAILY #30 tab 01/15/20 Ranolazine [Ranexa] 500 mg PO BID #60 tab 01/15/20 metFORMIN HCl [Glucophage] 1,000 mg PO BIDCM #60 tab 01/15/20 The following prescriptions were given: Isosorbide Mononitrate [Imdur] 120 mg PO DAILY #30 tab Transmission Status: Received by [facility] Ranolazine [Ranexa] 500 mg PO BID #60 tab Transmission Status: Received by [facility] Orders to be completed after discharge: Phase II, Outpatient Cardiac Rehab Location: None Selected Primary Care Physician: Manuela Damico DO [Primary Care Provider] - Within 2 Weeks Test Results: Test results from this visit will be discussed in further detail at your follow-up appointment, if applicable. Please Follow Up With: Paula Muñoz PA When: 02/03/2020, already scheduled Please Follow Up With: Manuela Damico DO Proposed Discharge Date: 01/15/20
--- NOTE | 2020-01-15 09:38 | PCM.DC.SUM ---
Discharge Date and Diagnosis - Problem List Patient Problems: Active and Suspected Problems (Last Updated 01/11/20 @ 11:28 by Soo Urbano) Stented coronary artery (Acute) Date of Admission: 01/10/20 Date of Discharge: 01/15/20 - Primary Discharge Diagnosis Acute Problems: Active Problems (Last Updated 01/11/20 @ 11:28 by Soo Urbano) 1. Non-ST elevation myocardial infarction: Troponin is peaked at 0.397. Continue with aspirin, high intensity statin and clopidogrel. Patient did receive ticagrelor in the emergency room. 01/10: patient had stent to SVG to OM. still with chest pain. Isosorbide increased to 120 from 60. Ranolazine started. Anticipate ongoing exertional chest pain for several more days. Cardiology follow up. 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 Hodgkins lymphoma (Chronic) Status post coronary artery bypass graft (Chronic) Status post aortic valve replacement with bioprosthetic valve (Chronic) Type 2 diabetes mellitus (Chronic) Tinea unguium (Chronic) Diabetes mellitus with neuropathy (Chronic) Poor hygiene (Chronic) Nonfamilial hypogammaglobulinemia (Chronic) Hospital Course and Treatment Imaging Results: Clinical Impression(s) from Imaging Studies Acute Abdomen Series 01/10/20 07:33 IMPRESSION: Bowel gas pattern is unremarkable, no plain film evidence of ileus or obstruction Likely cholelithiasis Degenerative bony changes Chronic interstitial changes in both lung enil with remote CABG, no acute pulmonary process Electronically Signed: Marcos Odonnell MD at 7:53 EDT , Service support , Gallbladder Ultrasound 01/10/20 11:03 IMPRESSION: 1. Limited study due to patient habitus and bowel gas. The pancreas is not seen. There is limited visualization of the left liver. 2. Echogenic liver parenchyma suggesting fatty infiltration. 3. Gallstones without secondary evidence of acute cholecystitis. Electronically Signed: Scott Soriano DO at 21:10 EDT Tel [phone], Service support , Chest X-Ray 01/11/20 12:20 IMPRESSION: Degenerative changes, as described above. No demonstrated acute cardiopulmonary process. Electronically Signed: Marcos Odonnell MD at 12:47 EDT , Service support , [employer] Operations: None Procedures: Cardiac catheterization - Successful PTCA/JOSE G of mid SVG to OM, with filter wire assistance, utilzing a 4.0 x 20 Promus Synergy at 12 batsheva: 85%-->0%, no dissection. Successful PTCA/JOSE G proximal SVG to OM, with filter wire assistance, utilizing a 4.0 x 20 Promus Synergy, followed immediately upstream with a 4.0 x 8 Promus Synergy, followed by post stent dilation with a 5.0 x 8 NC Balloon at 8 batsheva, 75%-->0%, no dissection. Additional short stent placed due to retrograde plaque shifting. Summary of Care Provided: The patient is a 59 year old M presents with chest pain. Patient was found to have non-ST patient myocardial infarction. Troponins peaked at 0.322. Patient underwent a left heart catheterization on the and had a drug-eluting stent to the mid saphenous vein graft to the obtuse marginal. Afterwards, patient was still having chest pain with exertion. Patient's isosorbide was increased from 6820 but the symptoms still persisted. Ranolazine was initiated on the and patient is ambulating in the hallway still having this discomfort as well as shortness of breath. Cardiology anticipates patient will still have the symptoms for 7 more days,. Patient is stable for discharge from a cardiac standpoint. Patient will follow-up with cardiology next month. Patient will be enrolled at the discretion of cardiology into cardiac rehab at some point afterwards. [] Patient Problems: Active and Suspected Problems (Last Updated 01/11/20 @ 11:28 by Soo Urbano) Stented coronary artery (Acute) - Physical Exam Vitals/I&O's: Vital Signs Temp Pulse Resp BP Pulse Ox 36.6 C 86 14 129/79 H 98 01/15/20 08:08 01/15/20 08:19 01/15/20 08:08 01/15/20 08:19 01/15/20 08:08 Oxygen Flow Rate (L/min) [ 0 AMBULATING on Room Air] Oxygen Flow Rate (L/min) [At 0 REST on Room Air] Oxygen Flow Rate (L/min) 2 Oxygen Delivery Method Room Air Weight: 95 kg Body Mass Index (BMI) 27.6 Intake and Output for Last 24 Hours 01/13/20 01/14/20 01/15/20 23:59 23:59 23:59 Intake Total 544 / 544 400 / 400 300 / 300 Balance 544 / 544 400 / 400 300 / 300 General: Alert, No apparent distress Neck: No Nodes, Thyroid Normal Size and Texture Lungs: Clear to auscultation, Normal air movement, No rhonchi, No wheeze Cardiovascular: Regular rate, Regular Rhythm, Normal S1, Normal S2, No murmurs Abdomen: Bowel Sounds Present, Soft, Non Tender, Non-Distended, No Hepato-splenomegaly Extremities: No edema, No Calf Tenderness Psych/Mental Status: Normal Affect, Appropriate Laboratory Results 01/14/20 11:25: POC Glucose 277 H 01/14/20 16:58: POC Glucose 195 H 01/14/20 21:19: POC Glucose 196 H 01/15/20 06:40: POC Glucose 186 H Current Medications Acetaminophen (Tylenol) 650 mg PO Q6H PRN PRN PRN Reason: Pain Score 1-10/Temp > 100.7 F Last Admin: 01/11/20 23:44 Dose: 650 mg Documented by: Aspirin (Aspirin, Baby) 81 mg PO DAILY@0800 [facility] Last Admin: 01/15/20 08:18 Dose: 81 mg Documented by: Atorvastatin Calcium (Lipitor) 80 mg PO QHS [facility] Last Admin: 01/14/20 21:13 Dose: 80 mg Documented by: Atropine Sulfate () 0.5 mg IV UD PRN PRN Reason: HR <50 bpm Clopidogrel Bisulfate (Plavix) 75 mg PO DAILY [facility] Last Admin: 01/15/20 08:19 Dose: 75 mg Documented by: Dextrose (D50w Syringe) 0 gm IV X1 PRN; Protocol PRN Reason: Hypoglycemia Enoxaparin Sodium (Lovenox) 40 mg SC DAILY@0600 [facility] Last Admin: 01/15/20 05:52 Dose: 40 mg Documented by: [facility] ([facility]l) [facility] Last Admin: 01/15/20 08:17 Dose: 10 mg Documented by: Glucagon () 1 mg IM .X1 PRN PRN Reason: Hypoglycemia Heparin Sodium (Beef Lung) (Heparin 500 Unit/5 Ml (100/Ml)) 500 unit IV UD PRN PRN Reason: HEPARIN FLUSH Insulin Human Lispro (Humalog Kwikpen (Bkc)) 0 unit SC TIDAC [facility]; Protocol Last Admin: 01/15/20 06:42 Dose: 1 units Documented by: Isosorbide Mononitrate (Imdur) 120 mg PO DAILY [facility] Last Admin: 01/15/20 08:20 Dose: 120 mg Documented by: Labetalol HCl (Trandate) 5 mg IV X1 PRN PRN Reason: SBP > 160 when pulling sheath Linagliptin (Tradjenta) 5 mg PO DAILY [facility] Last Admin: 01/15/20 08:21 Dose: 5 mg Documented by: Lisinopril (Zestril) 20 mg PO BID [facility] Last Admin: 01/15/20 08:21 Dose: 20 mg Documented by: Metoclopramide HCl (Reglan) 5 mg IV Q6H PRN PRN PRN Reason: NAUSEA/VOMITING Metoprolol Tartrate (Lopressor (Beta Mia)) 50 mg PO BID [facility] Last Admin: 01/15/20 08:19 Dose: 50 mg Documented by: Morphine Sulfate () 2 - 4 mg IV Q4H PRN PRN PRN Reason: Pain Score 1-10/10 Last Admin: 01/11/20 11:25 Dose: 2 mg Documented by: Nitroglycerin (Nitrostat) 0.4 mg SUBLINGUAL Q5M PRN PRN Reason: CARDIAC/CHEST PAIN Ondansetron HCl (Zofran) 4 mg IV Q8H PRN PRN PRN Reason: NAUSEA/VOMITING Oxycodone HCl (Oxyir) 5 mg PO Q4H PRN PRN PRN Reason: Pain Score 6-10/10 Last Admin: 01/14/20 21:14 Dose: 5 mg Documented by: Pantoprazole Sodium (Protonix) 20 mg PO DAILY [facility] Last Admin: 01/15/20 08:18 Dose: 20 mg Documented by: Ranolazine (Ranexa) 500 mg PO BID [facility] Last Admin: 01/15/20 08:21 Dose: 500 mg Documented by: Sodium Chloride () 10 - 40 ml IV UD PRN PRN Reason: SALINE FLUSH Last Admin: 01/13/20 13:19 Dose: 10 ml Documented by: Sodium Chloride () 500 ml IV BOLUS PRN PRN Reason: VASO-VAGAL PROTOCOL Sodium Chloride () 10 - 40 ml IV UD PRN PRN Reason: SALINE FLUSH Discharge Diet: No Restrictions Call your doctor if you observe: Shortness of breath, Chest pain Home Medications: Medications to take at Discharge Metoprolol Tartrate [Lopressor (beta mia)] 50 mg PO BID 01/27/15 Nitroglycerin (INPATIENT USE) [Nitrostat] 0.4 mg SUBLINGUAL Q5M PRN 12/18/16 Glipizide [Glipizide ER] 10 mg PO BID 02/03/18 Omeprazole 20 mg PO DAILY 02/03/18 Aspirin [Aspirin, Baby] 81 mg PO DAILY@0800 #30 tab.chew 02/05/18 Atorvastatin Calcium [Lipitor] 80 mg PO QHS #30 tab 02/05/18 Clopidogrel Bisulfate [Plavix] 75 mg PO DAILY #30 tab 02/05/18 Lisinopril [Zestril] 20 mg PO BID #60 tab 02/05/18 Sitagliptin Phosphate [Januvia] 100 mg PO DAILY 01/10/20 Isosorbide Mononitrate [Imdur] 120 mg PO DAILY #30 tab 01/15/20 Ranolazine [Ranexa] 500 mg PO BID #60 tab 01/15/20 metFORMIN HCl [Glucophage] 1,000 mg PO BIDCM #60 tab 01/15/20 Following Prescrptions Were Given to Patient: Isosorbide Mononitrate [Imdur] 120 mg PO DAILY #30 tab Transmission Status: Received by [facility] Ranolazine [Ranexa] 500 mg PO BID #60 tab Transmission Status: Received by [facility] Other Amb Orders: Phase II, Outpatient Cardiac Rehab Location: None Selected Primary Care Physician: Manuela Damico DO [Primary Care Provider] - Within 2 Weeks Please Follow Up With: Paula Muñoz PA When: 02/03/2020, already scheduled Please Follow Up With: Manuela Damico DO Disposition: Home Minutes spent on discharge:: 32 Patient Condition:: Fair Medical Necessity - Tobacco Use Smoking Status: Never smoker Meaningful Use Info Meaningful Use Diagnoses (Choose all that apply): AMI - AMI/Post PCI/Angioplasty Aspirin given w/in 24hrs of arrival?: Yes ASA at discharge?: Yes Statins at discharge?: Yes Servando/ARB at discharge?: Yes Beta Mia at discharge?: Yes Done w/ Acute [place] measure.: Yes Documented LVEF (%): 60 Inpatient E&M: 96907 Disch Hosp
--- NOTE | 2020-01-27 13:16 | CCN.REFER ---
Patient declined CCN. Patient was active with [facility]N in 2017, and he frequently cancelled or no showed to home visits. [facility] staff attempted to get patient back in [facility] this time around, and he adamantly declined. Patient also meets with Dulce Stark Patient Navigator. Dulce notified that [facility] would like to work with patient again. Patient declined CCN to Dulce as well.
== END 2020-01-15 10:15 | disposition home or self-care (01) | DRG 247 ==
LOC: ED 07:55 → PCU 08:47 → ICU 01-12 09:42 → PCU 01-12 14:06
PROVIDERS: Internal Medicine Cardiovascular Disease; Nurse Practitioner Family; Emergency Provider Emergency Medicine; PCP Family Medicine
DX: I21.4 Non-ST elevation (NSTEMI) myocardial infarction (principal); I25.810 Atherosclerosis of coronary artery bypass graft(s) without angina pectoris; I25.10 Atherosclerotic heart disease of native coronary artery without angina pectoris; I47.2 Ventricular tachycardia; I48.92 Unspecified atrial flutter; D80.1 Nonfamilial hypogammaglobulinemia; I48.91 Unspecified atrial fibrillation; E87.6 Hypokalemia; R09.02 Hypoxemia; C88.0 Waldenstrom macroglobulinemia; I10 Essential (primary) hypertension; E11.40 Type 2 diabetes mellitus with diabetic neuropathy, unspecified; E78.2 Mixed hyperlipidemia; K21.9 Gastro-esophageal reflux disease without esophagitis; Z79.01 Long term (current) use of anticoagulants; Z79.84 Long term (current) use of oral hypoglycemic drugs; Z79.02 Long term (current) use of antithrombotics/antiplatelets; Z79.82 Long term (current) use of aspirin; Z79.899 Other long term (current) drug therapy; Z85.71 Personal history of Hodgkin lymphoma; Z85.828 Personal history of other malignant neoplasm of skin; Z95.1 Presence of aortocoronary bypass graft; Z95.3 Presence of xenogenic heart valve
CPT/HCPCS: 36415; 71045; 74022; 76705; 80048; 80053; 82962; 83690; 83735; 83880; 84484; 85025; 85027; 85347; 85610; 85730; 92937; 93005; 93306; 93455; 97802; 99152; 99153; 99285; J7040; Q9967; A4216; C1725; C1769; C1874; C1884; C1887; C1894; C8929; C9604; J1940; J2405

== ENCOUNTER 2020-01-28 21:39 | Emergency (ER) | payer MEDICARE, SELFPAY ==
[2020-01-25 10:30] VITALS: BMI 27.3
[2020-01-28 21:40] VITALS: BP 148/95; PULSE 85; RESP 18; TEMP 36.8; O2SAT 99; BMI 27.7
--- NOTE | 2020-01-28 21:49 | EKG12_ITS ---
Test Reason : CP Blood Pressure : / mmHG Vent. Rate : 084 BPM Atrial Rate : 084 BPM P-R Int : 136 ms QRS Dur : 114 ms QT Int : 344 ms P-R-T Axes : 011 -12 135 degrees QTc Int : 406 ms Sinus rhythm with marked sinus arrhythmia ST & abnormality, consider inferior lateral ischemia Abnormal ECG Confirmed by ARETHA CRUMP, ALEKSANDRA ([id number]), assistant film editor SHAHID VICTORIA ([id number]) on 02/01/2020 10:45:40 AM Referred By: MELO Confirmed By:ALEKSANDRA CARIAS MD
--- NOTE | 2020-01-28 21:51 | ED.VIS.GEN ---
History of Present Illness Chief Complaint: Chest Other Detail of Chief Complaint: Unusual sensation in torso Onset: Today Timing: Continuous Quality: Vague unusual sensation Location: Chest abdomen/torso Current Severity: Mild Maximum Severity: Moderate Worsened by: Nothing Relieved by: Nothing Associated Symptoms: Malaise and weakness Narrative: Patient is a 59-year-old male who recently had a non-ST elevation MN with placement of a stent in the saphenous vein graft to the obtuse marginal. He was placed on antiplatelet medicine. He does report bruising easily. Denies black or maroon stool. He denies upper respiratory symptoms. He denies chest pain or pressure. He denies shortness of breath. He denies orthopnea or PND. He denies black or maroon stool. He denies abdominal pain. He denies paresthesia, anesthesia or motor weakness. Patient is not a good informant. His symptoms are vague. Prior similar symptoms: No Recent Illness/Hospitalization: Yes - Non-ST elevation MN - Past Medical History (1) NSTEMI (non-ST elevated myocardial infarction) Status: Acute (2) Atherosclerosis of coronary artery Status: Chronic (3) Diabetes mellitus with neuropathy Status: Chronic (4) Hodgkins lymphoma Status: Chronic (5) Hyperlipidemia Status: Chronic (6) Hypertension Status: Chronic (7) Macroglobulinemia of Waldenstrom Status: Chronic Comment: well controlled periodic IgG infusions (8) Status post aortic valve replacement with bioprosthetic valve Status: Chronic (9) Atrial flutter Status: Resolved Past Medical History - Allergies and Home Meds Allergies/Adverse Reactions: Allergies adhesive tape Adverse Reaction (Intermediate, Verified 01/28/20 21:50) Rash Primary Care Physician: Manuela Damico DO [Primary Care Provider] - Prior records reviewed: Yes Surgical History: coronary bypass surgery, - Lives: Alone Smoking Status: Never smoker Alcohol: None Drugs: None - Family History Maternal Family History: Family History (Last Reviewed 01/25/20 @ 10:27 by Anika Florez) Father Arthritis Brain cancer Lung cancer Hypertension Mother Arthritis Hypertension Cancer Family History: Reports: No pertinent history Paternal Family History: Family History (Last Reviewed 01/25/20 @ 10:27 by Anika Florez) Father Arthritis Brain cancer Lung cancer Hypertension Mother Arthritis Hypertension Cancer Family History: Reports: Heart Disease Review of Systems General: Reports: Malaise. Denies: Chills, Fever, Subjective, Sweats Eyes: Denies: Visual changes - bilaterally, Blurred Vision - bilaterally, Diplopia ENT: Denies: Bilateral ear pain, Rhinorrhea, Sore throat Cardiovascular: Denies: Chest pain, Palpitations Respiratory: Denies: Dyspnea, Cough, Dyspnea on exertion, Orthopnea, Paroxysmal nocturnal dyspnea Gastrointestinal: Denies: Abdominal pain, Nausea, Vomiting, Diarrhea, Melena, Hematochezia Genitourinary: Denies: Dysuria, Hematuria, Frequency Musculoskeletal: Denies: Myalgias, Arthralgias, Neck pain, Back pain, Swelling, Extremity Pain Skin: Denies: Rash, Wounds Neurological: Reports: Weakness. Denies: Headache, Parasthesia, Numbness Psych: Reports: Depression Hematologic: Reports: Easy bruising Allergy: Denies: Uticaria Physical Exam Vital Signs/Narrative: Vital Signs Temp Pulse Resp BP Pulse Ox 01/28/20 21:40 98.2 F 85 18 148/95 H 99 Inital Vital Signs reviewed: Yes General: Well nourished, Well developed, Unkempt Head: Normocephalic, Atraumatic Eyes: Perrl, EOMI. Negative for: Pale conjunctiva, Scleral icterus ENT: Moist mucous membranes, No rhinorrhea, TM's clear Neck: Supple, Nontender, No lymphadenopathy, No JVD Cardiovascular: Regular rate, Regular rhythm, No murmurs, Normal S1, Normal S2 Respiratory: No distress, CTA bilaterally, Chest nontender Abdomen: Soft, Nontender, Nondistended, Normal bowel sounds, No masses. Negative for: Hepatomegaly, Splenomegaly, Mass, Pulsatile mass, Ventral hernia, Umbilical hernia Rectal: Deferred Back: Negative for: Nontender Extremities: Nontender, No edema Skin: No rash, Pallor. Negative for: Cyanosis, Diaphoresis, Jaundice Neurological: Alert, Oriented x3, Cranial nerves II-XII grossly intact, Normal Strength, Normal Sensation Psychological: Depressed Diagnostic/Tx/Re-eval Laboratory Results 01/28/20 01/28/20 01/28/20 21:55 21:55 22:56 WBC 4.1 L RBC 4.83 Hgb 11.8 L Hct 39.2 L MCV 81.2 MCH 24.4 L MCHC 30.1 L RDW Std Deviation 49.9 H RDW Coeff of Joel 16.9 H Plt Count 192 MPV 9.5 Immature Gran % (Auto) 0.500 Neut % (Auto) 57.1 Lymph % (Auto) 20.7 [place] % (Auto) 20.0 H Eos % (Auto) 1.2 Baso % (Auto) 0.5 Absolute Neuts (auto) 2.3 Absolute Lymphs (auto) 0.84 Nucleated RBC % 0 Sodium 139 Potassium 4.1 Chloride 107 Carbon Dioxide 27.0 Anion Gap 5 BUN 12 Creatinine 1.05 Estim Creat Clear Calc 85.61 Est GFR (MDRD) Af Amer 93 Est GFR (MDRD) Non-Af 77 BUN/Creatinine Ratio 11.4 Glucose 93 Calcium 9.2 Urine Color Yellow Urine Clarity Clear Urine pH 6.0 Ur Specific [place] 1.005 Urine Protein Negative Urine Glucose (UA) 50 H Urine Ketones Negative Urine Occult Blood Negative Urine Nitrite Negative Urine Bilirubin Negative Urine Urobilinogen Normal Ur Leukocyte Esterase Negative Urine RBC 0 SEEN Urine WBC 0 SEEN Ur Squamous Epith Cells 0-5 SEEN Urine Bacteria 0 SEEN Urine Mucus 0 SEEN Since work-up is negative. He has vague symptoms. Will discharge to home with appropriate home-going instructions. - Medical Decision Making Patient with vague symptoms. Plan is to evaluate for anemia, electrolyte abnormality. Since triage documented chest pain EKG was obtained. EKG reveals an ossific changes in the lateral leads will obtain prior for comparison. ED Disposition - Plan for ED Patient: Disposition: Home or Assisted Living Diagnosis: Chest discomfort, Generalized weakness Instructions: ED Chest Pain NonCardiac, ED Weakness [facility] Referrals: Manuela Damico DO [Primary Care Provider] - 3-5 Days if not improving
[2020-01-28 22:05] LABS: Absolute Lymphocyte Count 0.84 X10^3/uL (0.83-4.51); Absolute Neutrophil Count 2.3 X10^3/uL (2.0-7.7); Basophil# 0.02 X10^3/uL; Basophil% 0.5 % (0-1); Eosinophil# 0.05 X10^3/uL; Eosinophils% 1.2 % (0-5); Hematocrit 39.2 % (40-54); Hemoglobin 11.8 g/dL (13.0-16.5); Lymphocyte # 0.84 X10^3/ul (4.0); Lymphocyte % 20.7 % (19-41); Mean Corp Hgb Conc 30.1 g/dL (32-36); Mean Corpuscular Hgb 24.4 pg (27.0-32.0); Mean Corpuscular Volume 81.2 fL (80-94); Mean Platelet Vol. 9.5 fl (6.2-12.0); Monocyte# 0.81 X10^3/uL; NRBC Flagged by Analyzer 0 % (0-5); Neutrophil # 2.31 X10^3/uL (2.7-7.7); Neutrophil % 57.1 % (47-70); Platelet Count 192 K/mm3 (150-450); RBC Distribution Width CV 16.9 % (11.6-14.6); RBC Distribution Width SD 49.9 fl (35.1-43.9); Red Blood Count 4.83 M/mm3 (4.6-6.2); White Blood Count 4.1 K/mm3 (4.4-11.0)
[2020-01-28 22:25] LABS: Anion Gap 5 (5-15); BUN 12 mg/dL (7-18); BUN/Creat Ratio 11.4 RATIO (10-20); Calcium,Total 9.2 mg/dL (8.5-10.1); Chloride 107 mmol/L (98-107); Creatinine, Serum 1.05 mg/dL (0.70-1.30); EST Glomerular Filtration Rate 77 mL/min (>60); Est Glom Filt Rate - Afr Amer 93 mL/min (>60); Estimated Creatinine Clearance 85.61 ml/min; Glucose 93 mg/dL (74-106); Potassium 4.1 mmol/L (3.5-5.1); Sodium Level 139 mmol/L (136-145)
[2020-01-28 22:43] VITALS: BP 118/80; PULSE 86; RESP 16; O2SAT 98
[2020-01-28 23:02] LABS: Bacteria 0 SEEN /hpf (None Seen); Mucous, Urine 0 SEEN /hpf (<or=2+); Red Blood Cells-Urine 0 SEEN /hpf (0-5); White Blood Cells 0 SEEN /hpf (0-5)
[2020-01-28 23:05] LABS: Color, Urine Yellow (Yellow); Glucose, Dipstick 50 mg/dl (Normal); Ketone-Dipstick Negative (Negative); Leukocyte Esterase-Dipstick Negative /ul (Negative); Nitrite-Dipstick Negative (Negative); Occult Blood-Urine Negative /ul (Negative); Protein-Dipstick Negative (Negative); Specific Gravity, Urine 1.005 (1.002-1.030); Urine Bilirubin Dipstick Negative (Negative); Urine Clarity Clear (Clear); Urine Urobilinogen Normal (Normal)
[2020-01-28 23:36] LABS: Squamous Epithelial Cells - UA 0-5 SEEN /hpf (0-5)
[2020-01-28 23:44] VITALS: BP 136/82; PULSE 84; RESP 16; O2SAT 97
[2020-01-29 00:08] VITALS: BP 130/88; PULSE 88; RESP 18; O2SAT 97
== END 2020-01-29 00:10 | disposition home or self-care (01) ==
PROVIDERS: Emergency Provider Emergency Medicine; PCP Family Medicine
DX: R07.89 Other chest pain (principal); I25.10 Atherosclerotic heart disease of native coronary artery without angina pectoris; E11.40 Type 2 diabetes mellitus with diabetic neuropathy, unspecified; C88.0 Waldenstrom macroglobulinemia; I10 Essential (primary) hypertension; E78.5 Hyperlipidemia, unspecified; Z79.84 Long term (current) use of oral hypoglycemic drugs; Z79.02 Long term (current) use of antithrombotics/antiplatelets; Z79.82 Long term (current) use of aspirin; Z79.899 Other long term (current) drug therapy; I25.2 Old myocardial infarction; Z85.71 Personal history of Hodgkin lymphoma; Z95.3 Presence of xenogenic heart valve; Z95.1 Presence of aortocoronary bypass graft; Z95.5 Presence of coronary angioplasty implant and graft
CPT/HCPCS: 80048; 81001; 85025; 93005; 99285; A4216

== ENCOUNTER → 2020-02-15 10:12 | Outpatient (CLI) | payer MEDICARE, SELFPAY ==
[2020-02-10 12:26] VITALS: BMI 27.7
[2020-02-15 10:56] LABS: Absolute Lymphocyte Count 1.16 X10^3/uL (0.83-4.51); Absolute Neutrophil Count 5.4 X10^3/uL (2.0-7.7); Basophil# 0.03 X10^3/uL; Basophil% 0.4 % (0-1); Eosinophil# 0.13 X10^3/uL; Eosinophils% 1.7 % (0-5); Hematocrit 40.2 % (40-54); Hemoglobin 11.9 g/dL (13.0-16.5); Lymphocyte # 1.16 X10^3/ul (4.0); Mean Corp Hgb Conc 29.6 g/dL (32-36); Mean Corpuscular Hgb 24.1 pg (27.0-32.0); Mean Corpuscular Volume 81.5 fL (80-94); Mean Platelet Vol. 10.9 fl (6.2-12.0); Monocyte# 1.01 X10^3/uL; NRBC Flagged by Analyzer 0 % (0-5); Neutrophil % 69.8 % (47-70); Platelet Count 179 K/mm3 (150-450); RBC Distribution Width CV 17.4 % (11.6-14.6); Red Blood Count 4.93 M/mm3 (4.6-6.2); White Blood Count 7.7 K/mm3 (4.4-11.0)
[2020-02-15 11:33] LABS: ALB/GLOB Ratio 1.3 RATIO (0.9-2.4); AST(SGOT) 29 U/L (15-37); Alanine Aminotransfer ALT/SGPT 21 U/L (16-61); Alkaline Phosphatase 89 U/L (45-117); Anion Gap 7 (5-15); BUN 15 mg/dL (7-18); BUN/Creat Ratio 12.1 RATIO (10-20); Calcium,Total 9.1 mg/dL (8.5-10.1); Chloride 108 mmol/L (98-107); Creatinine, Serum 1.24 mg/dL (0.70-1.30); EST Glomerular Filtration Rate 63 mL/min (>60); Est Glom Filt Rate - Afr Amer 77 mL/min (>60); Glucose 86 mg/dL (74-106); Potassium 4.1 mmol/L (3.5-5.1); Sodium Level 141 mmol/L (136-145)
[2020-02-15 18:19] LABS: Xtra Tube EP Lab EXTRA TUBE
[2020-02-16 14:08] LABS: Immunoglobulin G 582 mg/dL (603-1613)
[2020-02-16 16:59] LABS: Immunoglobulin A 6 mg/dL (90-386); Immunoglobulin M 85 mg/dL (20-172)
== END ==
PROVIDERS: PCP Family Medicine; Referring Provider Nurse Practitioner Family; Visit Provider Nurse Practitioner Family
DX: C88.0 Waldenstrom macroglobulinemia (principal); D80.1 Nonfamilial hypogammaglobulinemia
CPT/HCPCS: 36415; 80053; 82784; 85025

== ENCOUNTER → 2020-04-24 15:33 | Outpatient (CLI) | payer MEDICARE, SELFPAY ==
[2020-04-19 10:05] VITALS: BMI 28.5
[2020-04-24 17:04] LABS: Absolute Lymphocyte Count 0.57 X10^3/uL (0.83-4.51); Absolute Neutrophil Count 5.7 X10^3/uL (2.0-7.7); Basophil# 0.02 X10^3/uL; Basophil% 0.3 % (0-1); Eosinophil# 0.04 X10^3/uL; Eosinophils% 0.6 % (0-5); Hematocrit 40.4 % (40-54); Hemoglobin 11.8 g/dL (13.0-16.5); Lymphocyte # 0.57 X10^3/ul (4.0); Lymphocyte % 8.4 % (19-41); Mean Corp Hgb Conc 29.2 g/dL (32-36); Mean Corpuscular Hgb 23.1 pg (27.0-32.0); Mean Corpuscular Volume 79.2 fL (80-94); Mean Platelet Vol. 11.3 fl (6.2-12.0); Monocyte% 5.9 % (0-10); NRBC Flagged by Analyzer 0 % (0-5); Neutrophil # 5.72 X10^3/uL (2.7-7.7); Neutrophil % 84.5 % (47-70); POSITIVE DIFFERENTIAL YES; Platelet Count 129 K/mm3 (150-450); RBC Distribution Width CV 17.8 % (11.6-14.6); RBC Distribution Width SD 50.2 fl (35.1-43.9); White Blood Count 6.8 K/mm3 (4.4-11.0)
[2020-04-24 17:05] LABS: Differential Indicated SCAN CRITERIA MET
[2020-04-24 17:30] LABS: ALB/GLOB Ratio 1.2 RATIO (0.9-2.4); AST(SGOT) 25 U/L (15-37); Alanine Aminotransfer ALT/SGPT 20 U/L (16-61); Albumin, Serum 3.9 g/dL (3.2-5.0); Alkaline Phosphatase 93 U/L (45-117); Anion Gap 7 (5-15); BUN 12 mg/dL (7-18); BUN/Creat Ratio 11.2 RATIO (10-20); CPK Total, Creatine Kinase 143 U/L (39-308); Calcium,Total 8.9 mg/dL (8.5-10.1); Chloride 107 mmol/L (98-107); Creatinine, Serum 1.07 mg/dL (0.70-1.30); EST Glomerular Filtration Rate 75 mL/min (>60); Est Glom Filt Rate - Afr Amer 91 mL/min (>60); Globulin 3.3 g/dL (2.2-4.2); Glucose 227 mg/dL (74-106); Potassium 4.3 mmol/L (3.5-5.1); Protein, Total 7.2 g/dL (6.4-8.2); Sodium Level 140 mmol/L (136-145); Thyroid Stim Hormone (TSH) 0.64 uIU/mL (0.358-3.74)
[2020-04-24 17:44] LABS: Differential Comment SCANNED
== END ==
PROVIDERS: PCP Family Medicine; Visit Provider Family Medicine
DX: R53.83 Other fatigue (principal); R07.9 Chest pain, unspecified; I25.2 Old myocardial infarction; Z51.81 Encounter for therapeutic drug level monitoring
CPT/HCPCS: 36415; 80053; 82550; 84443; 84484; 85025

== ENCOUNTER 2020-04-28 17:49 | Inpatient (IN) | payer MEDICARE, SELFPAY ==
[2020-04-25 14:44] VITALS: BMI 28.3
[2020-04-28] VITALS (9 sets, daily range): BP systolic 133–167; BP diastolic 87–103; PULSE 87–96; RESP 19–24; TEMP 36.6–36.7; O2SAT 98; BMI 28.3; BMI 27.6; BMI 27.7
--- NOTE | 2020-04-28 17:58 | EKG12_ITS ---
Test Reason : CP Blood Pressure : / mmHG Vent. Rate : 088 BPM Atrial Rate : 088 BPM P-R Int : 182 ms QRS Dur : 118 ms QT Int : 364 ms P-R-T Axes : 039 -23 120 degrees QTc Int : 440 ms Normal sinus rhythm Incomplete left bundle branch block ST & T wave abnormality, consider inferolateral ischemia Abnormal ECG Confirmed by ARETHA CRUMP, ALEKSANDRA ([id number]), development editor BRENNEN BAUTISTA ([id number]) on 05/01/2020 2:13:17 PM Referred By: Shanika Coker Confirmed By:ALEKSANDRA CARIAS MD
[2020-04-28 18:35] LABS: Absolute Lymphocyte Count 0.99 X10^3/uL (0.83-4.51); Absolute Neutrophil Count 4.6 X10^3/uL (2.0-7.7); Basophil# 0.03 X10^3/uL; Basophil% 0.5 % (0-1); Eosinophil# 0.13 X10^3/uL; Eosinophils% 2.1 % (0-5); Hematocrit 39.8 % (40-54); Hemoglobin 11.6 g/dL (13.0-16.5); Lymphocyte # 0.99 X10^3/ul (4.0); Lymphocyte % 15.6 % (19-41); Mean Corp Hgb Conc 29.1 g/dL (32-36); Mean Corpuscular Hgb 23.2 pg (27.0-32.0); Mean Corpuscular Volume 79.4 fL (80-94); Mean Platelet Vol. 11.1 fl (6.2-12.0); Monocyte# 0.59 X10^3/uL; Monocyte% 9.3 % (0-10); NRBC Flagged by Analyzer 0 % (0-5); Neutrophil # 4.57 X10^3/uL (2.7-7.7); Platelet Count 151 K/mm3 (150-450); RBC Distribution Width CV 17.8 % (11.6-14.6); RBC Distribution Width SD 50.3 fl (35.1-43.9); Red Blood Count 5.01 M/mm3 (4.6-6.2); White Blood Count 6.3 K/mm3 (4.4-11.0)
--- NOTE | 2020-04-28 18:35 | RAD_ITS ---
STUDY: X-RAY CHEST REASON FOR EXAM: Male, 59 years old. Chest pain. TECHNIQUE: Single AP portable view of the chest. COMPARISON: 01/11/2020. FINDINGS: The lungs well expanded. There is resolution of mild interstitial edema seen in the right lung base on the prior study. There is also resolution of the left upper lobe interstitial infiltrate. Persistent lingular scarring. There is no demonstrated pleural abnormality. The heart remains enlarged. Again seen is evidence of median sternotomy. Normal mediastinum and phyllis. Normal visualized pulmonary arteries. Normal visualized aortic arch and descending thoracic aorta. No visualized osseous changes. There is no demonstrated abnormality of the visualized soft tissue structures of the upper abdomen. RAD/Chest 1 View (Portable) IMPRESSION: 1. Stable cardiomegaly with evidence of median sternotomy. 2. No evidence for acute pulmonary disease. Electronically Signed: Scott Soriano DO at 18:48 EST Tel [phone], Service support ,
[2020-04-28 18:45] LABS: D-Dimer Quantitative (DVT/PE) 0.77 FEU/ug/m (0.27-0.49)
[2020-04-28 18:49] LABS: Anion Gap 7 (5-15); BUN 13 mg/dL (7-18); BUN/Creat Ratio 10.4 RATIO (10-20); Calcium,Total 8.7 mg/dL (8.5-10.1); Chloride 103 mmol/L (98-107); Creatinine, Serum 1.25 mg/dL (0.70-1.30); EST Glomerular Filtration Rate 63 mL/min (>60); Est Glom Filt Rate - Afr Amer 76 mL/min (>60); Estimated Creatinine Clearance 71.91 ml/min; Glucose 269 mg/dL (74-106); Potassium 4.2 mmol/L (3.5-5.1); Sodium Level 135 mmol/L (136-145)
--- NOTE | 2020-04-28 18:52 | CT_ITS ---
STUDY: CTA CHEST REASON FOR EXAM: Male, 59 years old. Chest pain radiating into the right shoulder since 4:00 PM. RADIATION DOSAGE (If Supplied By Facility): CTDIvol = ( 12.38 ) mGy, DLP = ( 463.63 ) mGycm TECHNIQUE: The examination was performed with the intravenous administration of IV 100mL Isovue-370. Post-processing of the angiographic images was performed, with multiplanar reformation and 3D reconstruction. Individualized dose optimization techniques were used for this CT. COMPARISON: None. FINDINGS: Normal enhancement of the main pulmonary artery and right and left pulmonary arteries. Normal enhancement of the bilateral peripheral pulmonary arteries. There is no demonstrated pulmonary embolism. Is minimal atherosclerotic changes of the thoracic aorta without aneurysm. There is no demonstrated aortic dissection. Normal heart and pericardium. There is evidence of median sternotomy. There is aortic valve replacement. Normal mediastinum. Normal hilar regions. Normal visualized trachea and bronchi. The lungs are well expanded. Minimal infiltrate in the right lung base. Lungs are otherwise clear. Apical pleural scarring. Normal chest wall structures. There are degenerative changes of thoracic spine. There are gallstones without evidence of acute cholecystitis. Upper abdomen is otherwise grossly unremarkable. CT/CTA Chest W/WO Contrast IMPRESSION: 1. No evidence of pulmonary embolus. 2. No aortic dissection or aneurysm. 3. Right basal infiltrate. 4. Evidence of median sternotomy and aortic valve replacement. 5. Gallstones without acute cholecystitis Electronically Signed: Scott Soriano DO at 19:51 EST Tel [phone], Service support ,
[2020-04-28] MEDS: Aspirin 81 MG TAB.CHEW 162 MG PO (19:39)
--- NOTE | 2020-04-28 20:04 | ED.DCSUM_ITS ---
History of Present Illness Chief Complaint: Chest Pain Informant: Patient Narrative: Patient presenting for evaluation secondary to chest pain. Patient has an underlying history of coronary artery disease, he was actually in the hospital in December and had stenting of his MENDOZA graft. Patient states that he has been dealing with intermittent chest pain, but today it became persistent around 4 PM. Patient states that it is associated with some shortness of breath. No necessarily worsening of the pain with exertion, but he does get more dyspneic with exertion. No fevers or cough, no infectious signs or symptoms. He denies any nausea or vomiting. Denies any diarrhea. Denies any history of DVT or PE. Review of systems otherwise negative. Past Medical History - Allergies and Home Meds Allergies/Adverse Reactions: Allergies adhesive tape Adverse Reaction (Intermediate, Verified 04/28/20 17:49) Rash Primary Care Physician: Manuela Damico DO [Primary Care Provider] - Prior records reviewed: Yes Past Medical History: - - Coronary artery disease, hypertension, hyperlipidemia Surgical History: coronary bypass surgery, - Smoking Status: Never smoker Drugs: None - Family History Maternal Family History: Family History (Last Reviewed 04/25/20 @ 15:17 by Paula NELSON, PA) Father Arthritis Brain cancer Lung cancer Hypertension Mother Arthritis Hypertension Cancer Family History: Reports: No pertinent history Paternal Family History: Family History (Last Reviewed 04/25/20 @ 15:17 by Paula Muñzo PA, PA) Father Arthritis Brain cancer Lung cancer Hypertension Mother Arthritis Hypertension Cancer Family History: Reports: Heart Disease Review of Systems All systems negative except as indicated General: Denies: Chills, Fever, Sweats Eyes: Denies: Visual changes - bilaterally, Diplopia ENT: Denies: Rhinorrhea, Sore throat Cardiovascular: Reports: Chest pain Respiratory: Reports: Dyspnea Gastrointestinal: Denies: Abdominal pain, Nausea, Vomiting, Diarrhea, Melena, Hematochezia Genitourinary: Denies: Dysuria, Hematuria, Frequency Musculoskeletal: Denies: Back pain, Extremity Pain Skin: Denies: Rash, Wounds Neurological: Denies: Headache, Weakness, Numbness Physical Exam Vital Signs/Narrative: Vital Signs Temp Pulse Resp BP Pulse Ox 04/28/20 19:42 90 20 H 133/103 H 98 04/28/20 19:41 98 04/28/20 18:49 144/91 H 04/28/20 17:50 98.0 F 87 20 H 167/102 H 98 Inital Vital Signs reviewed: Yes General: Well nourished, Well developed, No Acute Distress Head: Normocephalic, Atraumatic Eyes: Perrl, EOMI ENT: Moist mucous membranes, No rhinorrhea Neck: Supple, Nontender Cardiovascular: Regular rate, Regular rhythm, Murmur - 3 out of 6 systolic Respiratory: No distress, CTA bilaterally, Chest nontender Abdomen: Soft, Nontender, Nondistended, Normal bowel sounds Extremities: Nontender Skin: Normal color, No rash Neurological: Alert, Oriented x3, Cranial nerves II-XII grossly intact, Normal Strength, Normal Sensation Psychological: Normal affect, Normal Mood Diagnostic/Tx/Re-eval Chest X-Ray - ED: Read by ED Physician, Read by Radiologist, No Acute Disease Clinical Impression(s) from Imaging Studies Chest X-Ray 04/28/20 18:35 IMPRESSION: 1. Stable cardiomegaly with evidence of median sternotomy. 2. No evidence for acute pulmonary disease. Electronically Signed: Scott Soriano DO at 18:48 EST Tel [phone], Service support , Chest CTA 04/28/20 18:52 IMPRESSION: 1. No evidence of pulmonary embolus. 2. No aortic dissection or aneurysm. 3. Right basal infiltrate. 4. Evidence of median sternotomy and aortic valve replacement. 5. Gallstones without acute cholecystitis Electronically Signed: Scott Soriano DO at 19:51 EST Tel [phone], Service support , Laboratory Data 04/28/20 04/28/20 04/28/20 18:00 18:00 18:00 WBC 6.3 RBC 5.01 Hgb 11.6 L Hct 39.8 L MCV 79.4 L MCH 23.2 L MCHC 29.1 L RDW Std Deviation 50.3 H RDW Coeff of Joel 17.8 H Plt Count 151 MPV 11.1 Immature Gran % (Auto) 0.500 Neut % (Auto) 72.0 H Lymph % (Auto) 15.6 L [place] % (Auto) 9.3 Eos % (Auto) 2.1 Baso % (Auto) 0.5 Absolute Neuts (auto) 4.6 Absolute Lymphs (auto) 0.99 Nucleated RBC % 0 D-Dimer Quant (PE/DVT) 0.77 H* Sodium 135 L Potassium 4.2 Chloride 103 Carbon Dioxide 25.0 Anion Gap 7 BUN 13 Creatinine 1.25 Estim Creat Clear Calc 71.91 Est GFR (MDRD) Af Amer 76 Est GFR (MDRD) Non-Af 63 BUN/Creatinine Ratio 10.4 Glucose 269 H Calcium 8.7 Troponin I 0.061 H - Medical Decision Making Patient presenting for evaluation secondary to chest pain. EKG shows significant ST depressions diffusely with elevation in aVR, but is not changed from prior EKG. Laboratory work-up shows the patient to have elevation of his troponin to an indeterminate range at 0.06, but he seems to chronically have this. Patient did get a D-dimer due to his reports of recent hospital admission and stenting which was positive so CT angiogram of the chest was performed which shows evidence of a right lower lobe infiltrate. Patient will be ordered Rocephin and azithromycin. He continues to have chest pain. I believe the patient requires observation admission at this point. ED Disposition - Plan for ED Patient: Disposition: Acute Care Hospital [facility] Diagnosis: Chest pain, Community acquired pneumonia
--- NOTE | 2020-04-28 20:05 | HP.PCM_ITS ---
Problem List (1) Chest pain Status: Acute Qualifiers: Chest pain type: unspecified Qualified Code(s): R07.9 - Chest pain, unspecified (2) Community acquired pneumonia Status: Acute Qualifiers: Laterality: right Lung location: lower lobe of lung Qualified Code(s): J18.9 - Pneumonia, unspecified organism (3) Atherosclerosis of coronary artery Status: Chronic Qualifiers: Coronary Disease-Associated Artery/Lesion type: [place] artery [place] vs. transplanted heart: [place] heart Associated angina: without angina Qualified Code(s): I25.10 - Atherosclerotic heart disease of [place] coronary artery without angina pectoris (4) Stented coronary artery Status: Chronic (5) Hyperlipidemia Status: Chronic Qualifiers: Hyperlipidemia type: unspecified Qualified Code(s): E78.5 - Hyperlipidemia, unspecified (6) Hypertension Status: Chronic Qualifiers: Hypertension type: essential hypertension Qualified Code(s): I10 - Essential (primary) hypertension (7) Macroglobulinemia of [place] Status: Chronic Comment: well controlled periodic IgG infusions (8) Atrial flutter Status: Resolved Qualifiers: Atrial flutter type: unspecified Qualified Code(s): I48.92 - Unspecified atrial flutter (9) Hodgkins lymphoma Status: Chronic Qualifiers: Hodgkin lymphoma type: unspecified type Lymphoma site: unspecified region Qualified Code(s): C81.90 - Hodgkin lymphoma, unspecified, unspecified site (10) Status post aortic valve replacement with bioprosthetic valve Status: Chronic (11) Type 2 diabetes mellitus Status: Chronic Qualifiers: Diabetes mellitus nursing home insulin use: without nursing home use Diabetes mellitus complication status: with other specified complication Qualified Code(s): E11.69 - Type 2 diabetes mellitus with other specified complication History of Present Illness Date of Admission: 04/28/20 Chief Complaint: Chest pain The patient is a 59 y/o M w/ PMHx: Chronic anemia, CAD s/p CABG and PCI, Valvular Heart Disease s/p AVR, HTN, HLD, PAF, Diabetes mellitus type II, GERD, Hx Hodgkin's lymphoma, Hx [place] macroglobulinemia who presents to the [facility] ED on 04/28/20 with history of onset chest pain, primarily midsternal but he does include the region of bilateral chest, described as a heaviness, pressure as well as stabbing pain rated 6 out of 7 out of 10, ongoing, associated dyspnea with exertion with no specific recent increased cough, fever, chills but not improving prompting ED presentation. Patient does note that he has chronic intermittent chest discomfort and chronic intermittent dyspnea for several years but this was different. Denied any recent nausea, emesis, abdominal pain, diarrhea, headaches, body aches, alteration to sense of taste or smell. In the ED patient notes chest pain mildly increased now noted to be 8-9 out of 10. Patient does note that chest discomfort has been worse with certain movements and with certain increased inspiratory effort. Work-up in the ED included T 98, heart rate 87, BP 167/102, respiratory rate 20, 98% on room air, CBC with WC 6.3, hemoglobin 11.6, platelet 151 with no market shift, noted reduced MCV 79.4, D-dimer 0.77, BMP with sodium 135, glucose 269, troponin 0.061 noted to be previously indeterminate as well with most recent troponin 04/24/20 0.074, chest x-ray with stable cardiomegaly with evidence of prior median sternotomy with no acute cardiopulmonary findings otherwise, EKG with SR with chronic ST depressions, similar to prior, CTPA with no evidence of PE, no evidence of aortic dissection or aneurysm, evidence right physical trait with evidence of median sternotomy and aortic valve replacement, gallstones with acute chol ecystitis. In the ED patient ministered aspirin 162 mg p.o. x1 patient to azithromycin and Rocephin therapy. Past Medical History Past Medical History (Chronic Problems): Chronic Problems (Last Reviewed 04/25/20 @ 15:17 by Paula NELSON, PA) Atherosclerosis of coronary artery (Chronic) Stented coronary artery (Chronic) Hyperlipidemia (Chronic) Hypertension (Chronic) Macroglobulinemia of [place] (Chronic) well controlled periodic IgG infusions Hodgkins lymphoma (Chronic) Status post coronary artery bypass graft (Chronic) Status post aortic valve replacement with bioprosthetic valve (Chronic) Type 2 diabetes mellitus (Chronic) Tinea unguium (Chronic) Diabetes mellitus with neuropathy (Chronic) Poor hygiene (Chronic) Nonfamilial hypogammaglobulinemia (Chronic) Medical History: Medical History (Last Reviewed 04/25/20 @ 15:17 by Paula NELSON, PA) Atherosclerosis of coronary artery (Chronic) I25.10 Atrial flutter I48.92 CAD (coronary artery disease) I25.10 Chronic bronchitis J42 Combined hyperlipidemia E78.2 DM2 (diabetes mellitus, type 2) E11.9 Diabetic neuropathy E11.40 Heart disease Hodgkins lymphoma C81.90 Hypoglobulinemia R77.1 Lymphoma C85.90 Skin cancer C44.90 [place] macroglobulinemia C88.0 HTN (hypertension) I10 Allergies adhesive tape Adverse Reaction (Intermediate, Verified 04/28/20 17:49) Rash Home Medications: Ambulatory Orders Medication Instructions Recorded Metoprolol Tartrate [Lopressor 50 mg PO BID 01/27/15 (beta yoselin)] Nitroglycerin (INPATIENT USE) 0.4 mg SUBLINGUAL Q5M PRN 12/18/16 [Nitrostat] Glipizide [Glipizide ER] 10 mg PO BID 02/03/18 Omeprazole 20 mg PO DAILY 02/03/18 Aspirin [Aspirin, Baby] 81 mg PO DAILY@0800 #30 tab.chew 02/05/18 Atorvastatin Calcium [Lipitor] 80 mg PO QHS #30 tab 02/05/18 Lisinopril [Zestril] 20 mg PO BID #60 tab 02/05/18 Sitagliptin Phosphate [Januvia] 100 mg PO DAILY 01/10/20 metFORMIN HCl [Glucophage] 1,000 mg PO BIDCM #60 tab 01/15/20 clopidogrel 75 mg tablet 75 mg PO DAILY #30 tab 02/03/20 isosorbide mononitrate 120 mg 120 mg PO DAILY #30 tab 02/03/20 tablet,extended release 24 hr ranolazine 1,000 mg 1,000 mg PO BID #60 tab 04/25/20 tablet,extended release,12 hr Surgical History: Surgical History (Last Reviewed 04/25/20 @ 15:17 by Paula NELSON, PA) Stented coronary artery (Chronic) Z95.5 H/O aortic valve replacement Z95.2 H/O foot surgery Z98.890 H/O myringotomy Z98.890 Hx of CABG Surgical History: coronary bypass surgery, - - CABG x 4, PCI, Foot surgery, AVR, Myringotomy. Psychiatric History: No pertinent psych hx Lives: Alone Smoking Status: Never smoker Tobacco Use: Non-smoker Alcohol: None Drugs: None - *Family History Maternal Family History: Family History (Last Reviewed 04/25/20 @ 15:17 by Paula NELSON, PA) Father Arthritis Brain cancer Lung cancer Hypertension Mother Arthritis Hypertension Cancer History Items: - - Mother with history of hypertension, arthritis, cancer. Paternal Family History: Family History (Last Reviewed 04/25/20 @ 15:17 by Paula NELSON, PA) Father Arthritis Brain cancer Lung cancer Hypertension Mother Arthritis Hypertension Cancer History Items: - - Father with a history of hypertension, history of lung and brain cancer, osteoarthritis. Review of Systems Constitutional: Reports: Fatigue. Denies: Anorexia, Chills, Fever, Malaise, Weakness, Weight Change HEENT: Denies: Head Aches, Sinus Congestion, Sinus Drainage Cardiovascular: Reports: Chest Pain, Chest Pressure, Chest Tightness. Denies: Light Headedness, Orthopnea, Palpitations, Syncope Respiratory: Reports: Pleuritic Pain, Shortness of Breath, Shortness of breath at rest, Shortness of breath upon exertion. Denies: Cough, Sputum production, Wheezing Gastrointestinal: Denies: Abdominal Pain, Nausea, Vomiting Genitourinary: Denies: Dysuria Musculoskeletal: Denies: Joint Pain, Joint Tenderness Skin: Denies: Rash, Wounds Neurological: Denies: Numbness, Tingling, Focal weakness Psychiatric: Denies: Anxiety, Depression, Homicidal Ideations, Suicidal Ideations Hematologic/ Lymphatic: Reports: Anemia, Easy Bruising, Easy Bleeding VTE Information - Inpt Only VTE Present on Admission: No VTE Mechan Device Prophylaxis: SCD's VTE Pharm Prophylaxis ordered?: Yes Patient Problems: Active and Suspected Problems (Last Reviewed 04/25/20 @ 15:17 by Paula NELSON, PA) Chest pain (Acute) Community acquired pneumonia (Acute) Subjective: Patient seated upright in the ED bed, fatigued appearance, notes ongoing discomfort, worse with certain movements in the bed. Objective: Physical Examination: General: awake, alert, oriented x 3 and cooperative, seated upright in bed, mildly uncomfortable appearing. Skin: normal color, turgor, no icterus, cyanosis. HEENT: AT/NC, EOMI, PERRLA, MMM, no carotid bruits or JVD noted. Lungs: Diminished breath sounds, greater bases, right greater than left, moderate effort, no rales, ronchi or wheezing. Heart: Regular rate and rhythm; no gallop, rub audible, + SM. Abdomen: soft, overweight, NTTP, mildly distended which he notes chronic, normal BS, no HSM. Extremities: no cyanosis, clubbing, or edema. Neurological: patient awake, alert, oriented as noted; cognitive function intact; pupils equally reactive to light and accomodation; cranial nerves II-XII grossly normal, moving all 4 extremities, no focal deficits, strength moderately global decrease secondary to acute presentation and complaints. Psychiatric: affect appears uncomfortable, no acute evidence of depressive or anxiety feelings. - Physical Exam Vitals/I&O's: Vital Signs Temp Pulse Resp BP Pulse Ox 98.0 F 90 20 H 133/103 H 98 04/28/20 17:50 04/28/20 19:42 04/28/20 19:42 04/28/20 19:42 04/28/20 19:42 Oxygen Flow Rate (L/min) 2 Oxygen Delivery Method Nasal Cannula Weight: 215 lb 2.738 oz Body Mass Index (BMI) 28.3 Laboratory Results 04/28/20 18:00: WBC 6.3, RBC 5.01, Hgb 11.6 L, Hct 39.8 L, MCV 79.4 L, MCH 23.2 L, MCHC 29.1 L, RDW Std Deviation 50.3 H, RDW Coeff of Joel 17.8 H, Plt Count 151 , MPV 11.1, Immature Gran % (Auto) 0.500, Neut % (Auto) 72.0 H, Lymph % (Auto) 15.6 L, [place] % (Auto) 9.3, Eos % (Auto) 2.1, Baso % (Auto) 0.5, Absolute Neuts (auto) 4.6, Absolute Lymphs (auto) 0.99, Nucleated RBC % 0 04/28/20 18:00: Sodium 135 L, Potassium 4.2, Chloride 103, Carbon Dioxide 25.0, Anion Gap 7, BUN 13, Creatinine 1.25, Estim Creat Clear Calc 71.91, Est GFR (MDRD) Af Amer 76, Est GFR (MDRD) Non-Af 63, BUN/Creatinine Ratio 10.4, Glucose 269 H, Calcium 8.7, Troponin I 0.061 H 04/28/20 18:00: D-Dimer Quant (PE/DVT) 0.77 H* Assessment/Plan All Active Problems (Last Reviewed 04/25/20 @ 15:17 by Paula Muñoz PA, PA) Chest pain (Acute) Community acquired pneumonia (Acute) Personal history of antineoplastic chemotherapy (Acute) NSTEMI (non-ST elevated myocardial infarction) (Acute) Atrial flutter (Resolved) Feeling grief (Acute) Shoulder pain, right (Acute) The patient is a 59 y/o M w/ PMHx: Chronic anemia, CAD s/p CABG and PCI, Valvular Heart Disease s/p AVR, HTN, HLD, PAF, Diabetes mellitus type II, GERD, Hx Hodgkin's lymphoma, Hx [place] macroglobulinemia who presents to the [facility] ED on 04/28/20 with history of onset chest pain and dyspnea. 1. Chest Pain with chronic indeterminate cardiac enzyme, suspect multifactorial including #2: ED evaluation with Chest x-ray with stable cardiomegaly with evidence of prior median sternotomy with no acute cardiopulmonary findings otherwise, EKG with SR with chronic ST depressions, similar to prior, CTPA with no evidence of PE, no evidence of aortic dissection or aneurysm, evidence right physical trait with evidence of median sternotomy and aortic valve replacement, gallstones with acute cholecystitis. Will admit to PCU, place on a monitored bed to assure no acute myocardial infarction with serial cardiac enzymes and EKGs. Given #2, likely associated, will defer stress testing at this point pending further treatment of #2. ASA, NG, morphine. 2. Community Acquired Pneumonia: CTPA with evidence of right basal infiltrate, chest x-ray with no overt findings. Will maintain on oxygen with wean as home oxygen supplementation, PRN albuterol, maintained on IV Rocephin and Azithromycin, HOB, IS parameters w/ pending sputum cultures, respiratory viral panel and urine antigens. 3. Valvular heart disease: 01/10/2020 echocardiogram with EF 60%, inferior basal mildly hypokinetic, stage II diastolic dysfunction, mildly dilated RV, trivial MVI, trivial TBI, RVSP 37 mmHg, mild pulmonary hypertension, stable appearing and normal functioning bioprosthetic AV apparatus, peak AV gradient 37 mmHg, mean aortic gradient 22 mmHg, similar to 2018 echo. 4. Diabetes mellitus type II: Hold oral home regimen, ADA diet, accu checks w/ ISS, hemoglobin A1c requested. 5. Chronic anemia, noted to be currently microcytic: Previously it appeared normocytic, admission hemoglobin 11.6, MCV 79.4, similar hemoglobin to prior however MCV has decreased, will obtain iron panel, ferritin levels to be cautious and may need to consider guaiac. 6. CAD: Status post PCI and CABG, continue aspirin, Plavix, statin, lisinopril, metoprolol therapies. 01/11/2020 cardiac catheterization with patent MENDOZA to LAD, occluded SVG to DX 1, SVG to OM1 and OM 2 with a patent proximal eccentric hazy 50% stenosis and mid eccentric 90% stenosis as well as sequential portion of the OM 2 occluded, SVG to RPDA patent and prior PCI/stent patent, left to left and right to left collateral flow evident with recommendation for risk factor modifications, continue medical therapy and needed referral for PCI to the SVG to OM1. 7. Hypertension: Continue home regimen including isosorbide, lisinopril, metoprolol regimen with hold parameters, PRN hydralazine. 8. Hyperlipidemia: Continue home statin regimen. AM FLP. 9. Diabetes mellitus type II: Hold oral home regimen, continue home insulin regimen, ADA diet, accu checks w/ ISS. 10. GERD: We will continue patient home omeprazole regimen. 11. DVT Prophylaxis: SCDs, lovenox. 12. CODE status: Patient does not have healthcare power of divorce attorney nor living will set up. Encouraged him to consider an individual appropriate for this position?given his underlying health history. Discussed CODE status at length including difference between FULL code, DNR-CCA and DNR-CC status. Following discussions about the differences in these status, requested Full Code status. Advanced Care Planning Face to Face Time: 16 minutes. OBSV E&M: 81001 Initial observation care L3 Procedures: 68815 Advncd Care Plan 30 Min
[2020-04-28] MEDS: Ceftriaxone 1 GM/50 ML BAG IV (21:03)
[2020-04-28 22:03] LABS: Magnesium 1.2 mg/dL (1.6-2.6)
[2020-04-28] MEDS: Ranolazine 500 MG Tablet 1000 MG PO (22:57)
[2020-04-28] MEDS: Acetaminophen 325 MG Tablet 650 MG PO (22:57)
[2020-04-28] MEDS: Lisinopril 20 MG Tablet PO (22:58)
[2020-04-28] MEDS: Atorvastatin Calcium 80 MG Tablet PO (22:59)
[2020-04-28] MEDS: Metoprolol Tartrate 50 MG Tablet PO (22:59)
[2020-04-28] MEDS: Insulin Lispro 100 UNIT/ML INSULN.PEN SC (23:00)
[2020-04-28 23:10] LABS: Bedside Glucose 370 mg/dL (70-110)
[2020-04-28] MEDS: Morphine 2 MG/ML Syringe IV (23:50)
[2020-04-29] VITALS (13 sets, daily range): BP systolic 93–132; BP diastolic 59–93; PULSE 67–87; RESP 16–18; TEMP 36.1–37.2; O2SAT 95–100
--- NOTE | 2020-04-29 02:01 | ECHOD_ITS ---
Reason For Study: ARRHYTHMIA Procedure Ltd doppler d/t recent echo - 01/10/20. This was a 2D Doppler, Color Flow transthoracic echocardiogram. The study was technically difficult. No Definity used due to elevated PAP. Exam performed portable in patient room. Left Ventricle Normal LV size. Mild segmental systolic dysfunction (see wall motion). The estimated ejection fraction is 45 %. Unable to assess diastolic dysfunction. Lateral-Basal: Hypokinetic. Posterior- Basal: Hypokinetic. Infero-Basal: Akinetic. Mid-Lateral : Akinetic. Mid-Posterior: Hypokinetic. Mid- Inferior: Hypokinetic. Lateral [place] : Akinetic. Right Ventricle Normal RV size. Normal systolic function. Atria The left atrium is mildly enlarged. Normal right atrium. No doppler evidence for ASD. Mitral Valve There is no mitral annular calcification. Mild diffuse mitral valve thickening. Mild (1+) mitral valve insufficiency. Tricuspid Valve Normal tricuspid valve. Mild tricuspid valve insufficiency. Right ventricular systolic pressure estimated to be 78 mmHg. Aortic Valve Mild focal aortic valve calcification. Trivial aortic valve insufficiency. Stable appearing bioprosthetic aortic valve apparatus. Pulmonic Valve The pulmonic valve is not well visualized. Great Vessels Mildly dilated aortic root. Pericardium/Pleural No pericardial effusion. MMode/2D Measurements & Calculations LVIDd: 5.4 cm IVSd: 1.1 cm LVOT diam: 2.2 cm LVIDs: 4.5 cm LVPWd: 1.0 cm LVOT area: 3.8 cm2 FS: 17.3 % Ao root diam: 4.0 cm LAV(MOD-bp): 47.0 ml LA A4 area: 19.9 cm2 LAV(MOD-bp) Indexed: 21.4 ml/m2 LAV(MOD-sp2): 35.9 ml LAV(MOD-sp4): 54.7 ml LA dimension(2D): 4.5 cm RA A4 area: 17.6 cm2 Doppler Measurements & Calculations Ao V2 max: 288.9 cm/sec TR max cassie: 419.5 cm/sec Ao max P.4 mmHg TR max P.4 mmHg Ao V2 mean: 208.1 cm/sec Ao mean P.5 mmHg Ao V2 VTI: 65.5 cm Interpretation Summary The study was technically difficult. Mild segmental systolic dysfunction (see wall motion). The estimated ejection fraction is 45 %. The left atrium is mildly enlarged. Mild diffuse mitral valve thickening. Mild (1+) mitral valve insufficiency. Mild tricuspid valve insufficiency. Stable appearing bioprosthetic aortic valve apparatus. Mild focal aortic valve calcification. Trivial aortic valve insufficiency. Mildly dilated aortic root. Right ventricular systolic pressure estimated to be 78 mmHg. Unable to assess diastolic dysfunction. Ordering Physician: Shanika Coker Referring Physician: RICO NAIDU Performed By: Valorie Fields, KINSEY, RVT
[2020-04-29] MEDS: Enoxaparin 100 MG/ML Syringe 90 MG SC ×2 (03:00→17:57)
[2020-04-29] MEDS: Magnesium Sulfate 4gm/100mL 4 GM/100 ML IV.SOLN. IV (03:00)
[2020-04-29 03:13] LABS: Absolute Lymphocyte Count 0.83 X10^3/uL (0.83-4.51); Basophil# 0.03 X10^3/uL; Basophil% 0.5 % (0-1); Eosinophil# 0.11 X10^3/uL; Eosinophils% 1.9 % (0-5); Hematocrit 37.7 % (40-54); Hemoglobin 10.9 g/dL (13.0-16.5); Lymphocyte # 0.83 X10^3/ul (4.0); Lymphocyte % 14.5 % (19-41); Mean Corp Hgb Conc 28.9 g/dL (32-36); Mean Corpuscular Volume 79.5 fL (80-94); Monocyte# 0.71 X10^3/uL; Monocyte% 12.4 % (0-10); NRBC Flagged by Analyzer 0 % (0-5); Neutrophil # 4.03 X10^3/uL (2.7-7.7); Neutrophil % 70.4 % (47-70); Platelet Count 119 K/mm3 (150-450); RBC Distribution Width CV 17.6 % (11.6-14.6); RBC Distribution Width SD 50.1 fl (35.1-43.9); Red Blood Count 4.74 M/mm3 (4.6-6.2); White Blood Count 5.7 K/mm3 (4.4-11.0)
[2020-04-29 04:39] LABS: ALB/GLOB Ratio 1.1 RATIO (0.9-2.4); AST(SGOT) 37 U/L (15-37); Alanine Aminotransfer ALT/SGPT 19 U/L (16-61); Albumin, Serum 3.6 g/dL (3.2-5.0); Alkaline Phosphatase 102 U/L (45-117); Anion Gap 6 (5-15); BUN 13 mg/dL (7-18); BUN/Creat Ratio 11.8 RATIO (10-20); Calcium,Total 8.1 mg/dL (8.5-10.1); Chloride 103 mmol/L (98-107); EST Glomerular Filtration Rate 73 mL/min (>60); Est Glom Filt Rate - Afr Amer 88 mL/min (>60); Estimated Creatinine Clearance 81.72 ml/min; Ferritin 17 ng/mL (26-388); Globulin 3.2 g/dL (2.2-4.2); Glucose 218 mg/dL (74-106); Iron 41 ug/dL (65-175); Iron Binding Capacity,Total 430 ug/dL (250-450); PERCENT IRON SATURATION 9.5 % (15.0-55.0); Potassium 4.9 mmol/L (3.5-5.1); Protein, Total 6.8 g/dL (6.4-8.2); Sodium Level 137 mmol/L (136-145)
--- NOTE | 2020-04-29 05:55 | EKG12_ITS ---
Test Reason : AM EKG Blood Pressure : / mmHG Vent. Rate : 068 BPM Atrial Rate : 068 BPM P-R Int : 178 ms QRS Dur : 108 ms QT Int : 418 ms P-R-T Axes : 051 -06 240 degrees QTc Int : 444 ms Normal sinus rhythm Incomplete left bundle branch block Marked ST abnormality, possible inferior subendocardial injury Abnormal ECG When compared with ECG of 28-APR-2020 17:52, MANUAL COMPARISON REQUIRED, DATA IS UNCONFIRMED Confirmed by PAZ CRUMP, MARIAH ([id number]), department editor SHAHID VICTORIA ([id number]) on 05/02/2020 11:03:13 AM Referred By: Shanika Coker Confirmed By:MARIAH MULLEN MD
[2020-04-29] MEDS: Insulin Lispro 100 UNIT/ML INSULN.PEN SC ×4 (06:51→23:00)
[2020-04-29 07:06] LABS: Bedside Glucose 163 mg/dL (70-110)
[2020-04-29] MEDS: Ranolazine 500 MG Tablet 1000 MG PO ×2 (09:19→22:51)
[2020-04-29] MEDS: Pantoprazole Sodium 20 MG Tablet PO (09:19)
[2020-04-29] MEDS: Clopidogrel Bisulfate 75 MG Tablet PO (09:19)
[2020-04-29] MEDS: Aspirin 81 MG TAB.CHEW PO (09:19)
[2020-04-29] MEDS: Metoprolol Tartrate 50 MG Tablet PO ×2 (10:49→22:51)
--- NOTE | 2020-04-29 10:57 | CON.PCM_ITS ---
Problem List (1) NSTEMI (non-ST elevated myocardial infarction) Status: Acute (2) Atherosclerosis of coronary artery Status: Chronic Qualifiers: Coronary Disease-Associated Artery/Lesion type: menominee artery [place] vs. transplanted heart: menominee heart Associated angina: without angina Qualified Code(s): I25.10 - Atherosclerotic heart disease of [place] coronary artery without angina pectoris (3) Stented coronary artery Status: Chronic (4) Status post coronary artery bypass graft Status: Chronic (5) Status post aortic valve replacement with bioprosthetic valve Status: Chronic (6) Hyperlipidemia Status: Chronic Qualifiers: Hyperlipidemia type: unspecified Qualified Code(s): E78.5 - Hyperlipidemia, unspecified (7) Hypertension Status: Chronic Qualifiers: Hypertension type: essential hypertension Qualified Code(s): I10 - Essential (primary) hypertension (8) Type 2 diabetes mellitus Status: Chronic Qualifiers: Diabetes mellitus group home insulin use: without group home use Diabetes mellitus complication status: with other specified complication Qualified Code(s): E11.69 - Type 2 diabetes mellitus with other specified complication (9) Community acquired pneumonia Status: Acute Qualifiers: Laterality: right Lung location: lower lobe of lung Qualified Code(s): J18.9 - Pneumonia, unspecified organism Reason for Consult Date of Consultation: 04/29/20 History of Present Illness: The patient is a 59 year old white male with a past cardiovascular history which is included hyperlipidemia, hypertension, CAD, CABG on 03/03/2008 with a MENDOZA to the LAD, SVG to the diagonal branch, SVG to the OM, SVG to the right PDA, status post aortic valve replacement with a report of a Rosalee-Ledbetter porcine bioprosthetic aortic valve, atrial flutter, status post a synchronized biphasic DC cardioversion, status post PCI (2019), superimposed upon diabetes mellitus, macroglobulinemia, and Hodgkin's lymphoma who is now referred for recurrent symptoms of unstable angina pectoris and abnormal cardiac enzymes/ECG compatible with an acute non-ST segment elevation HI. He states he has been having intermittent chest discomfort/pressure. He was evaluated in the outpatient setting. He was continuing medical therapy with plans for future pharmacologic stress nuclear imaging study and pending the results possible repeat diagnostic cardiac catheterization. In the interim he returned to the [facility] emergency department for reevaluation. He was found at this time to have elevation of his troponin I levels. He had an ECG performed it demonstrated sinus rhythm with the appearance of an incomplete left bundle branch block pattern and ST/T wave changes appearing compatible with myocardial ischemia in the inferolateral distribution. A repeat ECG appeared to demonstrate similar type changes. He was placed in the PCU for further evaluation and care. He has been treated medically. He states at the moment he does feel better overall. He was asked if he had any interruption in his medical therapy since his most recent PCI performed earlier this year in December. He states he cannot remember whether or not there was any interruption in his medical therapy especially as antiplatelet therapy. He denies any obvious ongoing orthopnea or PND. There has been no nausea/emesis or diaphoresis. He has not complained of near syncope or syncope. His most recent transthoracic echocardiogram, cardiac catheterization, and PCI report are as noted below. [] Past Medical History Allergies/Adverse Reactions: Allergies adhesive tape Adverse Reaction (Intermediate, Verified 04/28/20 17:49) Rash Home Medications: Ambulatory Orders Medication Instructions Recorded Metoprolol Tartrate [Lopressor 50 mg PO BID 01/27/15 (beta yoselin)] Nitroglycerin (INPATIENT USE) 0.4 mg SUBLINGUAL Q5M PRN 12/18/16 [Nitrostat] Glipizide [Glipizide ER] 10 mg PO BID 02/03/18 Aspirin [Aspirin, Baby] 81 mg PO DAILY@0800 #30 tab.chew 02/05/18 Atorvastatin Calcium [Lipitor] 80 mg PO QHS #30 tab 02/05/18 Lisinopril [Zestril] 20 mg PO BID #60 tab 02/05/18 Sitagliptin Phosphate [Januvia] 100 mg PO DAILY 01/10/20 metFORMIN HCl [Glucophage] 1,000 mg PO BIDCM #60 tab 01/15/20 clopidogrel 75 mg tablet 75 mg PO DAILY #30 tab 02/03/20 isosorbide mononitrate 120 mg 120 mg PO DAILY #30 tab 02/03/20 tablet,extended release 24 hr ranolazine 1,000 mg 1,000 mg PO BID #60 tab 04/25/20 tablet,extended release,12 hr Omeprazole 20 mg PO DAILY 04/28/20 Past Medical History (Chronic Problems): Chronic Problems (Last Reviewed 04/25/20 @ 15:17 by Paula NELSON, PA) Atherosclerosis of coronary artery (Chronic) Stented coronary artery (Chronic) Hyperlipidemia (Chronic) Hypertension (Chronic) Macroglobulinemia of [place] (Chronic) well controlled periodic IgG infusions Hodgkins lymphoma (Chronic) Status post coronary artery bypass graft (Chronic) Status post aortic valve replacement with bioprosthetic valve (Chronic) Type 2 diabetes mellitus (Chronic) Tinea unguium (Chronic) Diabetes mellitus with neuropathy (Chronic) Poor hygiene (Chronic) Nonfamilial hypogammaglobulinemia (Chronic) Surgical History: coronary bypass surgery, - - CABG x 4, PCI, Foot surgery, AVR, Myringotomy. Psychiatric History: No pertinent psych hx - *Family History Maternal Family History: Family History (Last Reviewed 04/25/20 @ 15:17 by Paula NELSON, PA) Father Arthritis Brain cancer Lung cancer Hypertension Mother Arthritis Hypertension Cancer History Items: - - Mother with history of hypertension, arthritis, cancer. Paternal Family History: Family History (Last Reviewed 04/25/20 @ 15:17 by Paula NELSON, PA) Father Arthritis Brain cancer Lung cancer Hypertension Mother Arthritis Hypertension Cancer History Items: - - Father with a history of hypertension, history of lung and brain cancer, osteoarthritis. Lives: Alone Smoking Status: Never smoker Tobacco Use: Non-smoker Alcohol: None Drugs: None Review of Systems - Review of Systems General: Denies: Fever, Night Sweats, Fatigue Cardiovascular: Reports: Chest Discomfort, Chest Discomfort at Rest, Chest Discomfort with Exertion. Denies: Shortness of Breath, Orthopnea, PND, Peripheral Edema, Palpitations, Lightheadedness, Dizziness, Near Syncope, Syncope Respiratory: Denies: Cough, Sputum Production, Hemoptysis Gastrointestinal: Denies: Hematemesis, Hematochezia, Melena Genitourinary: Denies: Dysuria, Hematuria Skin: Denies: Rash Subjectve: This is a 59-year-old white male who appears to be resting comfortably at the moment in no acute distress. Objective: Vital Signs Temp Pulse Resp BP Pulse Ox 97.4 F L 69 18 96/62 100 04/29/20 09:12 04/29/20 10:49 04/29/20 09:12 04/29/20 10:49 04/29/20 09:12 Oxygen Flow Rate (L/min) 2 Oxygen Delivery Method Room Air Weight: 209 lb 10.554 oz Body Mass Index (BMI) 27.6 Intake and Output for Last 24 Hours 04/27/20 04/28/20 04/29/20 23:59 23:59 23:59 Intake Total 350 / 350 655 / 655 Balance 350 / 350 655 / 655 General: Awake, Alert, Oriented x 3, Cooperative, No Acute Distress, Obese HEENT: Atraumatic, Normocephalic, PERRL, EOMI, Sclera Non Icteric Neck: Supple, Good ROM, No JVD Lungs: Clear to auscultation Cardiovascular: Regular Rhythm, Normal S1, Normal S2 Murmur Murmur: Grade 3/6, Harsh, Mid Systolic, LLSB, LVOT, Sternal Notch Vascular: Radiation of Murmur to Carotid Arteries Abdomen: Bowel Sounds Present, Soft, Non Tender Extremities: No edema Psych/Mental Status: Flat Affect 04/28/20 18:00: WBC 6.3, RBC 5.01, Hgb 11.6 L, Hct 39.8 L, MCV 79.4 L, MCH 23.2 L, MCHC 29.1 L, Plt Count 151, MPV 11.1, Immature Gran % (Auto) 0.500, Neut % (Auto) 72.0 H, Lymph % (Auto) 15.6 L, [place] % (Auto) 9.3, Eos % (Auto) 2.1, Baso % (Auto) 0.5, Absolute Neuts (auto) 4.6, Nucleated RBC % 0 04/28/20 18:00: Sodium 135 L, Potassium 4.2, Chloride 103, Carbon Dioxide 25.0, Anion Gap 7, BUN 13, Creatinine 1.25, Est GFR (MDRD) Af Amer 76, Est GFR (MDRD) Non-Af 63, BUN/Creatinine Ratio 10.4, Glucose 269 H, Calcium 8.7, Troponin I 0.061 H 04/28/20 18:00: D-Dimer Quant (PE/DVT) 0.77 H* 04/28/20 18:00: Magnesium 1.2 L 04/29/20 00:12: Troponin I 1.590 H* 04/29/20 02:54: WBC 5.7, RBC 4.74, Hgb 10.9 L, Hct 37.7 L, MCV 79.5 L, MCH 23.0 L, MCHC 28.9 L, Plt Count 119 L, MPV 11.0, Immature Gran % (Auto) 0.300, Neut % (Auto) 70.4 H, Lymph % (Auto) 14.5 L, [place] % (Auto) 12.4 H, Eos % (Auto) 1.9, Baso % (Auto) 0.5, Absolute Neuts (auto) 4.0, Nucleated RBC % 0 04/29/20 02:54: Sodium 137, Potassium 4.9, Chloride 103, Carbon Dioxide 28.0, Anion Gap 6, BUN 13, Creatinine 1.10, Est GFR (MDRD) Af Amer 88, Est GFR (MDRD) Non-Af 73, BUN/Creatinine Ratio 11.8, Glucose 218 H, Calcium 8.1 L, Iron 41 L, TIBC 430, Iron Saturation 9.5 L, Ferritin 17 L, Total Bilirubin 0.50 04/29/20 02:54: Troponin I 4.850 H* 04/29/20 05:46: Troponin I 6.140 H* Rhythm: Sinus rhythm EKG: As noted above ECHO: 01-10-2020 Interpretation Summary The estimated ejection fraction is 60 %. Infero-Basal: Mildly hypokinetic Stage 2 diastolic dysfunction. Mildly dilated right ventricle. Trivial mitral valve insufficiency. Trivial tricuspid valve insufficiency. Right ventricular systolic pressure estimated to be 37 mmHg. Mild pulmonary hypertension. Stable appearing and normal functioning bioprosthetic aortic valve apparatus. Peak aortic valve gradient 37 mmHg. Mean aortic valve gradient 22 mmHg. Compared to echo report dated 02/04/2018, no appreciable changes noted. Stress Test: Cardiac Cath: 01-11-2020 CONCLUSIONS [place] Multivessel CAD MENDOZA to LAD: patent SVG to DX1: occluded (chronic) SVG to OM1 and OM2: patent with proximal eccentric hazy 50% stenosis and mid eccentric 90% stenosis and the sequential portion to OM2 being occluded (chronic) SVG to RPDA: patent and previous PCI/stent: patent Left to Left and Right to Left collateral flow RECOMMENDATIONS Risk factor modification Medical therapy Referred for immediate PCI: SVG to the OM1 DESCRIPTION OF PROCEDURE The patient arrived to the procedure lab. The risks and benefits of the procedure as well as a full description of our services here and current unavailability of surgical backup were fully explained to the patient and/or their significant other prior to the catheterization. The Timeout was completed, verifying the correct patient and procedure. The patient's procedural site was prepped and draped in the usual fashion. Local anesthetic was given subcutaneously to right groin region with Lidocaine 2%. Using a modified Seldinger technique, arterial access was obtained via the right femoral artery, a 4Fr sheath was inserted Left Coronary Artery selective angiography was performed in multiple views using a 4 Fr. JL5 catheter. Saphenous Vein graft to the DIAG selective angiography was performed in multiple views using a 4 Fr. 3DRC catheter-occluded. Right Coronary Artery selective angiography was then performed in multiple views using a 4 Fr. 3DRC catheter. Left internal mammary artery graft to the LAD selective angiography was performed in multiple views using a 4 Fr. 3DRC catheter. Saphenous Vein graft to the RPDA selective angiography was performed in multiple views using a 4 Fr. RCB catheter. Saphenous Vein graft to the OM 1 selective angiography was performed in multiple views using a 4 Fr. JR4 catheter.The arterial sheath was left in to be pulled in the unit / patient room CORONARY ANGIOGRAPHY DOMINANCE: Right Dominant LEFT HEART ASSESSMENT Left Ventricular Ejection Fraction: Not assessed LEFT MAIN: Angiographically normal LEFT ANTERIOR DESCENDING ARTERY: PROX LAD: is occluded MID LAD: to distal: fills from the MENDOZA graft with no angiographically significant disease distal to the graft attachment CIRCUMFLEX ARTERY: PROX CIRC: is occluded followed by bridging to the mid LCX which is subsequently occluded followed by bridging collaterals to the distal LCX OM 1: Proximal - is occluded and fills late and faintly from the SVG graft RIGHT CORONARY ARTERY: PROX RCA: is occluded RT PDA: Proximal - fills from the SVG graft with no angiographically significant appearing disease distal to the graft attachment GRAFTS: MENDOZA graft to the Mid LAD is patent Saphenous Vein graft to the 1st Diagonal is totally occluded (chronic) Saphenous Vein graft to the 1st OM and sequential graft to the 2nd OM is patent with proximal eccentric hazy 50% stenosis and mid eccentric 90% stenosis and the sequential portion appearing occluded (chronic) Saphenous Vein graft to the RPDA previously placed stent is patent COLLATERAL FLOW: Collateral flow from Left to Left Collateral flow from Right to Left VALVE FINDINGS: Bioprosthetic Aortic Valve: present PCI: ?2019 CONCLUSIONS Successful PTCA/JOSE G of mid SVG to OM, with filter wire assistance, utilzing a 4.0 x 20 Promus Synergy at 12 batsheva: 85%-->0%, no dissection. Successful PTCA/JOSE G proximal SVG to OM, with filter wire assistance, utilizing a 4.0 x 20 Promus Synergy, followed immediately upstream with a 4.0 x 8 Promus Synergy, followed by post stent dilation with a 5.0 x 8 NC Balloon at 8 batsheva, 75%-->0%, no dissection. Additional short stent placed due to retrograde plaque shifting. Chest CTA: IMPRESSION: 1. No evidence of pulmonary embolus. 2. No aortic dissection or aneurysm. 3. Right basal infiltrate. 4. Evidence of median sternotomy and aortic valve replacement. 5. Gallstones without acute cholecystitis Assessment/Plan 1. Acute non-ST segment elevation HI The patient presents with symptoms, abnormal troponin I levels, and an abnormal ECG concerning for an acute non-ST segment elevation HI. At the present he appears to be resting reasonably comfortably. He is being monitored. He is continuing medical management. He will continue to be monitored and continue medical therapy as deemed appropriate. He will be considered for repeat diagnostic cardiac catheterization which may or may not lead to repeat catheter-based revascularization therapy. 2. CAD status post CABG the patient has a history of previous CABG as noted above. He has been followed with noninvasive and invasive evaluation. At the moment he will continue to be monitored, continue medical therapy, and be considered for repeat diagnostic cardiac catheterization. 3. Status post PCI The patient's most recent PCI was performed in December of this year. The results are as noted. At the present time there is concern as to whether or not he may have experienced in-stent restenosis versus progression of underlying CAD or graft vessel disease. Thus he will continue medical therapy and undergo reevaluation as noted. 4. Aortic valve disease status post aortic valve replacement-bioprosthetic The patient's aortic valve has been evaluated during his recent noninvasive and invasive studies. This can be reassessed as deemed appropriate. In the meantime he should continue [place] [employer] antibiotic prophylaxis. 5. Atrial flutter The patient has a history of atrial flutter for which she has undergone medical therapy and synchronized biphasic DC cardioversion in the past. He remains in s inus rhythm at the moment. He will continue to be followed. 6. Hyperlipidemia The patient will continue risk factor evaluation and care. 7. Hypertension The patient's blood pressure will be followed. He will continue medical therapy. 8. Diabetes mellitus The patient will continue evaluation care per internal medicine. 9. Macroglobulinemia The patient will continue to be followed by hematology oncology. 10. Hodgkin's lymphoma The patient has been followed by hematology/oncology for this diagnosis in the past. Overall, at the present time, the patient will continue to be monitored. He will continue medical therapy. He will be considered for upcoming diagnostic cardiac catheterization to reassess his coronary/graft status. The above was discussed with the patient including the cardiac catheterization procedure, risks and benefits, and the patient was agreeable to this plan. This note was generated using a voice recognition system and there may be incorrect words, spelling or punctuation that were not noted when reviewing the office note prior to saving.
[2020-04-29 12:05] LABS: Bedside Glucose 221 mg/dL (70-110)
--- NOTE | 2020-04-29 13:08 | PN_ITS ---
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 Ambulating in room. Complains of mild chest pressure. Denies shortness of breath or other associated symptoms. Discussed plan of care, patient in agreement. - Physical Exam Vitals/I&O's: Vital Signs Temp Pulse Resp BP Pulse Ox 97.4 F L 69 18 96/62 100 04/29/20 09:12 04/29/20 10:49 04/29/20 09:12 04/29/20 10:49 04/29/20 09:12 Oxygen Flow Rate (L/min) 2 Oxygen Delivery Method Room Air Weight: 209 lb 10.554 oz Body Mass Index (BMI) 27.6 Intake and Output for Last 24 Hours 04/27/20 04/28/20 04/29/20 23:59 23:59 23:59 Intake Total 350 / 350 1015 / 1015 Balance 350 / 350 1015 / 1015 General: Alert, Oriented x3, Cooperative HEENT: Atraumatic, PERRLA, EOMI, Normocephalic Neck: Supple, No JVD, Negative Carotid Bruits Lungs: Clear to auscultation, Normal air movement Cardiovascular: Regular rate, Regular Rhythm, Murmur Abdomen: Bowel Sounds Present, Soft, Non Tender, Non-Distended Extremities: No clubbing, No cyanosis, No edema, Capillary Refill Less than 3 Seconds Skin: No rashes, No breakdown Musculoskeletal: No Tenderness to Palpation of Joints or Extremities Neurological: Cranial nerves II-XII grossly intact Psych/Mental Status: Flat Affect Microbiology Past 72 Hours 04/29/20 02:55 Mucosa - Nasopharyngeal - Final 04/29/20 02:57 Urine, Random Streptococcus pneumoniae Antigen (M - Final 04/29/20 02:57 Urine, Random Legionella Antigen - Final 04/28/20 22:50 Mucosa - Nose Respiratory Panel (PCR) - Final Laboratory Results 04/28/20 18:00: WBC 6.3, RBC 5.01, Hgb 11.6 L, Hct 39.8 L, MCV 79.4 L, MCH 23.2 L, MCHC 29.1 L, RDW Std Deviation 50.3 H, RDW Coeff of Joel 17.8 H, Plt Count 151, MPV 11.1, Immature Gran % (Auto) 0.500, Neut % (Auto) 72.0 H, Lymph % (Auto) 15.6 L, [place] % (Auto) 9.3, Eos % (Auto) 2.1, Baso % (Auto) 0.5, Absolute Neuts (auto) 4.6, Absolute Lymphs (auto) 0.99, Nucleated RBC % 0 04/28/20 18:00: Sodium 135 L, Potassium 4.2, Chloride 103, Carbon Dioxide 25.0, Anion Gap 7, BUN 13, Creatinine 1.25, Estim Creat Clear Calc 71.91, Est GFR (MDRD) Af Amer 76, Est GFR (MDRD) Non-Af 63, BUN/Creatinine Ratio 10.4, Glucose 269 H, Calcium 8.7, Troponin I 0.061 H 04/28/20 18:00: D-Dimer Quant (PE/DVT) 0.77 H* 04/28/20 18:00: Magnesium 1.2 L 04/28/20 23:00: POC Glucose 370 H 04/29/20 00:12: Troponin I 1.590 H* 04/29/20 02:54: WBC 5.7, RBC 4.74, Hgb 10.9 L, Hct 37.7 L, MCV 79.5 L, MCH 23.0 L, MCHC 28.9 L, RDW Std Deviation 50.1 H, RDW Coeff of Joel 17.6 H, Plt Count 119 L, MPV 11.0, Immature Gran % (Auto) 0.300, Neut % (Auto) 70.4 H, Lymph % (Auto) 14.5 L, [place] % (Auto) 12.4 H, Eos % (Auto) 1.9, Baso % (Auto) 0.5, Absolute Neuts (auto) 4.0, Absolute Lymphs (auto) 0.83, Nucleated RBC % 0 04/29/20 02:54: Sodium 137, Potassium 4.9, Chloride 103, Carbon Dioxide 28.0, Anion Gap 6, BUN 13, Creatinine 1.10, Estim Creat Clear Calc 81.72, Est GFR (MDRD) Af Amer 88, Est GFR (MDRD) Non-Af 73, BUN/Creatinine Ratio 11.8, Glucose 218 H, Calcium 8.1 L, Iron 41 L, TIBC 430, Iron Saturation 9.5 L, Ferritin 17 L, Total Bilirubin 0.50, AST 37, ALT 19, Alkaline Phosphatase 102, Total Protein 6.8, Albumin 3.6, Globulin 3.2, Albumin/Globulin Ratio 1.1 04/29/20 02:54: Troponin I 4.850 H* 04/29/20 05:46: Troponin I 6.140 H* 04/29/20 06:49: POC Glucose 163 H 04/29/20 11:58: POC Glucose 221 H 04/29/20 12:30: Troponin I Pending Current Medications Acetaminophen (Acetaminophen 325 Mg Tablet) 650 mg PO Q6H PRN PRN PRN Reason: Pain Score 1-10/Temp > 100.7 F Last Admin: 04/28/20 22:57 Dose: 650 mg Documented by: Al Hydroxide/Mg Hydroxide (Mag Hydrox/Al Hydrox/Simeth 30 Ml Udc) 30 ml PO Q6H PRN PRN PRN Reason: Gastric Burning Albuterol Sulfate (Albuterol 2.5 Mg/3 Ml Vial.Neb.) 2.5 mg INHALATION Q2H PRN PRN PRN Reason: Dyspnea, wheezing Aspirin (Aspirin 81 Mg Tab.Chew) 81 mg PO DAILY@0800 [facility] Last Admin: 04/29/20 09:19 Dose: 81 mg Documented by: Atorvastatin Calcium (Atorvastatin Calcium 80 Mg Tablet) 80 mg PO QHS [facility] Last Admin: 04/28/20 22:59 Dose: 80 mg Documented by: Clopidogrel Bisulfate (Clopidogrel Bisulfate 75 Mg Tablet) 75 mg PO DAILY [facility] Last Admin: 04/29/20 09:19 Dose: 75 mg Documented by: Enoxaparin Sodium (Enoxaparin 100 Mg/Ml Syringe) 90 mg SC Q12@0600,1800 [facility] Last Admin: 04/29/20 03:00 Dose: 90 mg Documented by: Guaifenesin (Guaifenesin 10 Ml Udc (200mg/10ml)) 20 ml PO Q4H PRN PRN PRN Reason: COUGH Hydralazine HCl (Hydralazine 20 Mg/Ml Vial) 10 mg IV Q4H PRN PRN PRN Reason: SBP > 160 Ceftriaxone Sodium 2 gm/ (Sodium Chloride) 50 mls @ 100 mls/hr IV Q24H [facility] Azithromycin 500 mg/ Dextrose 255 mls @ 250 mls/hr IV Q24H [facility] Sodium Chloride () 250 mls @ 15 mls/hr IV .[id number] PRN PRN Reason: Saline Flush Sodium Chloride () 250 mls @ 15 mls/hr IV .[id number] PRN PRN Reason: Additional IVPB Infusion Insulin Human Lispro (Insulin Lispro 100 Unit/Ml Insuln.Pen) 0 unit SC ACHS [facility]; Protocol Last Admin: 04/29/20 11:59 Dose: 2 u Documented by: Isosorbide Mononitrate (Isosorbide Mononitrate 120 Mg Tablet) 120 mg PO DAILY [facility] Last Admin: 04/29/20 10:50 Dose: Not Given Documented by: Lisinopril (Lisinopril 20 Mg Tablet) 20 mg PO BID [facility] Last Admin: 04/29/20 10:50 Dose: Not Given Documented by: Magnesium Hydroxide (Magnesium Hydroxide 30 Ml Udc) 30 ml PO DAILY PRN PRN PRN Reason: Constipation Melatonin (Melatonin 3 Mg Tablet) 3 mg PO QHS PRN PRN PRN Reason: INSOMNIA Metoprolol Tartrate (Metoprolol Tartrate 50 Mg Tablet) 50 mg PO BID [facility] Last Admin: 04/29/20 10:49 Dose: 50 mg Documented by: Morphine Sulfate (Morphine 2 Mg/Ml Syringe) 2 mg IV Q3H PRN PRN PRN Reason: Pain Score 6-10 Last Admin: 04/28/20 23:50 Dose: 2 mg Documented by: Nitroglycerin (Nitroglycerin (Inpatient Use) 0.4 Mg Tab.Subl) 0.4 mg SUBLINGUAL Q5M PRN PRN Reason: CARDIAC/CHEST PAIN Ondansetron HCl (Ondansetron 4 Mg/2 Ml Vial) 4 mg IV Q8H PRN PRN PRN Reason: NAUSEA/VOMITING Oxycodone HCl (Oxycodone 5 Mg Tablet) 5 mg PO Q4H PRN PRN PRN Reason: Pain Score 4-5 Pantoprazole Sodium (Pantoprazole Sodium 20 Mg Tablet) 20 mg PO DAILY [facility] Last Admin: 11/07/20 09:19 Dose: 20 mg Documented by: Prochlorperazine Edisylate (Prochlorperazine 10 Mg/2 Ml Vial) 5 mg IV Q4H PRN PRN PRN Reason: Breakthrough Nausea/Vomiting Psyllium Hydrophilic Mucilloid (Psyllium 1 Packet) 1 packet PO DAILY PRN PRN PRN Reason: Constipation Ranolazine (Ranolazine 500 Mg Tablet) 1,000 mg PO BID [facility] Last Admin: 04/29/20 09:19 Dose: 1,000 mg Documented by: Senna/Docusate Sodium (Senna/Docusate Sodium 1 Tablet) 2 tablet PO BID PRN PRN PRN Reason: Constipation Sodium Chloride (0.9% Saline Lock 10 Ml Syringe) 10 - 40 ml IV UD PRN PRN Reason: SALINE FLUSH Throat Lozenges (Benzocaine/Menthol 1 Lozenge) 1 lozenge MUCOUS MEM Q2H PRN PRN PRN Reason: SORE THROAT Medical Necessity - Tobacco Use Smoking Status: Never smoker Tobacco Use: Non-smoker Assessment/Plan All Active Problems (Last Reviewed 04/25/20 @ 15:17 by Paula NELSON, PA) Chest pain (Acute) Community acquired pneumonia (Acute) Personal history of antineoplastic chemotherapy (Acute) NSTEMI (non-ST elevated myocardial infarction) (Acute) Atrial flutter (Resolved) Feeling grief (Acute) Shoulder pain, right (Acute) 1. NSTEMI-cardiology following. Continue aspirin, statin, Plavix, therapeutic Lovenox, metoprolol, isosorbide. Plan for heart cath on Friday. 2. Community-acquired pneumonia-CTA with right basal infiltrate. IV Rocephin and IV azithromycin. Obtain sputum culture. Respiratory panel and Covid negative. 3. CAD with history of PCI and CABG-most recent PCI December 2019. Continue aspirin, Plavix, statin, lisinopril, metoprolol. Therapeutic Lovenox. Hypertension-stable, continue isosorbide, lisinopril, metoprolol with hold parameters. 4. Hyperlipidemia-continue statin. 5. Type 2 diabetes mellitus-oral regimen on hold. Accu-Cheks with sliding scale insulin. 6. Chronic anemia-stable, trend CBC. 7. GERD-continue PPI. 8. Macroglobulinemia, history of Hodgkin's lymphoma-continue outpatient follow- up with hematology/oncology. 9. History of atrial flutter-currently sinus rhythm. History of synchronized cardioversion in the past. DVT prophylaxis-therapeutic Lovenox This patient was seen by KEITH Merino under the supervision of Dr. Meneses. <[place] Meneses - Last Filed: 04/29/20 13:53> - Physical Exam Vitals/I&O's: Vital Signs Temp Pulse Resp BP Pulse Ox 97.4 F L 69 18 96/62 100 04/29/20 09:12 04/29/20 10:49 04/29/20 09:12 04/29/20 10:49 04/29/20 09:12 Oxygen Flow Rate (L/min) 2 Oxygen Delivery Method Room Air Weight: 95.1 kg Body Mass Index (BMI) 27.6 Intake and Output for Last 24 Hours 04/27/20 04/28/20 04/29/20 23:59 23:59 23:59 Intake Total 350 / 350 1015 / 1015 Balance 350 / 350 1015 / 1015 Microbiology Past 72 Hours 04/29/20 02:55 Mucosa - Nasopharyngeal - Final 04/29/20 02:57 Urine, Random Streptococcus pneumoniae Antigen (M - Final 04/29/20 02:57 Urine, Random Legionella Antigen - Final 04/28/20 22:50 Mucosa - Nose Respiratory Panel (PCR) - Final Laboratory Results 04/28/20 18:00: WBC 6.3, RBC 5.01, Hgb 11.6 L, Hct 39.8 L, MCV 79.4 L, MCH 23.2 L, MCHC 29.1 L, RDW Std Deviation 50.3 H, RDW Coeff of Joel 17.8 H, Plt Count 151, MPV 11.1, Immature Gran % (Auto) 0.500, Neut % (Auto) 72.0 H, Lymph % (Auto) 15.6 L, [place] % (Auto) 9.3, Eos % (Auto) 2.1, Baso % (Auto) 0.5, Absolute Neuts (auto) 4.6, Absolute Lymphs (auto) 0.99, Nucleated RBC % 0 04/28/20 18:00: Sodium 135 L, Potassium 4.2, Chloride 103, Carbon Dioxide 25.0, Anion Gap 7, BUN 13, Creatinine 1.25, Estim Creat Clear Calc 71.91, Est GFR (MDRD) Af Amer 76, Est GFR (MDRD) Non-Af 63, BUN/Creatinine Ratio 10.4, Glucose 269 H, Calcium 8.7, Troponin I 0.061 H 04/28/20 18:00: D-Dimer Quant (PE/DVT) 0.77 H* 04/28/20 18:00: Magnesium 1.2 L 04/28/20 23:00: POC Glucose 370 H 04/29/20 00:12: Troponin I 1.590 H* 04/29/20 02:54: WBC 5.7, RBC 4.74, Hgb 10.9 L, Hct 37.7 L, MCV 79.5 L, MCH 23.0 L, MCHC 28.9 L, RDW Std Deviation 50.1 H, RDW Coeff of Joel 17.6 H, Plt Count 119 L, MPV 11.0, Immature Gran % (Auto) 0.300, Neut % (Auto) 70.4 H, Lymph % (Auto) 14.5 L, [place] % (Auto) 12.4 H, Eos % (Auto) 1.9, Baso % (Auto) 0.5, Absolute Neuts (auto) 4.0, Absolute Lymphs (auto) 0.83, Nucleated RBC % 0 04/29/20 02:54: Sodium 137, Potassium 4.9, Chloride 103, Carbon Dioxide 28.0, Anion Gap 6, BUN 13, Creatinine 1.10, Estim Creat Clear Calc 81.72, Est GFR (MDRD) Af Amer 88, Est GFR (MDRD) Non-Af 73, BUN/Creatinine Ratio 11.8, Glucose 218 H, Calcium 8.1 L, Iron 41 L, TIBC 430, Iron Saturation 9.5 L, Ferritin 17 L, Total Bilirubin 0.50, AST 37, ALT 19, Alkaline Phosphatase 102, Total Protein 6.8, Albumin 3.6, Globulin 3.2, Albumin/Globulin Ratio 1.1 04/29/20 02:54: Troponin I 4.850 H* 04/29/20 05:46: Troponin I 6.140 H* 04/29/20 06:49: POC Glucose 163 H 04/29/20 11:58: POC Glucose 221 H 04/29/20 12:30: Troponin I 8.400 H* Current Medications Acetaminophen (Acetaminophen 325 Mg Tablet) 650 mg PO Q6H PRN PRN PRN Reason: Pain Score 1-10/Temp > 100.7 F Last Admin: 04/28/20 22:57 Dose: 650 mg Documented by: Al Hydroxide/Mg Hydroxide (Mag Hydrox/Al Hydrox/Simeth 30 Ml Udc) 30 ml PO Q6H PRN PRN PRN Reason: Gastric Burning Albuterol Sulfate (Albuterol 2.5 Mg/3 Ml Vial.Neb.) 2.5 mg INHALATION Q2H PRN PRN PRN Reason: Dyspnea, wheezing Aspirin (Aspirin 81 Mg Tab.Chew) 81 mg PO DAILY@0800 [facility] Last Admin: 04/29/20 09:19 Dose: 81 mg Documented by: Atorvastatin Calcium (Atorvastatin Calcium 80 Mg Tablet) 80 mg PO QHS [facility] Last Admin: 04/28/20 22:59 Dose: 80 mg Documented by: Clopidogrel Bisulfate (Clopidogrel Bisulfate 75 Mg Tablet) 75 mg PO DAILY [facility] Last Admin: 04/29/20 09:19 Dose: 75 mg Documented by: Enoxaparin Sodium (Enoxaparin 100 Mg/Ml Syringe) 90 mg SC Q12@0600,1800 [facility] Last Admin: 04/29/20 03:00 Dose: 90 mg Documented by: Guaifenesin (Guaifenesin 10 Ml Udc (200mg/10ml)) 20 ml PO Q4H PRN PRN PRN Reason: COUGH Hydralazine HCl (Hydralazine 20 Mg/Ml Vial) 10 mg IV Q4H PRN PRN PRN Reason: SBP > 160 Ceftriaxone Sodium 2 gm/ (Sodium Chloride) 50 mls @ 100 mls/hr IV Q24H [facility] Azithromycin 500 mg/ Dextrose 255 mls @ 250 mls/hr IV Q24H [facility] Sodium Chloride () 250 mls @ 15 mls/hr IV .[id number] PRN PRN Reason: Saline Flush Sodium Chloride () 250 mls @ 15 mls/hr IV .[id number] PRN PRN Reason: Additional IVPB Infusion Insulin Human Lispro (Insulin Lispro 100 Unit/Ml Insuln.Pen) 0 unit SC [facility]; Protocol Last Admin: 04/29/20 11:59 Dose: 2 u Documented by: Isosorbide Mononitrate (Isosorbide Mononitrate 120 Mg Tablet) 120 mg PO DAILY [facility] Last Admin: 04/29/20 10:50 Dose: Not Given Documented by: Lisinopril (Lisinopril 20 Mg Tablet) 20 mg PO BID [facility] Last Admin: 04/29/20 10:50 Dose: Not Given Documented by: Magnesium Hydroxide (Magnesium Hydroxide 30 Ml Udc) 30 ml PO DAILY PRN PRN PRN Reason: Constipation Melatonin (Melatonin 3 Mg Tablet) 3 mg PO QHS PRN PRN PRN Reason: INSOMNIA Metoprolol Tartrate (Metoprolol Tartrate 50 Mg Tablet) 50 mg PO BID [facility] Last Admin: 04/29/20 10:49 Dose: 50 mg Documented by: Morphine Sulfate (Morphine 2 Mg/Ml Syringe) 2 mg IV Q3H PRN PRN PRN Reason: Pain Score 6-10 Last Admin: 04/28/20 23:50 Dose: 2 mg Documented by: Nitroglycerin (Nitroglycerin (Inpatient Use) 0.4 Mg Tab.Subl) 0.4 mg SUBLINGUAL Q5M PRN PRN Reason: CARDIAC/CHEST PAIN Ondansetron HCl (Ondansetron 4 Mg/2 Ml Vial) 4 mg IV Q8H PRN PRN PRN Reason: NAUSEA/VOMITING Oxycodone HCl (Oxycodone 5 Mg Tablet) 5 mg PO Q4H PRN PRN PRN Reason: Pain Score 4-5 Pantoprazole Sodium (Pantoprazole Sodium 20 Mg Tablet) 20 mg PO DAILY [facility] Last Admin: 04/29/20 09:19 Dose: 20 mg Documented by: Prochlorperazine Edisylate (Prochlorperazine 10 Mg/2 Ml Vial) 5 mg IV Q4H PRN PRN PRN Reason: Breakthrough Nausea/Vomiting Psyllium Hydrophilic Mucilloid (Psyllium 1 Packet) 1 packet PO DAILY PRN PRN PRN Reason: Constipation Ranolazine (Ranolazine 500 Mg Tablet) 1,000 mg PO BID [facility] Last Admin: 04/29/20 09:19 Dose: 1,000 mg Documented by: Senna/Docusate Sodium (Senna/Docusate Sodium 1 Tablet) 2 tablet PO BID PRN PRN PRN Reason: Constipation Sodium Chloride (0.9% Saline Lock 10 Ml Syringe) 10 - 40 ml IV UD PRN PRN Reason: SALINE FLUSH Throat Lozenges (Benzocaine/Menthol 1 Lozenge) 1 lozenge MUCOUS MEM Q2H PRN PRN PRN Reason: SORE THROAT Assessment/Plan This patient was seen in conjunction with KEITH Merino . I have independently interviewed and examined the patient and reviewed pertinent historical, laboratory, and other data. Please refer to KEITH Merino note for details of this patient's presentation, findings, and recommendations. I have reviewed KEITH Merino note and concur with documented findings. In brief, patient is 59-year-old gentleman with past medical history single for coronary artery disease with recent PCI with stent placement in December 2019 who presented with chest pain. CTA demonstrated right basilar infiltrate. Patient was found to have elevated troponin admitted to monitored bed with subsequent serial cardiac enzymes ordered which came back consistent with acute non-STEMI. Treatment initiated per protocol consultation placed to cardiology with plans for patient to undergo left heart catheterization with possible intervention if warranted on 05/01/2020 Physical Examination: GENERAL: cooperative HEENT: Atraumatic; EYES; Anicteric, Normal Conjunctiva NECK; supple, normal thyroid, RESPIRATORY: Diminished to auscultation CARDIOVASCULAR: Regular S1 S2, GI: soft, normoactive bowel sounds, : No Renal angle tenderness; EXTREMITIES: No edema, no clubbing, MUSCULOSKELETAL: no muscle waisting NEURO: Awake; no lateralizing signs. SKIN: No Rash PSYCH; Flat affect Assessment: 1. Acute non-STEMI 2. Coronary artery disease with recent PCI in December 2019 3. Pneumonia 4. Diabetes mellitus type 2 5. Dyslipidemia 6. Paroxysmal A. fib/flutter 7. Anemia of chronic disorder 8. GERD 9. Macroglobulinemia 10. DVT prophylaxis Recommendations: 1. I have discussed the results of my overview and impressions with the patient 2. Options for management were reviewed Inpatient E&M: [id number] [facility] Hosp L3
--- NOTE | 2020-04-29 16:00 | CM.UR ---
RN CM ASSESSMENT Intro role of CM to patient in room. Patient is awake, alert and able to participate in assessment. Sitting in chair, no distress noted. Pt states he is independent, drives and does not use any ambulatory DME. Discussed that he does not have next of kin or emergency contact. Patient says his brother and he does not have other family. He does not wish to list any emergency contact at this time. PCP: Dr. Damico Specialists: Dr. Go and oncologist here at [facility]--he can't remember his name. Insurance: [facility]: [facility]. Anticipate home with Plavix. [employer] benefit: yes. States sometimes it gets a little touch to pay for meds. Living arrangements: lives independently, no care needs identified. Transportation: drives self. Pt DC goals: Home DC Plan: anticipate home on discharge. Case management will remain available should any needs arise. Anabel Aguila RN, [facility].
[2020-04-29 16:50] LABS: Bedside Glucose 234 mg/dL (70-110)
[2020-04-29] MEDS: Atorvastatin Calcium 80 MG Tablet PO (22:50)
[2020-04-29] MEDS: Lisinopril 20 MG Tablet PO (22:51)
[2020-04-29] MEDS: Morphine 2 MG/ML Syringe IV (23:31)
[2020-04-30] VITALS (18 sets, daily range): BP systolic 101–118; BP diastolic 65–79; PULSE 75–97; RESP 15–20; TEMP 36.6–36.8; O2SAT 94–99
[2020-04-30 00:11] LABS: Bedside Glucose 204 mg/dL (70-110)
[2020-04-30] MEDS: Enoxaparin 100 MG/ML Syringe 90 MG SC ×2 (05:50→16:58)
--- NOTE | 2020-04-30 05:55 | EKG12_ITS ---
Test Reason : AM EKG Blood Pressure : / mmHG Vent. Rate : 080 BPM Atrial Rate : 080 BPM P-R Int : 170 ms QRS Dur : 118 ms QT Int : 376 ms P-R-T Axes : 057 -01 -87 degrees QTc Int : 433 ms Normal sinus rhythm Marked ST abnormality, possible inferior subendocardial injury Abnormal ECG When compared with ECG of 29-APR-2020 05:26, MANUAL COMPARISON REQUIRED, DATA IS UNCONFIRMED Confirmed by PAZ CRUMP, MARIAH ([id number]), photography editor SHAHID VICTORIA ([id number]) on 05/02/2020 11:00:50 AM Referred By: Shanika Coker Confirmed By:MARIAH MULLEN MD
[2020-04-30] MEDS: Nitroglycerin (INPATIENT USE) 0.4 MG TAB.SUBL SUBLINGUAL ×2 (06:02→16:51)
--- NOTE | 2020-04-30 06:05 | NURSING ---
pt reports he was just up to the bathroom and is c/o chest pressure 6/10. 118/79, hr 79. nitro s/l given at this time
--- NOTE | 2020-04-30 06:12 | NURSING ---
pt is chest pain free after 1 nitro s/l
[2020-04-30 06:22] LABS: Hematocrit 40.9 % (40-54); Hemoglobin 11.8 g/dL (13.0-16.5); Mean Corp Hgb Conc 28.9 g/dL (32-36); Mean Corpuscular Hgb 23.2 pg (27.0-32.0); Mean Corpuscular Volume 80.4 fL (80-94); Mean Platelet Vol. 11.2 fl (6.2-12.0); Platelet Count 137 K/mm3 (150-450); RBC Distribution Width CV 17.9 % (11.6-14.6); RBC Distribution Width SD 51.8 fl (35.1-43.9); Red Blood Count 5.09 M/mm3 (4.6-6.2); White Blood Count 8.4 K/mm3 (4.4-11.0)
[2020-04-30] MEDS: Insulin Lispro 100 UNIT/ML INSULN.PEN SC ×4 (06:44→22:16)
[2020-04-30 06:46] LABS: Anion Gap 5 (5-15); BUN 17 mg/dL (7-18); BUN/Creat Ratio 14.5 RATIO (10-20); Calcium,Total 8.7 mg/dL (8.5-10.1); Chloride 103 mmol/L (98-107); Creatinine, Serum 1.17 mg/dL (0.70-1.30); EST Glomerular Filtration Rate 68 mL/min (>60); Est Glom Filt Rate - Afr Amer 82 mL/min (>60); Estimated Creatinine Clearance 76.83 ml/min; Glucose 245 mg/dL (74-106); Potassium 4.7 mmol/L (3.5-5.1); Sodium Level 134 mmol/L (136-145)
[2020-04-30 06:51] LABS: Bedside Glucose 212 mg/dL (70-110)
--- NOTE | 2020-04-30 06:59 | NURSING ---
PT RESTING IN RECLINER. REPORTS HIS CHEST PAIN WAS THE SAME IT HAS BEEN, FEELS LIKE A TIGHT/PRESSURE THAT IS AGGRAVATED WITH EXERTION.
[2020-04-30] MEDS: Aspirin 81 MG TAB.CHEW PO (08:34)
[2020-04-30] MEDS: Clopidogrel Bisulfate 75 MG Tablet PO (10:05)
[2020-04-30] MEDS: Metoprolol Tartrate 50 MG Tablet PO (10:05)
[2020-04-30] MEDS: Ranolazine 500 MG Tablet 1000 MG PO ×2 (10:05→22:16)
[2020-04-30] MEDS: Lisinopril 20 MG Tablet PO (10:06)
[2020-04-30] MEDS: Pantoprazole Sodium 20 MG Tablet PO (10:06)
--- NOTE | 2020-04-30 10:58 | PCM.PROGNOTE ---
<ShaqKanchan PHYS ASSISTANT - Last Filed: 04/30/20 11:03> Patient Problems: Active and Suspected Problems (Last Reviewed 04/25/20 @ 15:17 by Paula NELSON, PA) Chest pain (Acute) Community acquired pneumonia (Acute) NSTEMI (non-ST elevated myocardial infarction) (Acute) Subjective: Patient seen and examined. Resting in chair. States he has ongoing chest tightness. He states this is worse with ambulation. Denies other current complaints. Asking if heart cath can be done through his wrist, discussed with patient this is under the discretion of cardiology. - Physical Exam Vitals/I&O's: Vital Signs Temp Pulse Resp BP Pulse Ox 98.0 F 85 18 102/68 99 04/30/20 10:03 04/30/20 10:05 04/30/20 10:03 04/30/20 10:05 04/30/20 10:03 Oxygen Flow Rate (L/min) 2 Oxygen Delivery Method Room Air Weight: 209 lb 10.554 oz Body Mass Index (BMI) 27.6 Intake and Output for Last 24 Hours 04/28/20 04/29/20 04/30/20 23:59 23:59 23:59 Intake Total 350 / 350 1425 / 1880 705 / 705 Balance 350 / 350 1425 / 1880 705 / 705 General: Alert, Oriented x3, Cooperative HEENT: Atraumatic, PERRLA, EOMI, Normocephalic Neck: Supple, No JVD, Negative Carotid Bruits Lungs: Clear to auscultation, Diminished Cardiovascular: Regular rate, Regular Rhythm, Murmur Abdomen: Bowel Sounds Present, Soft, Non Tender, Non-Distended Extremities: No clubbing, No cyanosis, No edema, Capillary Refill Less than 3 Seconds Skin: No rashes, No breakdown Musculoskeletal: No Tenderness to Palpation of Joints or Extremities Neurological: Cranial nerves II-XII grossly intact, Neuro grossly intact Psych/Mental Status: Flat Affect Microbiology Past 72 Hours 04/29/20 02:55 Mucosa - Nasopharyngeal - Final 04/29/20 02:57 Urine, Random Streptococcus pneumoniae Antigen (M - Final 04/29/20 02:57 Urine, Random Legionella Antigen - Final 04/28/20 22:50 Mucosa - Nose Respiratory Panel (PCR) - Final Laboratory Results 04/29/20 11:58: POC Glucose 221 H 04/29/20 12:30: Troponin I 8.400 H* 04/29/20 16:44: POC Glucose 234 H 04/29/20 22:57: POC Glucose 204 H 04/30/20 06:00: WBC 8.4, RBC 5.09, Hgb 11.8 L, Hct 40.9, MCV 80.4, MCH 23.2 L, MCHC 28.9 L, RDW Std Deviation 51.8 H, RDW Coeff of Joel 17.9 H, Plt Count 137 L, MPV 11.2 04/30/20 06:00: Sodium 134 L, Potassium 4.7, Chloride 103, Carbon Dioxide 26.0, Anion Gap 5, BUN 17, Creatinine 1.17, Estim Creat Clear Calc 76.83, Est GFR (MDRD) Af Amer 82, Est GFR (MDRD) Non-Af 68, BUN/Creatinine Ratio 14.5, Glucose 245 H, Calcium 8.7 04/30/20 06:00: Troponin I 2.580 H* 04/30/20 06:31: POC Glucose 212 H Current Medications Acetaminophen (Acetaminophen 325 Mg Tablet) 650 mg PO Q6H PRN PRN PRN Reason: Pain Score 1-10/Temp > 100.7 F Last Admin: 04/28/20 22:57 Dose: 650 mg Documented by: Al Hydroxide/Mg Hydroxide (Mag Hydrox/Al Hydrox/Simeth 30 Ml Udc) 30 ml PO Q6H PRN PRN PRN Reason: Gastric Burning Albuterol Sulfate (Albuterol 2.5 Mg/3 Ml Vial.Neb.) 2.5 mg INHALATION Q2H PRN PRN PRN Reason: Dyspnea, wheezing Aspirin (Aspirin 81 Mg Tab.Chew) 81 mg PO DAILY@0800 [facility] Last Admin: 04/30/20 08:34 Dose: 81 mg Documented by: Atorvastatin Calcium (Atorvastatin Calcium 80 Mg Tablet) 80 mg PO QHS [facility] Last Admin: 04/29/20 22:50 Dose: 80 mg Documented by: Clopidogrel Bisulfate (Clopidogrel Bisulfate 75 Mg Tablet) 75 mg PO DAILY [facility] Last Admin: 04/30/20 10:05 Dose: 75 mg Documented by: Enoxaparin Sodium (Enoxaparin 100 Mg/Ml Syringe) 90 mg SC Q12@0600,1800 [facility] Last Admin: 04/30/20 05:50 Dose: 90 mg Documented by: Guaifenesin (Guaifenesin 10 Ml Udc (200mg/10ml)) 20 ml PO Q4H PRN PRN PRN Reason: COUGH Hydralazine HCl (Hydralazine 20 Mg/Ml Vial) 10 mg IV Q4H PRN PRN PRN Reason: SBP > 160 Ceftriaxone Sodium 2 gm/ (Sodium Chloride) 50 mls @ 100 mls/hr IV Q24H [facility] Last Infusion: 04/29/20 22:37 Dose: Infused Documented by: Azithromycin 500 mg/ Dextrose 255 mls @ 250 mls/hr IV Q24H [facility] Last Infusion: 04/30/20 00:00 Dose: Infused Documented by: Sodium Chloride () 250 mls @ 15 mls/hr IV .[id number] PRN PRN Reason: Saline Flush Sodium Chloride () 250 mls @ 15 mls/hr IV .[id number] PRN PRN Reason: Additional IVPB Infusion Insulin Human Lispro (Insulin Lispro 100 Unit/Ml Insuln.Pen) 0 unit [facility]; Protocol Last Admin: 04/30/20 06:44 Dose: 2 u Documented by: Isosorbide Mononitrate (Isosorbide Mononitrate 120 Mg Tablet) 120 mg PO DAILY [facility] Last Admin: 04/30/20 10:06 Dose: 120 mg Documented by: Lisinopril (Lisinopril 20 Mg Tablet) 20 mg PO BID [facility] Last Admin: 04/30/20 10:06 Dose: 20 mg Documented by: Magnesium Hydroxide (Magnesium Hydroxide 30 Ml Udc) 30 ml PO DAILY PRN PRN PRN Reason: Constipation Melatonin (Melatonin 3 Mg Tablet) 3 mg PO QHS PRN PRN PRN Reason: INSOMNIA Metoprolol Tartrate (Metoprolol Tartrate 50 Mg Tablet) 50 mg PO BID [facility] Last Admin: 04/30/20 10:05 Dose: 50 mg Documented by: Morphine Sulfate (Morphine 2 Mg/Ml Syringe) 2 mg IV Q3H PRN PRN PRN Reason: Pain Score 6-10 Last Admin: 04/29/20 23:31 Dose: 2 mg Documented by: Nitroglycerin (Nitroglycerin (Inpatient Use) 0.4 Mg Tab.Subl) 0.4 mg SUBLINGUAL Q5M PRN PRN Reason: CARDIAC/CHEST PAIN Last Admin: 04/30/20 06:02 Dose: 0.4 mg Documented by: Ondansetron HCl (Ondansetron 4 Mg/2 Ml Vial) 4 mg IV Q8H PRN PRN PRN Reason: NAUSEA/VOMITING Oxycodone HCl (Oxycodone 5 Mg Tablet) 5 mg PO Q4H PRN PRN PRN Reason: Pain Score 4-5 Pantoprazole Sodium (Pantoprazole Sodium 20 Mg Tablet) 20 mg PO DAILY [facility] Last Admin: 04/30/20 10:06 Dose: 20 mg Documented by: Prochlorperazine Edisylate (Prochlorperazine 10 Mg/2 Ml Vial) 5 mg IV Q4H PRN PRN PRN Reason: Breakthrough Nausea/Vomiting Psyllium Hydrophilic Mucilloid (Psyllium 1 Packet) 1 packet PO DAILY PRN PRN PRN Reason: Constipation Ranolazine (Ranolazine 500 Mg Tablet) 1,000 mg PO BID [facility] Last Admin: 04/30/20 10:05 Dose: 1,000 mg Documented by: Senna/Docusate Sodium (Senna/Docusate Sodium 1 Tablet) 2 tablet PO BID PRN PRN PRN Reason: Constipation Sodium Chloride (0.9% Saline Lock 10 Ml Syringe) 10 - 40 ml IV UD PRN PRN Reason: SALINE FLUSH Throat Lozenges (Benzocaine/Menthol 1 Lozenge) 1 lozenge MUCOUS MEM Q2H PRN PRN PRN Reason: SORE THROAT Medical Necessity - Tobacco Use Smoking Status: Never smoker Tobacco Use: Non-smoker Assessment/Plan All Active Problems (Last Reviewed 04/25/20 @ 15:17 by Paula NELSON, PA) Chest pain (Acute) Community acquired pneumonia (Acute) Personal history of antineoplastic chemotherapy (Acute) NSTEMI (non-ST elevated myocardial infarction) (Acute) Atrial flutter (Resolved) Feeling grief (Acute) Shoulder pain, right (Acute) 1. NSTEMI-cardiology following. Continue aspirin, statin, Plavix, therapeutic Lovenox, metoprolol, isosorbide. Plan for heart cath on Friday. 2. Community-acquired pneumonia-CTA with right basal infiltrate. IV Rocephin and IV azithromycin. Obtain sputum culture. Respiratory panel and Covid negative. Oxygen stable on room air. 3. CAD with history of PCI and CABG-most recent PCI December 2019. Continue aspirin, Plavix, statin, lisinopril, metoprolol. Therapeutic Lovenox. Hypertension-stable, continue isosorbide, lisinopril, metoprolol with hold parameters. 4. Hyperlipidemia-continue statin. 5. Type 2 diabetes mellitus-oral regimen on hold. Accu-Cheks with sliding scale insulin. 6. Chronic anemia-stable, trend CBC. 7. GERD-continue PPI. 8. Macroglobulinemia, history of Hodgkin's lymphoma-continue outpatient follow-up with hematology/oncology. 9. History of atrial flutter-currently sinus rhythm. History of synchronized cardioversion in the past. DVT prophylaxis-therapeutic Lovenox This patient was seen by KEITH Merino under the supervision of Dr. Meneses. <[place] Meneses - Last Filed: 04/30/20 11:59> - Physical Exam Vitals/I&O's: Vital Signs Temp Pulse Resp BP Pulse Ox 98.0 F 85 18 102/68 99 04/30/20 10:03 04/30/20 10:05 04/30/20 10:03 04/30/20 10:05 04/30/20 10:03 Oxygen Flow Rate (L/min) 2 Oxygen Delivery Method Room Air Weight: 95.1 kg Body Mass Index (BMI) 27.6 Intake and Output for Last 24 Hours 04/28/20 04/29/20 04/30/20 23:59 23:59 23:59 Intake Total 350 / 350 1425 / 1880 945 / 945 Balance 350 / 350 1425 / 1880 945 / 945 Microbiology Past 72 Hours 04/29/20 02:55 Mucosa - Nasopharyngeal - Final 04/29/20 02:57 Urine, Random Streptococcus pneumoniae Antigen (M - Final 04/29/20 02:57 Urine, Random Legionella Antigen - Final 04/28/20 22:50 Mucosa - Nose Respiratory Panel (PCR) - Final Laboratory Results 04/29/20 11:58: POC Glucose 221 H 04/29/20 12:30: Troponin I 8.400 H* 04/29/20 16:44: POC Glucose 234 H 04/29/20 22:57: POC Glucose 204 H 04/30/20 06:00: WBC 8.4, RBC 5.09, Hgb 11.8 L, Hct 40.9, MCV 80.4, MCH 23.2 L, MCHC 28.9 L, RDW Std Deviation 51.8 H, RDW Coeff of Joel 17.9 H, Plt Count 137 L, MPV 11.2 04/30/20 06:00: Sodium 134 L, Potassium 4.7, Chloride 103, Carbon Dioxide 26.0, Anion Gap 5, BUN 17, Creatinine 1.17, Estim Creat Clear Calc 76.83, Est GFR (MDRD) Af Amer 82, Est GFR (MDRD) Non-Af 68, BUN/Creatinine Ratio 14.5, Glucose 245 H, Calcium 8.7 04/30/20 06:00: Troponin I 2.580 H* 04/30/20 06:31: POC Glucose 212 H 04/30/20 11:35: POC Glucose 319 H Current Medications Acetaminophen (Acetaminophen 325 Mg Tablet) 650 mg PO Q6H PRN PRN PRN Reason: Pain Score 1-10/Temp > 100.7 F Last Admin: 04/28/20 22:57 Dose: 650 mg Documented by: Al Hydroxide/Mg Hydroxide (Mag Hydrox/Al Hydrox/Simeth 30 Ml Udc) 30 ml PO Q6H PRN PRN PRN Reason: Gastric Burning Albuterol Sulfate (Albuterol 2.5 Mg/3 Ml Vial.Neb.) 2.5 mg INHALATION Q2H PRN PRN PRN Reason: Dyspnea, wheezing Aspirin (Aspirin 81 Mg Tab.Chew) 81 mg PO DAILY@0800 [facility] Last Admin: 04/30/20 08:34 Dose: 81 mg Documented by: Atorvastatin Calcium (Atorvastatin Calcium 80 Mg Tablet) 80 mg PO QHS [facility] Last Admin: 04/29/20 22:50 Dose: 80 mg Documented by: Clopidogrel Bisulfate (Clopidogrel Bisulfate 75 Mg Tablet) 75 mg PO DAILY [facility] Last Admin: 04/30/20 10:05 Dose: 75 mg Documented by: Enoxaparin Sodium (Enoxaparin 100 Mg/Ml Syringe) 90 mg SC Q12@0600,1800 [facility] Last Admin: 04/30/20 05:50 Dose: 90 mg Documented by: Guaifenesin (Guaifenesin 10 Ml Udc (200mg/10ml)) 20 ml PO Q4H PRN PRN PRN Reason: COUGH Hydralazine HCl (Hydralazine 20 Mg/Ml Vial) 10 mg IV Q4H PRN PRN PRN Reason: SBP > 160 Ceftriaxone Sodium 2 gm/ (Sodium Chloride) 50 mls @ 100 mls/hr IV Q24H [facility] Last Infusion: 04/29/20 22:37 Dose: Infused Documented by: Azithromycin 500 mg/ Dextrose 255 mls @ 250 mls/hr IV Q24H [facility] Last Infusion: 04/30/20 00:00 Dose: Infused Documented by: Sodium Chloride () 250 mls @ 15 mls/hr IV .[id number] PRN PRN Reason: Saline Flush Sodium Chloride () 250 mls @ 15 mls/hr IV .[id number] PRN PRN Reason: Additional IVPB Infusion Sodium Chloride () 1,000 mls @ 15 mls/hr IV .Q48H [facility] Insulin Human Lispro (Insulin Lispro 100 Unit/Ml Insuln.Pen) 0 unit [facility]; Protocol Last Admin: 04/30/20 11:37 Dose: 5 u Documented by: Isosorbide Mononitrate (Isosorbide Mononitrate 120 Mg Tablet) 120 mg PO DAILY [facility] Last Admin: 04/30/20 10:06 Dose: 120 mg Documented by: Lisinopril (Lisinopril 20 Mg Tablet) 20 mg PO BID [facility] Last Admin: 04/30/20 10:06 Dose: 20 mg Documented by: Magnesium Hydroxide (Magnesium Hydroxide 30 Ml Udc) 30 ml PO DAILY PRN PRN PRN Reason: Constipation Melatonin (Melatonin 3 Mg Tablet) 3 mg PO QHS PRN PRN PRN Reason: INSOMNIA Metoprolol Tartrate (Metoprolol Tartrate 50 Mg Tablet) 50 mg PO BID [facility] Last Admin: 04/30/20 10:05 Dose: 50 mg Documented by: Morphine Sulfate (Morphine 2 Mg/Ml Syringe) 2 mg IV Q3H PRN PRN PRN Reason: Pain Score 6-10 Last Admin: 04/29/20 23:31 Dose: 2 mg Documented by: Nitroglycerin (Nitroglycerin (Inpatient Use) 0.4 Mg Tab.Subl) 0.4 mg SUBLINGUAL Q5M PRN PRN Reason: CARDIAC/CHEST PAIN Last Admin: 04/30/20 06:02 Dose: 0.4 mg Documented by: Ondansetron HCl (Ondansetron 4 Mg/2 Ml Vial) 4 mg IV Q8H PRN PRN PRN Reason: NAUSEA/VOMITING Oxycodone HCl (Oxycodone 5 Mg Tablet) 5 mg PO Q4H PRN PRN PRN Reason: Pain Score 4-5 Pantoprazole Sodium (Pantoprazole Sodium 20 Mg Tablet) 20 mg PO DAILY [facility] Last Admin: 04/30/20 10:06 Dose: 20 mg Documented by: Prochlorperazine Edisylate (Prochlorperazine 10 Mg/2 Ml Vial) 5 mg IV Q4H PRN PRN PRN Reason: Breakthrough Nausea/Vomiting Psyllium Hydrophilic Mucilloid (Psyllium 1 Packet) 1 packet PO DAILY PRN PRN PRN Reason: Constipation Ranolazine (Ranolazine 500 Mg Tablet) 1,000 mg PO BID [facility] Last Admin: 04/30/20 10:05 Dose: 1,000 mg Documented by: Senna/Docusate Sodium (Senna/Docusate Sodium 1 Tablet) 2 tablet PO BID PRN PRN PRN Reason: Constipation Sodium Chloride (0.9% Saline Lock 10 Ml Syringe) 10 - 40 ml IV UD PRN PRN Reason: SALINE FLUSH Throat Lozenges (Benzocaine/Menthol 1 Lozenge) 1 lozenge MUCOUS MEM Q2H PRN PRN PRN Reason: SORE THROAT Assessment/Plan This patient was seen in conjunction with KEITH Merino . I have independently interviewed and examined the patient and reviewed pertinent historical, laboratory, and other data. Please refer to KEITH Merino note for details of this patient's presentation, findings, and recommendations. I have reviewed KEITH Merino note and concur with documented findings. In brief, patient is 59-year-old gentleman with past medical history single for coronary artery disease with recent PCI with stent placement in December 2019 who presented with chest pain. CTA demonstrated right basilar infiltrate. Patient was found to have elevated troponin admitted to monitored bed with subsequent serial cardiac enzymes ordered which came back consistent with acute non-STEMI. Treatment initiated per protocol consultation placed to cardiology with plans for patient to undergo left heart catheterization with possible intervention if warranted on 05/01/2020 04/30/2020; patient troponin peaked at 8.5. Plan is for patient to undergo left heart catheterization on 05/01/2020. Physical Examination: GENERAL: cooperative HEENT: Atraumatic; EYES; Anicteric, Normal Conjunctiva NECK; supple, normal thyroid, RESPIRATORY: Diminished to auscultation CARDIOVASCULAR: Regular S1 S2, GI: soft, normoactive bowel sounds, : No Renal angle tenderness; EXTREMITIES: No edema, no clubbing, MUSCULOSKELETAL: no muscle waisting NEURO: Awake; no lateralizing signs. SKIN: No Rash PSYCH; Flat affect Assessment: 1. Acute non-STEMI 2. Coronary artery disease with recent PCI in December 2019 3. Pneumonia 4. Diabetes mellitus type 2 5. Dyslipidemia 6. Paroxysmal A. fib/flutter 7. Anemia of chronic disorder 8. GERD 9. Macroglobulinemia 10. DVT prophylaxis Recommendations: 1. I have discussed the results of my overview and impressions with the patient 2. Options for management were reviewed Inpatient E&M: 00196 Subs Hosp L2
--- NOTE | 2020-04-30 11:24 | PN.CARD_ITS ---
Subjectve: The patient is awake and alert. He was reported as having transient chest discomfort relieved with nitroglycerin sublingual x1. He appears to be resting comfortably at this time. Objective: Vital Signs Temp Pulse Resp BP Pulse Ox 98.0 F 85 18 102/68 99 04/30/20 10:03 04/30/20 10:05 04/30/20 10:03 04/30/20 10:05 04/30/20 10:03 Oxygen Flow Rate (L/min) 2 Oxygen Delivery Method Room Air Weight: 209 lb 10.554 oz Body Mass Index (BMI) 27.6 Intake and Output for Last 24 Hours 04/28/20 04/29/20 04/30/20 23:59 23:59 23:59 Intake Total 350 / 350 1425 / 1880 705 / 705 Balance 350 / 350 1425 / 1880 705 / 705 General: Awake, Alert, Oriented x 3, Cooperative, No Acute Distress HEENT: Atraumatic, Normocephalic, EOMI, Sclera Non Icteric Neck: Supple, Good ROM, No JVD Lungs: Clear to auscultation Cardiovascular: Regular Rhythm, Normal S1, Normal S2 Murmur Murmur: Grade 3/6, Harsh, Mid Systolic, LLSB, LVOT, Sternal Notch Abdomen: Bowel Sounds Present, Soft, Non Tender Extremities: No edema Psych/Mental Status: Flat Affect 04/29/20 12:30: Troponin I 8.400 H* 04/30/20 06:00: WBC 8.4, RBC 5.09, Hgb 11.8 L, Hct 40.9, MCV 80.4, MCH 23.2 L, MCHC 28.9 L, Plt Count 137 L, MPV 11.2 04/30/20 06:00: Sodium 134 L, Potassium 4.7, Chloride 103, Carbon Dioxide 26.0, Anion Gap 5, BUN 17, Creatinine 1.17, Est GFR (MDRD) Af Amer 82, Est GFR (MDRD) Non-Af 68, BUN/Creatinine Ratio 14.5, Glucose 245 H, Calcium 8.7 04/30/20 06:00: Troponin I 2.580 H* Rhythm: Sinus rhythm EKG: Sinus rhythm; ST/T wave abnormality: Inferolateral: Consider myocardial ischemia ECHO: Interpretation Summary The study was technically difficult. Mild segmental systolic dysfunction (see wall motion). The estimated ejection fraction is 45 %. The left atrium is mildly enlarged. Mild diffuse mitral valve thickening. Mild (1+) mitral valve insufficiency. Mild tricuspid valve insufficiency. Stable appearing bioprosthetic aortic valve apparatus. Mild focal aortic valve calcification. Trivial aortic valve insufficiency. Mildly dilated aortic root. Right ventricular systolic pressure estimated to be 78 mmHg. Unable to assess diastolic dysfunction. Medical Necessity - Tobacco Use Smoking Status: Never smoker Tobacco Use: Non-smoker Assessment/Plan 1. Acute non-ST segment elevation IN The patient presents with symptoms, abnormal troponin I levels (which are decreasing), and an abnormal ECG concerning for an acute non-ST segment elevation IN. At the present he appears to be resting reasonably comfortably. He is being monitored. He is continuing medical management. He will continue to be monitored and continue medical therapy as deemed appropriate. He is being scheduled for diagnostic cardiac catheterization in the a.m. 2. CAD status post CABG the patient has a history of previous CABG as noted above. He has been followed with noninvasive and invasive evaluation. At the moment he will continue to be monitored, continue medical therapy, and be considered for repeat diagnostic cardiac catheterization. 3. Status post PCI The patient's most recent PCI was performed in December of this year. The results are as noted. At the present time there is concern as to whether or not he may have experienced in-stent restenosis versus progression of underlying CAD or graft vessel disease. Thus he will continue medical therapy and undergo reevaluation as noted. 4. Aortic valve disease status post aortic valve replacement-bioprosthetic The patient's aortic valve has been evaluated during his recent noninvasive and invasive studies. He has had a follow-up transthoracic echocardiogram. His bioprosthetic aortic valve apparatus appears to be stable. 5. Atrial flutter The patient has a history of atrial flutter for which she has undergone medical therapy and synchronized biphasic DC cardioversion in the past. He remains in sinus rhythm at the moment. He will continue to be followed. 6. Hyperlipidemia The patient will continue risk factor evaluation and care. 7. Hypertension The patient's blood pressure will be followed. He will continue medical therapy. 8. Diabetes mellitus The patient will continue evaluation care per internal medicine. 9. Macroglobulinemia The patient will continue to be followed by hematology oncology. 10. Hodgkin's lymphoma The patient has been followed by hematology/oncology for this diagnosis in the past. Overall, at the present time, the patient will continue to be monitored. He will continue medical therapy. He will be considered for upcoming diagnostic cardiac catheterization to reassess his coronary/graft status. The above was discussed with the patient including the cardiac catheterization procedure, risks and benefits, and the patient was agreeable to this plan. This note was generated using a voice recognition system and there may be incorrect words, spelling or punctuation that were not noted when reviewing the office note prior to saving. Procedure Criteria Procedure Type: Elective COVID Risk Discussion: The surgeon/proceduralist and patient have discussed in detail the risk of exposure to and/or potential harm posed by the COVID-19 virus with having a surgery/procedure at this time versus the risk of delaying the surgery /procedure. It is not possible to know either the risk of delaying the surgery or procedure or chance of getting an infection with perfect accuracy, but a joint decision was made between the patient and the surgeon/proceduralist to proceed at this time with the scheduled surgery/procedure as indicated on the consent form.
[2020-04-30 11:46] LABS: Bedside Glucose 319 mg/dL (70-110)
[2020-04-30 16:06] LABS: Bedside Glucose 215 mg/dL (70-110)
[2020-04-30] MEDS: 0.9% Saline Lock 10 ML Syringe IV (22:11)
[2020-04-30] MEDS: Atorvastatin Calcium 80 MG Tablet PO (22:16)
[2020-05-01] VITALS (22 sets, daily range): BP systolic 97–133; BP diastolic 72–104; PULSE 83–120; RESP 16–18; TEMP 36.3–37; O2SAT 95–100
[2020-05-01] MEDS: Nitroglycerin (INPATIENT USE) 0.4 MG TAB.SUBL SUBLINGUAL ×2 (00:30→00:46)
[2020-05-01 00:41] LABS: Bedside Glucose 243 mg/dL (70-110)
[2020-05-01 05:41] LABS: Hematocrit 33.6 % (40-54); Hemoglobin 9.8 g/dL (13.0-16.5); Mean Corp Hgb Conc 29.2 g/dL (32-36); Mean Corpuscular Hgb 23.2 pg (27.0-32.0); Mean Corpuscular Volume 79.6 fL (80-94); Mean Platelet Vol. 11.5 fl (6.2-12.0); POSITIVE COUNT YES; Platelet Count 89 K/mm3 (150-450); RBC Distribution Width CV 17.6 % (11.6-14.6); RBC Distribution Width SD 51.1 fl (35.1-43.9); Red Blood Count 4.22 M/mm3 (4.6-6.2)
[2020-05-01 05:43] LABS: Scan Indicated on CBC? Y/N YES- FLAGS NOTED
[2020-05-01 05:54] LABS: International Normalized Ratio 1.1; Prothrombin Time (Protime)PT. 13.3 SECONDS (11.7-14.9)
--- NOTE | 2020-05-01 05:55 | EKG12_ITS ---
Test Reason : POST PROCEDURE Blood Pressure : / mmHG Vent. Rate : 078 BPM Atrial Rate : 078 BPM P-R Int : 176 ms QRS Dur : 116 ms QT Int : 368 ms P-R-T Axes : 045 -26 251 degrees QTc Int : 419 ms Normal sinus rhythm Septal infarct , age undetermined Marked ST abnormality, possible inferior subendocardial injury Abnormal ECG When compared with ECG of 01-MAY-2020 05:04, MANUAL COMPARISON REQUIRED, DATA IS UNCONFIRMED Confirmed by PAZ CRUMP, MARIAH ([id number]), newspaper photo editor SHAHID VICTORIA ([id number]) on 05/02/2020 11:11:53 AM Referred By: Shanika Coker Confirmed By:MARIAH MULLEN MD
[2020-05-01 06:04] LABS: BUN 18 mg/dL (7-18); Creatinine, Serum 0.94 mg/dL (0.70-1.30); Glucose 155 mg/dL (74-106)
[2020-05-01 06:05] LABS: Anion Gap 6 (5-15); BUN/Creat Ratio 19.2 RATIO (10-20); Calcium,Total 8.4 mg/dL (8.5-10.1); Chloride 107 mmol/L (98-107); EST Glomerular Filtration Rate 87 mL/min (>60); Est Glom Filt Rate - Afr Amer 106 mL/min (>60); Estimated Creatinine Clearance 95.63 ml/min; Potassium 4.5 mmol/L (3.5-5.1); Sodium Level 139 mmol/L (136-145)
[2020-05-01 06:10] LABS: Differential Comment SCANNED
[2020-05-01] MEDS: Aspirin 81 MG TAB.CHEW PO (06:10)
[2020-05-01] MEDS: Metoprolol Tartrate 50 MG Tablet PO ×2 (06:11→21:25)
[2020-05-01] MEDS: Ranolazine 500 MG Tablet 1000 MG PO ×2 (06:11→21:25)
[2020-05-01] MEDS: Lisinopril 20 MG Tablet PO ×2 (06:11→21:25)
[2020-05-01] MEDS: Clopidogrel Bisulfate 75 MG Tablet PO (06:11)
[2020-05-01 07:11] LABS: Bedside Glucose 150 mg/dL (70-110)
[2020-05-01] MEDS: 0.9% Normal Saline 1,000 ML 15 ML IV (07:38)
--- NOTE | 2020-05-01 07:41 | NURSING ---
Report called to Cristhian in director of cath lab at this time.
--- NOTE | 2020-05-01 09:46 | CL.I_ITS ---
Patient Name: LILY NELSON Study Date: 05/01/2020 Performing: Uri Jean-Baptiste MD Ht: 72.83 inches 185 cm : 1960 Wt: 209.44 lbs 95 kg Age: 59 Gender: male BSA: 2.19 PROCEDURE(S) PERFORMED [id number] AND/OR PTCA, SINGLE GRAFT CLINICAL PROFILE AND CO-MORBIDITIES Indications: Worsening Angina Heart Failure: None Stress/Imaging Stress/Image Study Performed: No Angina Classification Anginal Classification w/in 2 Weeks: CCS IV CAD Presentations: Non-STEMI. CONCLUSIONS Successful PCI with JOSE G to the proximal and distal SVG to RPDA RECOMMENDATIONS DESCRIPTION OF PROCEDURE The patient arrived to the procedure lab. The risks and benefits of the procedure as well as a full d escription of our services here and current unavailability of surgical backup were fully explained to the patient and/or their significant other prior to the catheterization. The Timeout was completed, verifying the correct patient and procedure. The patient's procedural site was prepped and draped in the usual fashion. Local anesthetic was given subcutaneously to right groin region with Lidocaine 2% Using a modified Seldinger technique,arterial access was obtained via the right femoral artery, a 4Fr sheath was inserted Left Coronary Artery selective angiography was performed in multiple views using a 4 Fr. JL5 catheter. Left internal mammary artery graft to the LAD selective angiography was perfor med in multiple views using a 4 Fr. 3DRC catheter. Saphenous Vein graft to the DIAG 1 selective angio graphy was performed in multiple views using a 4 Fr. 3DRC catheter. occluded. Right Coronary Artery selective angiography was then performed in multiple views using a 4 Fr. JR4 catheter . Saphenous Vein graft to the OM 1 selective angiography was performed in multiple views using a 4 Fr . JR4 catheter. Saphenous Vein graft to the RPDA selective angiography was performed in multiple view s using a 4 Fr. MPA 2 catheter.The images were reviewed and options discussed. A decision was then ma de to proceed with an Intervention, IVUS or other adjunct procedure. Arterial sheath was exchanged for a 6 Fr Sheath. MP2 Guide catheter was inserted and engaged into the SVG to the Rt PDA. BMW Guide wire was advanced to the Right PDA. 3.5x12 Synergy Drug Eluting grace nt was inserted. Drug Eluting stent was advanced across the lesion in the graft to the Rt PDA. 4x32 S ynergy Drug Eluting stent was inserted. Drug Eluting stent was advanced across the lesion in the nella t to the Rt PDA. Angiogram performed post stent deployment. Contrast was injected through the sheath and the Right Iliac and Femoral artery were assessed for possible closure device. The arterial sheat h was sutured in place and capped. The arterial sheath was left in to be pulled in the holding area INTERVENTION INFORMATION LESION SITE: Vein > to Rt PDA Segment Number: 4-Right posterior descending artery segment - rPDA , L esion Location: Distal Lesion Complexity: High/C, chronic total occlusion: No, lesion at bifurcation: No, thrombus present: No, lesion length: 10 mm, culprit lesion: Yes, Previously treated lesion: No Pre Stenosis: 80 % Pre intervention MAURIZIO flow: 3 PROCEDURE: Drug Eluting Stent Post Stenosis: 0 % Post intervention MAURIZIO flow: 3 Lesion Devices: Rodrigues .014 BMW [place] Straight 190cm Medtronic 6 Fr MP2 100cm Guide Catheter Guzman Sci Synergy MR JOSE G 3.50x12 LESION SITE: Vein > to Rt PDA Segment Number: 4-Right posterior descending artery segment - rPDA , L esion Location: Body Lesion Complexity: High/C, chronic total occlusion: No, lesion at bifurcation: No, lesion length: 30 mm, thrombus present: No, culprit lesion: Yes Pre Stenosis: 80 % Pre intervention MAURIZIO flow: 3 PROCEDURE: Drug Eluting Stent Post Stenosis: 0 % Post intervention MAURIZIO flow: 3 Lesion Devices: Rodrigues .014 [employer] [place] Straight 190cm Medtronic 6 Fr MP2 100cm Guide Catheter Guzman Sci Synergy MR JOSE G 4.00x32 COMPLICATIONS No Complications PROCEDURE MEDICATIONS Versed 1 mg IV Oxygen: 4 L/min via nasal cannula Heparin 8000 unit(s) IV 05/01/2020 09:02:32 SUMMARY OF HEMODYNAMIC DATA Time AIR REST ECG 08:03:21 AO 99/73 (84) SA 08:29:02 Signed By Uri Jean-Baptiste MD On 05/01/2020 9:45:46 AM Uri Jean-Baptiste MD
[2020-05-01 09:56] LABS: ACT Activated Clotting Time 219 sec (74-137)
--- NOTE | 2020-05-01 11:20 | CRPHASE1 ---
Patient Communication Former Patient:: Phase I - 01/11/2020 and back on 02/03/2018. PHII Cardiac Rehab Discussed with Patient:: Yes Guide to Cardiac Rehab Given to Patient:: Yes Cardiac Rehab Facility Choice List Given to Patient:: Yes Choice Program [facility] PHII:: Communication Given to CR, Refer to [facility] Support Analyst:: Jorge Jean-Baptiste Refer Phase II Cardiac Rehab:: Yes Sessions:: 36 sessions - 2 days/wk, 18 weeks - Patient has previous stents on 01/11/2020 and on 02/03/2018. Patient has done participated in outpatietn cardiac rehab following any of his previous interventions. Risk Factors/Lifestyle Family History: Family History (Last Reviewed 04/25/20 @ 15:17 by Paula NELSON, PA) Father Arthritis Brain cancer Lung cancer Hypertension Mother Arthritis Hypertension Cancer Cardiac Rehabilitation Info Cardiac Rehabilitation Program Information: Cardiac Rehabilitation is important for patients like you who are recovering from a heart problem. Cardiac rehabilitation programs are recognized as integral to the continued care of the patient with coronary heart disease. The cardiac rehabilitation program is designed to optimize a patient's physical, psychological, and social functioning. Health chronic care nurse work in cardiac rehabilitation programs and assist you with getting the treatments you need to get stronger and healthier - like exercise, healthy eating habits, and medications. Cardiac rehabilitation has been show to help people with heart problems live longer and have better life enjoyment than people who do not go to cardiac rehabilitation. Please contact the Cardiac Rehabilitation Program at [facility] at in two weeks if you have not heard from them.
--- NOTE | 2020-05-01 11:22 | CRPH1.INSTRU ---
General Education CAD and cardiac anatomy and function:: Patient communicates acknowledgment Explanation of diagnoses and procedures:: Patient communicates acknowledgment Sign/Symptoms of HI:: Patient communicates acknowledgment Antiplatelet therapy: Patient communicates acknowledgment Proper use of NTG-SL: Patient communicates acknowledgment Emergency procedures and activation of EMS: Patient communicates acknowledgment Compliance of all prescribed medications: Patient communicates acknowledgment - Patient given booklet with risk factors highlighted.
[2020-05-01 12:00] LABS: ACT Activated Clotting Time 164 sec (74-137)
--- NOTE | 2020-05-01 12:48 | PCM.PN.CARD ---
Subjectve: The patient is status post diagnostic cardiac catheterization. He was found to have progression of SVG graft disease to the RCA distribution. He underwent SVG graft PCI. Objective: Vital Signs Temp Pulse Resp BP Pulse Ox 97.6 F L 96 16 126/82 H 100 05/01/20 06:08 05/01/20 06:32 05/01/20 06:08 05/01/20 06:08 05/01/20 06:08 Oxygen Flow Rate (L/min) 3 Oxygen Delivery Method Room Air Weight: 209 lb 10.554 oz Body Mass Index (BMI) 27.6 Intake and Output for Last 24 Hours 04/29/20 04/30/20 05/01/20 23:59 23:59 23:59 Intake Total 1425 / 1880 1599.25 / 1599.25 261.25 / 261.25 Balance 1425 / 1880 1599.25 / 1599.25 261.25 / 261.25 General: Awake, Alert, Oriented x 3, Cooperative, No Acute Distress HEENT: Atraumatic, Normocephalic, PERRL, EOMI, Sclera Non Icteric Neck: Supple, Good ROM, No JVD Lungs: Clear to auscultation Cardiovascular: Regular Rhythm, Normal S1, Normal S2 Murmur Murmur: Grade 3/6, Harsh, Mid Systolic, LLSB, LVOT, Sternal Notch Vascular: Normal Femoral Pulses Abdomen: Bowel Sounds Present, Soft Extremities: No edema Neurological: No Focal Motor or Sensory Deficit Psych/Mental Status: Flat Affect 05/01/20 04:47: WBC 4.0 L, RBC 4.22 L, Hgb 9.8 L, Hct 33.6 L, MCV 79.6 L, MCH 23.2 L, MCHC 29.2 L, Plt Count 89 L, MPV 11.5 05/01/20 04:47: PT 13.3, INR 1.1 05/01/20 04:47: Sodium 139, Potassium 4.5, Chloride 107, Carbon Dioxide 26.0, Anion Gap 6, BUN 18, Creatinine 0.94, Est GFR (MDRD) Af Amer 106, Est GFR (MDRD) Non-Af 87, BUN/Creatinine Ratio 19.2, Glucose 155 H, Calcium 8.4 L Rhythm: Sinus rhythm ECHO: Interpretation Summary The study was technically difficult. Mild segmental systolic dysfunction (see wall motion). The estimated ejection fraction is 45 %. The left atrium is mildly enlarged. Mild diffuse mitral valve thickening. Mild (1+) mitral valve insufficiency. Mild tricuspid valve insufficiency. Stable appearing bioprosthetic aortic valve apparatus. Mild focal aortic valve calcification. Trivial aortic valve insufficiency. Mildly dilated aortic root. Right ventricular systolic pressure estimated to be 78 mmHg. Unable to assess diastolic dysfunction. Cardiac Cath: PCI: CONCLUSIONS Successful PCI with JOSE G to the proximal and distal SVG to RPDA Medical Necessity - Tobacco Use Smoking Status: Never smoker Tobacco Use: Non-smoker Assessment/Plan 1. Acute non-ST segment elevation GA The patient presents with symptoms, abnormal troponin I levels (which are decreasing), and an abnormal ECG concerning for an acute non-ST segment elevation GA. At the present he appears to be resting reasonably comfortably. He is being monitored. He is continuing medical management. He has undergone repeat diagnostic cardiac catheterization. He subsequently underwent PTCA/JOSE G to the distal SVG to the RCA distribution. 2. CAD status post CABG the patient has a history of previous CABG as noted above. He has been followed with noninvasive and invasive evaluation. At the present time he will continue medical management. 3. Status post PCI The patient's most recent PCI was performed in December of this year. The results are as noted. His previous SVG stents were patent. He had progression of SVG disease in the distal segment leading to the right coronary artery. He subsequently underwent PCI of this area. Thus he will continue medical therapy. 4. Aortic valve disease status post aortic valve replacement-bioprosthetic The patient's aortic valve has been evaluated during his recent noninvasive and invasive studies. He has had a follow-up transthoracic echocardiogram. His bioprosthetic aortic valve apparatus appears to be stable. 5. Atrial flutter The patient has a history of atrial flutter for which she has undergone medical therapy and synchronized biphasic DC cardioversion in the past. He remains in sinus rhythm at the moment. He will continue to be followed. 6. Hyperlipidemia The patient will continue risk factor evaluation and care. 7. Hypertension The patient's blood pressure will be followed. He will continue medical therapy. 8. Diabetes mellitus The patient will continue evaluation care per internal medicine. 9. Macroglobulinemia The patient will continue to be followed by hematology oncology. 10. Hodgkin's lymphoma The patient has been followed by hematology/oncology for this diagnosis in the past. He will continue medical therapy. He will continue to be monitored. Hopefully he will be able to be released home in the near future for continued outpatient follow-up. This note was generated using a voice recognition system and there may be incorrect words, spelling or punctuation that were not noted when reviewing the office note prior to saving.
[2020-05-01 13:20] LABS: Bedside Glucose 157 mg/dL (70-110)
--- NOTE | 2020-05-01 13:30 | PN_ITS ---
<Kike Newssica BASIC ACOUSTIC ANALYST - Last Filed: 05/01/20 13:38> Patient Problems: Active and Suspected Problems (Last Updated 05/01/20 @ 11:57 by Paula Villalobos tt) Chest pain (Acute) Community acquired pneumonia (Acute) NSTEMI (non-ST elevated myocardial infarction) (Acute) Subjective: Patient seen and examined. Denies further chest discomfort. Underwent PCI with JOSE G to proximal and distal SVG to right PDA. Denies current symptoms or complaints. - Physical Exam Vitals/I&O's: Vital Signs Temp Pulse Resp BP Pulse Ox 97.6 F L 83 18 109/82 H 98 05/01/20 13:15 05/01/20 13:15 05/01/20 13:15 05/01/20 13:15 05/01/20 13:15 Oxygen Flow Rate (L/min) 3 Oxygen Delivery Method Room Air Weight: 209 lb 10.554 oz Body Mass Index (BMI) 27.6 Intake and Output for Last 24 Hours 04/29/20 04/30/20 05/01/20 23:59 23:59 23:59 Intake Total 1425 / 1880 1599.25 / 1599.25 261.25 / 261.25 Balance 1425 / 1880 1599.25 / 1599.25 261.25 / 261.25 General: Alert, Oriented x3, Cooperative HEENT: Atraumatic, PERRLA, EOMI, Normocephalic Neck: Supple, No JVD, Negative Carotid Bruits Lungs: Clear to auscultation, Normal air movement Cardiovascular: Regular rate, Regular Rhythm, Murmur Abdomen: Bowel Sounds Present, Soft, Non Tender Extremities: No clubbing, No cyanosis, No edema, Capillary Refill Less than 3 Seconds Skin: No rashes, No breakdown Musculoskeletal: No Tenderness to Palpation of Joints or Extremities Neurological: Cranial nerves II-XII grossly intact, Neuro grossly intact Psych/Mental Status: Normal Affect, Appropriate Microbiology Past 72 Hours 04/29/20 02:55 Mucosa - Nasopharyngeal - Final 04/29/20 02:57 Urine, Random Streptococcus pneumoniae Antigen (M - Final 04/29/20 02:57 Urine, Random Legionella Antigen - Final 04/28/20 22:50 Mucosa - Nose Respiratory Panel (PCR) - Final Laboratory Results 04/30/20 15:57: POC Glucose 215 H 04/30/20 22:05: POC Glucose 243 H 05/01/20 04:47: WBC 4.0 L, RBC 4.22 L, Hgb 9.8 L, Hct 33.6 L, MCV 79.6 L, MCH 23.2 L, MCHC 29.2 L, RDW Std Deviation 51.1 H, RDW Coeff of Joel 17.6 H, Plt Count 89 L, MPV 11.5, Differential Comment SCANNED 05/01/20 04:47: PT 13.3, INR 1.1 05/01/20 04:47: Sodium 139, Potassium 4.5, Chloride 107, Carbon Dioxide 26.0, Anion Gap 6, BUN 18, Creatinine 0.94, Estim Creat Clear Calc 95.63, Est GFR (MDRD) Af Amer 106, Est GFR (MDRD) Non-Af 87, BUN/Creatinine Ratio 19.2, Glucose 155 H, Calcium 8.4 L 05/01/20 06:58: POC Glucose 150 H 05/01/20 09:27: Activated Clotting Time 219 H 05/01/20 11:52: Activated Clotting Time 164 H 05/01/20 13:05: POC Glucose 157 H Current Medications Acetaminophen (Acetaminophen 325 Mg Tablet) 650 mg PO Q6H PRN PRN PRN Reason: Pain Score 1-10/Temp > 100.7 F Last Admin: 04/28/20 22:57 Dose: 650 mg Documented by: Al Hydroxide/Mg Hydroxide (Mag Hydrox/Al Hydrox/Simeth 30 Ml Udc) 30 ml PO Q6H PRN PRN PRN Reason: Gastric Burning Albuterol Sulfate (Albuterol 2.5 Mg/3 Ml Vial.Neb.) 2.5 mg INHALATION Q2H PRN PRN PRN Reason: Dyspnea, wheezing Aspirin (Aspirin 81 Mg Tab.Chew) 81 mg PO DAILY@0800 [facility] Last Admin: 05/01/20 06:10 Dose: 81 mg Documented by: Atorvastatin Calcium (Atorvastatin Calcium 80 Mg Tablet) 80 mg PO QHS [facility] Last Admin: 04/30/20 22:16 Dose: 80 mg Documented by: Atropine Sulfate (Atropine Sulfate 1 Mg/10 Ml Syringe) 0.5 mg IV UD PRN PRN Reason: HR <50 bpm Clopidogrel Bisulfate (Clopidogrel Bisulfate 75 Mg Tablet) 75 mg PO DAILY [facility] Last Admin: 05/01/20 06:11 Dose: 75 mg Documented by: Enoxaparin Sodium (Enoxaparin 100 Mg/Ml Syringe) 90 mg SC Q12@0600,1800 [facility] Last Admin: 04/30/20 22:53 Dose: Not Given Documented by: Guaifenesin (Guaifenesin 10 Ml Udc (200mg/10ml)) 20 ml PO Q4H PRN PRN PRN Reason: COUGH Heparin Sodium (Beef Lung) (Heparin Lock 500 Unit/5 Ml In 10 Ml Syringe) 500 unit IV UD PRN PRN Reason: HEPARIN FLUSH Hydralazine HCl (Hydralazine 20 Mg/Ml Vial) 10 mg IV Q4H PRN PRN PRN Reason: SBP > 160 Ceftriaxone Sodium 2 gm/ (Sodium Chloride) 50 mls @ 100 mls/hr IV Q24H [facility] Last Infusion: 04/30/20 22:44 Dose: Infused Documented by: Azithromycin 500 mg/ Dextrose 255 mls @ 250 mls/hr IV Q24H [facility] Last Infusion: 05/01/20 00:03 Dose: Infused Documented by: Sodium Chloride () 250 mls @ 15 mls/hr IV .[id number] PRN PRN Reason: Saline Flush Last Infusion: 05/01/20 00:28 Dose: 0 mls/hr Documented by: Sodium Chloride () 250 mls @ 15 mls/hr IV .[id number] PRN PRN Reason: Additional IVPB Infusion Sodium Chloride () 1,000 mls @ 15 mls/hr IV .Q48H [facility] Last Admin: 05/01/20 07:38 Dose: 15 mls/hr Documented by: Insulin Human Lispro (Insulin Lispro 100 Unit/Ml Insuln.Pen) 0 unit SC ACHS [facility]; Protocol Last Admin: 05/01/20 13:09 Dose: Not Given Documented by: Isosorbide Mononitrate (Isosorbide Mononitrate 120 Mg Tablet) 120 mg PO DAILY [facility] Last Admin: 05/01/20 06:10 Dose: 120 mg Documented by: Labetalol HCl (Labetalol (Prefilled) 20 Mg/4 Ml) 5 mg IV X1 PRN PRN Reason: SBP >160 when pulling sheath Stop: 05/03/20 09:31 Lisinopril (Lisinopril 20 Mg Tablet) 20 mg PO BID [facility] Last Admin: 05/01/20 06:11 Dose: 20 mg Documented by: Magnesium Hydroxide (Magnesium Hydroxide 30 Ml Udc) 30 ml PO DAILY PRN PRN PRN Reason: Constipation Melatonin (Melatonin 3 Mg Tablet) 3 mg PO QHS PRN PRN PRN Reason: INSOMNIA Metoprolol Tartrate (Metoprolol Tartrate 50 Mg Tablet) 50 mg PO BID [facility] Last Admin: 05/01/20 06:11 Dose: 50 mg Documented by: Nitroglycerin (Nitroglycerin (Inpatient Use) 0.4 Mg Tab.Subl) 0.4 mg SUBLINGUAL Q5M PRN PRN Reason: CARDIAC/CHEST PAIN Last Admin: 05/01/20 00:46 Dose: 0.4 mg Documented by: Ondansetron HCl (Ondansetron 4 Mg/2 Ml Vial) 4 mg IV Q8H PRN PRN PRN Reason: NAUSEA/VOMITING Oxycodone HCl (Oxycodone 5 Mg Tablet) 5 mg PO Q4H PRN PRN PRN Reason: Pain Score 4-5 Pantoprazole Sodium (Pantoprazole Sodium 20 Mg Tablet) 20 mg PO DAILY [facility] Last Admin: 04/30/20 10:06 Dose: 20 mg Documented by: Prochlorperazine Edisylate (Prochlorperazine 10 Mg/2 Ml Vial) 5 mg IV Q4H PRN PRN PRN Reason: Breakthrough Nausea/Vomiting Psyllium Hydrophilic Mucilloid (Psyllium 1 Packet) 1 packet PO DAILY PRN PRN PRN Reason: Constipation Ranolazine (Ranolazine 500 Mg Tablet) 1,000 mg PO BID [facility] Last Admin: 05/01/20 06:11 Dose: 1,000 mg Documented by: Senna/Docusate Sodium (Senna/Docusate Sodium 1 Tablet) 2 tablet PO BID PRN PRN PRN Reason: Constipation Sodium Chloride (0.9% Saline Lock 10 Ml Syringe) 10 - 40 ml IV UD PRN PRN Reason: SALINE FLUSH Last Admin: 04/30/20 22:11 Dose: 10 ml Documented by: Sodium Chloride (0.9% Normal Saline 500 Ml Iv.Soln.) 500 ml IV BOLUS PRN PRN Reason: VASO-VAGAL PROTOCOL Throat Lozenges (Benzocaine/Menthol 1 Lozenge) 1 lozenge MUCOUS MEM Q2H PRN PRN PRN Reason: SORE THROAT Medical Necessity - Tobacco Use Smoking Status: Never smoker Tobacco Use: Non-smoker Assessment/Plan All Active Problems (Last Updated 05/01/20 @ 11:57 by Paula Poole) Chest pain (Acute) Community acquired pneumonia (Acute) Personal history of antineoplastic chemotherapy (Acute) NSTEMI (non-ST elevated myocardial infarction) (Acute) Atrial flutter (Resolved) Feeling grief (Acute) Shoulder pain, right (Acute) 1. NSTEMI-cardiology following. Underwent PCI with JOSE G to proximal and distal SVG to right PDA. Continue aspirin, statin, Plavix, therapeutic Lovenox, metoprolol, isosorbide. 2. Community-acquired pneumonia-CTA with right basal infiltrate. IV Rocephin and IV azithromycin. Patient is afebrile. Oxygen stable on room air. Transition to oral Augmentin 05/02/2020. Respiratory panel and Covid negative. 3. CAD with history of PCI and CABG-most recent PCI December 2019. Continue aspirin, Plavix, statin, lisinopril, metoprolol. 4. Hypertension-stable, continue isosorbide, lisinopril, metoprolol with hold parameters. 5. Hyperlipidemia-continue statin. 6. Type 2 diabetes mellitus-oral regimen on hold. Accu-Cheks with sliding scale insulin. 7. Chronic anemia-stable, trend CBC. 8. GERD-continue PPI. 9. Macroglobulinemia, history of Hodgkin's lymphoma-continue outpatient follow- up with hematology/oncology. 10. History of atrial flutter-currently sinus rhythm. History of synchronized cardioversion in the past. DVT prophylaxis-therapeutic Lovenox This patient was seen by KEITH Merino under the supervision of Dr. Mo. <Alyce Mo - Last Filed: 05/01/20 17:57> - Physical Exam Vitals/I&O's: Vital Signs Temp Pulse Resp BP Pulse Ox 98.1 F 88 18 118/104 H 98 05/01/20 16:43 05/01/20 16:43 05/01/20 16:43 05/01/20 16:43 05/01/20 16:43 Oxygen Flow Rate (L/min) 3 Oxygen Delivery Method Room Air Weight: 95.1 kg Body Mass Index (BMI) 27.6 Intake and Output for Last 24 Hours 04/29/20 04/30/20 05/01/20 23:59 23:59 23:59 Intake Total 1425 / 1880 1599.25 / 1599.25 365.50 / 365.50 Balance 1425 / 1880 1599.25 / 1599.25 365.50 / 365.50 Microbiology Past 72 Hours 04/29/20 02:55 Mucosa - Nasopharyngeal - Final 04/29/20 02:57 Urine, Random Streptococcus pneumoniae Antigen (M - Final 04/29/20 02:57 Urine, Random Legionella Antigen - Final 04/28/20 22:50 Mucosa - Nose Respiratory Panel (PCR) - Final Laboratory Results 04/30/20 22:05: POC Glucose 243 H 05/01/20 04:47: WBC 4.0 L, RBC 4.22 L, Hgb 9.8 L, Hct 33.6 L, MCV 79.6 L, MCH 23.2 L, MCHC 29.2 L, RDW Std Deviation 51.1 H, RDW Coeff of Joel 17.6 H, Plt Count 89 L, MPV 11.5, Differential Comment SCANNED 05/01/20 04:47: PT 13.3, INR 1.1 05/01/20 04:47: Sodium 139, Potassium 4.5, Chloride 107, Carbon Dioxide 26.0, Anion Gap 6, BUN 18, Creatinine 0.94, Estim Creat Clear Calc 95.63, Est GFR (MDRD) Af Amer 106, Est GFR (MDRD) Non-Af 87, BUN/Creatinine Ratio 19.2, Glucose 155 H, Calcium 8.4 L 05/01/20 06:58: POC Glucose 150 H 05/01/20 09:27: Activated Clotting Time 219 H 05/01/20 11:52: Activated Clotting Time 164 H 05/01/20 13:05: POC Glucose 157 H Current Medications Acetaminophen (Acetaminophen 325 Mg Tablet) 650 mg PO Q6H PRN PRN PRN Reason: Pain Score 1-10/Temp > 100.7 F Last Admin: 04/28/20 22:57 Dose: 650 mg Documented by: Al Hydroxide/Mg Hydroxide (Mag Hydrox/Al Hydrox/Simeth 30 Ml Udc) 30 ml PO Q6H PRN PRN PRN Reason: Gastric Burning Albuterol Sulfate (Albuterol 2.5 Mg/3 Ml Vial.Neb.) 2.5 mg INHALATION Q2H PRN PRN PRN Reason: Dyspnea, wheezing Aspirin (Aspirin 81 Mg Tab.Chew) 81 mg PO DAILY@0800 [facility] Last Admin: 05/01/20 06:10 Dose: 81 mg Documented by: Atorvastatin Calcium (Atorvastatin Calcium 80 Mg Tablet) 80 mg PO QHS [facility] Last Admin: 04/30/20 22:16 Dose: 80 mg Documented by: Atropine Sulfate (Atropine Sulfate 1 Mg/10 Ml Syringe) 0.5 mg IV UD PRN PRN Reason: HR <50 bpm Clopidogrel Bisulfate (Clopidogrel Bisulfate 75 Mg Tablet) 75 mg PO DAILY [facility] Last Admin: 05/01/20 06:11 Dose: 75 mg Documented by: Enoxaparin Sodium (Enoxaparin 100 Mg/Ml Syringe) 90 mg SC Q12@0600,1800 [facility] Last Admin: 05/01/20 16:42 Dose: Not Given Documented by: Guaifenesin (Guaifenesin 10 Ml Udc (200mg/10ml)) 20 ml PO Q4H PRN PRN PRN Reason: COUGH Heparin Sodium (Beef Lung) (Heparin Lock 500 Unit/5 Ml In 10 Ml Syringe) 500 unit IV UD PRN PRN Reason: HEPARIN FLUSH Hydralazine HCl (Hydralazine 20 Mg/Ml Vial) 10 mg IV Q4H PRN PRN PRN Reason: SBP > 160 Ceftriaxone Sodium 2 gm/ (Sodium Chloride) 50 mls @ 100 mls/hr IV Q24H [facility] Last Infusion: 04/30/20 22:44 Dose: Infused Documented by: Azithromycin 500 mg/ Dextrose 255 mls @ 250 mls/hr IV Q24H [facility] Last Infusion: 05/01/20 00:03 Dose: Infused Documented by: Sodium Chloride () 250 mls @ 15 mls/hr IV .[id number] PRN PRN Reason: Saline Flush Last Infusion: 05/01/20 00:28 Dose: 0 mls/hr Documented by: Sodium Chloride () 250 mls @ 15 mls/hr IV .[id number] PRN PRN Reason: Additional IVPB Infusion Sodium Chloride () 1,000 mls @ 15 mls/hr IV .Q48H [facility] Last Infusion: 05/01/20 14:35 Dose: Infused Documented by: Insulin Human Lispro (Insulin Lispro 100 Unit/Ml Insuln.Pen) 0 unit SC [facility]; Protocol Last Admin: 05/01/20 16:48 Dose: 4 u Documented by: Isosorbide Mononitrate (Isosorbide Mononitrate 120 Mg Tablet) 120 mg PO DAILY [facility] Last Admin: 05/01/20 06:10 Dose: 120 mg Documented by: Labetalol HCl (Labetalol (Prefilled) 20 Mg/4 Ml) 5 mg IV X1 PRN PRN Reason: SBP >160 when pulling sheath Stop: 05/03/20 09:31 Lisinopril (Lisinopril 20 Mg Tablet) 20 mg PO BID [facility] Last Admin: 05/01/20 06:11 Dose: 20 mg Documented by: Magnesium Hydroxide (Magnesium Hydroxide 30 Ml Udc) 30 ml PO DAILY PRN PRN PRN Reason: Constipation Melatonin (Melatonin 3 Mg Tablet) 3 mg PO QHS PRN PRN PRN Reason: INSOMNIA Metoprolol Tartrate (Metoprolol Tartrate 50 Mg Tablet) 50 mg PO BID [facility] Last Admin: 05/01/20 06:11 Dose: 50 mg Documented by: Nitroglycerin (Nitroglycerin (Inpatient Use) 0.4 Mg Tab.Subl) 0.4 mg SUBLINGUAL Q5M PRN PRN Reason: CARDIAC/CHEST PAIN Last Admin: 05/01/20 00:46 Dose: 0.4 mg Documented by: Ondansetron HCl (Ondansetron 4 Mg/2 Ml Vial) 4 mg IV Q8H PRN PRN PRN Reason: NAUSEA/VOMITING Oxycodone HCl (Oxycodone 5 Mg Tablet) 5 mg PO Q4H PRN PRN PRN Reason: Pain Score 4-5 Pantoprazole Sodium (Pantoprazole Sodium 20 Mg Tablet) 20 mg PO DAILY [facility] Last Admin: 05/01/20 13:54 Dose: 20 mg Documented by: Prochlorperazine Edisylate (Prochlorperazine 10 Mg/2 Ml Vial) 5 mg IV Q4H PRN PRN PRN Reason: Breakthrough Nausea/Vomiting Psyllium Hydrophilic Mucilloid (Psyllium 1 Packet) 1 packet PO DAILY PRN PRN PRN Reason: Constipation Ranolazine (Ranolazine 500 Mg Tablet) 1,000 mg PO BID [facility] Last Admin: 05/01/20 06:11 Dose: 1,000 mg Documented by: Senna/Docusate Sodium (Senna/Docusate Sodium 1 Tablet) 2 tablet PO BID PRN PRN PRN Reason: Constipation Sodium Chloride (0.9% Saline Lock 10 Ml Syringe) 10 - 40 ml IV UD PRN PRN Reason: SALINE FLUSH Last Admin: 04/30/20 22:11 Dose: 10 ml Documented by: Sodium Chloride (0.9% Normal Saline 500 Ml Iv.Soln.) 500 ml IV BOLUS PRN PRN Reason: VASO-VAGAL PROTOCOL Throat Lozenges (Benzocaine/Menthol 1 Lozenge) 1 lozenge MUCOUS MEM Q2H PRN PRN PRN Reason: SORE THROAT Assessment/Plan This patient was seen in conjunction with Kanchan New NP. I have independently interviewed and examined the patient and reviewed pertinent historical, laboratory, and other data. Please refer to her note for patient's presentation, findings, and recommendations. Patient was seen and examined. He denied any chest pain. He underwent cardiac cath found to have progression of SVG graft disease to the RCA. He underwent SVG graft PCI with 2 stents. No acute events overnight. Vitals were reviewed -stable Physical Exam: Gen:Comfortable, not pale, not jaundiced, alert oriented x3 CVS:HS I +II, regular, no murmurs RESP: CTA GI: BS present and normal, nontender, no palpable organs, slight bruise at right groin EXT:No edema Labs reviewed: ASSESSMENT: 1. NSTEMI status post PCI to proximal and distal SVG to right PDA 2. Pneumonia 3. CAD status post CABG status post PCI 4. Hypertension 5. Hyperlipidemia 6. Type II DM 7. Anemia 8. GERD Meds reviewed Plan: Continue on post-cath recommendation Continue on aspirin, Plavix, statins, beta-blockers, lisinopril Continue on antibiotics Repeat blood work in a.m. Inpatient E&M: 14429 Subs Hosp L2
[2020-05-01] MEDS: Pantoprazole Sodium 20 MG Tablet PO (13:54)
--- NOTE | 2020-05-01 16:45 | NURSING ---
This RN ambulated with the pt in the room. No signs of bleeding or complications to right groin heart cath site.
[2020-05-01] MEDS: Insulin Lispro 100 UNIT/ML INSULN.PEN SC ×2 (16:48→21:25)
--- NOTE | 2020-05-01 16:58 | CL.D_ITS ---
Patient Name: LILY NELSON Study Date: 05/01/2020 Performing: Abhi Go MD Ht: 73 inches 185 cm : 1960 Wt: 209.7 lbs 95 kg Age: 59 Gender: male BSA: 2.19 PROCEDURE(S) PERFORMED [id number]/CABG [id number] AND/OR PTCA, SINGLE GRAFT CLINICAL PROFILE AND INDICATIONS Indications: Worsening Angina Heart Failure: None Stress/Imaging Stress/Image Study Performed: No Angina Classification Anginal Classification w/in 2 Weeks: CCS IV CAD Presentations: Non-STEMI. CONCLUSIONS [facility] Multivessel CAD MENDOZA to mid LAD: patent SVG to DX1: occluded (chronic) SVG to OM1 and OM2: patent with proximal / mid stents being patent and the sequential portion to OM2 being occluded (chronic) SVG to RPDA: patent with previous stent being patent with subsequent distal hazy 75% stenosis Left to left and right to left collateral flow RECOMMENDATIONS Risk factor modification Medical therapy Referred for immediate PCI DESCRIPTION OF PROCEDURE The patient arrived to the procedure lab. The risks and benefits of the procedure as well as a full d escription of our services here and current unavailability of surgical backup were fully explained to the patient and/or their significant other prior to the catheterization. The Timeout was completed, verifying the correct patient and procedure. The patient's procedural site was prepped and draped in the usual fashion. Local anesthetic was given subcutaneously to right groin region with Lidocaine 2%. Using a modified Seldinger technique, arterial access was obtained via the right femoral artery, a 4 Fr sheath was inserted Left Coronary Artery selective angiography was performed in multiple views us ing a 4 Fr. JL5 catheter. Left internal mammary artery graft to the LAD selective angiography was per formed in multiple views using a 4 Fr. 3DRC catheter. Saphenous Vein graft to the DIAG 1 selective an giography was performed in multiple views using a 4 Fr. 3DRC catheter. occluded. Right Coronary Artery selective angiography was then performed in multiple views using a 4 Fr. JR4 catheter . Saphenous Vein graft to the OM 1 selective angiography was performed in multiple views using a 4 Fr . JR4 catheter. Saphenous Vein graft to the RPDA selective angiography was performed in multiple view s using a 4 Fr. MPA 2 catheter.Contrast was injected through the sheath and the Right Iliac and Femor al artery were assessed for possible closure device.The arterial sheath was sutured in place and capp ed. The arterial sheath was left in to be pulled in the holding area. The arterial sheath was pulled and manual compression applied until hemostasis is achieved. CORONARY ANGIOGRAPHY DOMINANCE: Right Dominant LEFT HEART ASSESSMENT LEFT MAIN: Angiographically normal LEFT ANTERIOR DESCENDING ARTERY: PROX LAD: is occluded MID LAD: to distal: fills from the MENDOZA graft with no angiographically significant appearing disease distal to the graft attachment % Stenosis, patent CIRCUMFLEX ARTERY: PROX CIRC: is occluded followed by bridging collaterals to the mid LCX which is subsequently occluded followed by bridging collaterals to the distal LCX OM 1: Proximal - is occluded and fills late and faintly from the SVG graft RIGHT CORONARY ARTERY: PROX RCA: is occluded RT PDA: Proximal - fills froom the SVG graft with no angiographically significant appearing disease d istal to the graft attachment GRAFTS: MENDOZA graft to the Mid LAD is patent Saphenous Vein graft to the 1st Diagonal is totally occluded (chronic) Saphenous Vein graft to the 1st OM and sequential graft to the 2nd OM is patent with proximal / mid stents which are patent with the sequential portion to the OM2 being occluded (chronic) Saphenous Vein graft to the RPDA previously placed stent is patent with subsequent distal hazy 75% st enosis COLLATERAL FLOW: Collateral flow from Left to Left Collateral flow from Right to Left VALVE FINDINGS: present AORTIC ROOT: Bioprosthetic Aortic Valve: present COMPLICATIONS No Complications PROCEDURE MEDICATIONS Versed 1 mg IV Oxygen: 4 L/min via nasal cannula Heparin 8000 unit(s) IV 05/01/2020 09:02:32 SUMMARY OF HEMODYNAMIC DATA Time AIR REST ECG 08:03:21 AO 99/73 (84) SA 08:29:02 Signed By Abhi Go MD On 05/01/2020 4:57:28 PM Abhi Go MD
[2020-05-01 19:05] LABS: Bedside Glucose 276 mg/dL (70-110)
[2020-05-01] MEDS: Atorvastatin Calcium 80 MG Tablet PO (21:25)
[2020-05-01] MEDS: 0.9% Saline Lock 10 ML Syringe IV (21:26)
[2020-05-01 22:20] LABS: Bedside Glucose 214 mg/dL (70-110)
[2020-05-02 03:04] VITALS: PULSE 83
[2020-05-02 03:30] VITALS: BP 107/75; PULSE 89; RESP 18; TEMP 36.5; O2SAT 96
[2020-05-02 06:35] LABS: Bedside Glucose 168 mg/dL (70-110)
[2020-05-02 06:36] VITALS: PULSE 116
[2020-05-02] MEDS: Aspirin 81 MG TAB.CHEW PO (07:33)
[2020-05-02 08:05] VITALS: O2SAT 95
--- NOTE | 2020-05-02 08:54 | PN.CARD_ITS ---
Subjectve: The patient is awake and alert. He has been up and ambulating. He has no new complaints. Objective: Vital Signs Temp Pulse Resp BP Pulse Ox 97.7 F L 116 H 18 107/75 95 05/02/20 03:30 05/02/20 06:36 05/02/20 03:30 05/02/20 03:30 05/02/20 08:05 Oxygen Flow Rate (L/min) 3 Oxygen Delivery Method Room Air Weight: 209 lb 10.554 oz Body Mass Index (BMI) 27.6 Intake and Output for Last 24 Hours 04/30/20 05/01/20 05/02/20 23:59 23:59 23:59 Intake Total 1599.25 / 1599.25 1290.50 / 1290.50 Output Total 300 / 300 Balance 1599.25 / 1599.25 990.50 / 990.50 General: Awake, Alert, Oriented x 3, Cooperative, No Acute Distress, Obese HEENT: Atraumatic, Normocephalic, PERRL, EOMI, Sclera Non Icteric Neck: Supple, Good ROM, No JVD Lungs: Clear to auscultation Cardiovascular: Regular Rhythm, Normal S1, Normal S2 Vascular: Normal Femoral Pulses Abdomen: Bowel Sounds Present, Soft Extremities: No edema Neurological: No Focal Motor or Sensory Deficit Psych/Mental Status: Appropriate Rhythm: Sinus rhythm Medical Necessity - Tobacco Use Smoking Status: Never smoker Tobacco Use: Non-smoker Assessment/Plan 1. Acute non-ST segment elevation [place] The patient presents with symptoms, abnormal troponin I levels (which are decreasing), and an abnormal ECG concerning for an acute non-ST segment elevation [place]. At the present he appears to be resting reasonably comfortably. He is being monitored. He is continuing medical management. He has undergone repeat diagnostic cardiac catheterization. He subsequently underwent PTCA/JOSE G to the distal SVG to the RCA distribution. 2. CAD status post CABG the patient has a history of previous CABG as noted above. He has been followed with noninvasive and invasive evaluation. At the present time he will continue medical management. 3. Status post PCI The patient's most recent PCI was performed in December of this year. The results are as noted. His previous SVG stents were patent. He had progression of SVG disease in the distal segment leading to the right coronary artery. He subsequently underwent PCI of this area. Thus he will continue medical therapy. 4. Aortic valve disease status post aortic valve replacement-bioprosthetic The patient's aortic valve has been evaluated during his recent noninvasive and invasive studies. He has had a follow-up transthoracic echocardiogram. His bioprosthetic aortic valve apparatus appears to be stable. 5. Atrial flutter The patient has a history of atrial flutter for which she has undergone medical therapy and synchronized biphasic DC cardioversion in the past. He remains in sinus rhythm at the moment. He will continue to be followed. 6. Hyperlipidemia The patient will continue risk factor evaluation and care. 7. Hypertension The patient's blood pressure will be followed. He will continue medical therapy. 8. Diabetes mellitus The patient will continue evaluation care per internal medicine. 9. Macroglobulinemia The patient will continue to be followed by hematology oncology. 10. Hodgkin's lymphoma The patient has been followed by hematology/oncology for this diagnosis in the past. Comment: Overall he appears to be doing well at this time with no acute cardiovascular complaints. He will continue his cardiovascular medical therapy. He will continue evaluation and care of his underlying concerns of pneumonia by internal medicine. Otherwise he will be asked to have future outpatient cardiovascular follow-up. The patient's case was discussed and reviewed with Kanchan New CNP of the [facility] staff. This note was generated using a voice recognition system and there may be incorrect words, spelling or punctuation that were not noted when reviewing the office note prior to saving.
[2020-05-02 09:14] VITALS: BP 135/79; PULSE 90; RESP 18; TEMP 36.4; O2SAT 100
[2020-05-02 09:17] VITALS: BP 135/79; PULSE 90
[2020-05-02] MEDS: Clopidogrel Bisulfate 75 MG Tablet PO (09:17)
[2020-05-02] MEDS: Lisinopril 20 MG Tablet PO (09:17)
[2020-05-02] MEDS: Metoprolol Tartrate 50 MG Tablet PO (09:17)
[2020-05-02] MEDS: Pantoprazole Sodium 20 MG Tablet PO (09:17)
[2020-05-02] MEDS: Ranolazine 500 MG Tablet 1000 MG PO (09:17)
--- NOTE | 2020-05-02 10:00 | EKG12_ITS ---
Test Reason : AM EKG Blood Pressure : / mmHG Vent. Rate : 087 BPM Atrial Rate : 087 BPM P-R Int : 190 ms QRS Dur : 120 ms QT Int : 374 ms P-R-T Axes : 054 -27 247 degrees QTc Int : 450 ms Normal sinus rhythm ST & T wave abnormality, consider inferior ischemia ST & T wave abnormality, consider anterolateral ischemia Abnormal ECG Confirmed by ARETHA CRUMP, ALEKSANDRA ([id number]), ict developer SHAHID VICTORIA ([id number]) on 05/03/2020 9:00:29 AM Referred By: Shanika Coker Confirmed By:ALEKSANDRA CARIAS MD
[2020-05-02] MEDS: Insulin Lispro 100 UNIT/ML INSULN.PEN SC (10:53)
[2020-05-02] MEDS: Acetaminophen 325 MG Tablet 650 MG PO (10:56)
--- NOTE | 2020-05-02 10:57 | DCINST_ITS ---
- Discharge Diagnoses Current Active Problems: Current Active and Chronic Problems (Last Updated 05/01/20 @ 11:57 by Paula Poole) Chest pain (Acute) Community acquired pneumonia (Acute) NSTEMI (non-ST elevated myocardial infarction) (Acute) Atherosclerosis of coronary artery (Chronic) Stented coronary artery (Chronic) Hyperlipidemia (Chronic) Hypertension (Chronic) Macroglobulinemia of Waldenstrom (Chronic) well controlled periodic IgG infusions Hodgkins lymphoma (Chronic) Status post coronary artery bypass graft (Chronic) Status post aortic valve replacement with bioprosthetic valve (Chronic) Type 2 diabetes mellitus (Chronic) You will use the following diet at home:: Cardiac Discharge Activity: Return to Normal Activity Call your doctor if you observe: Shortness of breath, Dizziness, Fainting spells, Chest pain Allergies/Adverse Reactions: Allergies adhesive tape Adverse Reaction (Intermediate, Verified 04/28/20 17:49) Rash Medications to take at Discharge Metoprolol Tartrate [Lopressor (beta yoselin)] 50 mg PO BID 01/27/15 Nitroglycerin (INPATIENT USE) [Nitrostat] 0.4 mg SUBLINGUAL Q5M PRN 12/18/16 Glipizide [Glipizide ER] 10 mg PO BID 02/03/18 Aspirin [Aspirin, Baby] 81 mg PO DAILY@0800 #30 tab.chew 02/05/18 Atorvastatin Calcium [Lipitor] 80 mg PO QHS #30 tab 02/05/18 Lisinopril [Zestril] 20 mg PO BID #60 tab 02/05/18 Sitagliptin Phosphate [Januvia] 100 mg PO DAILY 01/10/20 metFORMIN HCl [Glucophage] 1,000 mg PO BIDCM #60 tab 01/15/20 clopidogrel 75 mg tablet 75 mg PO DAILY #30 tab 02/03/20 isosorbide mononitrate 120 mg tablet,extended release 24 hr 120 mg PO DAILY #30 tab 02/03/20 ranolazine 1,000 mg tablet,extended release,12 hr 1,000 mg PO BID #60 tab 04/25/20 Omeprazole 20 mg PO DAILY 04/28/20 Amox/Clavulanate Tablet [Augmentin Tablet] 875 mg PO Q12H #6 tab 05/02/20 The following prescriptions were given: Amox/Clavulanate Tablet [Augmentin Tablet] 875 mg PO Q12H #6 tab Transmission Status: [id number] Primary Care Physician: Manuela Damico DO [Primary Care Provider] - Please follow up with your Primary Care Physician in: 1 Week Test Results: Test results from this visit will be discussed in further detail at your follow- up appointment, if applicable. Please Follow Up With: Paula Muñoz, PA When: As scheduled 06/06/2020 Proposed Discharge Date: 05/02/20
[2020-05-02 11:01] LABS: Bedside Glucose 285 mg/dL (70-110)
--- NOTE | 2020-05-02 11:04 | PCM.DC.SUM ---
<Kanchan New MEDIA PLANNER / BUYER - Last Filed: 05/02/20 11:16> Discharge Date and Diagnosis - Problem List Patient Problems: Active and Suspected Problems (Last Updated 05/01/20 @ 11:57 by Paula Poole) Chest pain (Acute) Community acquired pneumonia (Acute) NSTEMI (non-ST elevated myocardial infarction) (Acute) Date of Admission: 04/28/20 Date of Discharge: 05/02/20 - Primary Discharge Diagnosis Acute Problems: Active Problems (Last Updated 05/01/20 @ 11:57 by Paula Poole) 1. NSTEMI-s/p PCI with JOSE G to proximal and distal SVG to right PDA. 2. Community-acquired pneumonia 3. CAD with history of PCI and CABG 4. Hypertension 5. Hyperlipidemia 6. Type 2 diabetes mellitus 7. Chronic anemia 8. GERD 9. Macroglobulinemia, history of Hodgkin's lymphoma 10. History of atrial flutter - Secondary Discharge Diagnosis Chronic Problems: Chronic Problems (Last Updated 05/01/20 @ 11:57 by Paula Poole) Atherosclerosis of coronary artery bypass graft without angina pectoris (Chronic) Presence of stent in coronary artery (Chronic ~05/01/20) Successful PCI with JOSE G to the proximal and distal SVG to RPDA per cardiac cath 05/01/20; Successful PTCA/JOSE G of mid SVG to OM, with filter wire assistance, utilzing a 4.0 x 20 Promus Synergy at 12 batsheva: 85%-->0%, no dissection; Successful PTCA/JOSE G proximal SVG to OM, with filter wire assistance, utilizing a 4.0 x 20 Promus Synergy, followed immediately upstream with a 4.0 x 8 Promus Synergy, followed by post stent dilation with a 5.0 x 8 NC Balloon at 8 batsheva, 75%-->0%, no dissection. Additional short stent placed due to retrograde plaque shifting per cardiac cath 01/11/20 Atherosclerosis of coronary artery (Chronic) Stented coronary artery (Chronic) Hyperlipidemia (Chronic) Hypertension (Chronic) Macroglobulinemia of [place] (Chronic) well controlled periodic IgG infusions Hodgkins lymphoma (Chronic) Status post coronary artery bypass graft (Chronic) Status post aortic valve replacement with bioprosthetic valve (Chronic) Type 2 diabetes mellitus (Chronic) Tinea unguium (Chronic) Diabetes mellitus with neuropathy (Chronic) Poor hygiene (Chronic) Nonfamilial hypogammaglobulinemia (Chronic) Hospital Course and Treatment Imaging Results: Diagnostic Data Chest X-Ray 04/28/20 18:35 IMPRESSION: 1. Stable cardiomegaly with evidence of median sternotomy. 2. No evidence for acute pulmonary disease. Electronically Signed: Scott SorianoDO at 18:48 EST Tel [phone], Service support , Chest CTA 04/28/20 18:52 IMPRESSION: 1. No evidence of pulmonary embolus. 2. No aortic dissection or aneurysm. 3. Right basal infiltrate. 4. Evidence of median sternotomy and aortic valve replacement. 5. Gallstones without acute cholecystitis Electronically Signed: Scott BoDO at 19:51 EST Tel [phone], Service support , Dr. Go- Cardiology Operations: None Procedures: 2-D Echocardiogram, Cardiac catheterization Summary of Care Provided: The patient is a 59 year old M admitted 04/28/2020 due to chest pain. 1. NSTEMI-cardiology following. Underwent PCI with JOSE G to proximal and distal SVG to right PDA. Continue aspirin, statin, Plavix, metoprolol, isosorbide. Outpatient follow-up with cardiology as previously scheduled. 2. Community-acquired pneumonia-CTA with right basal infiltrate. IV Rocephin and IV azithromycin during admission. Patient is afebrile. Oxygen stable on room air. Transition to oral Augmentin at discharge to complete course. Respiratory panel and Covid negative. 3. CAD with history of PCI and CABG-most recent PCI December 2019. Continue aspirin, Plavix, statin, lisinopril, metoprolol. 4. Hypertension-stable, continue isosorbide, lisinopril, metoprolol with hold parameters. 5. Hyperlipidemia-continue statin. 6. Type 2 diabetes mellitus-continue home oral regimen. 7. Chronic anemia-stable, trend CBC. 8. GERD-continue PPI. 9. Macroglobulinemia, history of Hodgkin's lymphoma-continue outpatient follow-up with hematology/oncology. 10. History of atrial flutter-currently sinus rhythm. History of synchronized cardioversion in the past. General: Alert, Oriented x3, Cooperative HEENT: Atraumatic, PERRLA, EOMI, Normocephalic Neck: Supple, No JVD, Negative Carotid Bruits Lungs: Clear to auscultation, Normal air movement Cardiovascular: Regular rate, Regular Rhythm, Murmur Abdomen: Bowel Sounds Present, Soft, Non Tender Extremities: No clubbing, No cyanosis, No edema, Capillary Refill Less than 3 Seconds Skin: No rashes, No breakdown Musculoskeletal: No Tenderness to Palpation of Joints or Extremities Neurological: Cranial nerves II-XII grossly intact, Neuro grossly intact Psych/Mental Status: Normal Affect, Appropriate Patient seen and examined prior to discharge. Physical assessment as noted above. Patient is stable for discharge with follow up recommendations as noted above. This patient was seen by KEITH Merino under the supervision of Dr. Mo. Patient Problems: Active and Suspected Problems (Last Updated 05/01/20 @ 11:57 by Paula Poole) Chest pain (Acute) Community acquired pneumonia (Acute) NSTEMI (non-ST elevated myocardial infarction) (Acute) - Physical Exam Vitals/I&O's: Vital Signs Temp Pulse Resp BP Pulse Ox 97.5 F L 90 18 135/79 H 100 05/02/20 09:14 05/02/20 09:17 05/02/20 09:14 05/02/20 09:17 05/02/20 09:14 Oxygen Flow Rate (L/min) 3 Oxygen Delivery Method Room Air Weight: 209 lb 10.554 oz Body Mass Index (BMI) 27.6 Intake and Output for Last 24 Hours 04/30/20 05/01/20 05/02/20 23:59 23:59 23:59 Intake Total 1599.25 / 1599.25 1290.50 / 1290.50 Output Total 300 / 300 Balance 1599.25 / 1599.25 990.50 / 990.50 Laboratory Results 05/01/20 11:52: Activated Clotting Time 164 H 05/01/20 13:05: POC Glucose 157 H 05/01/20 16:46: POC Glucose 276 H 05/01/20 21:22: POC Glucose 214 H 05/02/20 06:29: POC Glucose 168 H 05/02/20 10:52: POC Glucose 285 H Current Medications Acetaminophen (Acetaminophen 325 Mg Tablet) 650 mg PO Q6H PRN PRN PRN Reason: Pain Score 1-10/Temp > 100.7 F Last Admin: 05/02/20 10:56 Dose: 650 mg Documented by: Al Hydroxide/Mg Hydroxide (Mag Hydrox/Al Hydrox/Simeth 30 Ml Udc) 30 ml PO Q6H PRN PRN PRN Reason: Gastric Burning Albuterol Sulfate (Albuterol 2.5 Mg/3 Ml Vial.Neb.) 2.5 mg INHALATION Q2H PRN PRN PRN Reason: Dyspnea, wheezing Aspirin (Aspirin 81 Mg Tab.Chew) 81 mg PO DAILY@0800 [facility] Last Admin: 05/02/20 07:33 Dose: 81 mg Documented by: Atorvastatin Calcium (Atorvastatin Calcium 80 Mg Tablet) 80 mg PO QHS [facility] Last Admin: 05/01/20 21:25 Dose: 80 mg Documented by: Atropine Sulfate (Atropine Sulfate 1 Mg/10 Ml Syringe) 0.5 mg IV UD PRN PRN Reason: HR <50 bpm Clopidogrel Bisulfate (Clopidogrel Bisulfate 75 Mg Tablet) 75 mg PO DAILY [facility] Last Admin: 05/02/20 09:17 Dose: 75 mg Documented by: Guaifenesin (Guaifenesin 10 Ml Udc (200mg/10ml)) 20 ml PO Q4H PRN PRN PRN Reason: COUGH Heparin Sodium (Beef Lung) (Heparin Lock 500 Unit/5 Ml In 10 Ml Syringe) 500 unit IV UD PRN PRN Reason: HEPARIN FLUSH Hydralazine HCl (Hydralazine 20 Mg/Ml Vial) 10 mg IV Q4H PRN PRN PRN Reason: SBP > 160 Ceftriaxone Sodium 2 gm/ (Sodium Chloride) 50 mls @ 100 mls/hr IV Q24H [facility] Last Infusion: 05/01/20 22:04 Dose: Infused Documented by: Azithromycin 500 mg/ Dextrose 255 mls @ 250 mls/hr IV Q24H [facility] Last Infusion: 05/01/20 23:18 Dose: Infused Documented by: Sodium Chloride () 250 mls @ 15 mls/hr IV .[id number] PRN PRN Reason: Saline Flush Last Infusion: 05/01/20 00:28 Dose: 0 mls/hr Documented by: Sodium Chloride () 250 mls @ 15 mls/hr IV .[id number] PRN PRN Reason: Additional IVPB Infusion Sodium Chloride () 1,000 mls @ 15 mls/hr IV .Q48H [facility] Last Infusion: 05/01/20 14:35 Dose: Infused Documented by: Insulin Human Lispro (Insulin Lispro 100 Unit/Ml Insuln.Pen) 0 unit SC ACHS [facility]; Protocol Last Admin: 05/02/20 10:53 Dose: 4 u Documented by: Isosorbide Mononitrate (Isosorbide Mononitrate 120 Mg Tablet) 120 mg PO DAILY [facility] Last Admin: 05/02/20 09:17 Dose: 120 mg Documented by: Labetalol HCl (Labetalol (Prefilled) 20 Mg/4 Ml) 5 mg IV X1 PRN PRN Reason: SBP >160 when pulling sheath Stop: 05/03/20 09:31 Lisinopril (Lisinopril 20 Mg Tablet) 20 mg PO BID [facility] Last Admin: 05/02/20 09:17 Dose: 20 mg Documented by: Magnesium Hydroxide (Magnesium Hydroxide 30 Ml Udc) 30 ml PO DAILY PRN PRN PRN Reason: Constipation Melatonin (Melatonin 3 Mg Tablet) 3 mg PO QHS PRN PRN PRN Reason: INSOMNIA Metoprolol Tartrate (Metoprolol Tartrate 50 Mg Tablet) 50 mg PO BID [facility] Last Admin: 05/02/20 09:17 Dose: 50 mg Documented by: Nitroglycerin (Nitroglycerin (Inpatient Use) 0.4 Mg Tab.Subl) 0.4 mg SUBLINGUAL Q5M PRN PRN Reason: CARDIAC/CHEST PAIN Last Admin: 05/01/20 00:46 Dose: 0.4 mg Documented by: Ondansetron HCl (Ondansetron 4 Mg/2 Ml Vial) 4 mg IV Q8H PRN PRN PRN Reason: NAUSEA/VOMITING Oxycodone HCl (Oxycodone 5 Mg Tablet) 5 mg PO Q4H PRN PRN PRN Reason: Pain Score 4-5 Pantoprazole Sodium (Pantoprazole Sodium 20 Mg Tablet) 20 mg PO DAILY [facility] Last Admin: 05/02/20 09:17 Dose: 20 mg Documented by: Prochlorperazine Edisylate (Prochlorperazine 10 Mg/2 Ml Vial) 5 mg IV Q4H PRN PRN PRN Reason: Breakthrough Nausea/Vomiting Psyllium Hydrophilic Mucilloid (Psyllium 1 Packet) 1 packet PO DAILY PRN PRN PRN Reason: Constipation Ranolazine (Ranolazine 500 Mg Tablet) 1,000 mg PO BID [facility] Last Admin: 05/02/20 09:17 Dose: 1,000 mg Documented by: Senna/Docusate Sodium (Senna/Docusate Sodium 1 Tablet) 2 tablet PO BID PRN PRN PRN Reason: Constipation Sodium Chloride (0.9% Saline Lock 10 Ml Syringe) 10 - 40 ml IV UD PRN PRN Reason: SALINE FLUSH Last Admin: 05/01/20 21:26 Dose: 20 ml Documented by: Sodium Chloride (0.9% Normal Saline 500 Ml Iv.Soln.) 500 ml IV BOLUS PRN PRN Reason: VASO-VAGAL PROTOCOL Throat Lozenges (Benzocaine/Menthol 1 Lozenge) 1 lozenge MUCOUS MEM Q2H PRN PRN PRN Reason: SORE THROAT Discharge Diet: Low fat/ Low Cholesterol Discharge Activity: Return to Normal Activity Call your doctor if you observe: Shortness of breath, Dizziness, Fainting spells, Chest pain Home Medications: Medications to take at Discharge Metoprolol Tartrate [Lopressor (beta mia)] 50 mg PO BID 01/27/15 Nitroglycerin (INPATIENT USE) [Nitrostat] 0.4 mg SUBLINGUAL Q5M PRN 12/18/16 Glipizide [Glipizide ER] 10 mg PO BID 02/03/18 Aspirin [Aspirin, Baby] 81 mg PO DAILY@0800 #30 tab.chew 02/05/18 Atorvastatin Calcium [Lipitor] 80 mg PO QHS #30 tab 02/05/18 Lisinopril [Zestril] 20 mg PO BID #60 tab 02/05/18 Sitagliptin Phosphate [Januvia] 100 mg PO DAILY 01/10/20 metFORMIN HCl [Glucophage] 1,000 mg PO BIDCM #60 tab 01/15/20 clopidogrel 75 mg tablet 75 mg PO DAILY #30 tab 02/03/20 isosorbide mononitrate 120 mg tablet,extended release 24 hr 120 mg PO DAILY #30 tab 02/03/20 ranolazine 1,000 mg tablet,extended release,12 hr 1,000 mg PO BID #60 tab 04/25/20 Omeprazole 20 mg PO DAILY 04/28/20 Amox/Clavulanate Tablet [Augmentin Tablet] 875 mg PO Q12H #6 tab 05/02/20 Following Prescriptions Were Given to Patient: Amox/Clavulanate Tablet [Augmentin Tablet] 875 mg PO Q12H #6 tab Transmission Status: [id number] Primary Care Physician: Manuela Damico DO [Primary Care Provider] - Please follow up with your Primary Care Physician in: 1 Week Please Follow Up With: Paula Muñoz, PA When: As scheduled 06/06/2020 Disposition: Home Minutes spent on discharge:: 35 Patient Condition:: Stable Medical Necessity - Tobacco Use Smoking Status: Never smoker Tobacco Use: Non-smoker Meaningful Use Info Meaningful Use Diagnoses (Choose all that apply): AMI - AMI/Post PCI/Angioplasty Aspirin given w/in 24hrs of arrival?: Yes ASA at discharge?: Yes Statins at discharge?: Yes Servando/ARB at discharge?: Yes Beta Mia at discharge?: Yes Done w/ Acute [place] measure.: Yes <[place] - Last Filed: 05/03/20 08:06> Discharge Date and Diagnosis - Primary Discharge Diagnosis Acute Problems: Active Problems (Last Updated 05/01/20 @ 11:57 by Paula Poole) Chest pain (Acute) Community acquired pneumonia (Acute) NSTEMI (non-ST elevated myocardial infarction) (Acute) - Secondary Discharge Diagnosis Chronic Problems: Chronic Problems (Last Updated 05/01/20 @ 11:57 by Paula Poole) Atherosclerosis of coronary artery bypass graft without angina pectoris (Chronic) Presence of stent in coronary artery (Chronic ~05/01/20) Successful PCI with JOSE G to the proximal and distal SVG to RPDA per cardiac cath 05/01/20; Successful PTCA/JOSE G of mid SVG to OM, with filter wire assistance, utilzing a 4.0 x 20 Promus Synergy at 12 batsheva: 85%-->0%, no dissection; Successful PTCA/JOSE G proximal SVG to OM, with filter wire assistance, utilizing a 4.0 x 20 Promus Synergy, followed immediately upstream with a 4.0 x 8 Promus Synergy, followed by post stent dilation with a 5.0 x 8 NC Balloon at 8 batsheva, 75%-->0%, no dissection. Additional short stent placed due to retrograde plaque shifting per cardiac cath 01/11/20 Atherosclerosis of coronary artery (Chronic) Stented coronary artery (Chronic) Hyperlipidemia (Chronic) Hypertension (Chronic) Macroglobulinemia of [place] (Chronic) well controlled periodic IgG infusions Hodgkins lymphoma (Chronic) Status post coronary artery bypass graft (Chronic) Status post aortic valve replacement with bioprosthetic valve (Chronic) Type 2 diabetes mellitus (Chronic) Tinea unguium (Chronic) Diabetes mellitus with neuropathy (Chronic) Poor hygiene (Chronic) Nonfamilial hypogammaglobulinemia (Chronic) Hospital Course and Treatment Summary of Care Provided: This patient was seen in conjunction with Kanchan New NP. I have independently interviewed and examined the patient and reviewed pertinent historical, laboratory, and other data. Please refer to her note for patient's presentation, findings, and recommendations. 59-year-old male with multiple comorbidities who was admitted with chest pain and found to have elevated troponin which peaked at 8.5. Cardiology was consulted, patient underwent left heart catheterization 05/01/20. He was found to have progression of SVG graft disease to the RCA. He underwent PCI with JOSE G to proximal and distal SVG to right PDA. Patient was also treated for pneumonia with IV ceftriaxone and Azithromycin and discharged on Augmentin. He was also discharged on aspirin and Plavix. 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 On the day of discharge, patient was seen and examined. No acute events overnight. Physical Exam: Gen: Comfortable, not pale, not jaundiced, alert oriented x3 CVS:HS I +II, regular, no murmurs RESP: CTA GI: BS present and normal, nontender, no palpable organs EXT:Trace bilateral pedal edema - Physical Exam Vitals/I&O's: Vital Signs Temp Pulse Resp BP Pulse Ox 97.5 F L 90 18 135/79 H 100 05/02/20 09:14 05/02/20 09:17 05/02/20 09:14 05/02/20 09:17 05/02/20 09:14 Oxygen Flow Rate (L/min) 3 Oxygen Delivery Method Room Air Weight: 95.1 kg Body Mass Index (BMI) 27.6 Intake and Output for Last 24 Hours 04/30/20 05/01/20 05/02/20 23:59 23:59 23:59 Intake Total 1599.25 / 1599.25 1290.50 / 1290.50 400 / 400 Output Total 300 / 300 Balance 1599.25 / 1599.25 990.50 / 990.50 400 / 400 Laboratory Results 05/01/20 16:46: POC Glucose 276 H 05/01/20 21:22: POC Glucose 214 H 05/02/20 06:29: POC Glucose 168 H 05/02/20 10:52: POC Glucose 285 H 05/02/20 13:05: WBC 4.7, RBC 4.48 L, Hgb 10.2 L, Hct 35.2 L, MCV 78.6 L, MCH 22.8 L, MCHC 29.0 L, RDW Std Deviation 51.3 H, RDW Coeff of Joel 18.1 H, Plt Count 151, MPV 11.1 05/02/20 13:05: Sodium 137, Potassium 5.4 H, Chloride 105, Carbon Dioxide 28.0, Anion Gap 4 L, BUN 19 H, Creatinine 1.17, Estim Creat Clear Calc 76.83, Est GFR (MDRD) Af Amer 82, Est GFR (MDRD) Non-Af 68, BUN/Creatinine Ratio 16.2, Glucose 350 H, Calcium 8.9, Total Bilirubin 0.50, AST 38 H, ALT 33, Alkaline Phosphatase 134 H, Total Protein 7.0, Albumin 3.5, Globulin 3.5, Albumin/Globulin Ratio 1.0 Inpatient E&M: [id number] Disch Hosp
--- NOTE | 2020-05-02 11:40 | PHA.DC.MC ---
Pharmacy Service has performed discharge medication reconciliation and counseling for this patient. The patient was counseled on the following discharge medications and changes in medications for homegoing were reviewed. 1. AUGMENTIN The Reason for Use, instructions for use, and potential side effects were reviewed for all new medications. The patient's questions regarding all of their medications were answered. The patient demonstrated some understanding but would benefit from further education and reinforcement. Home Medications Metoprolol Tartrate [Lopressor (beta yoselin)] 50 mg PO BID 01/27/15 Nitroglycerin (INPATIENT USE) [Nitrostat] 0.4 mg SUBLINGUAL Q5M PRN 12/18/16 Glipizide [Glipizide ER] 10 mg PO BID 02/03/18 Aspirin [Aspirin, Baby] 81 mg PO DAILY@0800 #30 tab.chew 02/05/18 Atorvastatin Calcium [Lipitor] 80 mg PO QHS #30 tab 02/05/18 Lisinopril [Zestril] 20 mg PO BID #60 tab 02/05/18 Sitagliptin Phosphate [Januvia] 100 mg PO DAILY 01/10/20 metFORMIN HCl [Glucophage] 1,000 mg PO BIDCM #60 tab 01/15/20 clopidogrel 75 mg tablet 75 mg PO DAILY #30 tab 02/03/20 isosorbide mononitrate 120 mg tablet,extended release 24 hr 120 mg PO DAILY #30 tab 02/03/20 ranolazine 1,000 mg tablet,extended release,12 hr 1,000 mg PO BID #60 tab 04/25/20 Omeprazole 20 mg PO DAILY 04/28/20 Amox/Clavulanate Tablet [Augmentin Tablet] 875 mg PO Q12H #6 tab 05/02/20 The patient's discharge medication list was reviewed for discrepancies and discrepancies were resolved.
[2020-05-02 13:10] LABS: Hematocrit 35.2 % (40-54); Hemoglobin 10.2 g/dL (13.0-16.5); Mean Corpuscular Hgb 22.8 pg (27.0-32.0); Mean Corpuscular Volume 78.6 fL (80-94); Mean Platelet Vol. 11.1 fl (6.2-12.0); Platelet Count 151 K/mm3 (150-450); RBC Distribution Width CV 18.1 % (11.6-14.6); RBC Distribution Width SD 51.3 fl (35.1-43.9); Red Blood Count 4.48 M/mm3 (4.6-6.2); White Blood Count 4.7 K/mm3 (4.4-11.0)
[2020-05-02 13:43] LABS: AST(SGOT) 38 U/L (15-37); Alanine Aminotransfer ALT/SGPT 33 U/L (16-61); Albumin, Serum 3.5 g/dL (3.2-5.0); Alkaline Phosphatase 134 U/L (45-117); Anion Gap 4 (5-15); BUN 19 mg/dL (7-18); BUN/Creat Ratio 16.2 RATIO (10-20); Calcium,Total 8.9 mg/dL (8.5-10.1); Chloride 105 mmol/L (98-107); Creatinine, Serum 1.17 mg/dL (0.70-1.30); EST Glomerular Filtration Rate 68 mL/min (>60); Est Glom Filt Rate - Afr Amer 82 mL/min (>60); Estimated Creatinine Clearance 76.83 ml/min; Globulin 3.5 g/dL (2.2-4.2); Glucose 350 mg/dL (74-106); Potassium 5.4 mmol/L (3.5-5.1); Sodium Level 137 mmol/L (136-145)
--- NOTE | 2020-05-03 15:50 | CASEMGMT ---
MARYLOU MEREDITH Discharge F/U Phone Call LACIvana: 13 Strata: 3 Discharge date: 05/02/2020 Call date: 05/03/2020 Call time: [phone] Admission dx: Chest pain, pna Pt states doing 'alright, just tired' since discharge. Pt states he just got up and someone will be driving him to picking machine operator his car here and get his antibx. Pt aware to get antibx javier and take dose tonight then again in morning then tomorrow night, voices understanding. Pt states no further questions/concerns at this time. Pt states will set up appt with PCP tomorrow. Pt states no suggestions for [facility] at this time. Pt voices no further questions/concerns/needs at this time. [place] MARYLOU MEREDITH
== END 2020-05-02 14:18 | disposition home or self-care (01) | DRG 246 ==
LOC: ED 20:11 → PCU 22:13
PROVIDERS: Internal Medicine; Internal Medicine Cardiovascular Disease; Nurse Practitioner Family; Specialist; Admitting Provider Family Medicine; Emergency Provider Emergency Medicine; PCP Family Medicine; Referring Provider Family Medicine; Visit Provider Internal Medicine
DX: I21.4 Non-ST elevation (NSTEMI) myocardial infarction (principal); I25.700 Atherosclerosis of coronary artery bypass graft(s), unspecified, with unstable angina pectoris; I25.110 Atherosclerotic heart disease of native coronary artery with unstable angina pectoris; J18.9 Pneumonia, unspecified organism; D80.1 Nonfamilial hypogammaglobulinemia; C88.0 Waldenstrom macroglobulinemia; I48.0 Paroxysmal atrial fibrillation; I35.9 Nonrheumatic aortic valve disorder, unspecified; E11.40 Type 2 diabetes mellitus with diabetic neuropathy, unspecified; I10 Essential (primary) hypertension; E78.2 Mixed hyperlipidemia; K21.9 Gastro-esophageal reflux disease without esophagitis; Z79.4 Long term (current) use of insulin; Z79.82 Long term (current) use of aspirin; Z79.02 Long term (current) use of antithrombotics/antiplatelets; Z79.899 Other long term (current) drug therapy; I25.2 Old myocardial infarction; Z95.5 Presence of coronary angioplasty implant and graft; Z95.1 Presence of aortocoronary bypass graft; Z95.3 Presence of xenogenic heart valve; Z92.21 Personal history of antineoplastic chemotherapy
CPT/HCPCS: 36415; 71045; 71275; 80048; 80053; 82728; 82962; 83540; 83550; 83735; 84484; 85025; 85027; 85347; 85379; 85610; 87426; 87449; 87633; 92937; 93005; 93306; 93455; 93458; 99152; 99153; 99251; 99285; J7030; J7050; Q9957; Q9967; A4216; C1769; C1874; C1887; C9604; G0463; J0696